=== PATIENT | female | born 1945 | race Caucasian/White ===

== ENCOUNTER 2021-05-07 13:43 | Outpatient (REF) | payer MEDICARE, OTHER, SELFPAY ==
[2021-05-09 10:57] LABS: COVID-19 RT-PCR UVMMC Result Negative (Negative)
== END 2021-05-07 13:44 | disposition home or self-care (01) ==
LOC: NCHCN 13:43
PROVIDERS: Visit Provider Physician Assistant Medical
DX: R30.0 Dysuria (principal); R05 Cough; Z20.822 Contact with and (suspected) exposure to COVID-19
CPT/HCPCS: U0003; 87086

== ENCOUNTER 2021-05-11 14:06 | Outpatient (REF) | payer MEDICARE, OTHER, SELFPAY | END 2021-05-11 14:07 | disposition home or self-care (01) | LOC: LBN 14:06 | PROVIDERS: Visit Provider Nurse Practitioner Family | DX: R30.0 Dysuria (principal) | CPT/HCPCS: 87086 ==

== ENCOUNTER 2021-06-25 15:22 | Outpatient (REF) | payer MEDICARE, OTHER, SELFPAY ==
[2021-06-25 19:32] LABS: Bilirubin Negative (Negative); Blood Moderate (Negative); Clarity Cloudy (Clear); Glucose Negative (Negative); Ketones Negative (Negative); Leukocyte Esterase Large (Negative); Nitrite Negative (Negative); Urobilinogen 0.2 EU/dL (Up TO 0.2); pH 6.5 (5-8)
[2021-06-25 19:57] LABS: Bacteria Many HPF (Negative); C & S Indicated? Yes; Casts Negative LPF (Negative); Crystals Negative HPF (Negative); Epithelial Cells Negative HPF (Negative); Mucus Negative (Negative); RBC >50 HPF (0-2); WBC >50 HPF (0-5)
== END 2021-06-25 15:23 | disposition home or self-care (01) ==
LOC: LBN 15:22
PROVIDERS: Visit Provider Nurse Practitioner
DX: R30.0 Dysuria (principal)
CPT/HCPCS: 81003; 81015; 87086

== ENCOUNTER 2021-06-30 18:26 | Outpatient (REF) | payer MEDICARE, OTHER, SELFPAY ==
[2021-06-30 19:28] LABS: Bilirubin Negative (Negative); Blood Small (Negative); Clarity Cloudy (Clear); Glucose Negative (Negative); Ketones Negative (Negative); Leukocyte Esterase Large (Negative); Nitrite Negative (Negative); Specific Gravity >= 1.030 (1.005-1.025); Urobilinogen 0.2 EU/dL (Up TO 0.2)
[2021-06-30 20:18] LABS: C & S Indicated? Yes; WBC >50 HPF (0-5)
[2021-07-02 11:56] LABS: COVID-19 RT-PCR UVMMC Result Negative (Negative)
== END 2021-06-30 18:27 | disposition home or self-care (01) ==
LOC: LBN 18:26
PROVIDERS: Visit Provider Nurse Practitioner Family
DX: N39.0 Urinary tract infection, site not specified (principal); Z20.822 Contact with and (suspected) exposure to COVID-19; J02.9 Acute pharyngitis, unspecified
CPT/HCPCS: 87077; U0003; U0005; 81003; 81015; 87086; 87186

== ENCOUNTER 2021-07-03 16:47 | Inpatient (IN) | payer MEDICARE, OTHER, SELFPAY ==
[2021-07-03] VITALS (32 sets, daily range): BP systolic 85–110; BP diastolic 33–63; PULSE 72–91; RESP 15–34; TEMP 37.2–37.6; O2SAT 93–96
--- NOTE | 2021-07-03 17:00 | RT.EKG_ITS ---
APPROVED REPORT Exam: Resting ECG Reason for Exam: SOB Patient Location: E HR:86 bpm ECG Measurements Heart Rate 86 AXIS MO 149 P 31 QRSd 99 QRS -48 QT 369 T 52 QTc 441 Conclusion Sinus rhythm...normal P axis, V-rate 60- 99 Probable left atrial enlargement...P >50mS, <-0.10mV V1 Left anterior fascicular block...axis(240,-40), init forces inf
--- NOTE | 2021-07-03 17:15 | DI.RAD_ITS ---
Exam(s) XR PORTABLE CHEST AP EXAM: XR PORTABLE CHEST AP CLINICAL HISTORY: cough TECHNIQUE: 2D digital imaging was performed. COMPARISON: CR ABD FLAT UPRIGHT PA CHEST from 04/24/2011 FINDINGS: LUNGS: No focal consolidation. Increased interstitial markings, chronic vs mild pulmonary edema. No pleural abnormality seen. HEART: Normal. MEDIASTINUM: Normal. BONES: Unremarkable. IMPRESSION: Increased interstitial markings, chronic vs. Mild pulmonary edema. DATA REPOSITORY: RADIATION DOSE DELIVERED:
[2021-07-03 17:41] LABS: HCT 40.1 % (36.0-46.0); HGB 12.7 g/dL (11.2-15.7); MCH 30.3 pg (27.0-33.0); MCHC 31.7 % (32.0-36.0); MCV 95.7 fL (80-95); MPV 10.2 fL (8.0-11.0); Nucleated RBC 0 %; Platelet Count 365 10^3/uL (130-400); RBC 4.19 10^6/uL (3.93-5.22); RDW 12.9 % (11.7-14.6); RDW-SD 45.4 fL; WBC 23.06 10^3/uL (4.4-10.8)
[2021-07-03 17:47] LABS: Source Nasal/Nares
--- NOTE | 2021-07-03 17:56 | W.ED.GENAD ---
Discharge Plan Disposition Patient Disposition: [facility] INPATIENT Condition: Serious Discharge Details Clinical Impression: Sepsis due to pneumonia Admit Date/Time: 07/03/21 19:13 Admit Provider: Soto Reyez Attending Provider: Soto Reyez Primary Care Provider: Va Nevarez ED Provider: Александр Elise Discharge Data Discharge Date/Time-TO BE ENTERED AT DEPARTURE: 07/03/21 20:03 Medical Decision Making This is a 75-year-old female presenting for fever at home, fatigue, malaise, shortness of breath, cough, who has been evaluated at urgent care, was negative for Covid, on both Macrobid and Keflex, not responding. Clinically she appears dry, initial blood pressure 110/52. She is mentating without difficulty. Is afebrile, O2 sats are 95% on room air. Examination most likely consistent with infectious process. Will initiate a septic work-up, give IV fluid, blood cultures, procalcitonin, lactate, etc. Will obtain Covid as well Repeat blood pressure of 96/35, establish a second IV. Ordered a second liter of IV fluid. Patient continues to mentate without difficulty. Laboratory values reveal leukocytosis, elevated lactate, negative for Covid Chest x-ray read by virtual radiology as prominence of the pulmonary interstitium which may be chronic versus pulmonary vascular congestion. Patient is a PUI, a single view chest x-ray was obtained. I did review the x-ray with Dr. Greenberg, question if there could be a retrocardiac infiltrate. Examination is not consistent with CHF. Given her age, multiple comorbidities, presentation, leukocytosis, elevated lactate, hypotension, questionable chest x-ray, I will discuss admission with our hospitalist team. Repeat blood pressure 96/42, patient continues to mentate without difficulty. No clear indication for pressors at the moment but will monitor carefully Case discussed with Dr. Reyez who is agreeable to admission, he will write orders Medical Records Medical records reviewed: Yes I reviewed the patient's medical records. Imaging Data Radiologic Study: Attestation: I personally reviewed and interpreted this imaging study as follows: Imaging: X-Ray Radiologist's impression: PROCEDURE INFORMATION: Exam: XR Chest Exam date and time: 07/03/2021 5:32 PM Age: 75 years old Clinical indication: Other: Cough TECHNIQUE: Imaging protocol: XR of the chest. Views: 1 view. COMPARISON: No relevant prior studies available. FINDINGS: Lungs: There is prominence of the pulmonary interstitium. Pleural spaces: Unremarkable. No pleural effusion. No pneumothorax. Heart/Mediastinum: Unremarkable cardiomediastinal silhouette. No cardiomegaly. Bones/joints: There has been cervical spine fusion. There is shortening of the right clavicle which may be postsurgical. IMPRESSION: Prominence of the pulmonary interstitium which may be chronic versus pulmonary vascular congestion. Thank you for allowing us to participate in the care of your patient. Lab Data Lab results reviewed: Yes I reviewed the patient's lab results. Labs: 07/03/21 19:00 Blood Blood Culture - Pending 07/03/21 17:52 Blood Blood Culture - Pending Laboratory Tests Range/Units 07/03/21 07/03/21 07/03/21 17:10 17:10 17:10 WBC (4.4-10.8) 10^3/uL RBC (3.93-5.22) 10^6/uL Hgb (11.2-15.7) g/dL Hct (36.0-46.0) % MCV (80-95) fL MCH (27.0-33.0) pg MCHC (32.0-36.0) % RDW (11.7-14.6) % Plt Count (130-400) 10^3/uL MPV (8.0-11.0) fL Immature Gran % Neutrophils % Band Neutrophils % Lymphocytes % Monocytes % Eosinophils % Basophils % Nucleated RBC % % Absolute Neutrophils (1.2-6.7) 10^3/uL Absolute Lymphocytes (1.2-3.4) 10^3/uL Absolute Monocytes (0.1-0.8) 10^3/uL Absolute Eosinophils (0.0-0.7) 10^3/uL Absolute Basophils (0.0-0.2) 10^3/uL RBC Morphology VBG Lactate (0.6-1.4) mmol/L 2.8 H* Sodium (136-145) mmol/L 138 Potassium (3.5-5.1) mmol/L 3.9 Chloride (98-107) mmol/L 102 Carbon Dioxide (21.0-32.0) mmol/L 24.4 Anion Gap (3-11) mmol/L 11.6 H BUN (7-18) mg/dL 18 Creatinine (0.55-1.02) mg/dL 1.6 H Estimated GFR/1.73 m2 (mL/min/1.73m2) 31.51 Glucose (74-106) mg/dL 148 H Calcium (8.5-10.1) mg/dL 9.1 Magnesium (1.8-2.4) mg/dL 1.6 L Total Bilirubin (0.2-1.0) mg/dL 0.4 AST (15-37) U/L 15 ALT (14-59) U/L 18 Alkaline Phosphatase (46-116) U/L 116 Troponin I (<0.06) ng/mL < 0.05 Total Protein (6.4-8.2) g/dL 7.7 Albumin (3.4-5.0) g/dL 2.9 L Procalcitonin ng/mL 15.4 COVID-19 Source SARS-CoV-2 (PCR) (Negative) Range/Units 07/03/21 07/03/21 17:10 17:45 WBC (4.4-10.8) 10^3/uL 23.06 H RBC (3.93-5.22) 10^6/uL 4.19 Hgb (11.2-15.7) g/dL 12.7 Hct (36.0-46.0) % 40.1 MCV (80-95) fL 95.7 H MCH (27.0-33.0) pg 30.3 MCHC (32.0-36.0) % 31.7 L RDW (11.7-14.6) % 12.9 Plt Count (130-400) 10^3/uL 365 MPV (8.0-11.0) fL 10.2 Immature Gran % See Differential Neutrophils % 87.0 Band Neutrophils % 9 Lymphocytes % 3.0 Monocytes % 1.0 Eosinophils % 0.0 Basophils % 0.0 Nucleated RBC % % 0 Absolute Neutrophils (1.2-6.7) 10^3/uL 22.14 H Absolute Lymphocytes (1.2-3.4) 10^3/uL 0.69 L Absolute Monocytes (0.1-0.8) 10^3/uL 0.23 Absolute Eosinophils (0.0-0.7) 10^3/uL 0.00 Absolute Basophils (0.0-0.2) 10^3/uL 0.00 RBC Morphology Normal VBG Lactate (0.6-1.4) mmol/L Sodium (136-145) mmol/L Potassium (3.5-5.1) mmol/L Chloride (98-107) mmol/L Carbon Dioxide (21.0-32.0) mmol/L Anion Gap (3-11) mmol/L BUN (7-18) mg/dL Creatinine (0.55-1.02) mg/dL Estimated GFR/1.73 m2 (mL/min/1.73m2) Glucose (74-106) mg/dL Calcium (8.5-10.1) mg/dL Magnesium (1.8-2.4) mg/dL Total Bilirubin (0.2-1.0) mg/dL AST (15-37) U/L ALT (14-59) U/L Alkaline Phosphatase (46-116) U/L Troponin I (<0.06) ng/mL Total Protein (6.4-8.2) g/dL Albumin (3.4-5.0) g/dL Procalcitonin ng/mL COVID-19 Source Nasal/Nares SARS-CoV-2 (PCR) (Negative) Negative ECG Data Attestation: I personally reviewed and interpreted this ECG (s) as follows: Interpretation: Please see official report by Dr. Greenberg. Sinus rhythm, ventricular rate of 86. No STEMI. HPI General Mode of arrival: ambulatory. Date/Time Provider Initiated Documentation: 07/03/21 17:12. Limitations to Documentation: no limitations. Information obtained by: patient. HPI Narrative: This is a 75-year-old female, past medical history of anxiety, depression, GERD, thyroid disease, hyperlipidemia, presenting to the ER from urgent care for shortness of breath, productive cough, general malaise, for 1 week. Patient has been seen at the urgent care 3 times, initially placed on Macrobid for UTI, then switched to Keflex, then developed thrush and started a lozenge. Subjective fever at home throughout the week. Denies headache, neck pain, chest pain, abdominal pain, nausea, vomiting, dysuria. Patient reports 1 episode of diarrhea yesterday. Patient has been fully vaccinated for Covid. Patient is taking her medications as directed without any relief. She denies recent illness or travel. She denies any pain or swelling in her calf Related Data Home Medications Medication Instructions Recorded Confirmed albuterol sulfate 90 mcg/actuation 2 puff INHALATION Q6H PRN #8.5 g 06/25/21 07/03/21 aerosol inhaler bupropion HCl 100 mg tablet 100 mg PO BID 06/25/21 07/03/21 cholecalciferol (vitamin D3) 125 125 mcg PO DAILY 06/25/21 07/03/21 mcg (5,000 unit) capsule cyanocobalamin (vitamin B-12) 5,000 mcg PO DAILY 06/25/21 07/03/21 5,000 mcg capsule duloxetine 60 mg capsule,delayed 60 mg PO DAILY 06/25/21 07/03/21 release famotidine 20 mg tablet 20 mg PO DAILY 06/25/21 07/03/21 gabapentin 300 mg capsule 600 mg PO BID cap 06/25/21 07/03/21 krill oil 500 mg capsule 500 mg PO DAILY cap 06/25/21 07/03/21 levothyroxine 88 mcg tablet 88 mcg PO DAILY 06/25/21 07/03/21 rosuvastatin 10 mg tablet 10 mg PO DAILY 06/25/21 07/03/21 tizanidine 2 mg capsule 2 mg PO QHS 06/25/21 07/03/21 cephalexin 500 mg capsule 500 mg PO BID #14 cap 06/30/21 07/03/21 clotrimazole 10 mg akua 10 mg MUCOUS MEMBRANE TID 10 Days 06/30/21 07/03/21 #30 tab Previous Rx's Medication Instructions Recorded albuterol sulfate 90 mcg/actuation 2 puff INHALATION Q6H PRN #8.5 g 06/25/21 aerosol inhaler cephalexin 500 mg capsule 500 mg PO BID #14 cap 06/30/21 clotrimazole 10 mg akua 10 mg MUCOUS MEMBRANE TID 10 Days 06/30/21 #30 tab Allergies Allergy/AdvReac Type Severity Reaction Status Date / Time Sulfa (Sulfonamide Allergy Verified 07/03/21 17:06 Antibiotics) General Stated Complaint: SOB FELIX: 2 Review of Systems Constitutional Constitutional: Reports fatigue, Reports fever(s) and Denies headache(s) ENT Ears, Nose, Mouth, and Throat: Denies headache(s) and Denies neck pain Cardiovascular Cardiovascular: Denies chest pain and Reports dyspnea Respiratory Respiratory: Reports cough and Reports dyspnea Gastrointestinal Gastrointestinal: Denies abdominal pain, Reports diarrhea, Denies nausea and Denies vomiting Genitourinary Genitourinary: Denies dysuria Musculoskeletal Musculoskeletal: Reports myalgias and Denies neck pain Integumentary/Breasts Skin/Breast: Denies rash Neurologic Neurologic: Denies headache(s) and Reports weakness (Generalized) Endocrine Endocrine: Reports fatigue PFSH Family History Mother , 83 Colon cancer Depression Hyperlipidemia Hypertension Father , 68 Alcohol abuse Hypertension Substance abuse Brother , 77 FH: prostate cancer Daughter No problems noted. Daughter Depression Maternal Grandfather , 62 Prostate cancer Paternal Grandfather , 81 No problems noted. Maternal Grandmother , 77 Heart disease Paternal Grandmother , 59 Hypertension Social History Smoking/Tobacco Use Status: Former Tobacco Use tobacco type: cigarettes Quit Date: 10/31/81 Tobacco: How many years used: 20 Second Hand Exposure: Yes Smoking risk assessment performed?: Yes Alcohol Intake: current Alcohol Intake frequency: a few times a month Alcohol type: beer, wine and hard liquor Drug use: Never Substance use type: does not use Household members: spouse and family Housing: apartment Communication Needs: None Do you need help understanding health information?: Always Pets and animals: Yes Pets and animals: cat(s) and dog(s) Sexually active: Yes Do you think of yourself as: straight/heterosexual Current gender identity: female What is your relationship status?: How often do you talk on the phone with friends or family?: twice per week How often do you get together with friends or relatives?: twice per week How often do you attend episcopalian or sabianist services?: decline to answer Do you belong to any clubs or organized social groups?: no Panel score (0-1 are the most socially isolated patients): 2 Dee Dee/Nondenominational: Buddhist Special dee dee needs: No Seatbelt use: always Drive intox or ride w/intox vibratory pile driver: No Do you feel safe at home: Yes Do you feel safe in your relationship?: Yes Exam Const General: cooperative and in distress mild Orientation: alert, awake and oriented x3 HENMT Head: normal to inspection, normocephalic and atraumatic Mouth: moist mucous membranes abnormal (dry) Throat: posterior oropharynx normal Eyes General: appearance normal, both eyes and all related structures Conjunctivae: conjunctivae normal Neck Neck: normal visual inspection, full ROM, no lymphadenopathy, no meningeal signs, trachea midline and supple Resp Effort & Inspection: normal respiratory effort and able to speak in complete sentences Auscultation: diminished lung sounds bilaterally in the lower lung hernandez and rhonchi lower bilaterally (Few, scattered) Cardio Rate: regular rate Rhythm: regular rhythm GI Inspection: normal to inspection Palpation: soft and nontender Auscultation: normal bowel sounds Back/Spine/Pelvis Back: no CVA tenderness and No back tenderness Skin General skin exam: no rashes or lesions noted Neuro General: patient alert, patient awake, moves all extremities and no focal motor deficits Cognition: normal cognition Speech: speech normal Motor: muscle tone normal throughout Sensory Exam: no sensory deficits noted Extrem General: normal to inspection, full ROM, capillary refill normal, no pedal edema and no calf tenderness Psych Appearance: grossly normal Mental Status: mental status grossly normal Course Vital Signs Vital signs: Vital Signs Temperature 37.2 C 07/03/21 16:59 Pulse 90 07/03/21 16:59 Respiratory Rate 22 07/03/21 16:59 Blood Pressure 110/52 L 07/03/21 16:59 Pulse Oximetry 95 07/03/21 16:59 Temperature 37.2 C 07/03/21 16:59 Temperature Source Temporal Artery Scan 07/03/21 16:59 Pulse 89 07/03/21 17:15 Pulse 87 07/03/21 17:20 Respiratory Rate 19 07/03/21 17:20 Respiratory Effort 07/03/21 17:10 Blood Pressure 102/56 L 07/03/21 17:15 Blood Pressure Mean 67 07/03/21 17:15 Blood Pressure Position Sitting 07/03/21 16:59 Pulse Oximetry 95 07/03/21 17:20 Oxygen Delivery Method Room Air 07/03/21 16:59 Oxygen Flow Rate 0 07/03/21 16:59 Pain Level 7 07/03/21 16:59 Lab/Test Results Lab/Test Results: 07/03/21 17:29 Blood Blood Culture - Pending 09/03/21 17:29 Blood Blood Culture - Pending Laboratory Tests Range/Units 07/03/21 07/03/21 17:10 17:45 WBC (4.4-10.8) 10^3/uL 23.06 H RBC (3.93-5.22) 10^6/uL 4.19 Hgb (11.2-15.7) g/dL 12.7 Hct (36.0-46.0) % 40.1 MCV (80-95) fL 95.7 H MCH (27.0-33.0) pg 30.3 MCHC (32.0-36.0) % 31.7 L RDW (11.7-14.6) % 12.9 Plt Count (130-400) 10^3/uL 365 MPV (8.0-11.0) fL 10.2 COVID-19 Source Nasal/Nares Critical Care Time Critical Care Time Critical Care Time: Yes Total Critical Care Time: 35 Attestation: Upon my evaluation, this patient had a high probability of clinically significant, life-threatening deterioration due to their current medical conditions, which required my direct attention, intervention, and personal management. I have personally provided greater than 30 minutes of critical care time exclusive of the time spend on separately billable procedures. Time includes obtaining a history, examining the patient, pulse oximetry, review of laboratory data, radiology results, discussion with consultants, arranging urgent treatment with development of a management plan, evaluation of patient's response to treatment, and monitoring for potential decompensation. Interventions were performed as documented above.
[2021-07-03] MEDS: Normal Saline 1,000 ML 1000 ML IV ×2 (18:00→19:05)
[2021-07-03 18:01] LABS: ALT 18 U/L (14-59); AST 15 U/L (15-37); Albumin 2.9 g/dL (3.4-5.0); Alkaline Phosphatase 116 U/L (46-116); Anion Gap 11.6 mmol/L (3-11); BUN 18 mg/dL (7-18); Bilirubin, Total 0.4 mg/dL (0.2-1.0); CO2 24.4 mmol/L (21.0-32.0); CREATININE 1.6 mg/dL (0.55-1.02); Calcium 9.1 mg/dL (8.5-10.1); Chloride 102 mmol/L (98-107); Estimated GFR 31.51 (mL/min/1.73m2); Glucose 148 mg/dL (74-106); Potassium 3.9 mmol/L (3.5-5.1); Sodium 138 mmol/L (136-145); Total Protein 7.7 g/dL (6.4-8.2)
[2021-07-03 18:04] LABS: Troponin I < 0.05 ng/mL (<0.06)
[2021-07-03 18:09] LABS: Magnesium 1.6 mg/dL (1.8-2.4)
[2021-07-03 18:16] LABS: Lactate 2.8 mmol/L (0.6-1.4)
[2021-07-03 18:23] LABS: Absolute Lymphocyte Count 0.69 10^3/uL (1.2-3.4); Absolute Monocyte Count 0.23 10^3/uL (0.1-0.8); Absolute Neutrophil Count 22.14 10^3/uL (1.2-6.7); Bands % 9
[2021-07-03 18:24] LABS: Diff Comment Manual Differential; RBC Morphology Normal
[2021-07-03] MEDS: MAGNESIUM SULFATE 1 GM/100 ML BAG IVPB (18:33)
[2021-07-03] MEDS: cefTRIAXone 1 GM/50 ML BAG IVPB (18:33)
[2021-07-03 18:42] LABS: Procalcitonin 15.4 ng/mL
[2021-07-03 18:47] LABS: COVID-19 PCR Negative (Negative)
--- NOTE | 2021-07-03 18:50 | DI.VRAD_ITS ---
PROCEDURE INFORMATION: Exam: XR Chest Exam date and time: 07/03/2021 5:32 PM Age: 75 years old Clinical indication: Other: Cough TECHNIQUE: Imaging protocol: XR of the chest. Views: 1 view. COMPARISON: No relevant prior studies available. FINDINGS: Lungs: There is prominence of the pulmonary interstitium. Pleural spaces: Unremarkable. No pleural effusion. No pneumothorax. Heart/Mediastinum: Unremarkable cardiomediastinal silhouette. No cardiomegaly. Bones/joints: There has been cervical spine fusion. There is shortening of the right clavicle which may be postsurgical. IMPRESSION: Prominence of the pulmonary interstitium which may be chronic versus pulmonary vascular congestion. Dictated and Authenticated by: Soto Roldan MD. Ordering:BOBBY Fountain MD
[2021-07-03] MEDS: AZITHROMYCIN 500 MG in Normal Saline 250 ML 250 MG IVPB (19:15)
--- NOTE | 2021-07-03 19:19 | HPE_ITS ---
Date of service: 07/03/21 Time of Service: 19:19 Assessment and Plan Assessment and plan (1) Sepsis syndrome: Start date: 07/03/21 Status: Acute Assessment and plan: This is a 75-year-old lady admitted to the ED for probable pneumonia as cause of her persistent symptoms of acute infection over the last week failing outpatient therapy. She had sepsis syndrome with fever, hypotension though she was not tachycardic and positive inflammatory test. The patient states that she feels better after IV hydration but continues with a dry cough with paroxysms. She will continue on IV hydration decreasing as patient advances diet and oral hydration. She will continue IV antibiotic therapy for probable pneumonia. She does have thrush and this will be treated with nystatin suspension swish and swallow rather than the clotrimazole troches which she finds distasteful. Overall she is appearing to respond to therapy. She is a full code. (2) Pneumonia: Start date: 07/03/21 Status: Acute Assessment and plan: Patient will continue on IV Rocephin and Zithromax with follow-up imaging as indicated. Consider echocardiogram when available with patient's chest x-ray revealing possible congestion though she is tolerating IV fluids presently. Patient will be given Tessalon Perles for coughing paroxysms. Qualifiers: Laterality: unspecified laterality Lung location: unspecified part of lung Pneumonia type: due to unspecified organism Qualified Code(s): J18.9 - Pneumonia, unspecified organism (3) Thrush: Start date: 07/03/21 Status: Acute Assessment and plan: Switch to nystatin swish and swallow. (4) COPD (chronic obstructive pulmonary disease): Status: Chronic Assessment and plan: Patient's history is unclear as to whether she has chronic rescue inhaler therapy but she has been prescribed this at least recently with bronchospasm associated with her acute respiratory infection. Clarification of history with be appropriate. Qualifiers: COPD type: chronic bronchitis Chronic bronchitis type: unspecified Qualified Code(s): J42 - Unspecified chronic bronchitis History of Present Illness History of Present Illness Chief Complaint: Dyspnea with cough and malaise Narrative: This is a 75-year-old female with previous history of depression with anxiety, GERD, acquired hypothyroidism and hyperlipidemia with possibility of previous COPD on rescue inhaler though this is been more of a recent problem according to patient. She presented to the ED after having been seen at the urgent care 3 times over the last week with fever, slightly productive but mostly dry cough and generalized malaise. She tested negative for Covid twice. She has been vaccinated. Evaluation in the ED did reveal a clean urinalysis w ith the patient being thought to have a UTI initially and placed on Macrobid and then switched to Keflex. She also was having thrush and on clotrimazole troches which she did not necessarily like because of the length of time they were set in her mouth. She continues to have a sore mouth which is worse when she does produce sputum. She has had no headache, neck pain or chest pain and has no GI complaints or complaints presently. She did state that she had one episode of loose stools the day prior to admission most likely secondary to recent antibiotic administration. Patient has had no recent illness or travel. She has had no peripheral edema or weight gain. She is obese. After administration of IV Rocephin and Zithromax in the ED with a question of pneumonia on chest x-ray though there were no focal consolidations with patient at least having persistent bronchitis, the patient was admitted for continued IV antibiotics therapy for failed outpatient therapy of her respiratory illness. She did have mild sepsis syndrome with low blood pressure along with her fever and elevated WBC with elevated lactate and procalcitonin. She was placed on IV hydration and this will be modified watching for fluid overload as the patient advances her diet. Follow-up labs in the morning. She is a full code. Review of Systems Narrative: 13 point review of systems otherwise unrevealing or stable. Patient is overweight. She denies chronic bronchospasm though she has a history of COPD and use of inhaler as needed [facility] Medical History COPD (chronic obstructive pulmonary disease) Depression with anxiety GERD (gastroesophageal reflux disease) Hyperlipidemia Hypothyroidism (acquired) Surgical History History of tonsillectomy and adenoidectomy History of total hip arthroplasty Left S/P ORIF (open reduction internal fixation) fracture Left femur shaft S/P total knee arthroplasty Left Status post appendectomy Family History Mother , 83 Colon cancer Depression Hyperlipidemia Hypertension Father , 68 Alcohol abuse Hypertension Substance abuse Brother , 77 FH: prostate cancer Daughter No problems noted. Daughter Depression Maternal Grandfather , 62 Prostate cancer Paternal Grandfather , 81 No problems noted. Maternal Grandmother , 77 Heart disease Paternal Grandmother , 59 Hypertension Social History Smoking/Tobacco Use Status: Former Tobacco Use tobacco type: cigarettes Quit Date: 10/31/81 Tobacco: How many years used: 20 Second Hand Exposure: Yes Smoking risk assessment performed?: Yes Alcohol Intake: current Alcohol Intake frequency: a few times a month Alcohol type: beer, wine and hard liquor Drug use: Never Substance use type: does not use Household members: spouse and family Housing: apartment Communication Needs: None Do you need help understanding health information?: Always Pets and animals: Yes Pets and animals: cat(s) and dog(s) Sexually active: Yes Do you think of yourself as: straight/heterosexual Current gender identity: female What is your relationship status?: How often do you talk on the phone with friends or family?: twice per week How often do you get together with friends or relatives?: twice per week How often do you attend jew or congregational services?: decline to answer Do you belong to any clubs or organized social groups?: no Panel score (0-1 are the most socially isolated patients): 2 Dee Dee/Restorationist: Orthodox Special dee dee needs: No Seatbelt use: always Drive intox or ride 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: No Do you feel safe at home: Yes Do you feel safe in your relationship?: Yes Meds Allergies and Home Medications Allergies Allergy/AdvReac Type Severity Reaction Status Date / Time Sulfa (Sulfonamide Allergy Verified 07/03/21 17:06 Antibiotics) Home Medications Medication Instructions Recorded Confirmed Type albuterol sulfate 90 mcg/actuation 2 puff INHALATION Q6H PRN #8.5 g 06/25/21 07/03/21 Rx aerosol inhaler bupropion HCl 100 mg tablet 100 mg PO BID 06/25/21 07/03/21 History cholecalciferol (vitamin D3) 125 125 mcg PO DAILY 06/25/21 07/03/21 History mcg (5,000 unit) capsule cyanocobalamin (vitamin B-12) 5,000 mcg PO DAILY 06/25/21 07/03/21 History 5,000 mcg capsule duloxetine 60 mg capsule,delayed 60 mg PO DAILY 06/25/21 07/03/21 History release famotidine 20 mg tablet 20 mg PO DAILY 06/25/21 07/03/21 History gabapentin 300 mg capsule 600 mg PO BID cap 06/25/21 07/03/21 History krill oil 500 mg capsule 500 mg PO DAILY cap 06/25/21 07/03/21 History levothyroxine 88 mcg tablet 88 mcg PO DAILY 06/25/21 07/03/21 History rosuvastatin 10 mg tablet 10 mg PO DAILY 06/25/21 07/03/21 History tizanidine 2 mg capsule 2 mg PO QHS 06/25/21 07/03/21 History cephalexin 500 mg capsule 500 mg PO BID #14 cap 06/30/21 07/03/21 Rx clotrimazole 10 mg akua 10 mg MUCOUS MEMBRANE TID 10 Days 06/30/21 07/03/21 Rx #30 tab Exam Narrative Exam Narrative: General: Patient appears older than stated age, moderate distress from dry cough, alert and oriented x3. HEENT: Normocephalic, thinning willoughby hair, face with coarsened features, eyes with pupils equal and reactive light symmetrically, extraocular movement intact and sclera anicteric. Oropharynx with dry mucosa and white mucosal lesions consistent with thrush. Neck: Supple without JVD. Back: Stooped posture without CVA tenderness. Lungs: Decreased aeration diffusely with increased expiratory phase especially with cough, diffuse coarse crackles and rhonchi with cough and sparse expiratory wheeze. No focalizing rales. No egophony or dullness to percussion. Breast: Exam deferred. Heart: Regular rate and rhythm with systolic ejection murmur left sternal border. No gallops or rubs. Abdomen: Obese contour, soft and nontender to palpation with no palpable hepatosplenomegaly. Genitalia/rectal: Exam deferred. Extremities: Without clubbing, cyanosis or pitting edema. Capillary refill is fair with peripheral pulses intact. No joint swelling with fair range of motion. Skin: Warm, moist over the back and normal color. Fair turgor. Rough texture. Neuro: Cranial nerves II through XII grossly intact, no focalizing motor deficits. Psych: Slightly anxious with acute illness but normal mood. No abnormal thought processes. Remote and recent memory intact. Results Imaging Imaging Studies: Exam: XR Chest Exam date and time: 07/03/2021 5:32 PM Age: 75 years old Clinical indication: Other: Cough TECHNIQUE: Imaging protocol: XR of the chest. Views: 1 view. COMPARISON: No relevant prior studies available. FINDINGS: Lungs: There is prominence of the pulmonary interstitium. Pleural spaces: Unremarkable. No pleural effusion. No pneumothorax. Heart/Mediastinum: Unremarkable cardiomediastinal silhouette. No cardiomegaly. Bones/joints: There has been cervical spine fusion. There is shortening of the right clavicle which may be postsurgical. IMPRESSION: Prominence of the pulmonary interstitium which may be chronic versus pulmonary vascular congestion. Dictated and Authenticated by: Soto Roldan MD. Labs Result diagrams: 07/04/21 06:57 07/03/21 17:10 Labs: Laboratory Results - last 24 hr 07/03/21 07/03/21 07/03/21 17:10 17:10 17:10 WBC RBC Hgb Hct MCV MCH MCHC RDW Plt Count MPV Immature Gran % Neutrophils % Band Neutrophils % Lymphocytes % Monocytes % Eosinophils % Basophils % Nucleated RBC % Absolute Neutrophils Absolute Lymphocytes Absolute Monocytes Absolute Eosinophils Absolute Basophils RBC Morphology VBG Lactate 2.8 H* Sodium 138 Potassium 3.9 Chloride 102 Carbon Dioxide 24.4 Anion Gap 11.6 H BUN 18 Creatinine 1.6 H Estimated GFR/1.73 m2 31.51 Glucose 148 H Calcium 9.1 Magnesium 1.6 L Total Bilirubin 0.4 AST 15 ALT 18 Alkaline Phosphatase 116 Troponin I < 0.05 Total Protein 7.7 Albumin 2.9 L Procalcitonin 15.4 COVID-19 Source SARS-CoV-2 (PCR) 07/03/21 07/03/21 17:10 17:45 WBC 23.06 H RBC 4.19 Hgb 12.7 Hct 40.1 MCV 95.7 H MCH 30.3 MCHC 31.7 L RDW 12.9 Plt Count 365 MPV 10.2 Immature Gran % See Differential Neutrophils % 87.0 Band Neutrophils % 9 Lymphocytes % 3.0 Monocytes % 1.0 Eosinophils % 0.0 Basophils % 0.0 Nucleated RBC % 0 Absolute Neutrophils 22.14 H Absolute Lymphocytes 0.69 L Absolute Monocytes 0.23 Absolute Eosinophils 0.00 Absolute Basophils 0.00 RBC Morphology Normal VBG Lactate Sodium Potassium Chloride Carbon Dioxide Anion Gap BUN Creatinine Estimated GFR/1.73 m2 Glucose Calcium Magnesium Total Bilirubin AST ALT Alkaline Phosphatase Troponin I Total Protein Albumin Procalcitonin COVID-19 Source Nasal/Nares SARS-CoV-2 (PCR) Negative Last Vital Signs Temp 37.2 C 07/03/21 16:59 Pulse 79 07/03/21 18:46 Resp 16 07/03/21 18:50 BP 91/33 L 07/03/21 18:46 Pulse Ox 95 07/03/21 18:10
[2021-07-03] MEDS: buPROPion 100 MG TAB PO (21:14)
[2021-07-03] MEDS: Normal Saline 1,000 ML 125 ML IV (21:14)
[2021-07-03] MEDS: Gabapentin 300 MG CAP 600 MG PO (21:14)
[2021-07-03] MEDS: Heparin 5,000 UNITS/ML VIAL 5000 UNITS SC (21:15)
[2021-07-03] MEDS: Pantoprazole 40 MG VIAL IVP (21:15)
[2021-07-03 22:44] LABS: TSH (W/Ref FT4) 1.95 uIU/mL (0.36-3.74)
[2021-07-04] VITALS (10 sets, daily range): BP systolic 98–119; BP diastolic 50–76; PULSE 71–79; RESP 16–20; TEMP 36–37.4; O2SAT 91–98
[2021-07-04] MEDS: Heparin 5,000 UNITS/ML VIAL 5000 UNITS SC (04:19)
[2021-07-04] MEDS: Normal Saline 1,000 ML 125 ML IV (04:21)
[2021-07-04 04:44] LABS: Bilirubin Negative (Negative); Blood Negative (Negative); Clarity Clear (Clear); Glucose Negative (Negative); Ketones Negative (Negative); Leukocyte Esterase Moderate (Negative); Nitrite Negative (Negative); Urobilinogen 0.2 EU/dL (Up TO 0.2)
[2021-07-04 04:54] LABS: Bacteria Few HPF (Negative); Casts Negative LPF (Negative); Crystals Negative HPF (Negative); Epithelial Cells Many HPF (Negative); Mucus Negative (Negative); WBC 20-50 HPF (0-5)
[2021-07-04 04:55] LABS: C & S Indicated? No/Sq. Contamination
[2021-07-04] MEDS: Levothyroxine 88 MCG TAB PO (05:56)
[2021-07-04 07:04] LABS: Lactate 0.6 mmol/L (0.6-1.4)
[2021-07-04 07:09] LABS: Abs Immature Grans 0.06 10^3/uL (0.0-0.06); Absolute Basophil Count 0.02 10^3/uL (0.0-0.2); Absolute Eosinophil Count 0.51 10^3/uL (0.0-0.7); Absolute Lymphocyte Count 1.75 10^3/uL (1.2-3.4); Absolute Monocyte Count 0.58 10^3/uL (0.1-0.8); Absolute Neutrophil Count 9.16 10^3/uL (1.2-6.7); Basophils % 0.2; Eosinophils % 4.2; HCT 30.5 % (36.0-46.0); HGB 9.7 g/dL (11.2-15.7); Immature Grans % 0.5; Lymphocytes % 14.5; MCH 30.3 pg (27.0-33.0); MCHC 31.8 % (32.0-36.0); MCV 95.3 fL (80-95); MPV 9.9 fL (8.0-11.0); Monocytes % 4.8; Neutrophils % 75.8; Nucleated RBC 0 %; Platelet Count 267 10^3/uL (130-400); WBC 12.08 10^3/uL (4.4-10.8)
[2021-07-04 07:25] LABS: ALT 15 U/L (14-59); AST 12 U/L (15-37); Albumin 2.1 g/dL (3.4-5.0); Alkaline Phosphatase 89 U/L (46-116); Anion Gap 9.2 mmol/L (3-11); BUN 15 mg/dL (7-18); Bilirubin, Total 0.3 mg/dL (0.2-1.0); CO2 23.8 mmol/L (21.0-32.0); CREATININE 1.2 mg/dL (0.55-1.02); Calcium 8.1 mg/dL (8.5-10.1); Chloride 111 mmol/L (98-107); Estimated GFR 43.91 (mL/min/1.73m2); Glucose 84 mg/dL (74-106); Potassium 3.7 mmol/L (3.5-5.1); Sodium 144 mmol/L (136-145); Total Protein 5.7 g/dL (6.4-8.2)
[2021-07-04] MEDS: buPROPion 100 MG TAB PO ×2 (08:40→19:36)
[2021-07-04] MEDS: Rosuvastatin 10 MG TAB PO (08:40)
[2021-07-04] MEDS: Gabapentin 300 MG CAP 600 MG PO ×2 (08:41→19:35)
[2021-07-04] MEDS: DULoxetine 30 MG CAP 60 MG PO (08:41)
[2021-07-04] MEDS: Benzonatate 200 MG CAP PO ×3 (08:41→19:36)
[2021-07-04] MEDS: Pantoprazole 40 MG VIAL IVP (08:42)
[2021-07-04] MEDS: Normal Saline Flush 10 ML SYR ×2 (08:42→08:44)
[2021-07-04] MEDS: Nystatin 500000 UNITS/5 ML SUSP 5ML CUP 1000000 UNITS PO ×3 (08:42→19:36)
--- NOTE | 2021-07-04 09:13 | INITIAL_ITS ---
- If Service Date Differs Date of service: 07/04/21 Time of Service: 09:13 Care Management Initial Assess REASON FOR HOSPITALIZATION:: Sepsis syndrome PAST MEDICAL HISTORY/PAST SURGICAL HISTORY:: Medical History . COPD (chronic obstructive pulmonary disease). Depression with anxiety. GERD (gastroesophageal reflux disease). Hyperlipidemia. Hypothyroidism (acquired). Surgical History PREVIOUS FUNCTIONAL STATUS/SOCIAL/FAMILY SUPPORTS:: Tasia and her live in [place], [place] with their daughter Faviola and her . They relocated in March from [place]. Tasia's has spinal stenosis , neuropathy and poor balance and has difficulty getting around. Tasia herself has some ambulatory issues. 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 Tasia and her have another daughter in [place] and 6 grandchildren.She receives no community services at this time. CURRENT FUNCTIONAL STATUS:: Tasia was sitting up in bed when CM met with her. She was pale in appearance but pleasant and engaged well with CM. Tasia talked about her family and her difficulties with her . She also shared that he was in the [employer] for over 35 years and has a good pension, as does she, as well as [facility] through the [place]. She is grateful for the excellent coverage it provides. ADVANCE DIRECTIVES:: none on file at [facility] Has patient been provided with info about the portal/API?: Yes Did the patient sign up for the portal?: Yes (previously) CODE STATUS:: Full Code INSURANCE COVERAGE / FINANCIAL ISSUES:: Medicare. [facility] CURRENT HOME/COMMUNITY SERVICES/EQUIPMENT:: none PRIMARY CARE PHYSICIAN:: Va Nevarez POTENTIAL DISCHARGE NEEDS:: Follow up with PCP and plan of care PATIENT/FAMILY EDUCATION NEEDS:: Review of discharge instructions, medications, limitations, activity, follow up plan, Ask Me Three TRANSPORTATION:: via private vehicle with family PLAN:: Tasia will likely discharge to home with no new services. She will follow up with her PCP and plan of care and transport with family. CM will continue to follow and address any discharge planning concerns.
[2021-07-04] MEDS: Acetaminophen 325 MG TAB 650 MG PO (09:51)
[2021-07-04 10:15] LABS: HCT 31.6 % (36.0-46.0); HGB 9.9 g/dL (11.2-15.7)
[2021-07-04] MEDS: Lactated Ringers 1,000 ML 85 ML IV (11:09)
[2021-07-04] MEDS: Nystatin POWDER 60 GM JAR TP ×2 (15:49→19:36)
[2021-07-04] MEDS: Diclofenac 1% Gel 100 GM TUBE TP ×2 (15:49→19:37)
[2021-07-04 16:21] LABS: HCT 30.8 % (36.0-46.0); HGB 9.6 g/dL (11.2-15.7)
--- NOTE | 2021-07-04 16:54 | W.PM.PROGNOT ---
Date of Service Date of service: 07/04/21 Time of Service: 16:55 Assessment and Plan Assessment and plan (1) Pneumonia: Status: Acute Assessment and plan: check mycoplasma and legionella studies along w/ urine Strep antigen; treat w/ Rocephin and azithromycin. change iv azithromycin to oral. stop iv fluids as she is tolerating po fluids and she has elevated pro BNP along w/ diffuse bilateral B lines. I suspect she has diastolic HF given her LVH. She also may have chronically elevated BNP from her COPD. Nevertheless, she is no longer hypotensive and her renal function is recovering (creatinine down to 1.2 from 1.6 last night). Qualifiers: Pneumonia type: due to unspecified organism Laterality: unspecified laterality Lung location: unspecified part of lung Qualified Code(s): J18.9 - Pneumonia, unspecified organism (2) Sepsis due to pneumonia: Status: Acute Assessment and plan: her septic picture has improved w/ iv antibiotics and iv fluids. stop iv fluids now but continue broad antibiotics coverage. try to get sputum culture and atypical studies given her interstitial pneumonitis pattern. (3) COPD (chronic obstructive pulmonary disease): Status: Chronic Assessment and plan: will place her on scheduled combivent and cont. prn albuterol. also add prednisone 40 mg daily Qualifiers: COPD type: chronic bronchitis Chronic bronchitis type: unspecified Qualified Code(s): J42 - Unspecified chronic bronchitis (4) Thrush: Status: Acute Assessment and plan: cont. nystatin swish and swallow Subjective Subjective Interval history since last seen: Patient admitted last night d/t nonproductive cough, dyspnea and low grade fever (she was seen 3 x over past week in urgent care center and was treated for UTI w/ Macrobid then switched to Keflex). She now has thrush and is taking clotrimazole akua which we have switched to nystatin swish and swallow. CXR last night did not show any focal segmental or lobar consolidations but demonstrated increased bilateral diffuse interstitial markings consistent w/ either CHF or interstitial pneumonitis. On evaluation last night she demonstrated early markers for sepsis including mild hypotension, leukocytosis (23,000 now down to 12,000), elevated blood lactate 2.8 now down to 0.6, and high procalcitonin 15.4. She is afebrile but still has harsh cough which is mostly nonproductive although she says that it had been productive of mild yellow mucous. Exam Narrative Exam Narrative: Obese, pleasant white female who is lying in bed in semifowler position, alert and oriented x 3 HEENT: Lungs: diffuse expiratory wheezing and bibasilar rales Heart: RRR, no appreciable murmur or rub Abdomen: obese, soft, nontender Lower extremities: no pitting edema and no calf tenderness, no cyanosis. Objective Last Vital Signs Temp 36.0 C L 07/04/21 16:19 Pulse 71 07/04/21 16:19 Resp 20 07/04/21 16:19 BP 113/76 07/04/21 16:19 Pulse Ox 93 07/04/21 16:19 Laboratory Results - last 24 hr 07/03/21 07/03/21 07/03/21 17:10 17:10 17:10 WBC RBC Hgb Hct MCV MCH MCHC RDW RDW Std Deviation Plt Count MPV Abs Immat Gran (auto) Immature Gran % Neutrophils % Band Neutrophils % Lymphocytes % Atypical Lymphs % Monocytes % Eosinophils % Basophils % Metamyelocytes % Myelocytes % Promyelocytes % Other Cells % Nucleated RBC % Absolute Neutrophils Absolute Lymphocytes Absolute Monocytes Absolute Eosinophils Absolute Basophils RBC Morphology Polychromasia Hypochromasia Poikilocytosis Basophilic Stippling Anisocytosis Microcytosis Macrocytosis Spherocytes Tear Drop Cells Ovalocytes Stomatocytes [place] Bodies [place] Cells/Echinocytes Acanthocytes (Spur) Schistocytes VBG Lactate 2.8 H* Sodium 138 Potassium 3.9 Chloride 102 Carbon Dioxide 24.4 Anion Gap 11.6 H BUN 18 Creatinine 1.6 H Estimated GFR/1.73 m2 31.51 Glucose 148 H Calcium 9.1 Magnesium 1.6 L Total Bilirubin 0.4 AST 15 ALT 18 Alkaline Phosphatase 116 Troponin I < 0.05 Total Protein 7.7 Albumin 2.9 L Procalcitonin 15.4 TSH Urine Color Urine Clarity Urine pH Ur Specific [place] Urine Protein Urine Ketones Urine Blood Urine Nitrite Urine Bilirubin Urine Urobilinogen Ur Leukocyte Esterase Urine RBC Urine WBC Ur Epithelial Cells Urine Crystals Urine Bacteria Urine Casts Urine Mucus Ur Culture Indicated? Urine Glucose COVID-19 Source SARS-CoV-2 (PCR) 07/03/21 07/03/21 07/03/21 17:10 17:45 19:17 WBC 23.06 H RBC 4.19 Hgb 12.7 Hct 40.1 MCV 95.7 H MCH 30.3 MCHC 31.7 L RDW 12.9 RDW Std Deviation Plt Count 365 MPV 10.2 Abs Immat Gran (auto) Immature Gran % See Differential Neutrophils % 87.0 Band Neutrophils % 9 Lymphocytes % 3.0 Atypical Lymphs % Monocytes % 1.0 Eosinophils % 0.0 Basophils % 0.0 Metamyelocytes % Myelocytes % Promyelocytes % Other Cells % Nucleated RBC % 0 Absolute Neutrophils 22.14 H Absolute Lymphocytes 0.69 L Absolute Monocytes 0.23 Absolute Eosinophils 0.00 Absolute Basophils 0.00 RBC Morphology Normal Polychromasia Hypochromasia Poikilocytosis Basophilic Stippling Anisocytosis Microcytosis Macrocytosis Spherocytes Tear Drop Cells Ovalocytes Stomatocytes [place] Bodies Ta Cells/Echinocytes Acanthocytes (Spur) Schistocytes VBG Lactate Sodium Potassium Chloride Carbon Dioxide Anion Gap BUN Creatinine Estimated GFR/1.73 m2 Glucose Calcium Magnesium Total Bilirubin AST ALT Alkaline Phosphatase Troponin I Total Protein Albumin Procalcitonin TSH 1.95 Urine Color Urine Clarity Urine pH Ur Specific [place] Urine Protein Urine Ketones Urine Blood Urine Nitrite Urine Bilirubin Urine Urobilinogen Ur Leukocyte Esterase Urine RBC Urine WBC Ur Epithelial Cells Urine Crystals Urine Bacteria Urine Casts Urine Mucus Ur Culture Indicated? Urine Glucose COVID-19 Source Nasal/Nares SARS-CoV-2 (PCR) Negative 07/04/21 07/04/21 07/04/21 04:30 06:57 06:57 WBC 12.08 H D RBC 3.20 L Hgb 9.7 L D Hct 30.5 L D MCV 95.3 H MCH 30.3 MCHC 31.8 L RDW 13.0 RDW Std Deviation Plt Count 267 MPV 9.9 Abs Immat Gran (auto) Immature Gran % 0.5 Neutrophils % 75.8 Band Neutrophils % Lymphocytes % 14.5 Atypical Lymphs % Monocytes % 4.8 Eosinophils % 4.2 Basophils % 0.2 Metamyelocytes % Myelocytes % Promyelocytes % Other Cells % Nucleated RBC % 0 Absolute Neutrophils 9.16 H Absolute Lymphocytes 1.75 Absolute Monocytes 0.58 Absolute Eosinophils 0.51 Absolute Basophils 0.02 RBC Morphology Polychromasia Hypochromasia Poikilocytosis Basophilic Stippling Anisocytosis Microcytosis Macrocytosis Spherocytes Tear Drop Cells Ovalocytes Stomatocytes [place] Bodies [place] Cells/Echinocytes Acanthocytes (Spur) Schistocytes VBG Lactate Sodium 144 Potassium 3.7 Chloride 111 H Carbon Dioxide 23.8 Anion Gap 9.2 BUN 15 Creatinine 1.2 H Estimated GFR/1.73 m2 43.91 Glucose 84 D Calcium 8.1 L Magnesium Total Bilirubin 0.3 AST 12 L ALT 15 Alkaline Phosphatase 89 Troponin I Total Protein 5.7 L Albumin 2.1 L Procalcitonin TSH Urine Color Yellow Urine Clarity Clear Urine pH 6.0 Ur Specific [place] 1.010 Urine Protein Negative Urine Ketones Negative Urine Blood Negative Urine Nitrite Negative Urine Bilirubin Negative Urine Urobilinogen 0.2 Ur Leukocyte Esterase Moderate H Urine RBC 3-5 H Urine WBC 20-50 H Ur Epithelial Cells Many Urine Crystals Negative Urine Bacteria Few Urine Casts Negative Urine Mucus Negative Ur Culture Indicated? No/Sq. Contamination Urine Glucose Negative COVID-19 Source SARS-CoV-2 (PCR) 07/04/21 07/04/21 07/04/21 06:57 10:07 16:00 WBC RBC Hgb 9.9 L 9.6 L Hct 31.6 L 30.8 L MCV MCH MCHC RDW RDW Std Deviation Plt Count MPV Abs Immat Gran (auto) Immature Gran % Neutrophils % Band Neutrophils % Lymphocytes % Atypical Lymphs % Monocytes % Eosinophils % Basophils % Metamyelocytes % Myelocytes % Promyelocytes % Other Cells % Nucleated RBC % Absolute Neutrophils Absolute Lymphocytes Absolute Monocytes Absolute Eosinophils Absolute Basophils RBC Morphology Polychromasia Hypochromasia Poikilocytosis Basophilic Stippling Anisocytosis Microcytosis Macrocytosis Spherocytes Tear Drop Cells Ovalocytes Stomatocytes [place] Bodies Ta Cells/Echinocytes Acanthocytes (Spur) Schistocytes VBG Lactate 0.6 Sodium Potassium Chloride Carbon Dioxide Anion Gap BUN Creatinine Estimated GFR/1.73 m2 Glucose Calcium Magnesium Total Bilirubin AST ALT Alkaline Phosphatase Troponin I Total Protein Albumin Procalcitonin TSH Urine Color Urine Clarity Urine pH Ur Specific [place] Urine Protein Urine Ketones Urine Blood Urine Nitrite Urine Bilirubin Urine Urobilinogen Ur Leukocyte Esterase Urine RBC Urine WBC Ur Epithelial Cells Urine Crystals Urine Bacteria Urine Casts Urine Mucus Ur Culture Indicated? Urine Glucose COVID-19 Source SARS-CoV-2 (PCR) 07/04/21 Unknown WBC Cancelled RBC Cancelled Hgb Hct MCV Cancelled MCH Cancelled MCHC Cancelled RDW Cancelled RDW Std Deviation Cancelled Plt Count Cancelled MPV Cancelled Abs Immat Gran (auto) Cancelled Immature Gran % Cancelled Neutrophils % Cancelled Band Neutrophils % Cancelled Lymphocytes % Cancelled Atypical Lymphs % Cancelled Monocytes % Cancelled Eosinophils % Cancelled Basophils % Cancelled Metamyelocytes % Cancelled Myelocytes % Cancelled Promyelocytes % Cancelled Other Cells % Cancelled Nucleated RBC % Cancelled Absolute Neutrophils Cancelled Absolute Lymphocytes Cancelled Absolute Monocytes Cancelled Absolute Eosinophils Cancelled Absolute Basophils Cancelled RBC Morphology Cancelled Polychromasia Cancelled Hypochromasia Cancelled Poikilocytosis Cancelled Basophilic Stippling Cancelled Anisocytosis Cancelled Microcytosis Cancelled Macrocytosis Cancelled Spherocytes Cancelled Tear Drop Cells Cancelled Ovalocytes Cancelled Stomatocytes Cancelled [place] Bodies Cancelled [place] Cells/Echinocytes Cancelled Acanthocytes (Spur) Cancelled Schistocytes Cancelled VBG Lactate Sodium Potassium Chloride Carbon Dioxide Anion Gap BUN Creatinine Estimated GFR/1.73 m2 Glucose Calcium Magnesium Total Bilirubin AST ALT Alkaline Phosphatase Troponin I Total Protein Albumin Procalcitonin TSH Urine Color Urine Clarity Urine pH Ur Specific [place] Urine Protein Urine Ketones Urine Blood Urine Nitrite Urine Bilirubin Urine Urobilinogen Ur Leukocyte Esterase Urine RBC Urine WBC Ur Epithelial Cells Urine Crystals Urine Bacteria Urine Casts Urine Mucus Ur Culture Indicated? Urine Glucose COVID-19 Source SARS-CoV-2 (PCR) Reviewed Pertinent PMH: Yes Objective Narrative Objective Narrative: POCUS exam of lungs reveals diffuse bilateral B lines in all lung hernandez along w/ small left sided pleural effusion. Limited echo POCUS reveals normal LV systolic function w/ LVH and normal sized RV w/ normal RV function
[2021-07-04] MEDS: Normal Saline 500 ML 100 ML IVPB (18:01)
[2021-07-04] MEDS: cefTRIAXone 1 GM/50 ML BAG IVPB (18:01)
[2021-07-04 18:41] LABS: NT-proBNP 1262 pg/mL (<300)
[2021-07-04] MEDS: Furosemide 20 MG/2 ML VIAL IVP (19:36)
[2021-07-04] MEDS: predniSONE 20 MG TAB 40 MG PO (19:36)
[2021-07-04] MEDS: Normal Saline Flush 10 ML SYR IVP (19:56)
[2021-07-04] MEDS: Albuterol HFA 8 GM 60 PUFF INH IH (20:15)
[2021-07-04] MEDS: Ipratropium/Albuterol 4 GM 120 PUFF INH IH (21:34)
[2021-07-05] VITALS (7 sets, daily range): BP systolic 107–120; BP diastolic 56–70; PULSE 74–85; RESP 17–20; TEMP 36.5–37.5; O2SAT 92–93
[2021-07-05] MEDS: Levothyroxine 88 MCG TAB PO (05:33)
[2021-07-05 07:38] LABS: Abs Immature Grans 0.06 10^3/uL (0.0-0.06); Absolute Basophil Count 0.01 10^3/uL (0.0-0.2); Absolute Eosinophil Count 0.01 10^3/uL (0.0-0.7); Absolute Lymphocyte Count 1.05 10^3/uL (1.2-3.4); Absolute Monocyte Count 0.12 10^3/uL (0.1-0.8); Basophils % 0.1; Eosinophils % 0.1; HCT 34.1 % (36.0-46.0); HGB 10.7 g/dL (11.2-15.7); Immature Grans % 0.7; Lymphocytes % 13.1; MCH 29.9 pg (27.0-33.0); MCHC 31.4 % (32.0-36.0); MCV 95.3 fL (80-95); MPV 10.2 fL (8.0-11.0); Monocytes % 1.5; Neutrophils % 84.5; Nucleated RBC 0 %; Platelet Count 316 10^3/uL (130-400); RBC 3.58 10^6/uL (3.93-5.22); RDW 12.6 % (11.7-14.6); RDW-SD 44.4 fL; WBC 8.02 10^3/uL (4.4-10.8)
[2021-07-05 07:47] LABS: Absolute Neutrophil Count 6.78 10^3/uL (1.2-6.7)
[2021-07-05 07:48] LABS: Anion Gap 8.2 mmol/L (3-11); BUN 15 mg/dL (7-18); CO2 25.8 mmol/L (21.0-32.0); CREATININE 1.1 mg/dL (0.55-1.02); Chloride 108 mmol/L (98-107); Estimated GFR 48.55 (mL/min/1.73m2); Glucose 135 mg/dL (74-106); Potassium 3.8 mmol/L (3.5-5.1); Sodium 142 mmol/L (136-145)
[2021-07-05] MEDS: Normal Saline Flush 10 ML SYR IVP ×2 (08:08→20:04)
[2021-07-05] MEDS: Pantoprazole 40 MG VIAL IVP (08:08)
[2021-07-05] MEDS: Nystatin 500000 UNITS/5 ML SUSP 5ML CUP 1000000 UNITS PO ×3 (08:08→20:02)
[2021-07-05] MEDS: buPROPion 100 MG TAB PO ×2 (08:09→20:04)
[2021-07-05] MEDS: Rosuvastatin 10 MG TAB PO (08:09)
[2021-07-05] MEDS: Gabapentin 300 MG CAP 600 MG PO ×2 (08:09→20:05)
[2021-07-05] MEDS: Benzonatate 200 MG CAP PO ×3 (08:09→20:04)
[2021-07-05] MEDS: DULoxetine 30 MG CAP 60 MG PO (08:09)
[2021-07-05] MEDS: predniSONE 20 MG TAB 40 MG PO (08:10)
[2021-07-05] MEDS: Diclofenac 1% Gel 100 GM TUBE TP ×4 (08:12→20:03)
[2021-07-05] MEDS: Nystatin POWDER 60 GM JAR TP ×3 (08:12→20:02)
[2021-07-05] MEDS: Ipratropium/Albuterol 4 GM 120 PUFF INH IH ×3 (08:30→20:03)
[2021-07-05] MEDS: Azithromycin 250 MG TAB PO (09:55)
--- NOTE | 2021-07-05 17:05 | PGE_ITS ---
Date of Service Date of service: 07/05/21 Time of Service: 17:05 Assessment and Plan Assessment and plan (1) Pneumonia: Status: Acute Assessment and plan: improving atypical pneumonitis. No focal consolidations but diffuse interstitial pattern. Mycoplasma and Legionella studies pending. rapid Strep antigen was negative. cont. azithromycin and Rocephin along w/ bronchodilators and prednisone. Qualifiers: Pneumonia type: due to unspecified organism Laterality: unspecified laterality Lung location: unspecified part of lung Qualified Code(s): J18.9 - Pneumonia, unspecified organism (2) Sepsis due to pneumonia: Status: Resolved Assessment and plan: sepsis has resolved. Her SHANIA has resolved and her m ental status has return to baseline. She is responding to the antibiotics. (3) COPD (chronic obstructive pulmonary disease): Status: Chronic Assessment and plan: as above. needs follow up PFT a few weeks post discharge to update her status. Qualifiers: COPD type: chronic bronchitis Chronic bronchitis type: unspecified Qualified Code(s): J42 - Unspecified chronic bronchitis (4) Thrush: Status: Acute Assessment and plan: Improving. cont. nystatin swish and swallow Subjective Subjective Interval history since last seen: Mrs. Ott feels somewhat better today. Still has cough that is minimally productive. She is less dyspneic today. She diuresed well since the lasix last night. She has already put out 2 liters in urine output today. I talked w/ her about removing the simms tonight but she would like to keep it in for one more night as she has been incontinent w/ coughing. Her WBC is now down to normal at 8000 from 12,000 yesterday morning and 23,000 on admission. Her CRP however has risen to 8.9 (although was not checked on admission). she is afebrile. She remains on azithromycin and Rocephin along w/ prednisone and bronchodilators. She has an IS and acapella device (which she said she just got this afternoon). Exam Narrative Exam Narrative: Morbidly obese female; alert and oriented x 3, sitting up in bed, just having finished her dinner HEENT: mouth w/out thrush, dry mucous membranes and some erythema of the soft palate, but no white plaques Lungs: left basilar rales; scattered end expiratory wheezing heart: RRR Abdomen: soft, nontender simms draining clear yellow urine Extremities: no cyanosis nor edema Neuro: grossly normal (ie. normal CN and normal motor exam). Objective Last Vital Signs Temp 36.6 C 07/05/21 15:50 Pulse 77 07/05/21 15:50 Resp 18 07/05/21 15:50 BP 116/67 07/05/21 15:50 Pulse Ox 92 07/05/21 15:50 Laboratory Results - last 24 hr 07/04/21 07/05/21 07/05/21 18:10 06:31 06:31 WBC 8.02 D RBC 3.58 L Hgb 10.7 L Hct 34.1 L MCV 95.3 H MCH 29.9 MCHC 31.4 L RDW 12.6 Plt Count 316 MPV 10.2 Immature Gran % 0.7 Neutrophils % 84.5 Lymphocytes % 13.1 Monocytes % 1.5 Eosinophils % 0.1 Basophils % 0.1 Nucleated RBC % 0 Absolute Neutrophils 6.78 H Absolute Lymphocytes 1.05 L Absolute Monocytes 0.12 Absolute Eosinophils 0.01 Absolute Basophils 0.01 Sodium 142 Potassium 3.8 Chloride 108 H Carbon Dioxide 25.8 Anion Gap 8.2 BUN 15 Creatinine 1.1 H Estimated GFR/1.73 m2 48.55 Glucose 135 H Calcium 9.0 C-Reactive Protein 8.90 H NT-Pro-B Natriuret Pep 1262 H
[2021-07-05 17:36] LABS: Troponin I < 0.05 ng/mL (<0.06)
[2021-07-05 18:08] LABS: Legionella Ag Detection Urine Negative (Negative)
[2021-07-05] MEDS: cefTRIAXone 1 GM/50 ML BAG IVPB (18:11)
[2021-07-05] MEDS: Docusate Sodium 100 MG CAP PO (22:16)
[2021-07-06 00:08] VITALS: BP 112/64; PULSE 79; RESP 18; TEMP 36.3; O2SAT 92
[2021-07-06] MEDS: Levothyroxine 88 MCG TAB PO (05:43)
[2021-07-06 07:00] VITALS: PULSE 67
[2021-07-06] MEDS: Ipratropium/Albuterol 4 GM 120 PUFF INH IH ×4 (07:29→20:11)
[2021-07-06 07:36] LABS: Absolute Basophil Count 0.03 10^3/uL (0.0-0.2); Absolute Eosinophil Count 0.04 10^3/uL (0.0-0.7); Absolute Lymphocyte Count 2.38 10^3/uL (1.2-3.4); Absolute Monocyte Count 0.57 10^3/uL (0.1-0.8); Absolute Neutrophil Count 6.95 10^3/uL (1.2-6.7); Basophils % 0.3; Eosinophils % 0.4; HCT 30.9 % (36.0-46.0); HGB 10.1 g/dL (11.2-15.7); Lymphocytes % 23.6; MCH 30.7 pg (27.0-33.0); MCHC 32.7 % (32.0-36.0); MCV 93.9 fL (80-95); MPV 10.2 fL (8.0-11.0); Monocytes % 5.7; Nucleated RBC 0 %; Platelet Count 302 10^3/uL (130-400); RBC 3.29 10^6/uL (3.93-5.22); RDW 12.9 % (11.7-14.6); RDW-SD 44.2 fL; WBC 10.07 10^3/uL (4.4-10.8)
[2021-07-06 08:03] LABS: Anion Gap 6.5 mmol/L (3-11); BUN 16 mg/dL (7-18); C-Reactive Protein 4.29 mg/dL (0.0-0.3); CO2 29.5 mmol/L (21.0-32.0); Calcium 9.1 mg/dL (8.5-10.1); Chloride 108 mmol/L (98-107); Glucose 101 mg/dL (74-106); NT-proBNP 1087 pg/mL (<300); Potassium 3.7 mmol/L (3.5-5.1); Sodium 144 mmol/L (136-145)
[2021-07-06 08:07] LABS: Procalcitonin 3.5 ng/mL
[2021-07-06 08:13] VITALS: BP 132/72; PULSE 69; RESP 18; TEMP 36.9; O2SAT 92
[2021-07-06] MEDS: Azithromycin 250 MG TAB PO (08:23)
[2021-07-06] MEDS: DULoxetine 30 MG CAP 60 MG PO (08:23)
[2021-07-06] MEDS: Gabapentin 300 MG CAP 600 MG PO ×2 (08:23→20:10)
[2021-07-06] MEDS: buPROPion 100 MG TAB PO ×2 (08:23→20:10)
[2021-07-06] MEDS: Benzonatate 200 MG CAP PO ×3 (08:23→20:10)
[2021-07-06] MEDS: Diclofenac 1% Gel 100 GM TUBE TP ×4 (08:24→20:11)
[2021-07-06] MEDS: Nystatin POWDER 60 GM JAR TP ×3 (08:24→20:11)
[2021-07-06] MEDS: Rosuvastatin 10 MG TAB PO (08:24)
[2021-07-06] MEDS: predniSONE 20 MG TAB 40 MG PO (08:24)
[2021-07-06] MEDS: Nystatin 500000 UNITS/5 ML SUSP 5ML CUP 1000000 UNITS PO ×3 (08:24→20:11)
[2021-07-06] MEDS: Pantoprazole 40 MG VIAL IVP (09:05)
[2021-07-06 10:30] VITALS: PULSE 71; PULSE 78; PULSE 89; PULSE 94; RESP 16; RESP 18; RESP 22; O2SAT 87; O2SAT 90; O2SAT 92; O2SAT 93
--- NOTE | 2021-07-06 14:43 | W.PM.PROGNOT ---
Date of Service Date of service: 07/06/21 Time of Service: 14:44 Assessment and Plan Assessment and plan (1) Pneumonia: Status: Acute Assessment and plan: interstitial pneumonitis. CXR w/ increased interstitial markings which also could be mild pulmonary edema. However she had encephalopathy on admission along w/ leukocytosis, elevated blood lactate both which resolved. She did not have a CRP on admission but I checked her CRP yesterday and it was high at 8.9 but is now down to 4.2 but her procalcitonin which was checked on admission was high at 15 and now is down to 3.5. I think she is headed in the right way w/ her response. She remains on azithromycin and ceftriaxone. Qualifiers: Pneumonia type: due to unspecified organism Laterality: unspecified laterality Lung location: unspecified part of lung Qualified Code(s): J18.9 - Pneumonia, unspecified organism (2) Sepsis due to pneumonia: Status: Resolved Assessment and plan: sepsis has resolved. Her SHANIA has resolved and her mental status has return to baseline. She is responding to the antibiotics. (3) COPD (chronic obstructive pulmonary disease): Status: Chronic Assessment and plan: as above. needs follow up PFT a few weeks post discharge to update her status. Qualifiers: COPD type: chronic bronchitis Chronic bronchitis type: unspecified Qualified Code(s): J42 - Unspecified chronic bronchitis (4) Thrush: Status: Acute Assessment and plan: Improving. cont. nystatin swish and swallow (5) Fluid overload: Status: Acute Assessment and plan: I think that she was a little over resuscitated in volume initially. I did treat her w/ lasix iv however my POCUS suggested LVH and she will get a formal echocardiogram tomorrow. I am going to give her additional po lasix today. Recheck her BMP and BNP tomorrow along w/ her echo. Her BNP may also be elevated from COPD. Echo will determine if she has PHTN. Qualifiers: Hypervolemia type: unspecified Qualified Code(s): E87.70 - Fluid overload, unspecified Subjective Subjective Interval history since last seen: Overall she continues to improve. No longer needing oxygen at rest. She did an ambulatory pulse oximetry study and her SPO2 dipped down to 87% but recovered at rest. She required 2 lpm to keep up her SPO2 over 90%. I think that one more day of antibiotics, and bronchodilators along w/ a bit more lasix. I suspect that she has diastolic HF. Echo will be done tomorrow and I will repeat her ambulatory pulse oximetry tomorrow. Hopefully she can return home tomorrow. She has a whom she has to care for w/ help of her daughter and son-in-law. Exam Narrative Exam Narrative: Elderly female lying in bed watching TV. She is alert and oriented x 3. She has dry non-productive cough. Lungs w/ bibasilar rales; she is not wheezing today and has no rhonchi Heart: RRR Abdomen: benign Legs: no edema Objective Last Vital Signs Temp 36.9 C 07/06/21 08:13 Pulse 69 07/06/21 08:13 Resp 18 07/06/21 08:13 BP 132/72 07/06/21 08:13 Pulse Ox 92 07/06/21 08:13 Laboratory Results - last 24 hr 07/05/21 07/05/21 07/06/21 06:31 10:41 07:09 WBC RBC Hgb Hct MCV MCH MCHC RDW Plt Count MPV Immature Gran % Neutrophils % Lymphocytes % Monocytes % Eosinophils % Basophils % Nucleated RBC % Absolute Neutrophils Absolute Lymphocytes Absolute Monocytes Absolute Eosinophils Absolute Basophils Sodium 144 Potassium 3.7 Chloride 108 H Carbon Dioxide 29.5 Anion Gap 6.5 BUN 16 Creatinine 1.0 Estimated GFR/1.73 m2 54.20 Glucose 101 Calcium 9.1 Troponin I < 0.05 C-Reactive Protein 4.29 H NT-Pro-B Natriuret Pep 1087 H Procalcitonin Urine Legionella Ag Negative 07/06/21 07/06/21 07:09 07:09 WBC 10.07 RBC 3.29 L Hgb 10.1 L Hct 30.9 L MCV 93.9 MCH 30.7 MCHC 32.7 RDW 12.9 Plt Count 302 MPV 10.2 Immature Gran % 1.0 Neutrophils % 69.0 Lymphocytes % 23.6 Monocytes % 5.7 Eosinophils % 0.4 Basophils % 0.3 Nucleated RBC % 0 Absolute Neutrophils 6.95 H Absolute Lymphocytes 2.38 Absolute Monocytes 0.57 Absolute Eosinophils 0.04 Absolute Basophils 0.03 Sodium Potassium Chloride Carbon Dioxide Anion Gap BUN Creatinine Estimated GFR/1.73 m2 Glucose Calcium Troponin I C-Reactive Protein NT-Pro-B Natriuret Pep Procalcitonin 3.5 Urine Legionella Ag
[2021-07-06 15:35] VITALS: BP 122/71; PULSE 66; RESP 18; TEMP 36.9; O2SAT 94
[2021-07-06] MEDS: Bisacodyl 10 MG SUPP PR (15:50)
[2021-07-06] MEDS: Polyethylene Glycol 3350 17 GM PACKET PO (15:50)
[2021-07-06] MEDS: Potassium Chloride 10 MEQ CAPCR 30 MEQ PO (16:38)
[2021-07-06] MEDS: Furosemide 20 MG TAB PO (16:38)
[2021-07-06] MEDS: cefTRIAXone 1 GM/50 ML BAG IVPB (17:54)
[2021-07-06] MEDS: Docusate Sodium 100 MG CAP PO (20:10)
[2021-07-07 00:04] VITALS: BP 120/71; PULSE 69; RESP 20; TEMP 36.3; O2SAT 91
[2021-07-07] MEDS: Levothyroxine 88 MCG TAB PO (05:27)
[2021-07-07 06:52] LABS: Abs Immature Grans 0.09 10^3/uL (0.0-0.06); Absolute Basophil Count 0.05 10^3/uL (0.0-0.2); Absolute Eosinophil Count 0.06 10^3/uL (0.0-0.7); Absolute Lymphocyte Count 2.45 10^3/uL (1.2-3.4); Absolute Monocyte Count 0.47 10^3/uL (0.1-0.8); Absolute Neutrophil Count 4.78 10^3/uL (1.2-6.7); Basophils % 0.6; Eosinophils % 0.8; HCT 32.8 % (36.0-46.0); HGB 10.6 g/dL (11.2-15.7); Immature Grans % 1.1; MCH 30.6 pg (27.0-33.0); MCHC 32.3 % (32.0-36.0); MCV 94.8 fL (80-95); MPV 10.2 fL (8.0-11.0); Monocytes % 5.9; Neutrophils % 60.6; Nucleated RBC 0 %; Platelet Count 326 10^3/uL (130-400); RBC 3.46 10^6/uL (3.93-5.22); RDW 13.2 % (11.7-14.6); RDW-SD 45.6 fL
[2021-07-07 07:18] LABS: BUN 18 mg/dL (7-18); C-Reactive Protein 2.32 mg/dL (0.0-0.3); CREATININE 1.1 mg/dL (0.55-1.02); Calcium 9.3 mg/dL (8.5-10.1); Chloride 106 mmol/L (98-107); Estimated GFR 48.55 (mL/min/1.73m2); Glucose 109 mg/dL (74-106); NT-proBNP 627 pg/mL (<300); Potassium 3.9 mmol/L (3.5-5.1); Sodium 143 mmol/L (136-145)
[2021-07-07] MEDS: Ipratropium/Albuterol 4 GM 120 PUFF INH IH ×2 (07:44→11:54)
[2021-07-07] MEDS: Nystatin 500000 UNITS/5 ML SUSP 5ML CUP 1000000 UNITS PO ×2 (08:46→14:26)
[2021-07-07] MEDS: Docusate Sodium 100 MG CAP PO ×2 (08:46→14:26)
[2021-07-07] MEDS: Benzonatate 200 MG CAP PO ×2 (08:46→14:26)
[2021-07-07] MEDS: Rosuvastatin 10 MG TAB PO (08:46)
[2021-07-07] MEDS: Polyethylene Glycol 3350 17 GM PACKET PO (08:46)
[2021-07-07] MEDS: Azithromycin 250 MG TAB PO (08:46)
[2021-07-07] MEDS: buPROPion 100 MG TAB PO (08:46)
[2021-07-07] MEDS: DULoxetine 30 MG CAP 60 MG PO (08:46)
[2021-07-07] MEDS: predniSONE 20 MG TAB 40 MG PO (08:47)
[2021-07-07] MEDS: Gabapentin 300 MG CAP 600 MG PO (08:47)
[2021-07-07] MEDS: Nystatin POWDER 60 GM JAR TP ×2 (08:47→14:27)
[2021-07-07] MEDS: Diclofenac 1% Gel 100 GM TUBE TP ×2 (08:47→12:14)
[2021-07-07 09:01] VITALS: BP 117/59; PULSE 71; RESP 17; TEMP 36.6; O2SAT 90
[2021-07-07] MEDS: Pantoprazole 40 MG VIAL IVP (09:03)
[2021-07-07] MEDS: Normal Saline Flush 10 ML SYR IVP (09:04)
[2021-07-07 10:32] VITALS: PULSE 102; PULSE 68; PULSE 72; RESP 16; RESP 20; O2SAT 89; O2SAT 93; O2SAT 94
--- NOTE | 2021-07-07 13:14 | DI.US_ITS ---
APPROVED REPORT EXAM: Comprehensive 2D, Doppler, and color-flow Echocardiogram Patient Location: In-Patient Room/Bed: 208 Pulmonary Fellow: Deborha Ray RDCS (AE) Indications: CHF, COPD Other Information Study Quality: Adequate Conclusion Normal left ventricular wall thickness and chamber size. Estimated ejection fraction is 60%. Wall m otion is normal Normal right ventricular size and systolic function Both atria are normal in size Trileaflet aortic valve with trace regurgitation Normal mitral valve with trace regurgitation Normal tricuspid valve with trace regurgitation Normal pulmonic valve with trace regurgitation Mildly dilated ascending aorta, 3.5 cm Wall motion Left Ventricle The left ventricle is normal size. The left ventricular systolic function is normal. The left ventric ular ejection fraction is within the normal range. There is normal left ventricular wall thickness. T here is normal LV segmental wall motion. There is no ventricular septal defect visualized. LVEF is 60 %. Right Ventricle The right ventricle is normal size. The right ventricular systolic function is normal. The RVSP is 2 1.7mmHg. Atria The left atrium size is normal. The right atrium size is normal. The interatrial septum is intact wit h no evidence for an atrial septal defect. Aortic Valve The aortic valve is normal in structure. Aortic valve is trileaflet. There is no aortic valvular sten osis. Trace aortic regurgitation. Mitral Valve The mitral valve is normal in structure. No evidence of mitral valve stenosis. Trace mitral regurgita tion. Tricuspid Valve The tricuspid valve is normal in structure. There is no tricuspid valve stenosis. Trace tricuspid reg urgitation. Pulmonic Valve The pulmonary valve is normal in structure. There is no pulmonic valvular stenosis. Trace pulmonic re gurgitation. Great Vessels The aortic root is normal in size. The ascending aorta is mildly dilated. Aortic arch is normal in ca liber. IVC is normal in size and collapses >50% with inspiration. Pericardium There is no pericardial effusion. 2D Dimensions IVSD d PLAX 1.06 cm F: 0.6-1.0 LV Vol A2C d MOD 91.5 mL LVPW d PLAX 1.05 cm F: 0.6 - 1.0 LV Vol A4C d MOD 95.9 mL LVID d PLAX 4.27 cm F: 3.8 - 5.2 LA vol/ BSA A2C s A-L 31.8 mL/m2 LVDs 3.00 cm F: 2.2 - 3.5 LA vol/ BSA A4C s A-L 26.7 mL/m2 Ao Root d 3.00 cm F: 2.7 - 3.3 LA Vol/ BSA Biplane s A-L 30.7 mL/m2 RA Area A4C 11.10 cm2 LA Area A4C s MOD 17.21 cm2 RA Vol/ BSA A4C s A-L 12.8 mL/m2 LA Area A2C s MOD 19.78 cm2 Ao Asc Diam d 3.50 cm F: 2.3 - 3.1 LV EF A4C MOD 56.8 % LV EF Teichholz 56.6 % LV EF A2C MOD 57.0 % LVEF (Arrington's) 57.12 % F: 54 - 74 LV EF Biplane MOD 57.1 % LV Volume 73.27 mL F: 46 - 106 SV 54.92 mL LV Volume Index 38.36 mL/m2 F: 29 - 61 SV Index 28.77 mL/m2 LV Vol Biplane MOD 96.2 mL FS 29.35 % M-Mode TAPSE 2.44 cm (M/F) >1.7 LV Diastology MV E' medial 0.097 (>0.07 m/s) E/A Ratio 0.9 LV E/e MED 7.70 (<14) MV E Vmax 0.75 (0.4-1.3 m/s) MV E' lateral 0.138 (>0.1 m/s) MV A Vmax 0.85 (0.4-1.3 m/s) LV E/e LAT 5.35 (<14) MV E/A Ratio 0.88 MV E/E' medial 7.72 MV E/E' lateral 5.40 Aortic Valve LVOT Area 3.81 cm2 AoV Area Vmax 2.65 cm2 LVOT Vmax 1.15 m/s AoV Area/ BSA (Vmax) 1.39 cm2/m2 LVOT Mean Long. 0.97 m/s LUKAS Mean Long. 3.15 cm2 LVOT Peak Grad 5.3 mmHg LUKAS Mean Long. Index 1.65 cm2/m2 LVOT Mean Grad 3.9 mmHg LVOT VTI 0.294 m LVOT Diam s 2.20 cm AoV Vmax 1.66 m/s Velocity Ratio 0.69 AoV Mean Long. 1.17 m/s AoV Peak Grad 11.0 mmHg LVOT SV 111.86 mL AoV Mean Grad 6.1 mmHg AoV VTI 0.310 m AoV Area VTI 3.60 cm2 AoV Area/ BSA (VTI) 1.89 cm/m2 Mitral Valve MV DT 282 (160-240 msec) MV PHT 82 msec MV Area PHT 2.69 cm2 MV VTI 0.332 m MV Area VTI 3.37 (4.0-6.0 cm2) Pulmonary Valve PV Vmax 1.27 (0.5-1.5 m/s) RVOT Peak Gr. 4.43 mmHg PV Peak Grad 6.5 mmHg RVOT Mean Gr. 2.20 mmHg PV Mean Grad 3.1 mmHg RVOT VTI 0.186 m PV VTI 0.220 m RVOT Vmax 1.05 m/s Tricuspid Valve TR Peak Grad 18.7 mmHg TR Vmax 2.16 m/s RA Pressure 3.00 mmHg RVSP (TR) 21.7 mmHg
--- NOTE | 2021-07-07 15:57 | DSE_ITS ---
Date of service: 07/07/21 Time of Service: 15:57 DS: Diagnosis Discharge Diagnosis (1) Pneumonia: Status: Acute Asessment and Plan: Patient presented to the ER w/ c/o nonproductive cough and dyspnea over several days after being seen 3 x in outpatient clinic and being on antibiotics for UTI. She has been treated w/ macrobid and subsequently w/ Keflex. She developed thrush which was treated w/ clotrimazole akua. On arrival to the ER she was found to be febrile (), w/ elevated WBC 23,000 and lactate 2.8, and procalcitonin 3.5 and was mildly hypotensive (80's to 90's systolic and diastolic 40's) and tachycardic low 100's. Blood cultures were drawn (eventually came back negative) and patient was started on azithromycin and ceftriaxone along w/ iv fluids and aerosolized bronchodilators. She was felt to be in early sepsis and her chest xray demonstrated increased interstitial markings c/w either atypical pneumonia vs CHF. Her troponin I was negative on admission and repeat level also came back negative the next day.Pro-BNP was not done on admission but after she had been resuscitated w/ iv fluids and she was felt to be in volume overload a BNP was done and found to be elevated at 1262 on the next day. Her iv fluids were discontinued and she was given lasix. BNP was followed along w/ daily BMP, CBC and other inflammatory markers. Her BNP dropped to 627 at the time of discharge. Her CRP which was not checked on admission but was checked on 07/05 was elevated at 8.9 came down to 2.32 at discharge. Her WBC dropped overnight from 23,000 to 12.000 and was normal at 7900 on discharge. She never spiked a high fever w/ Tmax of 37.6. Procalcitonin was high on admission at 15.4 but dropped to 3.5 on the day prior to discharge. Her hypoxemia 88% on admission improved. She was treated on low flow oxygen throughout her hospital course but at discharge she was on room air w/ resting SPO2 of 94% and w/ ambulation 250 ft she dropped to as low as 89% on room air w/ quick recovery upon rest to 93%. Patient was treated w/ Rocephin 1 gm daily x 4d and azithromycin 500 mg on admission and 250 mg daily x 4day. She was discharged home on 5 days of Cefdinir 300 mg bid and azithromycin 250 mg x 5 more days along w/ prednisone 40 mg daily x 5 day. She was given an Rx for a new albuterol MDI. (2) Sepsis due to pneumonia: Status: Resolved (3) COPD (chronic obstructive pulmonary disease): Status: Chronic Asessment and Plan: patient will continue prednisone 40 mg daily along w/ prn use of albuterol MDI. She should have follow up PFT upon resolution of her pneumonia and be evaluated for LABA/ICS, LAMA therapy w/ long acting MDI and possible pulmonary rehab. (4) Thrush: Status: Acute Asessment and Plan: Patient was treated w/ oral nystatin swich and swallow. she is discharged home to continue her nystatin troches (5) Fluid overload: Status: Acute Asessment and Plan: patient was resuscitated w/ iv fluids but required some iv and po lasix d/t volume overload. ACS was ruled out by negative ekg and normal troponin levels. echocardiogram was performed 07/07 and was normal. Discharge Plan Disposition Patient Disposition: HOME Condition: Improving Discharge Details Reason For Visit: Sepsis syndrome Pneumonia Admit Date/Time: 07/03/21 19:13 Admit Provider: Soto Reyez Attending Provider: Soto Reyez Primary Care Provider: Va Nevarez Home Meds and New Rx's Prescriptions: New azithromycin 250 mg Tablet 250 mg PO DAILY 5 Days Qty: 5 RF: 0 benzonatate 200 mg Capsule 200 mg PO TID Qty: 30 RF: 0 prednisone 20 mg Tablet 40 mg PO DAILY 5 Days Qty: 10 RF: 0 dextromethorphan-guaifenesin 10-100 mg/5 mL Syrup 5 ml PO Q4H PRN PRN (Reason: Cough) Qty: 240 RF: 0 cefdinir 300 mg capsule 300 mg PO BID Qty: 10 RF: 0 Continued krill oil 500 mg capsule 500 mg PO DAILY RF: 0 cyanocobalamin (vitamin B-12) 5,000 mcg capsule 5,000 mcg PO DAILY RF: 0 cholecalciferol (vitamin D3) 125 mcg (5,000 unit) capsule 125 mcg PO DAILY RF: 0 tizanidine 2 mg capsule 2 mg PO QHS RF: 0 gabapentin 300 mg capsule 600 mg PO BID RF: 0 albuterol sulfate 90 mcg/actuation HFA aerosol inhaler 2 puff inhalation Q6H PRN (Reason: shortness of breath or wheezing) Qty: 8.5 RF: 0 rosuvastatin 10 mg tablet 10 mg PO DAILY RF: 0 levothyroxine 88 mcg tablet 88 mcg PO DAILY RF: 0 duloxetine 60 mg capsule,delayed release(DR/EC) 60 mg PO DAILY RF: 0 bupropion HCl 100 mg tablet 100 mg PO BID RF: 0 famotidine 20 mg tablet 20 mg PO DAILY RF: 0 clotrimazole 10 mg akua 10 mg mucous membrane TID 10 Days Qty: 30 RF: 0 Discontinued cephalexin 500 mg capsule 500 mg PO BID Qty: 14 RF: 0 Discharge Instructions Instructions: Bacterial Pneumonia (DC) Stand Alone Forms: Nursing Discharge Form Referrals: Va Nevarez NP [Primary Care Provider] - 07/20/21 2:40 pm (Please keep your new patient appointment for Dr. Nevarez on August 20 @ 11:00 as well as this Hospital Visit follow-up appointment. ) Activity:: Activity as Tolerated Equipment/Supplies:: No Equipment Needed Diet:: Normal Diet Discharge Orders Discharge Orders: Discharge Order (Routine); Ordered 07/07/21 Ordered By: Александр Lopez Other Ambulatory Orders: XR chest 2V PA & lateral (Routine) Timeframe: 2 Weeks Facility: [facility] - Location: DIAGNOSTIC IMAGING DEPT Ordered By: Александр Lopez Discharge Data Discharge Date/Time-TO BE ENTERED AT DEPARTURE: 07/07/21 16:33 DS: Summary Time Spent with Patient providing and/or coordinating discharge services: Greater than 30 minutes Specific discharge activities: 35 Status at Discharge Functional status at discharge: independent ambulation Overall status at discharge: patient is progressing back to baseline Mental Status: mental status grossly normal Speech and Movement: speech and movement normal Mood: congruent mood Affect: normal affect Exam Narrative Exam Narrative: Elderly female lying in bed watching TV. She is alert and oriented x 3. She has dry non-productive cough. Lungs w/ bibasilar rales; she is not wheezing today and has no rhonchi Heart: RRR Abdomen: benign Legs: no edema Psych Mental Status: mental status grossly normal Speech and Movement: speech and movement normal Mood: congruent mood Affect: normal affect DS: Data Vitals/I&O Vitals and I&O: Vital Signs Temperature 36.6 C 07/07/21 09:01 Temperature Source Temporal Artery Scan 07/07/21 09:01 Pulse 71 07/07/21 09:01 Pulse Rhythm Regular 07/07/21 10:01 Pulse 76 07/03/21 19:40 Respiratory Rate 17 07/07/21 09:01 Respiratory Effort Non-Labored 07/07/21 10:01 Respiratory Depth Normal 07/07/21 10:01 Respiratory Pattern Normal 07/07/21 10:01 Blood Pressure 117/59 L 07/07/21 09:01 Blood Pressure Mean 55 07/03/21 19:30 Blood Pressure Position Sitting 07/03/21 16:59 Pulse Oximetry 90 L 07/07/21 09:01 Oxygen Delivery Method Room Air 07/07/21 09:01 Oxygen Flow Rate 0 07/07/21 09:01 Pain Level 0 07/07/21 09:01 Comment 07/04/21 23:09 Intake & Output 07/06/21 07/07/21 07/07/21 23:59 11:59 23:59 Intake Total 730 / 1410 480 / 720 240 / 720 Output Total 450 / 1350 400 / 1150 750 / 1150 Balance 280 / 60 80 / -430 -510 / -430 Intake: Oral 730 / 1410 480 / 720 240 / 720 Output: Urine 450 / 1350 400 / 1150 750 / 1150 Other: Urine Color Yellow Yellow Light Chrystal Urine Appearance Clear Clear Sediment Urine Odor None None Comment grossily incontinent Stool Occult Blood Negative Stool Size Small Stool Characteristics Mucoid Voiding Methods Diaper Toilet Toilet Incontinent Incontinent Data Completed and Pending Labs on day of discharge: Labs from last 24 hours 07/07/21 07/07/21 06:26 06:26 WBC 7.90 RBC 3.46 L Hgb 10.6 L Hct 32.8 L MCV 94.8 MCH 30.6 MCHC 32.3 RDW 13.2 Plt Count 326 MPV 10.2 Immature Gran % 1.1 Neutrophils % 60.6 Lymphocytes % 31.0 Monocytes % 5.9 Eosinophils % 0.8 Basophils % 0.6 Nucleated RBC % 0 Absolute Neutrophils 4.78 Absolute Lymphocytes 2.45 Absolute Monocytes 0.47 Absolute Eosinophils 0.06 Absolute Basophils 0.05 Sodium 143 Potassium 3.9 Chloride 106 Carbon Dioxide 29.0 Anion Gap 8.0 BUN 18 Creatinine 1.1 H Estimated GFR/1.73 m2 48.55 Glucose 109 H Calcium 9.3 C-Reactive Protein 2.32 H NT-Pro-B Natriuret Pep 627 H Preliminary micro results at discharge 07/05/21 08:31 Sputum Culture - Preliminary Sputum Normal Monica 07/03/21 19:00 Blood Culture - Preliminary Blood NO GROWTH 72 HOURS 07/03/21 17:52 Blood Culture - Preliminary Blood NO GROWTH 72 HOURS PFSH Medical History COPD (chronic obstructive pulmonary disease) Depression with anxiety GERD (gastroesophageal reflux disease) Hyperlipidemia Hypothyroidism (acquired) Surgical History History of tonsillectomy and adenoidectomy History of total hip arthroplasty Left S/P ORIF (open reduction internal fixation) fracture Left femur shaft S/P total knee arthroplasty Left Status post appendectomy Family History Mother , 83 Colon cancer Depression Hyperlipidemia Hypertension Father , 68 Alcohol abuse Hypertension Substance abuse Brother , 77 FH: prostate cancer Daughter No problems noted. Daughter Depression Maternal Grandfather , 62 Prostate cancer Paternal Grandfather , 81 No problems noted. Maternal Grandmother , 77 Heart disease Paternal Grandmother , 59 Hypertension Social History Smoking/Tobacco Use Status: Former Tobacco Use tobacco type: cigarettes Quit Date: 10/31/81 Tobacco: How many years used: 20 Second Hand Exposure: Yes Smoking risk assessment performed?: Yes Alcohol Intake: current Alcohol Intake frequency: a few times a month Alcohol type: beer, wine and hard liquor Drug use: Never Substance use type: does not use Household members: spouse and family Housing: apartment Communication Needs: None Do you need help understanding health information?: Always Pets and animals: Yes Pets and animals: cat(s) and dog(s) Sexually active: Yes Do you think of yourself as: straight/heterosexual Current gender identity: female What is your relationship status?: How often do you talk on the phone with friends or family?: twice per week How often do you get together with friends or relatives?: twice per week How often do you attend yarsanism or advent services?: decline to answer Do you belong to any clubs or organized social groups?: no Panel score (0-1 are the most socially isolated patients): 2 Dee Dee/Catholic: Confucianism Special dee dee needs: No Seatbelt use: always Drive intox or ride w/intox straddle truck driver: No Do you feel safe at home: Yes Do you feel safe in your relationship?: Yes
[2021-07-07 16:47] LABS: Streptococcus Pneumoniae Ag, U Negative (Negative)
--- NOTE | 2021-07-07 17:00 | PDOC.CMDIS ---
- If Service Date Differs Date of service: 07/07/21 Time of Service: 17:00 LACE Index Scoring Tool - Questions: Length of Stay (in days): 4 - 6 Acuity (Admit via E.D.?): Yes Comorbidities: Chronic Pulmonary Disease E.D. Visits: 1 - Answers: Total Score: 10 Risk of Readmission: High Risk Care Management Discharge Reason for Hospitalization: Sepsis syndrome Discharge Plan: Tasia will return home with no new services today. She will be driven home via private vehicle by family. She will follow up with her PCP and discharge plan of care. Patient/Family Education Needs: Review discharge instructions regarding activity levels and medications, discussion of self care needs including ask me three.
[2021-07-07 23:13] LABS: Mycoplasma Pneumoniae PCR Negative; Specimen source sputum
== END 2021-07-07 16:33 | disposition home or self-care (01) | DRG 871 ==
LOC: ER 16:56 → MS 20:03
PROVIDERS: Internal Medicine; Admitting Provider Family Medicine; Emergency Provider Physician Assistant; Visit Provider Family Medicine
DX: A41.9 Sepsis, unspecified organism (principal); J18.9 Pneumonia, unspecified organism; B37.0 Candidal stomatitis; G93.40 Encephalopathy, unspecified; N17.9 Acute kidney failure, unspecified; J42 Unspecified chronic bronchitis; Z20.822 Contact with and (suspected) exposure to COVID-19; E87.70 Fluid overload, unspecified; E66.01 Morbid (severe) obesity due to excess calories; Z68.34 Body mass index [BMI] 34.0-34.9, adult; F41.8 Other specified anxiety disorders; K21.9 Gastro-esophageal reflux disease without esophagitis; E78.5 Hyperlipidemia, unspecified; Z87.440 Personal history of urinary (tract) infections
CPT/HCPCS: 36415; 80048; 80053; 84145; 87040; 87449; 87635; 93005; 93306; 94618; 94640; 71045; 81003; 81015; 83605; 83735; 83880; 84443; 84484; 85014; 85018; 85025; 86140; 87070; 87086; 87205; 87581; 87899; 93010; 99223; 99232; 99239; J0456; J0696; J1644; J1941; J3475; J3490; J7512

== ENCOUNTER 2021-09-14 03:13 | Outpatient (CLI) | payer MEDICARE, OTHER, SELFPAY ==
[2021-09-14 14:06] LABS: Hemoglobin A1C 6.1 % (<5.7)
[2021-09-14 14:29] LABS: ALT 27 U/L (14-59); AST 23 U/L (15-37); Albumin 3.5 g/dL (3.4-5.0); Alkaline Phosphatase 108 U/L (46-116); Anion Gap 9.9 mmol/L (3-11); BUN 17 mg/dL (7-18); Bilirubin, Total 0.3 mg/dL (0.2-1.0); CO2 29.1 mmol/L (21.0-32.0); CREATININE 1.2 mg/dL (0.55-1.02); Calcium 9.2 mg/dL (8.5-10.1); Calculated LDL 103 mg/dL (<100); Chloride 108 mmol/L (98-107); Cholesterol 188 mg/dL (<200); Glucose 91 mg/dL (74-106); HDL Cholesterol 70 mg/dL (40-60); Potassium 4.9 mmol/L (3.5-5.1); Sodium 147 mmol/L (136-145); TSH (W/Ref FT4) 2.63 uIU/mL (0.36-3.74); Total Protein 7.1 g/dL (6.4-8.2); Triglyceride 76 mg/dL (<150)
== END 2021-09-14 03:14 | disposition home or self-care (01) ==
LOC: LOS 03:13
DX: E11.9 Type 2 diabetes mellitus without complications (principal); E03.9 Hypothyroidism, unspecified; E78.5 Hyperlipidemia, unspecified; E66.01 Morbid (severe) obesity due to excess calories
CPT/HCPCS: 36415; 80053; 80061; 83036; 84443

== ENCOUNTER 2021-09-30 00:35 | Outpatient (CLI) | payer MEDICARE, OTHER, SELFPAY ==
--- NOTE | 2021-09-30 13:25 | DI.RAD_ITS ---
Exam(s) XR SHOULDER LT COMPLETE 2+V EXAM: XR SHOULDER LT COMPLETE 2+V CLINICAL HISTORY: pain in left shoulder, no known trauma/+ falls,m25.512. TECHNIQUE: 2D digital imaging was performed of the left shoulder. Five images were obtained. AP, G rashey, Y-view and axillary views were obtained. COMPARISON: No exams were available for comparison FINDINGS: BONES: No acute fracture is present. No bony destructive lesion is seen. JOINTS: No dislocation present. There are moderate degenerative changes seen at the acromioclavicular joint. Marked degenerative changes are seen at the glenohumeral joint with joint space narrowing hayes bchondral sclerosis and hypertrophic changes particularly at the inferior aspect of the humeral head. SOFT TISSUE: Normal. 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 DATA REPOSITORY: RADIATION DOSE DELIVERED:
== END 2021-09-30 00:55 ==
DX: M25.512 Pain in left shoulder (principal); M19.012 Primary osteoarthritis, left shoulder
CPT/HCPCS: 73030

== ENCOUNTER 2021-11-09 01:38 | Outpatient (CLI) | payer MEDICARE, OTHER, SELFPAY ==
--- NOTE | 2021-11-09 07:27 | DI.MAMMO_ITS ---
Exam(s) MAMMO SCREENING EXAM: MAMMO SCREENING CLINICAL HISTORY: screening,z12.39 TECHNIQUE: Mammograms were interpreted according to the usual protocol including computer analysis w [facility] CAD system, tomosynthesis and C-view imaging. COMPARISON: FINDINGS: The breasts are of moderate density with fairly symmetrical distribution of fibroglandular tissue. T here are multiple fairly stable benign-appearing calcifications bilaterally, unchanged from prior exa minations including February 2019. No suspicious clumped microcalcification is seen. No intrapulmonary m ass identified. No change from prior studies. IMPRESSION: No specific evidence of malignancy at this time. Routine screening examinations are suggested at yea rly intervals due to the family history of breast carcinoma. BI-RADS Category 1 - Negative Breast Density - Category B - Scattered areas of fibroglandular density
== END 2021-11-09 01:58 ==
DX: Z12.31 Encounter for screening mammogram for malignant neoplasm of breast (principal); R92.1 Mammographic calcification found on diagnostic imaging of breast
CPT/HCPCS: 77063; 77067

== ENCOUNTER 2021-11-20 15:51 | Outpatient (REF) | payer MEDICARE, OTHER, SELFPAY ==
[2021-11-22 15:26] LABS: COVID-19 RT-PCR UVMMC Result Negative (Negative)
== END 2021-11-20 15:52 | disposition home or self-care (01) ==
LOC: LBN 15:51
PROVIDERS: Visit Provider Family Medicine
DX: J06.9 Acute upper respiratory infection, unspecified (principal); Z20.822 Contact with and (suspected) exposure to COVID-19
CPT/HCPCS: U0003

== ENCOUNTER 2021-11-25 19:11 | Outpatient (REF) | payer MEDICARE, OTHER, SELFPAY ==
[2021-11-25 20:49] LABS: Bilirubin Negative (Negative); Blood Negative (Negative); Clarity Clear (Clear); Glucose Negative (Negative); Ketones Negative (Negative); Leukocyte Esterase Negative (Negative); Nitrite Negative (Negative); Urobilinogen 0.2 EU/dL (Up TO 0.2)
== END 2021-11-25 19:12 | disposition home or self-care (01) ==
LOC: LBN 19:11
PROVIDERS: Visit Provider Nurse Practitioner Family
DX: N39.0 Urinary tract infection, site not specified (principal); N76.0 Acute vaginitis
CPT/HCPCS: 81003; 87480; 87510; 87660

== ENCOUNTER 2021-11-27 19:40 | Observation (INO) | payer MEDICARE, OTHER, SELFPAY ==
[2021-11-27] VITALS (7 sets, daily range): BP systolic 114–120; BP diastolic 48–50; PULSE 84–90; RESP 14–29; TEMP 36.7; O2SAT 91–98
--- NOTE | 2021-11-27 19:45 | RT.EKG_ITS ---
APPROVED REPORT Exam: Resting ECG Reason for Exam: chest pain Patient Location: E HR:88 bpm ECG Measurements Heart Rate 88 AXIS WA 147 P 66 QRSd 95 QRS -55 QT 352 T 76 QTc 427 Conclusion Sinus rhythm...normal P axis Left anterior fascicular block.
--- NOTE | 2021-11-27 19:46 | ED.GENADUL_ITS ---
Discharge Plan Disposition Patient Disposition: [facility] INPATIENT Condition: Stable Discharge Details Clinical Impression: Leukocytosis Primary Care Provider: Va Nevarez ED Provider: Александр Elise Home Meds and New Rx's Prescriptions: No Action levothyroxine 88 mcg tablet 88 mcg PO DAILY Qty: 90 RF: 3 duloxetine 60 mg capsule,delayed release(DR/EC) 60 mg PO DAILY Qty: 90 RF: 3 rosuvastatin 10 mg tablet 10 mg PO DAILY Qty: 90 RF: 0 pantoprazole [Protonix] 40 mg tablet,delayed release (DR/EC) 40 mg PO DAILY Qty: 90 RF: 0 Prolia 60 mg/mL syringe 60 mg subcut [id number] Qty: 1 RF: 1 bupropion HCl 100 mg tablet sustained-release 12 hr 100 mg PO BID Qty: 180 RF: 3 krill oil 500 mg capsule 500 mg PO DAILY RF: 0 cholecalciferol (vitamin D3) 125 mcg (5,000 unit) capsule 125 mcg PO DAILY RF: 0 nitrofurantoin monohyd/m-cryst [Macrobid] 100 mg capsule 100 mg PO Q12H Qty: 10 RF: 0 fluticasone propionate 50 mcg/actuation spray,suspension 1 spray intranasal BID PRN (Reason: nasal congestion) Qty: 16 RF: 4 amoxicillin 875 mg tablet 875 mg PO BID Qty: 20 RF: 0 gabapentin 300 mg capsule 300 - 600 mg PO BID Qty: 270 RF: 3 diclofenac sodium 1 % gel 4 g topical QID RF: 0 azelastine 205.5 mcg (0.15 %) spray,non-aerosol 1 spray intranasal BID RF: 0 hydroxyzine HCl 10 mg tablet 10 mg PO DAILY PRN (Reason: anxiety) Qty: 60 RF: 0 Medical Decision Making This is a 76-year old female patient with a significant past medical history presenting to the ER today with a multitude of complaints. Primarily they stem from what appears to be an infectious process but does report some chest discomf ort with coughing and shortness of breath. I do not believe this is consistent with ACS but I will initiate a cardiac work-up with a delta troponin as well as a D-dimer. Plan is to obtain IV access, initiate infectious work-up, give IV fluid and reassess. She is afebrile, hemodynamically stable, not requiring any supplemental oxygen. Laboratory values reveal a white blood cell count of 21.19, INR 1.4 D-dimer 1422, sodium 139 potassium 3.6, BUN 22, creatinine 1.5 with a GFR of 33.85, glucose 116 calcium 8.9 magnesium 1.7 LFTs unremarkable, troponin less than 50, BNP 246, urine was initially attempted by a catheter which was traumatic, then she was able to urinate after, large blood, trace leuk esterase, greater than 50 white cells, unknown number of red cells, many epithelials Patient with nonspecific leukocytosis but no clear source of infection. It would appear as though she has failed her oral amoxicillin. Given her cough, elevated D-dimer, abdominal pain, will obtain CTA of the chest, abdomen, pelvis. Will add on lactate, blood cultures, procalcitonin Patient will be given a second liter of IV fluid. She is reporting myalgias and arthralgias, will be given 1 g p.o. Tylenol. Lactate of 1.2 Covid negative Chest x-ray questioned atypical infection. CT reveals potential cystitis but no obvious signs of infection. Patient with significant leukocytosis, subjective fever, chills, worsening cough, abdominal pain, failing outpatient amoxicillin therapy. Patient reports that she feels too ill to go home and would prefer to be admitted to our facility. Given her age, multiple comorbidities, I do believe this is reasonable. Case was discussed with our hospitalist team, Dr. Reyez, who is agreeable to admission and will place admission orders This documentation was generated using [employer] dictation system, please disregard any oddities of phrase or misspellings. Medical Records Medical records reviewed: Yes I reviewed the patient's medical records. Imaging Data Radiologic Study: Attestation: I personally reviewed and interpreted this imaging study as follows: Imaging: CT Scan Radiologist's impression: PROCEDURE INFORMATION: Exam: CTA Chest With Contrast Exam date and time: 11/27/2021 21:17 Age: 76 years old Clinical indication: Other: Wbc 22; Abdominal pain; Cough and other: Elevated d- dimer; Other: Cp TECHNIQUE: Imaging protocol: Computed tomographic angiography of the chest with contrast. 3D rendering (Not supervised by radiologist): MIP and/or 3D reconstructed images were created by the technologist. Radiation optimization: All CT scans at this facility use at least one of these dose optimization techniques: automated exposure control; mA and/or kV adjustment per patient size (includes targeted exams where dose is matched to clinical indication); or iterative reconstruction. Contrast material: OMNIPAQUE 350; Contrast volume: 100 ml; Contrast route: INTRAVENOUS (IV); COMPARISON: XR PORTABLE CHEST AP 11/27/2021 20:21 FINDINGS: Pulmonary arteries: No pulmonary emboli. Aorta: No aortic aneurysm. No aortic dissection. Lungs: No airspace consolidation. Microatelectasis. Minor subsegmental atelectasis right lung base. There are a few minor noncalcified nodules. Pleural spaces: No pneumothorax. No pleural effusion. Heart: No cardiomegaly. No pericardial effusion. Lymph nodes: No enlarged lymph nodes. Bones/joints: Cervical spine fixation hardware is partially assessed. Chronic degenerative changes in shoulders and spine. No acute fracture or subluxation. Soft tissues: No suspicious lesions. MANSOORISELA Preliminary Radiology Report Page 2 of 3 IMPRESSION: 1. No acute findings. 2. No pulmonary emboli are seen. 3. Incidental findings as described. PROCEDURE INFORMATION: Exam: CT Abdomen And Pelvis With Contrast Exam date and time: 11/27/2021 21:17 Age: 76 years old Clinical indication: Other: Wbc 22; Abdominal pain; Cough and other: Elevated d- dimer; Other: Cp TECHNIQUE: Imaging protocol: Computed tomography of the abdomen and pelvis with contrast. Radiation optimization: All CT scans at this facility use at least one of these dose optimization techniques: automated exposure control; mA and/or kV adjustment per patient size (includes targeted exams where dose is matched to clinical indication); or iterative reconstruction. Contrast material: OMNIPAQUE 350; Contrast volume: 100 ml; Contrast route: INTRAVENOUS (IV); COMPARISON: XR PORTABLE CHEST AP 11/27/2021 20:21 FINDINGS: Liver: No mass. Gallbladder and bile ducts: No calcified stones. No ductal dilation. Pancreas: No ductal dilation. No masses. Spleen: No splenomegaly or focal lesions. Adrenal glands: No mass. Kidneys and ureters: No hydronephrosis. No renal masses. Stomach and bowel: Colonic diverticulosis without diverticulitis. No focal pathology in the small bowel. Appendix: No evidence of appendicitis. Intraperitoneal space: No free air. No significant fluid collection. Vasculature: No abdominal aortic aneurysm. Lymph nodes: No significantly enlarged lymph nodes. Urinary bladder: The urinary bladder is difficult to assess given streak artifact in the pelvis however some wall thickening is suspected. Reproductive: Unremarkable as visualized. Bones/joints: Degenerative changes in the spine. No acute fracture or subluxation. Soft tissues: No suspicious lesions. IMPRESSION: ISELA MAX Preliminary Radiology Report ROLL FORGER (QA) DISCREPANCY? If there is a discrepancy between the preliminary and final interpretation, please notify [facility] via [email or web address]. If you do not have access to our QA portal, call our QA team at [phone] CONFIDENTIALITY STATEMENT This report is intended only for the use of the referring physician, and only in accordance with law, If you received this in error, call [phone] Page 3 of 3 1. Suspected cystitis. 2. Incidental findings as described. Radiologic Study #2: Attestation: I personally reviewed and interpreted this imaging study as follows: Imaging: X-Ray Radiologist's impression: PROCEDURE INFORMATION: Exam: XR Chest Exam date and time: 11/27/2021 20:20 Age: 76 years old Clinical indication: Cough TECHNIQUE: Imaging protocol: XR of the chest. Views: 1 view. COMPARISON: XR PORTABLE CHEST AP 07/03/2021 18:20 FINDINGS: Lungs: Minor central interstitial prominence, decreased since prior. Pleural spaces: No pleural effusion. No pneumothorax. Heart/Mediastinum: No cardiomegaly. Bones/joints: Cervical spine fixation hardware is partially assessed. Degenerative changes in the shoulders and spine. No displaced fracture. IMPRESSION: Minor interstitial thickening has decreased, suggests a mild bronchitis or atypical infection. Lab Data Lab results reviewed: Yes I reviewed the patient's lab results. Labs: 11/27/21 23:19 Blood Blood Culture - Pending 11/27/21 23:10 Blood Blood Culture - Pending Laboratory Tests Range/Units 11/27/21 11/27/21 11/27/21 20:00 20:00 20:00 WBC (4.4-10.8) 10^3/uL 21.19 H RBC (3.93-5.22) 10^6/uL 4.21 Hgb (11.2-15.7) g/dL 12.7 Hct (36.0-46.0) % 40.1 MCV (80-95) fL 95.2 H MCH (27.0-33.0) pg 30.2 MCHC (32.0-36.0) % 31.7 L RDW (11.7-14.6) % 12.6 Plt Count (130-400) 10^3/uL 351 MPV (8.0-11.0) fL 10.0 Immature Gran % 0.7 Neutrophils % 90.6 Lymphocytes % 4.0 Monocytes % 1.7 Eosinophils % 2.8 Basophils % 0.2 Nucleated RBC % % 0 Absolute Neutrophils (1.2-6.7) 10^3/uL 19.20 H Absolute Lymphocytes (1.2-3.4) 10^3/uL 0.85 L Absolute Monocytes (0.1-0.8) 10^3/uL 0.36 Absolute Eosinophils (0.0-0.7) 10^3/uL 0.59 Absolute Basophils (0.0-0.2) 10^3/uL 0.04 PT (9.3-11.0) sec 13.7 H INR (0.9-1.1) 1.4 H APTT (21.0-27.5) sec 30.1 H D-Dimer (<500) ng/mlFEU 1422 H VBG Lactate (0.6-1.4) mmol/L Sodium (136-145) mmol/L 139 Potassium (3.5-5.1) mmol/L 3.6 Chloride (98-107) mmol/L 101 Carbon Dioxide (21.0-32.0) mmol/L 27.0 Anion Gap (3-11) mmol/L 11.0 BUN (7-18) mg/dL 22 H Creatinine (0.55-1.02) mg/dL 1.5 H Estimated GFR/1.73 m2 (mL/min/1.73m2) 33.85 Glucose (74-106) mg/dL 116 H Calcium (8.5-10.1) mg/dL 8.9 Magnesium (1.8-2.4) mg/dL 1.7 L Total Bilirubin (0.2-1.0) mg/dL 0.5 AST (15-37) U/L 18 ALT (14-59) U/L 20 Alkaline Phosphatase (46-116) U/L 114 Troponin I (<or=60) ng/L < 50 NT-Pro-B Natriuret Pep (<300) pg/mL 246 Total Protein (6.4-8.2) g/dL 7.6 Albumin (3.4-5.0) g/dL 2.9 L Urine Color (Yellow) Urine Clarity (Clear) Urine pH (5-8) Ur Specific Johnston (1.005-1.025) Urine Protein (Negative) mg/dL Urine Ketones (Negative) mg/dL Urine Blood (Negative) Urine Nitrite (Negative) Urine Bilirubin (Negative) Urine Urobilinogen (Up TO 0.2) EU/dL Ur Leukocyte Esterase (Negative) Urine RBC (0-2) HPF Urine WBC (0-5) HPF Ur Epithelial Cells (Negative) HPF Urine Crystals Urine Bacteria (Negative) HPF Urine Mucus Ur Culture Indicated? Urine Glucose (Negative) mg/dL COVID-19 Source SARS-CoV-2 (PCR) (Negative) Influenza Type A (PCR) (Negative) Influenza Type B (PCR) (Negative) RSV (PCR) (Negative) Range/Units 11/27/21 11/27/21 11/27/21 20:27 20:56 23:10 WBC (4.4-10.8) 10^3/uL RBC (3.93-5.22) 10^6/uL Hgb (11.2-15.7) g/dL Hct (36.0-46.0) % MCV (80-95) fL MCH (27.0-33.0) pg MCHC (32.0-36.0) % RDW (11.7-14.6) % Plt Count (130-400) 10^3/uL MPV (8.0-11.0) fL Immature Gran % Neutrophils % Lymphocytes % Monocytes % Eosinophils % Basophils % Nucleated RBC % % Absolute Neutrophils (1.2-6.7) 10^3/uL Absolute Lymphocytes (1.2-3.4) 10^3/uL Absolute Monocytes (0.1-0.8) 10^3/uL Absolute Eosinophils (0.0-0.7) 10^3/uL Absolute Basophils (0.0-0.2) 10^3/uL PT (9.3-11.0) sec INR (0.9-1.1) APTT (21.0-27.5) sec D-Dimer (<500) ng/mlFEU VBG Lactate (0.6-1.4) mmol/L 1.2 Sodium (136-145) mmol/L Potassium (3.5-5.1) mmol/L Chloride (98-107) mmol/L Carbon Dioxide (21.0-32.0) mmol/L Anion Gap (3-11) mmol/L BUN (7-18) mg/dL Creatinine (0.55-1.02) mg/dL Estimated GFR/1.73 m2 (mL/min/1.73m2) Glucose (74-106) mg/dL Calcium (8.5-10.1) mg/dL Magnesium (1.8-2.4) mg/dL Total Bilirubin (0.2-1.0) mg/dL AST (15-37) U/L ALT (14-59) U/L Alkaline Phosphatase (46-116) U/L Troponin I (<or=60) ng/L NT-Pro-B Natriuret Pep (<300) pg/mL Total Protein (6.4-8.2) g/dL Albumin (3.4-5.0) g/dL Urine Color (Yellow) Yellow Urine Clarity (Clear) Cloudy Urine pH (5-8) 7.5 Ur Specific Johnston (1.005-1.025) 1.020 Urine Protein (Negative) mg/dL 30 H Urine Ketones (Negative) mg/dL Negative Urine Blood (Negative) Large H Urine Nitrite (Negative) Negative Urine Bilirubin (Negative) Negative Urine Urobilinogen (Up TO 0.2) EU/dL 0.2 Ur Leukocyte Esterase (Negative) Trace H Urine RBC (0-2) HPF >50 H Urine WBC (0-5) HPF Ur Epithelial Cells (Negative) HPF Many Urine Crystals Not Applicable Urine Bacteria (Negative) HPF Few Urine Mucus Not Applicable Ur Culture Indicated? No/Sq. Contamination Urine Glucose (Negative) mg/dL Negative COVID-19 Source Nasopharynx SARS-CoV-2 (PCR) (Negative) Negative Influenza Type A (PCR) (Negative) Negative Influenza Type B (PCR) (Negative) Negative RSV (PCR) (Negative) Negative ECG Data Attestation: I personally reviewed and interpreted this ECG (s) as follows: Interpretation: Please see official report by Dr. Capone. Sinus rhythm, ventricular rate of 88. No STEMI HPI General Mode of arrival: ambulatory . Date/Time Provider Initiated Documentation: 11/27/21 19:46 . Limitations to Documentation: no limitations . Information obtained by: patient . HPI Narrative: This is a 76-year-old female, past medical history of COPD, morbid obesity, diabetes, severe arthritis, osteopenia, hypothyroidism, GERD, depression, anxiety, currently being treated with amoxicillin for a sinus infection, presenting to the ER with multiple complaints that include ongoing nasal congestion, frontal headache, subjective fever and chills, cough with yellow sputum, body aches, epigastric discomfort with nausea and vomiting x3 yesterday, no vomiting today. Patient states that she has 2 more days of a 10-day prescription of amoxicillin. She is fully vaccinated against Covid. She denies any documented fever, neck pain, diarrhea, dysuria. She does admit to chest pain with coughing and with taking a deep breath. She denies any pain or swelling in her calfs. She denies any known sick contacts or recent trauma. She has taken all of her medications today as directed. She has not taken any [id number] medications for her symptoms. Related Data Home Medications Medication Instructions Recorded Confirmed cholecalciferol (vitamin D3) 125 125 mcg PO DAILY 06/25/21 11/27/21 mcg (5,000 unit) capsule krill oil 500 mg capsule 500 mg PO DAILY cap 06/25/21 11/27/21 gabapentin 300 mg capsule 300 - 600 mg PO BID #270 cap 07/23/21 11/27/21 azelastine 205.5 mcg (0.15 %) 1 spray INTRANASAL BID 08/03/21 11/27/21 nasal spray diclofenac sodium 1 % topical gel 4 g TOPICAL QID 08/03/21 11/27/21 bupropion HCl 100 mg tablet,12 hr 100 mg PO BID #180 tab 08/20/21 11/27/21 sustained-release denosumab 60 mg/mL subcutaneous 60 mg SUBCUT [id number] #1 ml 08/20/21 11/27/21 syringe duloxetine 60 mg capsule,delayed 60 mg PO DAILY #90 cap 08/20/21 11/27/21 release levothyroxine 88 mcg tablet 88 mcg PO DAILY #90 tab 08/20/21 11/27/21 pantoprazole 40 mg tablet,delayed 40 mg PO DAILY #90 tab 08/20/21 11/27/21 release rosuvastatin 10 mg tablet 10 mg PO DAILY #90 tab 08/20/21 11/27/21 fluticasone propionate 50 1 spray INTRANASAL BID PRN #16 g 09/21/21 11/27/21 mcg/actuation nasal spray,suspension hydroxyzine HCl 10 mg tablet 10 mg PO DAILY PRN #60 tab 10/06/21 11/27/21 amoxicillin 875 mg tablet 875 mg PO BID #20 tab 11/20/21 11/27/21 nitrofurantoin 100 mg PO Q12H #10 cap 11/25/21 11/27/21 monohydrate/macrocrystals 100 mg capsule Previous Rx's Medication Instructions Recorded gabapentin 300 mg capsule 300 - 600 mg PO BID #270 cap 07/23/21 bupropion HCl 100 mg tablet,12 hr 100 mg PO BID #180 tab 08/20/21 sustained-release denosumab 60 mg/mL subcutaneous 60 mg SUBCUT [id number] #1 ml 08/20/21 syringe duloxetine 60 mg capsule,delayed 60 mg PO DAILY #90 cap 08/20/21 release levothyroxine 88 mcg tablet 88 mcg PO DAILY #90 tab 08/20/21 pantoprazole 40 mg tablet,delayed 40 mg PO DAILY #90 tab 08/20/21 release rosuvastatin 10 mg tablet 10 mg PO DAILY #90 tab 08/20/21 fluticasone propionate 50 1 spray INTRANASAL BID PRN #16 g 09/21/21 mcg/actuation nasal spray,suspension hydroxyzine HCl 10 mg tablet 10 mg PO DAILY PRN #60 tab 10/06/21 amoxicillin 875 mg tablet 875 mg PO BID #20 tab 11/20/21 nitrofurantoin 100 mg PO Q12H #10 cap 11/25/21 monohydrate/macrocrystals 100 mg capsule Allergies Allergy/AdvReac Type Severity Reaction Status Date / Time Sulfa (Sulfonamide Allergy Verified 11/27/21 20:11 Antibiotics) General FELIX: 2 Review of Systems Constitutional Constitutional: Reports chills, Reports fatigue, Reports fever(s) and Reports headache(s) Eyes Eyes: Denies change in vision ENT Ears, Nose, Mouth, and Throat: Reports headache(s) and Denies neck pain Cardiovascular Cardiovascular: Reports chest pain and Reports dyspnea Respiratory Respiratory: Reports cough and Reports dyspnea Gastrointestinal Gastrointestinal: Reports abdominal pain, Denies constipation, Denies diarrhea, Reports nausea and Reports vomiting Genitourinary Genitourinary: Denies dysuria Musculoskeletal Musculoskeletal: Reports back pain, Reports myalgias and Denies neck pain Integumentary/Breasts Skin/Breast: Denies rash Neurologic Neurologic: Reports headache(s) and Reports weakness (Generalized) Psychiatric Psychiatric: Reports anxiety Endocrine Endocrine: Reports fatigue Hematologic/Lymphatic Hematologic/Lymphatic: Denies easy bleeding and Denies easy bruising PFSH All Active Problems (Updated 11/27/21 @ 23:37 by LAY Mckeon) Leukocytosis (Acute) SHANIA (acute kidney injury) (Acute) Leukocytosis (leucocytosis) (Acute) Sinusitis, acute (Acute) Bilateral lower extremity edema (Acute) Congestion of right ear (Acute) Left shoulder pain (Acute) Family history of colon cancer (Acute) Immunization due (Acute) Immunization counseling (Acute) Vitamin D deficiency (Acute) Osteoarthritis of hips, bilateral (Acute) DDD (degenerative disc disease), lumbar (Acute) Peripheral neuropathy (Acute) Morbid obesity (Acute) Polyneuropathy in diabetes (Acute) Dyslipidemia (Acute) Stricture of female urethra (Acute) Osteopenia (Acute) Diabetes (Chronic) Hiatal hernia (Chronic) Impacted cerumen of left ear (Acute) Arthralgia (Acute) COPD (chronic obstructive pulmonary disease) (Chronic) Hyperlipidemia (Acute) Hypothyroidism (acquired) (Acute) GERD (gastroesophageal reflux disease) (Chronic) Depression with anxiety (Acute) Medical History History of fracture of hand left Sepsis due to pneumonia Surgical History History of meatotomy of urethra History of tonsillectomy and adenoidectomy History of total hip arthroplasty Left Hx of fusion of 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 Daughter Depression Maternal Grandfather , 62 Prostate cancer Paternal Grandfather , 81 No problems noted. Maternal Grandmother , 77 Heart disease Paternal Grandmother , 59 Hypertension Social History Smoking/Tobacco Use Status: Former Tobacco Use tobacco type: cigarettes Quit Date: 10/31/81 Tobacco: How many years used: 20 Second Hand Exposure: Yes Smoking risk assessment performed?: Yes Alcohol Intake: current Alcohol Intake frequency: a few times a month Alcohol type: beer, wine and hard liquor Drug use: Never Substance use type: does not use Household members: spouse and family Housing: apartment Communication Needs: None Do you need help understanding health information?: Always Pets and animals: Yes Pets and animals: cat(s) and dog(s) Sexually active: Yes Do you think of yourself as: straight/heterosexual Current gender identity: female What is your relationship status?: How often do you talk on the phone with friends or family?: twice per week How often do you get together with friends or relatives?: twice per week How often do you attend religious or tenriism services?: decline to answer Do you belong to any clubs or organized social groups?: no Panel score (0-1 are the most socially isolated patients): 2 Dee Dee/Alevism: Roman Catholic Special dee dee needs: No Seatbelt use: always Drive intox or ride w/intox scoop driver: No Do you feel safe at home: Yes Do you feel safe in your relationship?: Yes Exam Const General: cooperative, comfortable, no acute distress and ill appearing chronically Orientation: alert, awake and oriented x3 HENMT Head: normal to inspection, normocephalic and atraumatic General nose exam: external nose normal Face and sinus: tenderness bilaterally forehead and maxilla Mouth: moist mucous membranes abnormal (Slightly dry) Throat: posterior oropharynx normal Eyes General: appearance normal, both eyes and all related structures Conjunctivae: conjunctivae normal Neck Neck: normal visual inspection, full ROM, no lymphadenopathy, no meningeal signs, trachea midline, supple and nontender Resp Effort & Inspection: normal respiratory effort, able to speak in complete sentences and cough Quality of cough: dry Auscultation: diminished lung sounds bilaterally in the lower lung hernandez Cardio Rate: regular rate Rhythm: regular rhythm GI Inspection: normal to inspection and obesity Palpation: soft, not firm, no guarding, no pulsatile masses and tender in the epigastrum Auscultation: normal bowel sounds Back/Spine/Pelvis Back: no CVA tenderness and back tenderness (Diffuse lumbar) Skin General skin exam: no rashes or lesions noted Neuro General: patient alert, patient awake, patient oriented x3, moves all extremities and no focal motor deficits Cognition: normal cognition Speech: speech normal Gait: normal gait Motor: muscle tone normal throughout Sensory Exam: no sensory deficits noted Extrem General: normal to inspection, full ROM, capillary refill normal, no pedal edema and no calf tenderness Psych Appearance: grossly normal Mental Status: mental status grossly normal
--- NOTE | 2021-11-27 20:15 | DI.RAD_ITS ---
Exam(s) XR PORTABLE CHEST AP EXAM: XR PORTABLE CHEST AP CLINICAL HISTORY: cough TECHNIQUE: 2D digital imaging was performed. COMPARISON: CR,XR XR PORTABLE CHEST AP from 07/03/[address] CHEST PE ABD PELVIS W from 11/27/2021 FINDINGS: LUNGS: Clear. No pleural abnormality seen. HEART: Normal. MEDIASTINUM: Normal. BONES: Degenerative changes of both shoulders. Resection of distal right clavicle. Hardware lower c ervical spine. Degenerative disc changes thoracic spine. IMPRESSION: No acute pulmonary findings. DATA REPOSITORY: RADIATION DOSE DELIVERED:
[2021-11-27 20:30] LABS: Source Nasopharynx
[2021-11-27 20:35] LABS: Abs Immature Grans 0.14 10^3/uL (0.0-0.06); Absolute Basophil Count 0.04 10^3/uL (0.0-0.2); Absolute Eosinophil Count 0.59 10^3/uL (0.0-0.7); Absolute Lymphocyte Count 0.85 10^3/uL (1.2-3.4); Absolute Monocyte Count 0.36 10^3/uL (0.1-0.8); Basophils % 0.2; Eosinophils % 2.8; HCT 40.1 % (36.0-46.0); HGB 12.7 g/dL (11.2-15.7); Immature Grans % 0.7; MCH 30.2 pg (27.0-33.0); MCHC 31.7 % (32.0-36.0); MCV 95.2 fL (80-95); Monocytes % 1.7; Neutrophils % 90.6; Nucleated RBC 0 %; Platelet Count 351 10^3/uL (130-400); RBC 4.21 10^6/uL (3.93-5.22); RDW 12.6 % (11.7-14.6); RDW-SD 44.2 fL; WBC 21.19 10^3/uL (4.4-10.8)
--- NOTE | 2021-11-27 20:46 | DI.VRAD_ITS ---
PROCEDURE INFORMATION: Exam: XR Chest Exam date and time: 11/27/2021 20:20 Age: 76 years old Clinical indication: Cough TECHNIQUE: Imaging protocol: XR of the chest. Views: 1 view. COMPARISON: XR PORTABLE CHEST AP 07/03/2021 18:20 FINDINGS: Lungs: Minor central interstitial prominence, decreased since prior. Pleural spaces: No pleural effusion. No pneumothorax. Heart/Mediastinum: No cardiomegaly. Bones/joints: Cervical spine fixation hardware is partially assessed. Degenerative changes in the shoulders and spine. No displaced fracture. IMPRESSION: Minor interstitial thickening has decreased, suggests a mild bronchitis or atypical infection. Dictated and Authenticated by: Lisa Wang MD. Ordering:BOBBY Fountain MD
[2021-11-27 20:50] LABS: INR 1.4 (0.9-1.1); PTT Activated 30.1 sec (21.0-27.5); Prothrombin Time 13.7 sec (9.3-11.0)
[2021-11-27] MEDS: Normal Saline 1,000 ML 125 ML IV (20:54)
[2021-11-27 20:56] LABS: ALT 20 U/L (14-59); AST 18 U/L (15-37); Albumin 2.9 g/dL (3.4-5.0); Alkaline Phosphatase 114 U/L (46-116); BUN 22 mg/dL (7-18); Bilirubin, Total 0.5 mg/dL (0.2-1.0); CREATININE 1.5 mg/dL (0.55-1.02); Calcium 8.9 mg/dL (8.5-10.1); Chloride 101 mmol/L (98-107); Estimated GFR 33.85 (mL/min/1.73m2); Glucose 116 mg/dL (74-106); Magnesium 1.7 mg/dL (1.8-2.4); NT-proBNP 246 pg/mL (<300); Potassium 3.6 mmol/L (3.5-5.1); Sodium 139 mmol/L (136-145); Total Protein 7.6 g/dL (6.4-8.2); Troponin I < 50 ng/L (<or=60)
[2021-11-27 21:02] LABS: Bilirubin Negative (Negative); Blood Large (Negative); Clarity Cloudy (Clear); Glucose Negative (Negative); Ketones Negative (Negative); Leukocyte Esterase Trace (Negative); Nitrite Negative (Negative); Urobilinogen 0.2 EU/dL (Up TO 0.2); pH 7.5 (5-8)
[2021-11-27 21:09] LABS: D-Dimer 1422 ng/mlFEU (<500)
[2021-11-27 21:14] LABS: COVID-19 PCR Negative (Negative); Influenza A PCR Negative (Negative); Influenza B PCR Negative (Negative); RSV PCR Negative (Negative)
--- NOTE | 2021-11-27 21:14 | DI.CT_ITS ---
Exam(s) CT CHEST PE ABD PELVIS W EXAM: CT CHEST PE ABD PELVIS W CLINICAL HISTORY: cough, elevated dimer. TECHNIQUE: Imaging Protocol: Axial computed tomography images with coronal and sagittal reformatted images were created and reviewed CONTRAST MATERIAL: Intravenous: Omnipaque 350 Contrast volume:100 cc Oral: No COMPARISON: CR,XR XR PORTABLE CHEST AP from 11/27/2021 FINDINGS: CHEST: Heart and great vessels: There is no evidence pulmonary emboli or aortic dissection. There are no pleural or pericardial effusions. Adenopathy: None. Lungs: No pulmonary nodules, mass or infiltrate. Mild subsegmental atelectasis right lung base. Bones: There is no evidence of spine or rib fracture. Degenerative changes. ABDOMEN/PELVIS: Liver: Normal density. No measurable mass. Gallbladder: No calcified stones, no wall thickening, no abnormal distention.No pericholecystic fluid . Biliary tract: No radiodense calculus, no dilation. Pancreas: Normal density, no abnormal calcifications or inflammatory process. Spleen: Normal. Kidneys: Normal size, contour and axis. No radiodense stones. No hydronephrosis. No masses seen. No perinephric collection. Adrenal glands: No masses seen. Abdominal Aorta: Non-dilated. Qhwt-po-urtydrog atherosclerotic changes. Bowel: Diverticulosis. No obstruction or bowel wall thickening. Bladder: Obscured by streak artifact. Peritoneal cavity: No ascites, focal collection or mesenteric inflammatory response. No free air. Bones: Left hip prosthesis. Degenerative changes in the spine. No suspicious lesions or fractures. Reproductive organs: Within normal limits. Lymph nodes: No pathologically enlarged lymph nodes. Impression: Unremarkable CT scan of the chest, abdomen and pelvis. RADIATION DOSE DELIVERED: 1,527.97mGy.cm Total DLP DATA REPOSITORY: All CT scans at this facility are submitted to the National Radiology Data Registry (NRDR) Dose Index Registry (DIR) with the [employer] (ACR). RADIATION OPTIMIZATION: All CT scans at this facility use at least one of these dose optimization te chniques: automated exposure control; mA and/or kV adjustment per patient size (includes targeted exa ms where dose is matched to clinical indication); or iterative reconstruction.
[2021-11-27 21:18] LABS: Bacteria Few HPF (Negative); C & S Indicated? No/Sq. Contamination; Epithelial Cells Many HPF (Negative); RBC >50 HPF (0-2)
[2021-11-27] MEDS: Omnipaque 350 MG/ML 100 ML BTL IJ (22:08)
[2021-11-27] MEDS: Normal Saline Flush 10 ML SYR IVP (22:09)
[2021-11-27] MEDS: Normal Saline 1,000 ML 1000 ML IV (22:27)
[2021-11-27] MEDS: Acetaminophen 500 MG TAB (22:28)
--- NOTE | 2021-11-27 22:42 | DI.VRAD_ITS ---
PROCEDURE INFORMATION: Exam: CTA Chest With Contrast Exam date and time: 11/27/2021 21:17 Age: 76 years old Clinical indication: Other: Wbc 22; Abdominal pain; Cough and other: Elevated d-dimer; Other: Cp TECHNIQUE: Imaging protocol: Computed tomographic angiography of the chest with contrast. 3D rendering (Not supervised by radiologist): MIP and/or 3D reconstructed images were created by the technologist. Radiation optimization: All CT scans at this facility use at least one of these dose optimization techniques: automated exposure control; mA and/or kV adjustment per patient size (includes targeted exams where dose is matched to clinical indication); or iterative reconstruction. Contrast material: OMNIPAQUE 350; Contrast volume: 100 ml; Contrast route: INTRAVENOUS (IV); COMPARISON: XR PORTABLE CHEST AP 11/27/2021 20:21 FINDINGS: Pulmonary arteries: No pulmonary emboli. Aorta: No aortic aneurysm. No aortic dissection. Lungs: No airspace consolidation. Microatelectasis. Minor subsegmental atelectasis right lung base. There are a few minor noncalcified nodules. Pleural spaces: No pneumothorax. No pleural effusion. Heart: No cardiomegaly. No pericardial effusion. Lymph nodes: No enlarged lymph nodes. Bones/joints: Cervical spine fixation hardware is partially assessed. Chronic degenerative changes in shoulders and spine. No acute fracture or subluxation. Soft tissues: No suspicious lesions. IMPRESSION: 1. No acute findings. 2. No pulmonary emboli are seen. 3. Incidental findings as described. PROCEDURE INFORMATION: Exam: CT Abdomen And Pelvis With Contrast Exam date and time: 11/27/2021 21:17 Age: 76 years old Clinical indication: Other: Wbc 22; Abdominal pain; Cough and other: Elevated d-dimer; Other: Cp TECHNIQUE: Imaging protocol: Computed tomography of the abdomen and pelvis with contrast. Radiation optimization: All CT scans at this facility use at least one of these dose optimization techniques: automated exposure control; mA and/or kV adjustment per patient size (includes targeted exams where dose is matched to clinical indication); or iterative reconstruction. Contrast material: OMNIPAQUE 350; Contrast volume: 100 ml; Contrast route: INTRAVENOUS (IV); COMPARISON: XR PORTABLE CHEST AP 11/27/2021 20:21 FINDINGS: Liver: No mass. Gallbladder and bile ducts: No calcified stones. No ductal dilation. Pancreas: No ductal dilation. No masses. Spleen: No splenomegaly or focal lesions. Adrenal glands: No mass. Kidneys and ureters: No hydronephrosis. No renal masses. Stomach and bowel: Colonic diverticulosis without diverticulitis. No focal pathology in the small bowel. Appendix: No evidence of appendicitis. Intraperitoneal space: No free air. No significant fluid collection. Vasculature: No abdominal aortic aneurysm. Lymph nodes: No significantly enlarged lymph nodes. Urinary bladder: The urinary bladder is difficult to assess given streak artifact in the pelvis however some wall thickening is suspected. Reproductive: Unremarkable as visualized. Bones/joints: Degenerative changes in the spine. No acute fracture or subluxation. Soft tissues: No suspicious lesions. IMPRESSION: 1. Suspected cystitis. 2. Incidental findings as described. Dictated and Authenticated by: Lisa Wang MD. Ordering:BOBBY Fountain MD
--- NOTE | 2021-11-27 23:12 | W.PM.HP.N ---
Date of service: 11/27/21 Time of Service: 23:12 Assessment and Plan Assessment and plan (1) Sinusitis, acute: Start date: 11/27/21 Status: Acute Assessment and plan: This is a 76-year-old lady who started with upper respiratory symptoms and sinusitis treated with amoxicillin prior to admission and then had more total body symptoms with abdominal complaint and fever presenting with dehydration and body aches. She was started on Rocephin after evaluation showed probable cystitis and leukocytosis which was significant with blood cultures and urine cultures obtained. Rocephin would also cover hernandez treatment for sinusitis. She continues to feel achy and warm and follow-up cultures with adjustment of antibiotic therapy will be done during her observation. If she is not improving or more focal findings were acute admission patient will be admitted. She does have chronic CKD. Qualifiers: Recurrence: not specified as recurrent Sinusitis location: maxillary Qualified Code(s): J01.00 - Acute maxillary sinusitis, unspecified (2) Leukocytosis (leucocytosis): Start date: 11/27/21 Status: Acute Assessment and plan: Monitor as patient is hydrated and treated for possible infection. Qualifiers: Leukocytosis type: other Qualified Code(s): D72.828 - Other elevated white blood cell count (3) SHANIA (acute kidney injury): Start date: 11/27/21 Status: Acute Assessment and plan: Gentle IV hydration with monitoring of labs. Watch for fluid overload. (4) Cystitis: Start date: 11/27/21 Status: Acute Assessment and plan: Follow-up on urine culture on IV antibiotics and adjust as needed. History of Present Illness History of Present Illness Chief Complaint: Abdominal pain Narrative: This is a 76-year-old female, past medical history of COPD, morbid obesity, diabetes, severe arthritis, osteopenia, hypothyroidism, GERD, depression, anxiety, currently being treated with amoxicillin for a sinus infection, presenting to the ER with multiple complaints that include ongoing nasal congestion, frontal headache, subjective fever and chills, cough with yellow sputum, body aches, epigastric discomfort with nausea and vomiting x3 yesterday, no vomiting today. Patient states that she has 2 more days of a 10-day prescription of amoxicillin. She is fully vaccinated against Covid. She denies any documented fever, neck pain, diarrhea, dysuria. She does admit to chest pain with coughing and with taking a deep breath. She denies any pain or swelling in her calfs. She denies any known sick contacts or recent trauma. She has taken all of her medications today as directed. She has not taken any [id number] medications for her symptoms. She was complaining of being extremely weak and was tearful in the ED with evaluation. In the ED she was found to have mild dehydration received 2 L of IV fluid with continued gentle IV hydration on the medical floor. She did not complain of chest pain or shortness of breath. She does feel somewhat better after hydration but still feels as if she has a fever. She also complains of a cough. She is less tearful. She is overweight in general but denies any significant peripheral edema. Review of Systems Narrative: 13 point review of systems otherwise unrevealing or stable. PFSH All Active Problems (Updated 11/28/21 @ 06:40 by Soto Reyez) Cystitis (Acute) Leukocytosis (Acute) SHANIA (acute kidney injury) (Acute) Leukocytosis (leucocytosis) (Acute) Sinusitis, acute (Acute) Bilateral lower extremity edema (Acute) Congestion of right ear (Acute) Left shoulder pain (Acute) Family history of colon cancer (Acute) Immunization due (Acute) Immunization counseling (Acute) Vitamin D deficiency (Acute) Osteoarthritis of hips, bilateral (Acute) DDD (degenerative disc disease), lumbar (Acute) Peripheral neuropathy (Acute) Morbid obesity (Acute) Polyneuropathy in diabetes (Acute) Dyslipidemia (Acute) Stricture of female urethra (Acute) Osteopenia (Acute) Diabetes (Chronic) Hiatal hernia (Chronic) Impacted cerumen of left ear (Acute) Arthralgia (Acute) COPD (chronic obstructive pulmonary disease) (Chronic) Hyperlipidemia (Acute) Hypothyroidism (acquired) (Acute) GERD (gastroesophageal reflux disease) (Chronic) Depression with anxiety (Acute) Medical History History of fracture of hand left Sepsis due to pneumonia Surgical History History of meatotomy of urethra History of tonsillectomy and adenoidectomy History of total hip arthroplasty Left Hx of fusion of 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 Daughter Depression Maternal Grandfather , 62 Prostate cancer Paternal Grandfather , 81 No problems noted. Maternal Grandmother , 77 Heart disease Paternal Grandmother , 59 Hypertension Social History Smoking/Tobacco Use Status: Former Tobacco Use tobacco type: cigarettes Quit Date: 10/31/81 Tobacco: How many years used: 20 Second Hand Exposure: Yes Smoking risk assessment performed?: Yes Alcohol Intake: current Alcohol Intake frequency: a few times a month Alcohol type: beer, wine and hard liquor Drug use: Never Substance use type: does not use Household members: spouse and family Housing: apartment Communication Needs: None Do you need help understanding health information?: Always Pets and animals: Yes Pets and animals: cat(s) and dog(s) Sexually active: Yes Do you think of yourself as: straight/heterosexual Current gender identity: female What is your relationship status?: How often do you talk on the phone with friends or family?: twice per week How often do you get together with friends or relatives?: twice per week How often do you attend roman catholic or methodist services?: decline to answer Do you belong to any clubs or organized social groups?: no Panel score (0-1 are the most socially isolated patients): 2 Dee Dee/Congregational: U[employer]din Special dee dee needs: No Seatbelt use: always Drive 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 Do you feel safe at home: Yes Do you feel safe in your relationship?: Yes Meds Allergies and Home Medications Allergies Allergy/AdvReac Type Severity Reaction Status Date / Time Sulfa (Sulfonamide Allergy Verified 11/27/21 20:11 Antibiotics) Home Medications Medication Instructions Recorded Confirmed Type cholecalciferol (vitamin D3) 125 125 mcg PO DAILY 06/25/21 11/27/21 History mcg (5,000 unit) capsule krill oil 500 mg capsule 500 mg PO DAILY cap 06/25/21 11/27/21 History gabapentin 300 mg capsule 300 - 600 mg PO BID #270 cap 07/23/21 11/27/21 Rx azelastine 205.5 mcg (0.15 %) 1 spray INTRANASAL BID 08/03/21 11/27/21 History nasal spray diclofenac sodium 1 % topical gel 4 g TOPICAL QID 08/03/21 11/27/21 History bupropion HCl 100 mg tablet,12 hr 100 mg PO BID #180 tab 08/20/21 11/27/21 Rx sustained-release denosumab 60 mg/mL subcutaneous 60 mg SUBCUT [id number] #1 ml 08/20/21 11/27/21 Rx syringe duloxetine 60 mg capsule,delayed 60 mg PO DAILY #90 cap 08/20/21 11/27/21 Rx release levothyroxine 88 mcg tablet 88 mcg PO DAILY #90 tab 08/20/21 11/27/21 Rx pantoprazole 40 mg tablet,delayed 40 mg PO DAILY #90 tab 08/20/21 11/27/21 Rx release rosuvastatin 10 mg tablet 10 mg PO DAILY #90 tab 08/20/21 11/27/21 Rx fluticasone propionate 50 1 spray INTRANASAL BID PRN #16 g 09/21/21 11/27/21 Rx mcg/actuation nasal spray,suspension hydroxyzine HCl 10 mg tablet 10 mg PO DAILY PRN #60 tab 10/06/21 11/27/21 Rx amoxicillin 875 mg tablet 875 mg PO BID #20 tab 11/20/21 11/27/21 Rx nitrofurantoin 100 mg PO Q12H #10 cap 11/25/21 11/27/21 Rx monohydrate/macrocrystals 100 mg capsule Exam Narrative Exam Narrative: General: Patient appears older than stated age in moderate distress from her discomfort from feeling feverish and abdominal discomfort with headache from sinus pressure. She is alert and oriented x3. Flattened affect with slow speech with monotonous tone. HEENT: Normocephalic, tender to palpation of the maxillary sinuses and slightly over the frontal sinus area without fluctuance or swelling. Eyes with pupils equal and reactive to light symmetrically, extraocular movement intact and sclera anicteric. Oropharynx with dry mucosa. Neck: Supple without JVD. Back: Kyphotic without CVA tenderness. Lungs: Fair aeration and clear to auscultation percussion without localizing rales or rhonchi. Heart: Regular rate and rhythm with distant heart sounds and no appreciable murmur. Breast: Exam deferred. Abdomen: Obese contour, soft to palpation but tender diffusely without focal guarding or rebound. No palpable hepatosplenomegaly. Genitalia/rectal: Exam deferred. Skin: Normal color, hot to touch and dry. Fair turgor. Extremities: Without clubbing, cyanosis or pitting edema. Patient does have fair range of motion of joints. Good capillary refill over lower extremities. Neuro: Cranial nerves II to XII grossly intact, no focalizing motor deficits or tremor. Psych: Flattened affect with normal mood except for going uncomfortable appearing slightly depressed. No abnormal thought processes. Remote and recent memory grossly intact. Results Imaging Imaging Studies: Exam: CTA Chest With Contrast Exam date and time: 11/27/2021 21:17 Age: 76 years old Clinical indication: Other: Wbc 22; Abdominal pain; Cough and other: Elevated d-dimer; Other: Cp TECHNIQUE: Imaging protocol: Computed tomographic angiography of the chest with contrast. 3D rendering (Not supervised by radiologist): MIP and/or 3D reconstructed images were created by the technologist. Radiation optimization: All CT scans at this facility use at least one of these dose optimization techniques: automated exposure control; mA and/or kV adjustment per patient size (includes targeted exams where dose is matched to clinical indication); or iterative reconstruction. Contrast material: OMNIPAQUE 350; Contrast volume: 100 ml; Contrast route: INTRAVENOUS (IV); COMPARISON: XR PORTABLE CHEST AP 11/27/2021 20:21 FINDINGS: Pulmonary arteries: No pulmonary emboli. Aorta: No aortic aneurysm. No aortic dissection. Lungs: No airspace consolidation. Microatelectasis. Minor subsegmental atelectasis right lung base. There are a few minor noncalcified nodules. Pleural spaces: No pneumothorax. No pleural effusion. Heart: No cardiomegaly. No pericardial effusion. Lymph nodes: No enlarged lymph nodes. Bones/joints: Cervical spine fixation hardware is partially assessed. Chronic degenerative changes in shoulders and spine. No acute fracture or subluxation. Soft tissues: No suspicious lesions. IMPRESSION: 1. No acute findings. 2. No pulmonary emboli are seen. 3. Incidental findings as described. PROCEDURE INFORMATION: Exam: CT Abdomen And Pelvis With Contrast Exam date and time: 11/27/2021 21:17 Age: 76 years old Clinical indication: Other: Wbc 22; Abdominal pain; Cough and other: Elevated d-dimer; Other: Cp TECHNIQUE: Imaging protocol: Computed tomography of the abdomen and pelvis with contrast. Radiation optimization: All CT scans at this facility use at least one of these dose optimization techniques: automated exposure control; mA and/or kV adjustment per patient size (includes targeted exams where dose is matched to clinical indication); or iterative reconstruction. Contrast material: OMNIPAQUE 350; Contrast volume: 100 ml; Contrast route: INTRAVENOUS (IV); COMPARISON: XR PORTABLE CHEST AP 11/27/2021 20:21 FINDINGS: Liver: No mass. Gallbladder and bile ducts: No calcified stones. No ductal dilation. Pancreas: No ductal dilation. No masses. Spleen: No splenomegaly or focal lesions. Adrenal glands: No mass. Kidneys and ureters: No hydronephrosis. No renal masses. Stomach and bowel: Colonic diverticulosis without diverticulitis. No focal pathology in the small bowel. Appendix: No evidence of appendicitis. Intraperitoneal space: No free air. No significant fluid collection. Vasculature: No abdominal aortic aneurysm. Lymph nodes: No significantly enlarged lymph nodes. Urinary bladder: The urinary bladder is difficult to assess given streak artifact in the pelvis however some wall thickening is suspected. Reproductive: Unremarkable as visualized. Bones/joints: Degenerative changes in the spine. No acute fracture or subluxation. Soft tissues: No suspicious lesions. IMPRESSION: 1. Suspected cystitis. 2. Incidental findings as described. Dictated and Authenticated by: Lisa Wang MD. Labs Result diagrams: 11/28/21 06:17 11/28/21 06:17 Labs: Laboratory Results - last 24 hr 11/27/21 11/27/21 11/27/21 20:00 20:00 20:00 WBC 21.19 H RBC 4.21 Hgb 12.7 Hct 40.1 MCV 95.2 H MCH 30.2 MCHC 31.7 L RDW 12.6 Plt Count 351 MPV 10.0 Immature Gran % 0.7 Neutrophils % 90.6 Lymphocytes % 4.0 Monocytes % 1.7 Eosinophils % 2.8 Basophils % 0.2 Nucleated RBC % 0 Absolute Neutrophils 19.20 H Absolute Lymphocytes 0.85 L Absolute Monocytes 0.36 Absolute Eosinophils 0.59 Absolute Basophils 0.04 PT 13.7 H INR 1.4 H APTT 30.1 H D-Dimer 1422 H Sodium 139 Potassium 3.6 Chloride 101 Carbon Dioxide 27.0 Anion Gap 11.0 BUN 22 H Creatinine 1.5 H Estimated GFR/1.73 m2 33.85 Glucose 116 H Calcium 8.9 Magnesium 1.7 L Total Bilirubin 0.5 AST 18 ALT 20 Alkaline Phosphatase 114 Troponin I < 50 NT-Pro-B Natriuret Pep 246 Total Protein 7.6 Albumin 2.9 L Urine Color Urine Clarity Urine pH Ur Specific [place] Urine Protein Urine Ketones Urine Blood Urine Nitrite Urine Bilirubin Urine Urobilinogen Ur Leukocyte Esterase Urine RBC Urine WBC Ur Epithelial Cells Urine Crystals Urine Bacteria Urine Mucus Ur Culture Indicated? Urine Glucose COVID-19 Source SARS-CoV-2 (PCR) Influenza Type A (PCR) Influenza Type B (PCR) RSV (PCR) 11/27/21 11/27/21 20:27 20:56 WBC RBC Hgb Hct MCV MCH MCHC RDW Plt Count MPV Immature Gran % Neutrophils % Lymphocytes % Monocytes % Eosinophils % Basophils % Nucleated RBC % Absolute Neutrophils Absolute Lymphocytes Absolute Monocytes Absolute Eosinophils Absolute Basophils PT INR APTT D-Dimer Sodium Potassium Chloride Carbon Dioxide Anion Gap BUN Creatinine Estimated GFR/1.73 m2 Glucose Calcium Magnesium Total Bilirubin AST ALT Alkaline Phosphatase Troponin I NT-Pro-B Natriuret Pep Total Protein Albumin Urine Color Yellow Urine Clarity Cloudy Urine pH 7.5 Ur Specific [place] 1.020 Urine Protein 30 H Urine Ketones Negative Urine Blood Large H Urine Nitrite Negative Urine Bilirubin Negative Urine Urobilinogen 0.2 Ur Leukocyte Esterase Trace H Urine RBC >50 H Urine WBC Ur Epithelial Cells Many Urine Crystals Not Applicable Urine Bacteria Few Urine Mucus Not Applicable Ur Culture Indicated? No/Sq. Contamination Urine Glucose Negative COVID-19 Source Nasopharynx SARS-CoV-2 (PCR) Negative Influenza Type A (PCR) Negative Influenza Type B (PCR) Negative RSV (PCR) Negative Last Vital Signs Temp 36.7 C 11/27/21 19:50 Pulse 84 11/27/21 20:00 Resp 16 11/27/21 20:10 BP 120/50 L 11/27/21 20:00 Pulse Ox 95 11/27/21 20:10
[2021-11-27 23:24] LABS: Lactate 1.2 mmol/L (0.6-1.4)
[2021-11-27] MEDS: Mylanta Suspension 30 ML CUP PO (23:39)
[2021-11-27] MEDS: cefTRIAXone 2 GM/50 ML BAG IVPB (23:39)
[2021-11-27 23:41] LABS: Troponin I < 50 ng/L (<or=60)
[2021-11-28] VITALS (7 sets, daily range): BP systolic 95–121; BP diastolic 54–69; PULSE 69–85; RESP 16–20; TEMP 36.8–37.9; O2SAT 91–95
[2021-11-28] LABS: Procalcitonin 4.3 ng/mL
[2021-11-28 00:27] LABS: TSH (W/Ref FT4) 0.66 uIU/mL (0.36-3.74)
[2021-11-28] MEDS: Acetaminophen 325 MG TAB 650 MG PO ×2 (02:45→10:31)
[2021-11-28] MEDS: hydrOXYzine HCL 10 MG TAB PO (02:46)
[2021-11-28] MEDS: Normal Saline 1,000 ML 125 ML IV ×3 (03:10→23:23)
[2021-11-28] MEDS: Heparin 5,000 UNITS/ML VIAL 5000 UNITS SC ×3 (05:07→21:21)
[2021-11-28] MEDS: Levothyroxine 88 MCG TAB PO (05:07)
[2021-11-28 06:50] LABS: ALT 18 U/L (14-59); AST 20 U/L (15-37); Albumin 2.4 g/dL (3.4-5.0); Alkaline Phosphatase 99 U/L (46-116); Anion Gap 8.9 mmol/L (3-11); BUN 18 mg/dL (7-18); Bilirubin, Total 0.3 mg/dL (0.2-1.0); CO2 27.1 mmol/L (21.0-32.0); CREATININE 1.3 mg/dL (0.55-1.02); Calcium 8.5 mg/dL (8.5-10.1); Chloride 106 mmol/L (98-107); Estimated GFR 39.93 (mL/min/1.73m2); Glucose 93 mg/dL (74-106); Potassium 3.8 mmol/L (3.5-5.1); Sodium 142 mmol/L (136-145); Total Protein 6.6 g/dL (6.4-8.2)
[2021-11-28 06:51] LABS: INR 1.4 (0.9-1.1)
[2021-11-28 07:59] LABS: Abs Immature Grans 0.12 10^3/uL (0.0-0.06); Absolute Basophil Count 0.03 10^3/uL (0.0-0.2); Absolute Eosinophil Count 0.67 10^3/uL (0.0-0.7); Absolute Lymphocyte Count 1.34 10^3/uL (1.2-3.4); Absolute Monocyte Count 0.49 10^3/uL (0.1-0.8); Absolute Neutrophil Count 14.13 10^3/uL (1.2-6.7); Basophils % 0.2; HCT 35.1 % (36.0-46.0); HGB 10.9 g/dL (11.2-15.7); Immature Grans % 0.7; MCH 30.5 pg (27.0-33.0); MCHC 31.1 % (32.0-36.0); MCV 98.3 fL (80-95); MPV 10.3 fL (8.0-11.0); Monocytes % 2.9; Neutrophils % 84.2; Nucleated RBC 0 %; Platelet Count 299 10^3/uL (130-400); RBC 3.57 10^6/uL (3.93-5.22); RDW 12.6 % (11.7-14.6); RDW-SD 45.6 fL; WBC 16.78 10^3/uL (4.4-10.8)
[2021-11-28] MEDS: Ondansetron 4 MG/2 ML VIAL IVP (09:11)
[2021-11-28] MEDS: Prochlorperazine 10 MG/2 ML VIAL 5 MG IVP (10:04)
[2021-11-28] MEDS: predniSONE 20 MG TAB 40 MG PO (10:31)
[2021-11-28] MEDS: Gabapentin 300 MG CAP 600 MG PO ×2 (10:32→19:18)
[2021-11-28] MEDS: DOXYCYCLINE 100 MG in Normal Saline 100 ML IVPB ×2 (10:32→22:06)
[2021-11-28] MEDS: buPROPion-CR 100 MG TABCR PO ×2 (10:32→19:18)
[2021-11-28] MEDS: Magnesium Oxide 400 MG TAB PO (10:32)
[2021-11-28] MEDS: Pantoprazole 40 MG TABCR PO (10:32)
[2021-11-28] MEDS: DULoxetine 30 MG CAP 60 MG PO (10:32)
[2021-11-28] MEDS: Rosuvastatin 10 MG TAB PO (10:33)
--- NOTE | 2021-11-28 11:11 | PDOC.CMIN ---
- If Service Date Differs Date of service: 11/28/21 Time of Service: 11:11 Care Management Initial Assess REASON FOR HOSPITALIZATION:: Sinusitis, SHANIA, leukocytosis PAST MEDICAL HISTORY/PAST SURGICAL HISTORY:: All Active Problems. Cystitis (Acute). Leukocytosis (Acute). SHANIA (acute kidney injury) (Acute). Leukocytosis (leucocytosis) (Acute). Sinusitis, acute (Acute). Bilateral lower extremity edema (Acute). Congestion of right ear (Acute). Left shoulder pain (Acute). Family history of colon cancer (Acute). Immunization due (Acute). Immunization counseling (Acute). Vitamin D deficiency (Acute). Osteoarthritis of hips, bilateral (Acute). DDD (degenerative disc disease), lumbar (Acute). Peripheral neuropathy (Acute). Morbid obesity (Acute). Polyneuropathy in diabetes (Acute). Dyslipidemia (Acute). Stricture of female urethra (Acute). Osteopenia (Acute). Diabetes (Chronic). Hiatal hernia (Chronic). Impacted cerumen of left ear (Acute). Arthralgia (Acute). COPD (chronic obstructive pulmonary disease) (Chronic). Hyperlipidemia (Acute). Hypothyroidism (acquired) (Acute). GERD (gastroesophageal reflux disease) (Chronic). Depression with anxiety (Acute). Medical History. History of fracture of hand. left. Sepsis due to pneumonia. Surgical History. History of meatotomy of urethra. History of tonsillectomy and adenoidectomy. History of total hip arthroplasty. Left. Hx of fusion of cervical spine. stenosis- C5-7. S/P ORIF (open reduction internal fixation) fracture. Left femur shaft. S/P total knee arthroplasty. Left. Status post appendectomy PREVIOUS FUNCTIONAL STATUS/SOCIAL/FAMILY SUPPORTS:: Tasia lives in [place] with her in her daughter's home. She has another daughter who lives in [place]. 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 Her and her lived in [place] for 15 years but recently moved back as he is completely disabled. Tasia is independent with ADL's at baseline. CURRENT FUNCTIONAL STATUS:: Tasia was sitting up in bed when CM met with her. She reported that she is feeling better today, and is hoping to get some more rest. She stated that per provider, she will likely be ready for discharge in the next day or two. CM will continue to follow. ADVANCE DIRECTIVES:: On file. Navid listed as agent. Faviola listed as alternate agent. Has patient been provided with info about the portal/API?: Yes Did the patient sign up for the portal?: Yes (active) CODE STATUS:: Full Code INSURANCE COVERAGE / FINANCIAL ISSUES:: [employer]/ [employer] CURRENT HOME/COMMUNITY SERVICES/EQUIPMENT:: Tasia uses a cane occasionally. No current services. PRIMARY CARE PHYSICIAN:: Va Nevarez POTENTIAL DISCHARGE NEEDS:: Evaluations for further needs, follow up appointments. PATIENT/FAMILY EDUCATION NEEDS:: Review discharge instructions and limitations, discussion of self care needs including ask me three. ANTICIPATED BARRIERS TO DISCHARGE:: None identified at this time. TRANSPORTATION:: Via private vehicle by her daughter. PLAN:: Tasia will likely return home when medically cleared. Her daughter will drive her home via private vehicle. She will follow up with her PCP and discharge plan of care. CM will continue to follow.
[2021-11-28] MEDS: Diclofenac 1% Gel 100 GM TUBE TP ×3 (13:41→19:18)
--- NOTE | 2021-11-28 15:42 | W.PM.PROGNOT ---
Date of Service Date of service: 11/28/21 Time of Service: 15:00 Assessment and Plan Assessment and plan (1) Sinusitis, acute: Start date: 11/28/21 Start time: 15:00 Status: Acute Assessment and plan: Improved already. On ceftriaxone, xray did reveal atypical bronchitis, doxy added in addition with IS Patient also on prednisone Qualifiers: Sinusitis location: maxillary Recurrence: not specified as recurrent Qualified Code(s): J01.00 - Acute maxillary sinusitis, unspecified (2) Leukocytosis (leucocytosis): Start date: 11/28/21 Start time: 15:00 Status: Acute Assessment and plan: Improving from 21 to 16, will continue to monitor. Qualifiers: Leukocytosis type: other Qualified Code(s): D72.828 - Other elevated white blood cell count (3) SHANIA (acute kidney injury): Start date: 11/28/21 Start time: 15:00 Status: Acute Assessment and plan: Her renal function appears to be back at baseline today. Will continue to monitor (4) Cystitis: Start date: 11/28/21 Start time: 15:00 Status: Acute Assessment and plan: Follow-up on urine culture on IV antibiotics and adjust as needed. Discussed with Dr. Lopez Subjective Subjective Patient reports: no new complaints and feels better Interval history since last seen: She states she is feeling better. Added doxy and IS for possible atypical bronchitis. No other complaints. Exam Narrative Exam Narrative: General: Patient lying in bed with eyes closed appears comfortable. She is alert and oriented x3. Pleasant and cooperative. HEENT: Normocephalic, . Eyes with pupils equal and reactive to light symmetrically, extraocular movement intact and sclera anicteric. MMM Neck: Supple without JVD. Back: Kyphotic without CVA tenderness. Lungs: LSC no wheezing rales or rhonchi Heart: RRR Abdomen: Obese contour, BS x 4 nontender. No palpable hepatosplenomegaly. Skin: Normal color, warm to touch. Extremities: Without clubbing, cyanosis or pitting edema. FROM Neuro: AAOx3 Objective Last Vital Signs Temp 37.4 C 11/28/21 13:40 Pulse 76 11/28/21 13:40 Resp 20 11/28/21 13:40 BP 104/63 11/28/21 13:40 Pulse Ox 94 11/28/21 13:40 Laboratory Results - last 24 hr 11/27/21 11/27/21 11/27/21 20:00 20:00 20:00 WBC 21.19 H RBC 4.21 Hgb 12.7 Hct 40.1 MCV 95.2 H MCH 30.2 MCHC 31.7 L RDW 12.6 Plt Count 351 MPV 10.0 Immature Gran % 0.7 Neutrophils % 90.6 Lymphocytes % 4.0 Monocytes % 1.7 Eosinophils % 2.8 Basophils % 0.2 Nucleated RBC % 0 Absolute Neutrophils 19.20 H Absolute Lymphocytes 0.85 L Absolute Monocytes 0.36 Absolute Eosinophils 0.59 Absolute Basophils 0.04 PT 13.7 H INR 1.4 H APTT 30.1 H D-Dimer 1422 H VBG Lactate Sodium 139 Potassium 3.6 Chloride 101 Carbon Dioxide 27.0 Anion Gap 11.0 BUN 22 H Creatinine 1.5 H Estimated GFR/1.73 m2 33.85 Glucose 116 H Calcium 8.9 Magnesium 1.7 L Total Bilirubin 0.5 AST 18 ALT 20 Alkaline Phosphatase 114 Troponin I < 50 NT-Pro-B Natriuret Pep 246 Total Protein 7.6 Albumin 2.9 L Procalcitonin TSH Urine Color Urine Clarity Urine pH Ur Specific Dillon Urine Protein Urine Ketones Urine Blood Urine Nitrite Urine Bilirubin Urine Urobilinogen Ur Leukocyte Esterase Urine RBC Urine WBC Ur Epithelial Cells Urine Crystals Urine Bacteria Urine Mucus Ur Culture Indicated? Urine Glucose COVID-19 Source SARS-CoV-2 (PCR) Influenza Type A (PCR) Influenza Type B (PCR) RSV (PCR) 11/27/21 11/27/21 11/27/21 20:27 20:56 23:10 WBC RBC Hgb Hct MCV MCH MCHC RDW Plt Count MPV Immature Gran % Neutrophils % Lymphocytes % Monocytes % Eosinophils % Basophils % Nucleated RBC % Absolute Neutrophils Absolute Lymphocytes Absolute Monocytes Absolute Eosinophils Absolute Basophils PT INR APTT D-Dimer VBG Lactate Sodium Potassium Chloride Carbon Dioxide Anion Gap BUN Creatinine Estimated GFR/1.73 m2 Glucose Calcium Magnesium Total Bilirubin AST ALT Alkaline Phosphatase Troponin I < 50 NT-Pro-B Natriuret Pep Total Protein Albumin Procalcitonin TSH Urine Color Yellow Urine Clarity Cloudy Urine pH 7.5 Ur Specific Dillon 1.020 Urine Protein 30 H Urine Ketones Negative Urine Blood Large H Urine Nitrite Negative Urine Bilirubin Negative Urine Urobilinogen 0.2 Ur Leukocyte Esterase Trace H Urine RBC >50 H Urine WBC Ur Epithelial Cells Many Urine Crystals Not Applicable Urine Bacteria Few Urine Mucus Not Applicable Ur Culture Indicated? No/Sq. Contamination Urine Glucose Negative COVID-19 Source Nasopharynx SARS-CoV-2 (PCR) Negative Influenza Type A (PCR) Negative Influenza Type B (PCR) Negative RSV (PCR) Negative 11/27/21 11/27/21 11/28/21 23:10 23:10 06:17 WBC RBC Hgb Hct MCV MCH MCHC RDW Plt Count MPV Immature Gran % Neutrophils % Lymphocytes % Monocytes % Eosinophils % Basophils % Nucleated RBC % Absolute Neutrophils Absolute Lymphocytes Absolute Monocytes Absolute Eosinophils Absolute Basophils PT INR APTT D-Dimer VBG Lactate 1.2 Sodium 142 Potassium 3.8 Chloride 106 Carbon Dioxide 27.1 Anion Gap 8.9 BUN 18 Creatinine 1.3 H Estimated GFR/1.73 m2 39.93 Glucose 93 Calcium 8.5 Magnesium Total Bilirubin 0.3 AST 20 ALT 18 Alkaline Phosphatase 99 Troponin I NT-Pro-B Natriuret Pep Total Protein 6.6 Albumin 2.4 L Procalcitonin 4.3 TSH 0.66 Urine Color Urine Clarity Urine pH Ur Specific Dillon Urine Protein Urine Ketones Urine Blood Urine Nitrite Urine Bilirubin Urine Urobilinogen Ur Leukocyte Esterase Urine RBC Urine WBC Ur Epithelial Cells Urine Crystals Urine Bacteria Urine Mucus Ur Culture Indicated? Urine Glucose COVID-19 Source SARS-CoV-2 (PCR) Influenza Type A (PCR) Influenza Type B (PCR) RSV (PCR) 11/28/21 11/28/21 06:17 06:17 WBC 16.78 H RBC 3.57 L Hgb 10.9 L Hct 35.1 L MCV 98.3 H D MCH 30.5 MCHC 31.1 L RDW 12.6 Plt Count 299 MPV 10.3 Immature Gran % 0.7 Neutrophils % 84.2 Lymphocytes % 8.0 Monocytes % 2.9 Eosinophils % 4.0 Basophils % 0.2 Nucleated RBC % 0 Absolute Neutrophils 14.13 H Absolute Lymphocytes 1.34 Absolute Monocytes 0.49 Absolute Eosinophils 0.67 Absolute Basophils 0.03 PT 14.0 H INR 1.4 H APTT D-Dimer VBG Lactate Sodium Potassium Chloride Carbon Dioxide Anion Gap BUN Creatinine Estimated GFR/1.73 m2 Glucose Calcium Magnesium Total Bilirubin AST ALT Alkaline Phosphatase Troponin I NT-Pro-B Natriuret Pep Total Protein Albumin Procalcitonin TSH Urine Color Urine Clarity Urine pH Ur Specific Dillon Urine Protein Urine Ketones Urine Blood Urine Nitrite Urine Bilirubin Urine Urobilinogen Ur Leukocyte Esterase Urine RBC Urine WBC Ur Epithelial Cells Urine Crystals Urine Bacteria Urine Mucus Ur Culture Indicated? Urine Glucose COVID-19 Source SARS-CoV-2 (PCR) Influenza Type A (PCR) Influenza Type B (PCR) RSV (PCR)
[2021-11-28] MEDS: cefTRIAXone 1 GM/50 ML BAG IVPB (21:22)
[2021-11-29] MEDS: Levothyroxine 88 MCG TAB PO (05:25)
[2021-11-29] MEDS: Heparin 5,000 UNITS/ML VIAL 5000 UNITS SC (05:26)
[2021-11-29 05:29] VITALS: BP 111/59; PULSE 53; RESP 18; TEMP 36; O2SAT 92
[2021-11-29 06:03] LABS: Abs Immature Grans 0.02 10^3/uL (0.0-0.06); Absolute Basophil Count 0.01 10^3/uL (0.0-0.2); Absolute Eosinophil Count 0.01 10^3/uL (0.0-0.7); Absolute Lymphocyte Count 1.19 10^3/uL (1.2-3.4); Absolute Neutrophil Count 6.64 10^3/uL (1.2-6.7); Basophils % 0.1; Eosinophils % 0.1; HGB 9.9 g/dL (11.2-15.7); Immature Grans % 0.2; Lymphocytes % 14.6; MCH 30.5 pg (27.0-33.0); MCHC 30.9 % (32.0-36.0); MCV 98.5 fL (80-95); MPV 10.2 fL (8.0-11.0); Monocytes % 3.7; Neutrophils % 81.3; Nucleated RBC 0 %; Platelet Count 261 10^3/uL (130-400); RBC 3.25 10^6/uL (3.93-5.22); RDW 12.6 % (11.7-14.6); RDW-SD 45.7 fL; WBC 8.17 10^3/uL (4.4-10.8)
[2021-11-29 06:15] LABS: Anion Gap 9.4 mmol/L (3-11); BUN 18 mg/dL (7-18); CO2 24.6 mmol/L (21.0-32.0); CREATININE 1.1 mg/dL (0.55-1.02); Calcium 8.5 mg/dL (8.5-10.1); Chloride 110 mmol/L (98-107); Estimated GFR 48.42 (mL/min/1.73m2); Glucose 97 mg/dL (74-106); Magnesium 2.1 mg/dL (1.8-2.4); Sodium 144 mmol/L (136-145)
[2021-11-29] MEDS: Normal Saline 1,000 ML 125 ML IV (08:18)
[2021-11-29] MEDS: DULoxetine 30 MG CAP 60 MG PO (08:18)
[2021-11-29] MEDS: Pantoprazole 40 MG TABCR PO (08:19)
[2021-11-29] MEDS: predniSONE 20 MG TAB 40 MG PO (08:20)
[2021-11-29] MEDS: Gabapentin 300 MG CAP 600 MG PO (08:20)
[2021-11-29] MEDS: Rosuvastatin 10 MG TAB PO (08:20)
[2021-11-29] MEDS: buPROPion-CR 100 MG TABCR PO (08:20)
[2021-11-29] MEDS: Diclofenac 1% Gel 100 GM TUBE TP ×2 (08:26→11:18)
--- NOTE | 2021-11-29 10:35 | DSE_ITS ---
Date of service: 11/29/21 Time of Service: 10:35 DS: Diagnosis Discharge Diagnosis (1) Sinusitis, acute: Start date: 11/29/21 Start time: 10:35 Status: Acute Asessment and Plan: Patient presented with leukocytosis of 21 on admission today count of 8. No pain to maxial facial area with palpation. She is doing well. She will be discharged home on cefpdoxime and doxy x 7 days for both urine and acute sinusitis. (2) Leukocytosis (leucocytosis): Start date: 11/29/21 Start time: 10:39 Status: Resolved Asessment and Plan: Normal count at 8 (3) SHANIA (acute kidney injury): Start date: 11/29/21 Start time: 10:40 Status: Resolved Asessment and Plan: She is at her baseline renal function (4) Cystitis: Start date: 11/29/21 Start time: 10:40 Status: Resolved Asessment and Plan: There was no urine cx ran, however patient states she no longer has pain with urination. will treat as UTI , as above. discussed with Dr. Lopez Discharge Plan Disposition Patient Disposition: HOME Condition: Good Discharge Details Reason For Visit: Sinusitis, Acute Kidney Injury, Leukocytosis Admit Date/Time: 11/27/21 23:14 Admit Provider: Soto Reyez Attending Provider: Soto Reyez Primary Care Provider: Va [facility] Hospital Course Hospital Course: 76 y.o female with PMH of DDD, peripheral neuropathy, diabetes, GERD, Hypothyroidism, COPD, HLD, Depression, presented to [facility] c/o pain with urination, upper respiratory symptoms and sinusitis. She was initiated on ceftriaxone. Labs in the ED revealed leukocytosis of 21, mag of 1.7 and elevated renal function above her normal ckd. She was asked to be admitted to obs. Her imaging revealed atypical bronchitis so doxy was added to ceftriaxone. Today she feels great. Renal function is baseline after IV hydration. Her wbc has normalized to 8. She has no pain to palpation of her face and no cysitis. Therefore she is being discharged home on cefpdoxime 200 mg x 7 days and doxy x 7 days. F/u with PCP as needed. Home Meds and New Rx's Prescriptions: New cefpodoxime 200 mg tablet 200 mg PO BID Qty: 13 RF: 0 doxycycline hyclate 100 mg capsule 100 mg PO BID Qty: 13 RF: 0 Bio-K plus 50 billion cell capsule,delayed release(DR/EC) 1 cap PO DAILY Qty: 30 RF: 0 Continued levothyroxine 88 mcg tablet 88 mcg PO DAILY Qty: 90 RF: 3 duloxetine 60 mg capsule,delayed release(DR/EC) 60 mg PO DAILY Qty: 90 RF: 3 rosuvastatin 10 mg tablet 10 mg PO DAILY Qty: 90 RF: 0 pantoprazole [Protonix] 40 mg tablet,delayed release (DR/EC) 40 mg PO DAILY Qty: 90 RF: 0 Prolia 60 mg/mL syringe 60 mg subcut [id number] Qty: 1 RF: 1 bupropion HCl 100 mg tablet sustained-release 12 hr 100 mg PO BID Qty: 180 RF: 3 krill oil 500 mg capsule 500 mg PO DAILY RF: 0 cholecalciferol (vitamin D3) 125 mcg (5,000 unit) capsule 125 mcg PO DAILY RF: 0 fluticasone propionate 50 mcg/actuation spray,suspension 1 spray intranasal BID PRN (Reason: nasal congestion) Qty: 16 RF: 4 gabapentin 300 mg capsule 300 - 600 mg PO BID Qty: 270 RF: 3 diclofenac sodium 1 % gel 4 g topical QID RF: 0 azelastine 205.5 mcg (0.15 %) spray,non-aerosol 1 spray intranasal BID RF: 0 hydroxyzine HCl 10 mg tablet 10 mg PO DAILY PRN (Reason: anxiety) Qty: 60 RF: 0 Discontinued nitrofurantoin monohyd/m-cryst [Macrobid] 100 mg capsule 100 mg PO Q12H Qty: 10 RF: 0 amoxicillin 875 mg tablet 875 mg PO BID Qty: 20 RF: 0 Discharge Instructions Instructions: Acute Kidney Injury (DC), Sinusitis (GEN), Dysuria (GEN) Additional Instructions: I sent your prescriptions to the [facility] in [place] Take your first dose tonight at home Follow up with your PCP as needed Take the bio-k for 30 days Activity:: Activity as Tolerated Equipment/Supplies:: No Equipment Needed Diet:: Carb Counting Discharge Orders Discharge Orders: Discharge Order (Routine); Ordered 11/29/21 Ordered By: Candy Ko DS: Summary Time Spent with Patient providing and/or coordinating discharge services: Less than 30 minutes Status at Discharge Functional status at discharge: independent ambulation Overall status at discharge: patient is back to baseline Mental Status: mental status grossly normal Speech and Movement: speech and movement normal Mood: congruent mood Affect: normal affect Exam Narrative Exam Narrative: General: Patient sitting up in chair, comfortable no pain. She is alert and oriented x3. Pleasant and cooperative. HEENT: Normocephalic,Eyes with pupils equal and reactive to light symmetrically, extraocular movement intact and sclera anicteric. MMM Neck: Supple without JVD. Back: Kyphotic without CVA tenderness. Lungs: LSC no wheezing rales or rhonchi Heart: RRR Abdomen: Obese contour, BS x 4 nontender. No palpable hepatosplenomegaly. Skin: Normal color, warm to touch. Extremities: Without clubbing, cyanosis or pitting edema. FROM Neuro: AAOx3 Psych Mental Status: mental status grossly normal Speech and Movement: speech and movement normal Mood: congruent mood Affect: normal affect DS: Data Vitals/I&O Vitals and I&O: Vital Signs Temperature 36.0 C L 11/29/21 05:29 Temperature Source Tympanic 11/29/21 05:29 Pulse 53 L 11/29/21 05:29 Pulse Rhythm Regular 11/29/21 10:10 Pulse 85 11/27/21 20:10 Respiratory Rate 18 11/29/21 05:29 Respiratory Effort 11/29/21 10:10 Respiratory Depth Normal 11/29/21 10:10 Respiratory Pattern Normal 11/29/21 10:10 Blood Pressure 111/59 L 11/29/21 05:29 Blood Pressure Mean 68 11/27/21 20:00 Pulse Oximetry 92 11/29/21 05:29 Oxygen Delivery Method Room Air 11/29/21 05:29 Oxygen Flow Rate 0 11/29/21 05:29 Pain Level 0 11/28/21 16:32 Comment 11/28/21 09:07 Intake & Output 11/28/21 11/28/21 11/29/21 11:59 23:59 11:59 Intake Total 1326.25 / 2986.25 1660 / 2986.25 1730 / 1730 Output Total 505 / 705 200 / 705 200 / 200 Balance 821.25 / 2281.25 1460 / 2281.25 1530 / 1530 Weight 81.3 kg 82.6 kg Intake: IV 1056.25 / 2116.25 1060 / 2116.25 1250 / 1250 Oral 270 / 870 600 / 870 480 / 480 Output: Urine 325 / 525 200 / 525 200 / 200 Emesis 180 / 180 Other: Urine Color Yellow Pale Yellow Urine Appearance Clear Clear Clear Urine Odor None None Normal Comment I changed patients diaper pt was continent Stool Occult Blood Negative Stool Size Moderate Small Stool Characteristics Black Emesis Description Retching Voiding Methods Toilet Toilet Toilet Diaper Data Completed and Pending Completed studies during hospitalization [Text1]: : 1945ge: 76 Exam(s) PROCEDURE INFORMATION: Exam: CTA Chest With Contrast Exam date and time: 11/27/2021 21:17 Age: 76 years old Clinical indication: Other: Wbc 22; Abdominal pain; Cough and other: Elevated d-dimer; Other: Cp TECHNIQUE: Imaging protocol: Computed tomographic angiography of the chest with contrast. 3D rendering (Not supervised by radiologist): MIP and/or 3D reconstructed images were created by the technologist. Radiation optimization: All CT scans at this facility use at least one of these dose optimization techniques: automated exposure control; mA and/or kV adjustment per patient size (includes targeted exams where dose is matched to clinical indication); or iterative reconstruction. Contrast material: OMNIPAQUE 350; Contrast volume: 100 ml; Contrast route: INTRAVENOUS (IV); COMPARISON: XR PORTABLE CHEST AP 11/27/2021 20:21 FINDINGS: Pulmonary arteries: No pulmonary emboli. Aorta: No aortic aneurysm. No aortic dissection. Lungs: No airspace consolidation. Microatelectasis. Minor subsegmental atelectasis right lung base. There are a few minor noncalcified nodules. Pleural spaces: No pneumothorax. No pleural effusion. Heart: No cardiomegaly. No pericardial effusion. Lymph nodes: No enlarged lymph nodes. Bones/joints: Cervical spine fixation hardware is partially assessed. Chronic degenerative changes in shoulders and spine. No acute fracture or subluxation. Soft tissues: No suspicious lesions. IMPRESSION: 1. No acute findings. 2. No pulmonary emboli are seen. 3. Incidental findings as described. PROCEDURE INFORMATION: Exam: CT Abdomen And Pelvis With Contrast Exam date and time: 11/27/2021 21:17 Age: 76 years old Clinical indication: Other: Wbc 22; Abdominal pain; Cough and other: Elevated d-dimer; Other: Cp TECHNIQUE: Imaging protocol: Computed tomography of the abdomen and pelvis with contrast. Radiation optimization: All CT scans at this facility use at least one of these dose optimization techniques: automated exposure control; mA and/or kV adjustment per patient size (includes targeted exams where dose is matched to clinical indication); or iterative reconstruction. Contrast material: OMNIPAQUE 350; Contrast volume: 100 ml; Contrast route: INTRAVENOUS (IV); COMPARISON: XR PORTABLE CHEST AP 11/27/2021 20:21 FINDINGS: Liver: No mass. Gallbladder and bile ducts: No calcified stones. No ductal dilation. Pancreas: No ductal dilation. No masses. Spleen: No splenomegaly or focal lesions. Adrenal glands: No mass. Kidneys and ureters: No hydronephrosis. No renal masses. Stomach and bowel: Colonic diverticulosis without diverticulitis. No focal pathology in the small bowel. Appendix: No evidence of appendicitis. Intraperitoneal space: No free air. No significant fluid collection. Vasculature: No abdominal aortic aneurysm. Lymph nodes: No significantly enlarged lymph nodes. Urinary bladder: The urinary bladder is difficult to assess given streak artifact in the pelvis however some wall thickening is suspected. Reproductive: Unremarkable as visualized. Bones/joints: Degenerative changes in the spine. No acute fracture or subluxation. Soft tissues: No suspicious lesions. IMPRESSION: 1. Suspected cystitis. 2. Incidental findings as described. Labs on day of discharge: Labs from last 24 hours 11/29/21 11/29/21 05:45 05:45 WBC 8.17 D RBC 3.25 L Hgb 9.9 L Hct 32.0 L MCV 98.5 H MCH 30.5 MCHC 30.9 L RDW 12.6 Plt Count 261 MPV 10.2 Immature Gran % 0.2 Neutrophils % 81.3 Lymphocytes % 14.6 Monocytes % 3.7 Eosinophils % 0.1 Basophils % 0.1 Nucleated RBC % 0 Absolute Neutrophils 6.64 Absolute Lymphocytes 1.19 L Absolute Monocytes 0.30 Absolute Eosinophils 0.01 Absolute Basophils 0.01 Sodium 144 Potassium 4.0 Chloride 110 H Carbon Dioxide 24.6 Anion Gap 9.4 BUN 18 Creatinine 1.1 H Estimated GFR/1.73 m2 48.42 Glucose 97 Calcium 8.5 Magnesium 2.1 Preliminary micro results at discharge 11/27/21 23:19 Blood Culture - Preliminary Blood NO GROWTH 24 HOURS 11/27/21 23:10 Blood Culture - Preliminary Blood NO GROWTH 24 HOURS PFSH All Active Problems Leukocytosis (Acute) Sinusitis, acute (Acute) Bilateral lower extremity edema (Acute) Congestion of right ear (Acute) Left shoulder pain (Acute) Family history of colon cancer (Acute) Immunization due (Acute) Immunization counseling (Acute) Vitamin D deficiency (Acute) Osteoarthritis of hips, bilateral (Acute) DDD (degenerative disc disease), lumbar (Acute) Peripheral neuropathy (Acute) Morbid obesity (Acute) Polyneuropathy in diabetes (Acute) Dyslipidemia (Acute) Stricture of female urethra (Acute) Osteopenia (Acute) Diabetes (Chronic) Hiatal hernia (Chronic) Impacted cerumen of left ear (Acute) Arthralgia (Acute) COPD (chronic obstructive pulmonary disease) (Chronic) Hyperlipidemia (Acute) Hypothyroidism (acquired) (Acute) GERD (gastroesophageal reflux disease) (Chronic) Depression with anxiety (Acute) Medical History History of fracture of hand left Sepsis due to pneumonia Surgical History History of meatotomy of urethra History of tonsillectomy and adenoidectomy History of total hip arthroplasty Left Hx of fusion of 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 Daughter Depression Maternal Grandfather , 62 Prostate cancer Paternal Grandfather , 81 No problems noted. Maternal Grandmother , 77 Heart disease Paternal Grandmother , 59 Hypertension Social History Smoking/Tobacco Use Status: Former Tobacco Use tobacco type: cigarettes Quit Date: 10/31/81 Tobacco: How many years used: 20 Second Hand Exposure: Yes Smoking risk assessment performed?: Yes Alcohol Intake: current Alcohol Intake frequency: a few times a month Alcohol type: beer, wine and hard liquor Drug use: Never Substance use type: does not use Household members: spouse and family Housing: apartment Communication Needs: None Do you need help understanding health information?: Always Pets and animals: Yes Pets and animals: cat(s) and dog(s) Sexually active: Yes Do you think of yourself as: straight/heterosexual Current gender identity: female What is your relationship status?: How often do you talk on the phone with friends or family?: twice per week How often do you get together with friends or relatives?: twice per week How often do you attend spiritism or hinduism services?: decline to answer Do you belong to any clubs or organized social groups?: no Panel score (0-1 are the most socially isolated patients): 2 Dee Dee/Adventist: Mandaen Special dee dee needs: No Seatbelt use: always Drive intox or ride w/intox milk pickup truck driver: No Do you feel safe at home: Yes Do you feel safe in your relationship?: Yes
[2021-11-29] MEDS: Doxycycline Hyclate 100 MG CAP PO (10:55)
[2021-11-29] MEDS: Cefpodoxime 200 MG TAB PO (11:18)
--- NOTE | 2021-11-29 13:43 | PDOC.CMDIS ---
- If Service Date Differs Date of service: 11/29/21 Time of Service: 13:43 LACE Index Scoring Tool - Questions: Length of Stay (in days): 2 Acuity (Admit via E.D.?): Yes Comorbidities: Diabetes w/o Complication, Chronic Pulmonary Disease E.D. Visits: 2 - Answers: Total Score: 10 Risk of Readmission: High Risk Care Management Discharge Reason for Hospitalization: Sinusitis, SHANIA, leukocytosis Discharge Plan: Tasia will return home today with no new services. Her grand daughter will drive her home via private vehicle. She inquired about services for her , whose mobility has declined at home. CM recommended reaching out to his PCP to set up an appointment, and to request HH services for him following that appointment. CM also provided resources for COA, private caregivers, [facility], and Palliative care. Tasia was appreciative of the guidance. Tasia will follow up with her PCP and discharge plan of care. Patient/Family Education Needs: Review discharge instructions and limitations, discussion of self care needs including ask me three.
== END 2021-11-29 13:31 | disposition home or self-care (01) ==
LOC: ER 23:37 → MS 11-28 00:06
PROVIDERS: Nurse Practitioner Family; Admitting Provider Family Medicine; Emergency Provider Physician Assistant; Visit Provider Family Medicine
DX: J01.00 Acute maxillary sinusitis, unspecified (principal); N17.9 Acute kidney failure, unspecified; J20.9 Acute bronchitis, unspecified; N30.90 Cystitis, unspecified without hematuria; D72.828 Other elevated white blood cell count; E11.9 Type 2 diabetes mellitus without complications; E03.9 Hypothyroidism, unspecified; K21.9 Gastro-esophageal reflux disease without esophagitis; F32.A Depression, unspecified; F41.9 Anxiety disorder, unspecified; M79.10 Myalgia, unspecified site; E86.0 Dehydration; J44.0 Chronic obstructive pulmonary disease with (acute) lower respiratory infection
CPT/HCPCS: 36415; 71275; 74177; 80048; 80053; 84145; 87040; 87637; 93005; 96361; 96365; 99285; 71045; 81003; 81015; 83605; 83735; 83880; 84443; 84484; 85025; 85379; 85610; 85730; 93010; 99217; 99220; 99225; G0378; J0696; J0780; J1644; J2405; J3490; J7512

== ENCOUNTER 2021-12-15 13:22 | Outpatient (CLI) | payer MEDICARE, OTHER, SELFPAY ==
--- NOTE | 2021-12-15 13:00 | DI.RAD_ITS ---
Exam(s) XR SHOULDER RT COMPLETE 2+V EXAM: XR SHOULDER RT COMPLETE 2+V CLINICAL HISTORY: LEFT SHOULDER PAIN. TECHNIQUE: 2D digital imaging was performed. COMPARISON: No exams were available for comparison FINDINGS: No evidence of fracture or dislocation. The main finding here are advanced osteoarthritic degenerati ve changes with joint space narrowing and opposing osteophytes on the humeral head and inferior osseo us glenoid. No calcifications in the subacromial space. There is widening of the AC joint which may be post surgical decompression. No osseous lesions. IMPRESSION: Advanced degenerative changes in the glenohumeral joint. Widened ipsilateral AC joint which may be postsurgical DATA REPOSITORY: RADIATION DOSE DELIVERED:
== END 2021-12-15 13:23 | disposition home or self-care (01) ==
LOC: DIORS 13:22
PROVIDERS: Visit Provider Student in an Organized Health Care Education/Training Program
DX: M25.512 Pain in left shoulder (principal); M19.011 Primary osteoarthritis, right shoulder; M25.711 Osteophyte, right shoulder; M19.012 Primary osteoarthritis, left shoulder
CPT/HCPCS: 99204; 99214; 73030

== ENCOUNTER 2022-01-01 00:42 | Outpatient (CLI) | payer MEDICARE, OTHER, SELFPAY ==
--- NOTE | 2022-01-01 14:15 | DI.DEXA_ITS ---
Exam(s) XR DEXA BONE DENSITY W/WO DODIE EXAM: XR DEXA BONE DENSITY W/WO DODIE CLINICAL HISTORY: hx of osteoporosis,m81.0 TECHNIQUE: COMPARISON: No exams were available for comparison FINDINGS: Lateral Spine Image: Unremarkable. No compression deformities identified. Right hip: Total T-Score: -2.6 Total Z-Score: -0.8 T- and Z-scores: Findings consistent with osteoporosis. Lumbar Spine: Total T-Score: -0.9 Total Z-Score: 1.6 T- and Z-scores: Within normal limits. IMPRESSION: Osteoporosis in the right hip.
== END 2022-01-01 01:02 ==
PROVIDERS: Visit Provider Family Medicine
DX: M81.0 Age-related osteoporosis without current pathological fracture (principal); Z13.820 Encounter for screening for osteoporosis
CPT/HCPCS: 77080

== ENCOUNTER → 2022-01-28 02:00 | Outpatient (CLI) | payer MEDICARE, OTHER, SELFPAY ==
--- NOTE | 2022-01-28 07:30 | DI.RAD_ITS ---
Exam(s) RF JOINT INJECTION FLUORO GUID EXAM: RF JOINT INJECTION FLUORO GUID CLINICAL HISTORY: RIGHT SHOULDER PAIN,M19.011, FLUORO GUIDED INJECTION TECHNIQUE: 2D and realtime digital imaging was performed. COMPARISON: No exams were available for comparison FINDINGS: Fluoroscopy was provided for Dr. Rausch for guidance with performing a right shoulder injection. Virgil merchant hard copy image shows a needle projecting over the superior aspect of the right humeral head and i njection of contrast. Please see procedure note for details. Fluoro time 1 second. RADIATION DOSE DELIVERED: rico Tilley=1.56 mGy
--- NOTE | 2022-01-28 07:30 | DI.RAD_ITS ---
Exam(s) RF JOINT INJECTION FLUORO GUID EXAM: RF JOINT INJECTION FLUORO GUID CLINICAL HISTORY: LEFT SHOULDER PAIN,FLUORO GUIDED INJECTION,M19.012 TECHNIQUE: 2D and realtime digital imaging was performed. Fluoroscopy was provided COMPARISON: No exams were available for comparison FINDINGS: Fluoroscopy was provided for Dr. Leyva for guidance with performing a left shoulder injection. A hard copy image shows a needle projecting at the upper glenohumeral joint injection of contrast. Please see procedure note for details. Fluoro time 1 second RADIATION DOSE DELIVERED: rico Tilley=0.397 mGy
--- NOTE | 2022-01-28 14:01 | OPPNE_ITS ---
Date of service: 01/28/22 Time of Service: 13:40 Procedure Note Date of procedure: 01/28/22 Procedure: Bilateral Shoulder Fluoroscopic Guided Injections Surgeon/Proceduralist/Physician: Dheeraj Leyva Procedure Diagnosis: Bilateral Glenohumeral Arthritis Procedure Indications: Tasia has had persistent pain of the RIGHT and LEFT shoulders. Noninvasive measures have been tried. To serve as both diagnostic and therapeutic, an injection under fluoroscopy was recommended. I had discussed the risks of the procedure and the patient elected to proceed. Procedure Description: Tasia was greeted in the flouroscopy room. The consent was reviewed with the patient and signed. The patient was then placed in the supine position on the fluoroscopy table. The RIGHT shoulder was then prepped with Chloraprep. The anterior injection starting point was identiifed by bony landmarks and fluoroscopy. The skin and soft tissue in the tract of the injection was anesthetized with 1% Lidocaine. A spinal needle was then inserted deep into the shoulder joint at the level of the recess between the glenoid and superior humeral head. A small amount of Omnipaque solution was injected to confirm intraarticular placement. Once confirmed, the shoulder was injected with 5cc of 0.5% Bupivicaine and 80mg of Depo-Medrol. A bandaid was placed on the injection site. The patient tolerated the procedure well and noted improvement in pre- injection pain. The patient was then turned on the fluoroscopy table. The LEFT shoulder was then prepped with Chloraprep. The anterior injection starting point was identiifed by bony landmarks and fluoroscopy. The skin and soft tissue in the tract of the injection was anesthetized with 1% Lidocaine. A spinal needle was then inserted deep into the shoulder joint at the level of the recess between the glenoid and superior humeral head. A small amount of Omnipaque solution was injected to confirm intraarticular placement. Once confirmed, the shoulder was injected with 5cc of 0.5% Bupivicaine and 80mg of Depo-Medrol. A bandaid was placed on the injection site. The patient tolerated the procedure well and noted improvement in pre-injection pain.
[2022-01-28] MEDS: Bupivacaine 0.5% Pres-Free 30 ML VIAL IJ ×2 (14:36→14:37)
[2022-01-28] MEDS: Omnipaque 300 MG/ML 10 ML BTL IJ ×2 (14:36→14:37)
[2022-01-28] MEDS: methylPREDNISolone ACETATE 80 MG/ML VIAL IM ×2 (14:36→14:38)
--- NOTE | 2022-07-16 10:30 | DI.RAD_ITS ---
Exam(s) XR ABDOMEN FLAT PLATE EXAM: XR ABDOMEN FLAT PLATE CLINICAL HISTORY: abdominal pain, pain since colonoscopy 2 weeks ago, R10.9. TECHNIQUE: 2D digital imaging was performed. COMPARISON: No exams were available for comparison FINDINGS: Upright view the abdomen reveals a nonspecific bowel gas pattern and no free intraperitoneal air. No obvious masses nor bowel displacement. Left hip prosthesis noted. No free intraperitoneal air evident. Given the history of clinically indicated CT scan the abdomen pelvis can be performed. IMPRESSION: DATA REPOSITORY: RADIATION DOSE DELIVERED:
== END ==
PROVIDERS: Visit Provider Student in an Organized Health Care Education/Training Program
DX: M19.011 Primary osteoarthritis, right shoulder (principal); M19.012 Primary osteoarthritis, left shoulder
CPT/HCPCS: 20610; 77002; J1040

== ENCOUNTER 2022-02-04 01:43 | Outpatient (RCR) | payer MEDICARE, OTHER, SELFPAY ==
[2022-02-04] MEDS: Denosumab 60 MG/ML SYR SC (11:21)
== END 2022-02-27 23:59 | disposition home or self-care (01) ==
LOC: INF 01:43
DX: M81.0 Age-related osteoporosis without current pathological fracture (principal)
CPT/HCPCS: 96372; J0897

== ENCOUNTER 2022-02-18 20:38 | Outpatient (REF) | payer MEDICARE, OTHER, SELFPAY ==
[2022-02-18 17:48] LABS: Clarity Clear (Clear)
[2022-02-18 17:49] LABS: Bilirubin Negative (Negative); Blood Negative (Negative); Glucose Negative (Negative); Ketones Negative (Negative); Leukocyte Esterase Moderate (Negative); Nitrite Negative (Negative); Urobilinogen 0.2 EU/dL (Up TO 0.2)
[2022-02-18 17:56] LABS: Bacteria Few HPF (Negative); C & S Indicated? No/Sq. Contamination; Casts Negative LPF (Negative); Crystals Negative HPF (Negative); Epithelial Cells Moderate HPF (Negative); Mucus Moderate (Negative); RBC 0-2 HPF (0-2); WBC >50 HPF (0-5)
== END 2022-02-18 20:39 | disposition home or self-care (01) ==
LOC: LBN 20:38
PROVIDERS: Visit Provider Physician Assistant Medical
DX: R39.89 Other symptoms and signs involving the genitourinary system (principal)
CPT/HCPCS: 81003; 81015

== ENCOUNTER 2022-02-25 16:54 | Emergency (ER) | payer MEDICARE, OTHER, SELFPAY ==
[2022-02-25] VITALS (58 sets, daily range): BP systolic 84–119; BP diastolic 28–80; PULSE 56–77; RESP 12–29; TEMP 36.8; O2SAT 81–98
--- NOTE | 2022-02-25 16:45 | RT.EKG_ITS ---
APPROVED REPORT Exam: Resting ECG Reason for Exam: DYSPNEA Patient Location: E HR:73 bpm ECG Measurements Heart Rate 73 AXIS MO 161 P 50 QRSd 103 QRS -43 QT 401 T 57 QTc 443 Conclusion Sinus rhythm...normal P axis, V-rate 60- 99 Left anterior fascicular block...axis(240,-40), init forces inf
--- NOTE | 2022-02-25 17:15 | DI.RAD_ITS ---
Exam(s) XR CHEST 2V PA LATERAL EXAM: XR CHEST 2V PA LATERAL CLINICAL HISTORY: R chest pain TECHNIQUE: 2D digital imaging was performed. COMPARISON: CR,XR XR PORTABLE CHEST AP from 11/27/[address] CHEST PE ABD PELVIS W from 11/27/[address] CHEST PE ABD PELVIS W from 02/25/2022 FINDINGS: MEDIASTINUM: Normal. HEART: Normal. PULMONARY VASCULATURE: Minimally prominent.. LUNGS: Mild fibrotic changes. No focal infiltrate. PLEURAL SPACE: Minimal blunting left costophrenic angle could represent a tiny effusion versus scarri ng. No pneumothorax. BONE:Heart hardware lower cervical spine. Degenerative changes in the shoulders. Degenerative disc changes in the spine. IMPRESSION: Blunting of the left costophrenic angle could indicate a tiny effusion versus pleural scarring. This is new from the prior exam.. DATA REPOSITORY: RADIATION DOSE DELIVERED:
--- NOTE | 2022-02-25 17:30 | W.ED.GENAD ---
Discharge Plan Disposition Patient Disposition: HOME Condition: Stable Discharge Details Clinical Impression: Right-sided chest pain Primary Care Provider: [facility] ED Provider: Rigoberto Everett Home Meds and New Rx's Prescriptions: Continued levothyroxine 88 mcg tablet 88 mcg PO DAILY Qty: 90 3RF duloxetine 60 mg capsule,delayed release(DR/EC) 60 mg PO DAILY Qty: 90 3RF rosuvastatin 10 mg tablet 10 mg PO DAILY Qty: 90 0RF Prolia 60 mg/mL syringe 60 mg subcut [id number] Qty: 1 1RF bupropion HCl 100 mg tablet sustained-release 12 hr 100 mg PO BID Qty: 180 3RF krill oil 500 mg capsule 500 mg PO DAILY 0RF cholecalciferol (vitamin D3) 125 mcg (5,000 unit) capsule 125 mcg PO DAILY 0RF fluticasone propionate 50 mcg/actuation spray,suspension 1 spray intranasal BID PRN (Reason: nasal congestion) Qty: 16 4RF Rx Instructions: administer into each nostril azelastine 205.5 mcg (0.15 %) spray,non-aerosol 1 spray intranasal BID 0RF Rx Instructions: administer into each nostril gabapentin 300 mg capsule 300 - 600 mg PO BID Qty: 270 3RF Rx Instructions: pt takes 1 tablet in the AM and 2 tablets in the PM. -hb diclofenac sodium 1 % gel 4 g topical QID PRN (Reason: pain) 0RF Rx Instructions: apply to single knee, ankle, foot; for foot includes sole/toes/top of foot diclofenac sodium 1 % gel 4 g topical QID PRN (Reason: pain) Qty: 100 3RF Rx Instructions: apply topically to affected area hydroxyzine HCl 10 mg tablet 10 mg PO DAILY PRN (Reason: anxiety) Qty: 60 0RF pantoprazole [Protonix] 40 mg tablet,delayed release (DR/EC) 40 mg PO DAILY Qty: 90 0RF Bio-K plus 50 billion cell capsule,delayed release(DR/EC) 1 cap PO DAILY Qty: 30 0RF Discharge Instructions Additional Instructions: Your blood work and imaging did not show a clear cause for your symptoms you have an ultrasound ordered for your gallbladder follow up with your primary care provider with 1-2 weeks if you feel more ill, have severe worsening pain or difficulty breathing return to the emergency department Medical Decision Making <Newton Capone MD - Last Filed: 02/25/22 19:41> This is a 76-year-old female who presents from home. She states she had the abrupt onset earlier this afternoon of what was initially bilateral chest pain that seem to then located in the right anterolateral chest, that is worse with deep breath. She denies any recent illness. She did not fall or injure herself. She will relate a. Distant history of previous thrombophlebitis for which she states that she had short-term anticoagulation. Patient presents to the ER with temp of 36, pulse 74, blood pressure 118/47 oxygenating 94 to 95% on room air. She is somewhat tenderness to palpation along the lateral chest wall on the right side. Differential diagnosis includes pulmonary embolism, occult rib fracture, pneumothorax, muscle strain. Exclude ACS. Patient IV access established, was placed on a cardiac cath technician, given acetaminophen, and referred for laboratory testing EKG and chest x-ray. Chest x-ray is without acute findings. The patient's laboratories will note a white count of 10, hematocrit 38, platelets 315. BUN is 17 with a creatinine 1.2, GFR of 43. Troponin is negative. D-dimer is elevated at 2833. Given the pleuritic component of the pain and elevated D-dimer, patient referred for CT scan of the chest with abdominal imaging as well as with the possibility of right upper quadrant pathology. CT of the chest shows bronchial wall thickening, thickening of the pulmonary septa, no pulmonary consolidation. Abdominal images show no acute bowel pathology, moderate gallbladder distention noted, question tiny stones or sludge. Will observe the patient for a second troponin given her age and risk factors. She will require follow-up right upper quadrant ultrasound. We will sign the patient out to Dr. Everett pending further observation and repeat troponin. Lab Data Labs: Laboratory Results - last 24 hr 02/25/22 02/25/22 02/25/22 17:40 17:40 17:40 WBC 10.78 RBC 3.98 Hgb 12.2 Hct 38.4 MCV 97 H MCH 30.7 MCHC 31.8 L RDW 13.5 Plt Count 315 MPV 10.3 Immature Gran % 0.7 Neutrophils % 75.8 Lymphocytes % 12.0 Monocytes % 5.6 Eosinophils % 5.5 Basophils % 0.4 Nucleated RBC % 0.0 Absolute Neutrophils 8.18 H Absolute Lymphocytes 1.29 Absolute Monocytes 0.60 Absolute Eosinophils 0.59 Absolute Basophils 0.04 D-Dimer 2833 H Sodium 139 Potassium 3.6 Chloride 101 Carbon Dioxide 28.3 Anion Gap 9.7 BUN 17 Creatinine 1.2 H Estimated GFR/1.73 m2 43.80 Glucose 101 Calcium 8.0 L Magnesium 2.2 Total Bilirubin 0.4 AST 12 L ALT 16 Alkaline Phosphatase 107 Troponin I < 50 Total Protein 7.2 Albumin 2.7 L <Rigoberto Everett MD - Last Filed: 02/25/22 22:20> This is a 76-year-old female who presents from home. She states she had the abrupt onset earlier this afternoon of what was initially bilateral chest pain that seem to then located in the right anterolateral chest, that is worse with deep breath. She denies any recent illness. She did not fall or injure herself. She will relate a. Distant history of previous thrombophlebitis for which she states that she had short-term anticoagulation. Patient presents to the ER with temp of 36, pulse 74, blood pressure 118/47 oxygenating 94 to 95% on room air. She is somewhat tenderness to palpation along the lateral chest wall on the right side. Differential diagnosis includes pulmonary embolism, occult rib fracture, pneumothorax, muscle strain. Exclude ACS. Patient IV access established, was placed on a cardiac cath technician, given acetaminophen, and referred for laboratory testing EKG and chest x-ray. Chest x-ray is without acute findings. The patient's laboratories will note a white count of 10, hematocrit 38, platelets 315. BUN is 17 with a creatinine 1.2, GFR of 43. Troponin is negative. D-dimer is elevated at 2833. Given the pleuritic component of the pain and elevated D-dimer, patient referred for CT scan of the chest with abdominal imaging as well as with the possibility of right upper quadrant pathology. CT of the chest shows bronchial wall thickening, thickening of the pulmonary septa, no pulmonary consolidation. Abdominal images show no acute bowel pathology, moderate gallbladder distention noted, question tiny stones or sludge. Will observe the patient for a second troponin given her age and risk factors. She will require follow-up right upper quadrant ultrasound. We will sign the patient out to Dr. Everett pending further observation and repeat troponin. pt signed out to me, Dr. Everett, pending repeat troponin which is negative. Her CT shows non specific bronchial wall thickening and distended gallbladder. She has no ruq tenderness on exam and no guarding or rebound so doubt cholecystitis. Outpatient gallbladder u/s ordered and she is stable for d/c. She will f/u with pcp and return precautions given HPI <Newton Capone MD - Last Filed: 02/25/22 19:41> General Mode of arrival: ambulatory. Date/Time Provider Initiated Documentation: 02/25/22 16:55. Limitations to Documentation: no limitations. Information obtained by: patient. History of Present Illness 76 year old F presents to the emergency department with the chief complaint of Abrupt onset of right chest pain and shortness of breath, described as moderate, Quality is described as constant, and is localized to the chest and right. Patient reports radiation to back. and it has been other (Improving). improves with No relieving factors improve symptom(s), No exacerbating factors reported . Patient notes chest pain and shortness of breath; denies cough, diaphoresis, fever/chills and syncope. Patient did receive the following treatments prior to arrival, none Related Data Home Medications Medication Instructions Recorded Confirmed cholecalciferol (vitamin D3) 125 125 mcg PO DAILY 06/25/21 02/18/22 mcg (5,000 unit) capsule krill oil 500 mg capsule 500 mg PO DAILY cap 06/25/21 02/18/22 azelastine 205.5 mcg (0.15 %) 1 spray INTRANASAL BID 08/03/21 02/18/22 nasal spray bupropion HCl 100 mg tablet,12 hr 100 mg PO BID #180 tab 08/20/21 02/18/22 sustained-release denosumab 60 mg/mL subcutaneous 60 mg SUBCUT [id number] #1 ml 08/20/21 02/18/22 syringe (Prolia) duloxetine 60 mg capsule,delayed 60 mg PO DAILY #90 cap 08/20/21 02/18/22 release levothyroxine 88 mcg tablet 88 mcg PO DAILY #90 tab 08/20/21 02/18/22 rosuvastatin 10 mg tablet 10 mg PO DAILY #90 tab 08/20/21 02/18/22 fluticasone propionate 50 1 spray INTRANASAL BID PRN #16 g 09/21/21 02/18/22 mcg/actuation nasal spray,suspension L. acidophilus,casei,rhamnosus 50 1 cap PO DAILY #30 cap 11/29/21 02/18/22 billion cell capsule,delayed release (Bio-K plus) diclofenac sodium 1 % topical gel 4 g TOPICAL QID PRN 01/06/22 02/18/22 diclofenac sodium 1 % topical gel 4 g TOPICAL QID PRN #100 g 01/06/22 02/18/22 gabapentin 300 mg capsule 300 - 600 mg PO BID #270 cap 01/06/22 02/18/22 hydroxyzine HCl 10 mg tablet 10 mg PO DAILY PRN #60 tab 02/03/22 02/18/22 pantoprazole 40 mg tablet,delayed 40 mg PO DAILY #90 tab 02/17/22 02/18/22 release (Protonix) Previous Rx's Medication Instructions Recorded bupropion HCl 100 mg tablet,12 hr 100 mg PO BID #180 tab 08/20/21 sustained-release denosumab 60 mg/mL subcutaneous 60 mg SUBCUT [id number] #1 ml 08/20/21 syringe (Prolia) duloxetine 60 mg capsule,delayed 60 mg PO DAILY #90 cap 08/20/21 release levothyroxine 88 mcg tablet 88 mcg PO DAILY #90 tab 08/20/21 rosuvastatin 10 mg tablet 10 mg PO DAILY #90 tab 08/20/21 fluticasone propionate 50 1 spray INTRANASAL BID PRN #16 g 09/21/21 mcg/actuation nasal spray,suspension L. acidophilus,casei,rhamnosus 50 1 cap PO DAILY #30 cap 11/29/21 billion cell capsule,delayed release (Bio-K plus) diclofenac sodium 1 % topical gel 4 g TOPICAL QID PRN #100 g 01/06/22 gabapentin 300 mg capsule 300 - 600 mg PO BID #270 cap 01/06/22 hydroxyzine HCl 10 mg tablet 10 mg PO DAILY PRN #60 tab 02/03/22 pantoprazole 40 mg tablet,delayed 40 mg PO DAILY #90 tab 02/17/22 release (Protonix) Allergies Allergy/AdvReac Type Severity Reaction Status Date / Time Sulfa (Sulfonamide Allergy Verified 02/18/22 15:51 Antibiotics) General Stated Complaint: Abd Prob FELIX: 2 Review of Systems <Newton Capone MD - Last Filed: 02/25/22 19:41> Narrative: No recent illness. She has recovered from urinary tract infection. No fall. Denies trauma. Pain is improving. 7 systems reviewed and otherwise negative PFSH <Newton Capone MD - Last Filed: 02/25/22 19:41> All Active Problems (Updated 02/25/22 @ 19:41 by Newton Capone MD) Right-sided chest pain (Acute) Osteoporosis (Chronic) 12/2021-DEXA scan at [facility] , -2.6t score at hip, prolia Arthritis of right shoulder region (Acute) Arthritis of left shoulder region (Acute) Chronic anemia (Acute) Chronic kidney disease, stage 3 (Acute) Bilateral lower extremity edema (Acute) Congestion of right ear (Acute) Left shoulder pain (Acute) Family history of colon cancer (Acute) Immunization due (Acute) Immunization counseling (Acute) Vitamin D deficiency (Acute) Osteoarthritis of hips, bilateral (Acute) DDD (degenerative disc disease), lumbar (Acute) Peripheral neuropathy (Acute) Morbid obesity (Acute) Polyneuropathy in diabetes (Acute) Dyslipidemia (Acute) Stricture of female urethra (Acute) Diabetes (Chronic) Hiatal hernia (Chronic) Impacted cerumen of left ear (Acute) Arthralgia (Acute) COPD (chronic obstructive pulmonary disease) (Chronic) Hyperlipidemia (Acute) Hypothyroidism (acquired) (Acute) GERD (gastroesophageal reflux disease) (Chronic) Depression with anxiety (Acute) Medical History History of fracture of hand left Sepsis due to pneumonia Surgical History History of meatotomy of urethra History of tonsillectomy and adenoidectomy History of total hip arthroplasty Left Hx of fusion of 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 Daughter Depression Maternal Grandfather , 62 Prostate cancer Paternal Grandfather , 81 No problems noted. Maternal Grandmother , 77 Heart disease Paternal Grandmother , 59 Hypertension Social History Smoking/Tobacco Use Status: Former Tobacco Use tobacco type: cigarettes Quit Date: 10/31/81 Tobacco: How many years used: 20 Second Hand Exposure: Yes Smoking risk assessment performed?: Yes Alcohol Intake: current Alcohol Intake frequency: a few times a month Alcohol type: beer, wine and hard liquor Drug use: Never Substance use type: does not use Household members: spouse and family Housing: apartment Communication Needs: None Do you need help understanding health information?: Always Pets and animals: Yes Pets and animals: cat(s) and dog(s) Sexually active: Yes Do you think of yourself as: straight/heterosexual Current gender identity: female What is your relationship status?: How often do you talk on the phone with friends or family?: twice per week How often do you get together with friends or relatives?: twice per week How often do you attend adventist or evangelical services?: decline to answer Do you belong to any clubs or organized social groups?: no Panel score (0-1 are the most socially isolated patients): 2 Dee Dee/Druze: Roman Catholic Special dee dee needs: No Seatbelt use: always Drive intox or ride w/intox furniture mover driver: No Do you feel safe at home: Yes Do you feel safe in your relationship?: Yes Exam <Newton Capone MD - Last Filed: 02/25/22 19:41> Narrative Exam Narrative: GEN: awake, alert, oriented 3. Pleasant, well groomed, interactive. HEAD: Normocephalic, atraumatic ENT: Mucous membranes moist, oropharynx unremarkable, External ear exam unremarkable EYES: PERRL, EOMI NECK: Full ROM, no ANDERSON, no menigismus CHEST/RESP: Right anterolateral inferior rib cage is tender to palpation. clear to auscultation bilateral, no wheeze/rhonchi/rales CARDIOVASCULAR: RRR, no murmur, rub oscar. 2+ Rad pulse bilateral ABDOMEN: Soft, nontender, no mass. +Bowel sounds EXT: Full ROM, no edema, no rash Neuro: Grossly normal neurologic exam, conversant, interactive. Psych: Speech fluent, thoughts congruent, affect normal Course <Newton Capone MD - Last Filed: 02/25/22 19:41> Vital Signs Vital signs: Vital Signs Temperature 36.8 C 02/25/22 16:58 Pulse 74 04/28/22 16:58 Respiratory Rate 22 02/25/22 16:58 Blood Pressure 119/47 L 02/25/22 16:58 Pulse Oximetry 94 02/25/22 16:58 Temperature 36.8 C 02/25/22 16:58 Temperature Source Oral 02/25/22 16:58 Pulse 74 02/25/22 16:58 Respiratory Rate 22 02/25/22 16:58 Respiratory Effort 02/25/22 17:05 Blood Pressure 119/47 L 02/25/22 16:58 Blood Pressure Position Supine 02/25/22 16:58 Pulse Oximetry 94 02/25/22 16:58 Oxygen Delivery Method Room Air 02/25/22 16:58 Oxygen Flow Rate 0 02/25/22 16:58 Pain Level 8 02/25/22 16:58 Sign Out <Newton Capone MD - Last Filed: 02/25/22 19:41> Sign Out Data: Sign Out Comment: followup repeat trop, if negative anticipate dc with Outpt RUQ US Last updated by Newton Capone MD at 02/25/22 19:53
[2022-02-25 17:53] LABS: Abs Immature Grans 0.08 10^3/uL (0.0-0.06); Absolute Basophil Count 0.04 10^3/uL (0.0-0.2); Absolute Eosinophil Count 0.59 10^3/uL (0.0-0.7); Absolute Lymphocyte Count 1.29 10^3/uL (1.2-3.4); Absolute Neutrophil Count 8.18 10^3/uL (1.2-6.7); Basophils % 0.4; Eosinophils % 5.5; HCT 38.4 % (36.0-46.0); HGB 12.2 g/dL (11.2-15.7); Immature Grans % 0.7; MCH 30.7 pg (27.0-33.0); MCHC 31.8 % (32.0-36.0); MCV 97 fL (80-95); MPV 10.3 fL (8.0-11.0); Monocytes % 5.6; Neutrophils % 75.8; Platelet Count 315 10^3/uL (130-400); RBC 3.98 10^6/uL (3.93-5.22); RDW 13.5 % (11.7-14.6); RDW-SD 48.3 fL; WBC 10.78 10^3/uL (4.4-10.8)
[2022-02-25] MEDS: ACETAMINOPHEN 1,000 MG/100 ML BTL 400 MG IVPB (18:00)
[2022-02-25 18:13] LABS: ALT 16 U/L (14-59); AST 12 U/L (15-37); Albumin 2.7 g/dL (3.4-5.0); Alkaline Phosphatase 107 U/L (46-116); Anion Gap 9.7 mmol/L (3-11); BUN 17 mg/dL (7-18); Bilirubin, Total 0.4 mg/dL (0.2-1.0); CO2 28.3 mmol/L (21.0-32.0); CREATININE 1.2 mg/dL (0.55-1.02); Chloride 101 mmol/L (98-107); Glucose 101 mg/dL (74-106); Magnesium 2.2 mg/dL (1.8-2.4); Potassium 3.6 mmol/L (3.5-5.1); Sodium 139 mmol/L (136-145); Total Protein 7.2 g/dL (6.4-8.2); Troponin I < 50 ng/L (<or=60)
--- NOTE | 2022-02-25 18:15 | DI.CT_ITS ---
Exam(s) CT CHEST PE ABD PELVIS W EXAM: CT CHEST PE ABD PELVIS W CLINICAL HISTORY: R chest pain ( RUQ), elevated DDiimer. TECHNIQUE: Imaging Protocol: Axial CT angiography was performed with multi-slice acquisition and mu lti-planar and/or 3D reconstructions. CONTRAST MATERIAL: Intravenous: Omnipaque 350 Contrast volume:100 ml COMPARISON: CT CT CHEST PE ABD PELVIS W from 11/27/2021 CR,XR XR CHEST 2V PA LATERAL from 02/25/2022 FINDINGS: CHEST: Pulmonary Arteries: No evidence of filling defect to suggest pulmonary emboli. tracheobronchial tree: Patent where visualized. Mediastinum and Ivana: No dominant adenopathy or fluid collection. Pulmonary parenchyma: Limited evaluation due to expiratory changes. Basilar atelectasis. No consoli dation or dominant measurable mass.Pleura: No effusion or pneumothorax. Heart: The heart is not dilated. No coronary artery calcifications are seen. Aorta: Thoracic aorta non-dilated. Bones: Kyphosis and degenerative changes. No compression fractures. ABDOMEN: Liver: Normal density. No measurable mass. Portal, Superior Mesenteric, and Splenic Veins: Unremarkable. Gallbladder and Biliary Tract: Question of a few tiny stones. No biliary dilation. Pancreas: Normal density, no abnormal calcifications or inflammatory process. Spleen: Normal. Adrenals: No masses seen. Kidneys: Normal size, contour and axis. No radiodense stones or obstructive uropathy. No masses seen. Abdominal Aorta: Abdominal portion non-dilated. Atherosclerotic changes. Bowel: Diverticulosis. No evidence of diverticulitis. Normal quantity of stool. No obstruction or bowel wall thickening. Appendix is not seen.. Peritoneal Cavity: No ascites, collection or mesenteric inflammatory response. Lymph Nodes: Within normal limits. Bones: Degenerative changes in the spine. Soft Tissues: Unremarkable. PELVIS: Bladder: Symmetric distention, no gross wall thickening. Partially obscured by artifact. Reproductive Organs: Unremarkable as visualized. Lymph Nodes: Within normal limits. Bones: Right hip prosthesis. IMPRESSION: 1. No evidence of pulmonary embolism.. Lungs suboptimally evaluated due to expiratory changes. Mild basilar atelectasis. 2. No acute abdominal or pelvic process. Diverticulosis. RADIATION DOSE DELIVERED: 1,315.31mGy.cm Total DLP DATA REPOSITORY: All CT scans at this facility are submitted to the National Radiology Data Registry (NRDR) Dose Index Registry (DIR) with the [employer] (ACR). RADIATION OPTIMIZATION: All CT scans at this facility use at least one of these dose optimization te chniques: automated exposure control; mA and/or kV adjustment per patient size (includes targeted exa ms where dose is matched to clinical indication); or iterative reconstruction.
[2022-02-25 18:29] LABS: D-Dimer 2833 ng/mlFEU (<500)
[2022-02-25] MEDS: Normal Saline 1,000 ML 150 ML IV (18:33)
--- NOTE | 2022-02-25 18:49 | DI.VRAD_ITS ---
PROCEDURE INFORMATION: Exam: XR Chest Exam date and time: 02/25/2022 6:17 PM Age: 76 years old Clinical indication: Pain; Right-sided TECHNIQUE: Imaging protocol: XR of the chest. Views: 2 views. COMPARISON: XR PORTABLE CHEST AP 11/27/2021 8:21 PM FINDINGS: Lungs: No pulmonary consolidation is seen. Pleural spaces: There is mild pleural thickening at the right lung apex. There is blunting of the left costophrenic angle suggesting a possible small left pleural effusion. No right-sided pleural effusion is seen. No pneumothorax is demonstrated. Heart/Mediastinum: Heart size is normal. There is atherosclerotic calcification at the apex of the aortic arch. Bones/joints: There is severe degenerative change at the left glenohumeral joint. There is moderate degenerative change at the right glenohumeral joint. The distal right clavicle is absent. Previously resected? Resorptive? Lower anterior cervical fixation hardware is incidentally noted. There are osteophytes along the margin of the thoracic spine. IMPRESSION: 1. No pulmonary consolidation. 2. Mild blunting of the left costophrenic angle suggesting a possible small left pleural effusion versus pleural thickening. Dictated and Authenticated by: Francisco Javier Herman MD. Ordering:KURT Glez MD
[2022-02-25] MEDS: Omnipaque 350 MG/ML 100 ML BTL IJ (19:04)
[2022-02-25] MEDS: Pantoprazole 40 MG VIAL IVP (19:16)
--- NOTE | 2022-02-25 19:27 | DI.VRAD_ITS ---
PROCEDURE INFORMATION: Exam: CTA Chest With Contrast Exam date and time: 02/25/2022 6:45 PM Age: 76 years old Clinical indication: Other: Elevated ddimer; Abdominal pain; Generalized; Chest wall pain; Additional info: Chest pain, elevated ddimer TECHNIQUE: Imaging protocol: Computed tomographic angiography of the chest with contrast. 3D rendering (Not supervised by radiologist): MIP and/or 3D reconstructed images were created by the technologist. Radiation optimization: All CT scans at this facility use at least one of these dose optimization techniques: automated exposure control; mA and/or kV adjustment per patient size (includes targeted exams where dose is matched to clinical indication); or iterative reconstruction. Contrast material: TOMER 350; Contrast volume: 100 ml; Contrast route: INTRAVENOUS (IV); COMPARISON: CT CHEST PE ABD PELVIS W 11/27/2021 10:08 PM FINDINGS: Pulmonary arteries: No pulmonary embolism identified. Aorta: No thoracic aortic aneurysm or dissection. Thyroid: Thyroid gland partially excluded from view but grossly unremarkable through its visualized portion. Lungs: Diffuse bronchial wall thickening. Mild smooth thickening of the interlobular pulmonary septa suggesting possible mild interstitial pulmonary edema. Patchy streaky and reticular opacity, probably atelectasis and/or scarring. No region of ernesto pulmonary consolidation. Dependent atelectasis at the lung bases. Pleural spaces: No pleural effusion or pneumothorax. Heart: Normal sized heart. Lymph nodes: Scattered shotty mediastinal and hilar lymph nodes. Bones/joints: No acute fracture seen among the bones of the chest. Spinal degenerative change with thoracic kyphosis and anterior osteophytes at multiple levels. Prominent degenerative change at the left glenohumeral joint. Moderate degenerative change at the right glenohumeral joint. Lower anterior cervical fixation hardware partially visualized. Soft tissues: No gross soft tissue mass or fluid collection seen in the chest wall. IMPRESSION: 1. Diffuse bronchial wall thickening. Although nonspecific, bronchial wall thickening is often seen in the setting of acute, chronic, or recurrent bronchitis or aspiration and is commonly seen in smokers. 2. Mild smooth thickening of the interlobular pulmonary septa suggesting possible mild interstitial pulmonary edema. Clinical correlation recommended. 3. No region of ernesto pulmonary consolidation. PROCEDURE INFORMATION: Exam: CT Abdomen And Pelvis With Contrast Exam date and time: 02/25/2022 6:45 PM Age: 76 years old Clinical indication: Other: Elevated ddimer; Abdominal pain; Generalized; Chest wall pain; Additional info: Chest pain, elevated ddimer TECHNIQUE: Imaging protocol: Computed tomography of the abdomen and pelvis with contrast. Radiation optimization: All CT scans at this facility use at least one of these dose optimization techniques: automated exposure control; mA and/or kV adjustment per patient size (includes targeted exams where dose is matched to clinical indication); or iterative reconstruction. Contrast material: TOMER 350; Contrast volume: 100 ml; Contrast route: INTRAVENOUS (IV); COMPARISON: CT CHEST PE ABD PELVIS W 11/27/2021 10:08 PM FINDINGS: Diaphragm: 2.5 cm hiatal hernia. Liver: Normal appearing liver. Gallbladder and bile ducts: Moderate gallbladder distention. Small radiodensity in the gallbladder lumen, possibly representing tiny stones or sludge, image 20 of series 7. No biliary dilatation. Pancreas: Normal appearing pancreas. Spleen: Normal appearing spleen. Adrenal glands: Normal appearing adrenal glands. Kidneys and ureters: Normal appearing kidneys. No hydronephrosis. No obstructing ureteral stones. Stomach and bowel: No oral contrast. Stomach partially decompressed. No small bowel dilatation to suggest obstruction. Normal-appearing cecum, ascending colon, and transverse colon. Diverticulosis through the distal descending and sigmoid colon but no evidence of diverticulitis or colitis. Appendix: Appendix not identified, obscured if present. Correlation with surgical history recommended. Intraperitoneal space: No gross ascites or free air. Vasculature: Normal caliber abdominal aorta. Lymph nodes: No pathologically enlarged mesenteric, retroperitoneal, or pelvic sidewall lymph nodes. Urinary bladder: Urinary bladder partially obscured by artifact but grossly unremarkable, as seen. Reproductive: Normal sized uterus. Grossly normal-appearing ovaries. Bones/joints: Prior left hip arthroplasty with streak artifact created by the metallic prosthesis partially obscuring the lower pelvis. No acute fracture seen among the bones of the abdomen or pelvis. Spinal degenerative change with discogenic degeneration, small anterior osteophytes, and bilateral facet arthrosis at several levels. Soft tissues: No significant ventral or inguinal hernia. IMPRESSION: 1. No acute bowel pathology demonstrated. Diverticulosis through the distal descending and sigmoid colon but no evidence of diverticulitis or colitis. 2. Moderate gallbladder distention. Small radiodensity in the gallbladder lumen, possibly representing tiny stones or sludge. No biliary dilatation. Dictated and Authenticated by: Francisco Javier Herman MD. Ordering:KURT Glez MD
[2022-02-25 21:51] LABS: Troponin I < 50 ng/L (<or=60)
== END 2022-02-25 22:23 | disposition home or self-care (01) ==
PROVIDERS: Emergency Medicine; Emergency Provider Emergency Medicine
DX: R07.9 Chest pain, unspecified (principal); R79.1 Abnormal coagulation profile; R06.00 Dyspnea, unspecified
CPT/HCPCS: 36415; 71275; 74177; 80053; 93005; 96374; 96375; 99285; 71046; 83735; 84484; 85025; 85379; 93010; 99284; J0131; J3490

== ENCOUNTER → 2022-02-26 09:09 | Outpatient (CLI) | payer MEDICARE, OTHER, SELFPAY ==
--- NOTE | 2022-02-26 | DI.US_ITS ---
Exam(s) US ABDOMEN LIMITED EXAM: US ABDOMEN LIMITED CLINICAL HISTORY: RUQ PAIN TECHNIQUE: Ultrasound abdomen performed using standard protocol. COMPARISON: CT CT CHEST PE ABD PELVIS W from 02/25/2022 FINDINGS: LIVER: Normal size and echogenicity. No focal liver lesions are seen.. GALLBLADDER: No evidence of cholelithiasis. No evidence of wall thickening. No pericholecystic fluid identified. CASTANEDA'S SIGN: Negative. BILIARY SYSTEM: No intrahepatic or extrahepatic biliary ductal dilation. RIGHT KIDNEY: Normal size. No evidence of renal calculi. No evidence of hydronephrosis. No suspicious renal mass. No cyst identified. PANCREAS: Normal where visualized. ABDOMINAL AORTA AND IVC: Visualized portions normal caliber. ASCITES: None seen. IMPRESSION: Normal sonographic appearance of the right upper quadrant. No evidence of gallstones. Tiny stones w ere questioned on recent CT. DATA REPOSITORY:
== END ==
PROVIDERS: Visit Provider Emergency Medicine
DX: R10.11 Right upper quadrant pain (principal)
CPT/HCPCS: 76705

== ENCOUNTER 2022-02-26 15:21 | Emergency (ER) | payer MEDICARE, OTHER, SELFPAY ==
[2022-02-26 15:27] VITALS: BP 123/67; PULSE 76; RESP 18; TEMP 36.8; O2SAT 96
[2022-02-26 15:33] VITALS: BP 110/50; PULSE 57
[2022-02-26 15:34] VITALS: O2SAT 95
--- NOTE | 2022-02-26 15:45 | RT.EKG_ITS ---
APPROVED REPORT Exam: Resting ECG Reason for Exam: nausea Patient Location: E HR:71 bpm ECG Measurements Heart Rate 71 AXIS ME 163 P 54 QRSd 106 QRS -35 QT 429 T 62 QTc 467 Conclusion Sinus rhythm...normal P axis, V-rate 60- 99 Left axis deviation...QRS axis (-30,-90)
[2022-02-26 15:46] VITALS: BP 108/51; PULSE 54
[2022-02-26 16:00] VITALS: O2SAT 92
--- NOTE | 2022-02-26 16:09 | ED.GENADUL_ITS ---
Discharge Plan Disposition Patient Disposition: HOME Condition: Improving Discharge Details Clinical Impression: Nausea & vomiting, Right sided abdominal pain, Stress at home, Dehydration, Acute UTI Primary Care Provider: Va Nevarez ED Provider: Arabella Varma Lily Dale Meds and New Rx's Prescriptions: New cephalexin 500 mg tablet 500 mg PO BID Qty: 8 0RF Continued levothyroxine 88 mcg tablet 88 mcg PO DAILY Qty: 90 3RF duloxetine 60 mg capsule,delayed release(DR/EC) 60 mg PO DAILY Qty: 90 3RF rosuvastatin 10 mg tablet 10 mg PO DAILY Qty: 90 0RF Prolia 60 mg/mL syringe 60 mg subcut [id number] Qty: 1 1RF bupropion HCl 100 mg tablet sustained-release 12 hr 100 mg PO BID Qty: 180 3RF krill oil 500 mg capsule 500 mg PO DAILY 0RF cholecalciferol (vitamin D3) 125 mcg (5,000 unit) capsule 125 mcg PO DAILY 0RF fluticasone propionate 50 mcg/actuation spray,suspension 1 spray intranasal BID PRN (Reason: nasal congestion) Qty: 16 4RF Rx Instructions: administer into each nostril azelastine 205.5 mcg (0.15 %) spray,non-aerosol 1 spray intranasal BID 0RF Rx Instructions: administer into each nostril gabapentin 300 mg capsule 300 - 600 mg PO BID Qty: 270 3RF Rx Instructions: pt takes 1 tablet in the AM and 2 tablets in the PM. -hb diclofenac sodium 1 % gel 4 g topical QID PRN (Reason: pain) 0RF Rx Instructions: apply to single knee, ankle, foot; for foot includes sole/toes/top of foot diclofenac sodium 1 % gel 4 g topical QID PRN (Reason: pain) Qty: 100 3RF Rx Instructions: apply topically to affected area hydroxyzine HCl 10 mg tablet 10 mg PO DAILY PRN (Reason: anxiety) Qty: 60 0RF pantoprazole [Protonix] 40 mg tablet,delayed release (DR/EC) 40 mg PO DAILY Qty: 90 0RF Bio-K plus 50 billion cell capsule,delayed release(DR/EC) 1 cap PO DAILY Qty: 30 0RF Discharge Instructions Instructions: Ondansetron (By mouth), Dehydration (ED), Urinary Tract Infection in Women (ED), Acute Nausea and Vomiting (ED), Abdominal Pain (ED) Additional Instructions: Labs and exam are reassuring here today. He did appear dehydrated and received fluids. I am concerned that some of your diminished appetite may be associated with nausea. Please use Zofran as needed to help with this. You may use 1 tablet under your tongue every 6 hours as needed. As we discussed, please advance your diet slowly and begin with simple diet of bananas, rice, applesauce, toast. I am concerned about your mental health and your stress at home. He spoke with [facility] mental health provider today. They will be calling you back on Tuesday to establish plan regarding your acute distress moving forward. If you have any concerns over the weekend you are welcome to call anytime at [phone]. In regard to your urinary tract infection, you received a dose of antibiotics here today. I have called in further antibiotics to your local pharmacy, and they should be taken tomorrow. Our care management team will call you on Tuesday to discuss assistance with housing. If you develop fever/chills, inability stay hydrated, increased pain, fever/chills, self-harm or other new/worsening symptoms please seek care urgently once again. Otherwise, please keep your appointment on Tuesday with your primary care provider. Referrals: Va Nevarez NP [Primary Care Provider] - Discharge Data Discharge Date/Time-TO BE ENTERED AT DEPARTURE: 02/26/22 18:58 Medical Decision Making Patient is a pleasant 76 year old female, presenting with her niece, with c/c of persistent abdominal pain. She reports that she has had this for the past 2 weeks. When it initially began she states her appetite was diminished. States that this has progressively worsened such that now she was nothing PO. Reports that she has had nausea/vomiting associated with PO intake. Denies hematemesis. No vomiting today but denies PO intake today. Reports that yesterday she had significant discomfort that wrapped around. This pain has since subsided and is now more localized to the RUQ and breast area. She was seen here yesterday for the same. CT chest for PE, CT abdomen and pelvis. Possible gallstone, underwent US . Prior to arrival today. Cardiac workup normal. Denies CP currently, no fevers/chills. Normal BM yesterday. No vaginal discharge. Recent dx of UTI for which she states she was not able to complete the abx secondary to the nausea/vomiting. Niece also reports that patient has been under immense stress. States that her was recently placed on hospice and will likely transition to Spoke with PCP nursing staff. Last phone call was 02/19/22. At that time patient was endorsing cough with associated emesis, periumbilical discomfort. Dx with UTI by urgent care on 02/18/22, prescribed macrobid x 7 days. On exam, patient appears sad and anxious. Lungs are clear, normal cardiac exam. She indicates discomfort in the RUQ but none on exam with palpation. Normal breast exam. She reports that the pain had been in the right breast, no skin discoloration, swelling or masses. US reviewed by radiologist: FINDINGS: LIVER: Normal size and? echogenicity.? No focal liver lesions are seen.. GALLBLADDER: No evidence of cholelithiasis. No evidence of wall thickening. No pericholecystic fluid identified. CASTANEDA'S SIGN: Negative. BILIARY SYSTEM: No intrahepatic or extrahepatic biliary ductal dilation. RIGHT KIDNEY: Normal size. No evidence of renal calculi. No evidence of hydronephrosis. No suspicious renal mass.? No cyst identified. PANCREAS: Normal where visualized. ABDOMINAL AORTA AND IVC: Visualized portions normal caliber. ASCITES: None seen. IMPRESSION: Normal sonographic appearance of the right upper quadrant.? No evidence of gallstones.? Tiny stones were questioned on recent CT. Given the persistent nausea, vomiting and discomfort, plan to repeat lab. From yesterday. I did also speak with the radiologist regarding the CT change and if there is any evidence to suggest ischemic bowel. She reports there is no evidence of ischemia on the imaging, do not feel that repeat imaging is warranted at this time. Patient denies any alcohol consumption, I did also consider potential pancreatitis we will screen with lipase. Labs reviewed. No leukocytosis. Stable H&H. Lactate is within normal limits. No significant abnormality on CMP. Lipase within normal limits. Urine shows moderate leukocyte Estrace. This is quite contaminated. Patient does continue to have UTI symptoms with dysuria. She is incontinent at baseline. We will continue to treat for UTI. We will give a dose here while in the ED and plan to transition back to normal p.o. tomorrow. Reevaluated the patient after 1 L of fluids, Zofran and 2 mg of morphine and she reports feeling significantly improved. At this time, we had a much more deeper discussion regarding her social situation. Patient's mother commenced distress, is having difficulty with current living situation. Care management is not available at this time. , I am concerned about the patient's mental health. She is not actively suicidal or homicidal. However, with her increased stress and concern that she may continue to deteriorate in this manner. Patient was evaluated by mental health with [facility]. They provided the patient their contact information if they have any problems or concerns over the weekend. They plan to reach out to the patient on Tuesday to do appropriate intake and begin counseling with the patient. They also plan to help the patient establish with [facility] on aging. I will also asked our care managers to reach out to the patient. Patient I discussed mental health, labs, imaging today. We discussed her stressors at length. She is hydrating well here orally. We will continue her on home Zofran. We did discuss advancing her diet. She has a contact information for mental health. She has a follow-up appoint with her primary care on Tuesday. Care management will reach out to the patient as well mental health. She does seem to have good social support and her niece. Strict return precautions were discussed. All of her questions concerns were addressed and she is in agreement this plan. HPI General Date/Time Provider Initiated Documentation: 02/26/22 15:32 . Limitations to Documentation: no limitations . Information obtained by: patient, family (niece ) and RN notes reviewed . History of Present Illness 76 year old F presents to the emergency department with the chief complaint of RUQ pain, described as severe, with intensity rated at 8. Quality is described as aching, and is localized to the abdomen. Patient reports no radiation. Patient started experiencing this week(s) (2) and it has been constant. improves with No relieving factors improve symptom(s), Eating worsens symptoms . Patient notes loss of appetite, malaise and nausea/vomiting; denies chest pain, cough, diaphoresis, fever/chills and shortness of breath. Patient did receive the following treatments prior to arrival, none Related Data Home Medications Medication Instructions Recorded Confirmed cholecalciferol (vitamin D3) 125 125 mcg PO DAILY 06/25/21 02/26/22 mcg (5,000 unit) capsule krill oil 500 mg capsule 500 mg PO DAILY cap 06/25/21 02/26/22 azelastine 205.5 mcg (0.15 %) 1 spray INTRANASAL BID 08/03/21 02/26/22 nasal spray bupropion HCl 100 mg tablet,12 hr 100 mg PO BID #180 tab 08/20/21 02/26/22 sustained-release denosumab 60 mg/mL subcutaneous 60 mg SUBCUT [id number] #1 ml 08/20/21 02/26/22 syringe (Prolia) duloxetine 60 mg capsule,delayed 60 mg PO DAILY #90 cap 08/20/21 02/26/22 release levothyroxine 88 mcg tablet 88 mcg PO DAILY #90 tab 08/20/21 02/26/22 rosuvastatin 10 mg tablet 10 mg PO DAILY #90 tab 08/20/21 02/26/22 fluticasone propionate 50 1 spray INTRANASAL BID PRN #16 g 09/21/21 02/26/22 mcg/actuation nasal spray,suspension L. acidophilus,casei,rhamnosus 50 1 cap PO DAILY #30 cap 11/29/21 02/26/22 billion cell capsule,delayed release (Bio-K plus) diclofenac sodium 1 % topical gel 4 g TOPICAL QID PRN 01/06/22 02/18/22 diclofenac sodium 1 % topical gel 4 g TOPICAL QID PRN #100 g 01/06/22 02/26/22 gabapentin 300 mg capsule 300 - 600 mg PO BID #270 cap 01/06/22 02/26/22 hydroxyzine HCl 10 mg tablet 10 mg PO DAILY PRN #60 tab 02/03/22 02/26/22 pantoprazole 40 mg tablet,delayed 40 mg PO DAILY #90 tab 02/17/22 02/26/22 release (Protonix) cephalexin 500 mg tablet 500 mg PO BID #8 tab 02/26/22 Previous Rx's Medication Instructions Recorded bupropion HCl 100 mg tablet,12 hr 100 mg PO BID #180 tab 08/20/21 sustained-release denosumab 60 mg/mL subcutaneous 60 mg SUBCUT [id number] #1 ml 08/20/21 syringe (Prolia) duloxetine 60 mg capsule,delayed 60 mg PO DAILY #90 cap 08/20/21 release levothyroxine 88 mcg tablet 88 mcg PO DAILY #90 tab 08/20/21 rosuvastatin 10 mg tablet 10 mg PO DAILY #90 tab 08/20/21 fluticasone propionate 50 1 spray INTRANASAL BID PRN #16 g 09/21/21 mcg/actuation nasal spray,suspension L. acidophilus,casei,rhamnosus 50 1 cap PO DAILY #30 cap 11/29/21 billion cell capsule,delayed release (Bio-K plus) diclofenac sodium 1 % topical gel 4 g TOPICAL QID PRN #100 g 01/06/22 gabapentin 300 mg capsule 300 - 600 mg PO BID #270 cap 01/06/22 hydroxyzine HCl 10 mg tablet 10 mg PO DAILY PRN #60 tab 02/03/22 pantoprazole 40 mg tablet,delayed 40 mg PO DAILY #90 tab 02/17/22 release (Protonix) cephalexin 500 mg tablet 500 mg PO BID #8 tab 02/26/22 Allergies Allergy/AdvReac Type Severity Reaction Status Date / Time Sulfa (Sulfonamide Allergy Verified 02/18/22 15:51 Antibiotics) General Stated Complaint: Abd Prob FELIX: 3 Review of Systems Constitutional Constitutional: Reports as per HPI, Denies chills, Denies fever(s) and Denies headache(s) ENT Ears, Nose, Mouth, and Throat: Denies headache(s) Cardiovascular Cardiovascular: Reports as per HPI, Denies chest pain and Denies dyspnea Respiratory Respiratory: Reports as per HPI, Denies cough and Denies dyspnea Gastrointestinal Gastrointestinal: Reports as per HPI Musculoskeletal Musculoskeletal: Reports as per HPI and Denies back pain Integumentary/Breasts Skin/Breast: Reports as per HPI and Denies rash Neurologic Neurologic: Reports as per HPI and Denies headache(s) PFSH All Active Problems (Updated 02/26/22 @ 18:40 by LAY Briseno) Right-sided chest pain (Acute) Nausea & vomiting (Acute) Right sided abdominal pain (Acute) Stress at home (Acute) Dehydration (Acute) Acute UTI (Acute) Osteoporosis (Chronic) 12/2021-[facility] scan at [facility] , -2.6t score at hip, prolia Arthritis of right shoulder region (Acute) Arthritis of left shoulder region (Acute) Chronic anemia (Acute) Chronic kidney disease, stage 3 (Acute) Bilateral lower extremity edema (Acute) Congestion of right ear (Acute) Left shoulder pain (Acute) Family history of colon cancer (Acute) Immunization due (Acute) Immunization counseling (Acute) Vitamin D deficiency (Acute) Osteoarthritis of hips, bilateral (Acute) DDD (degenerative disc disease), lumbar (Acute) Peripheral neuropathy (Acute) Morbid obesity (Acute) Polyneuropathy in diabetes (Acute) Dyslipidemia (Acute) Stricture of female urethra (Acute) Diabetes (Chronic) Hiatal hernia (Chronic) Impacted cerumen of left ear (Acute) Arthralgia (Acute) COPD (chronic obstructive pulmonary disease) (Chronic) Hyperlipidemia (Acute) Hypothyroidism (acquired) (Acute) GERD (gastroesophageal reflux disease) (Chronic) Depression with anxiety (Acute) Medical History History of fracture of hand left Sepsis due to pneumonia Surgical History History of meatotomy of urethra History of tonsillectomy and adenoidectomy History of total hip arthroplasty Left Hx of fusion of 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 Daughter Depression Maternal Grandfather , 62 Prostate cancer Paternal Grandfather , 81 No problems noted. Maternal Grandmother , 77 Heart disease Paternal Grandmother , 59 Hypertension Social History Smoking/Tobacco Use Status: Former Tobacco Use tobacco type: cigarettes Quit Date: 10/31/81 Tobacco: How many years used: 20 Second Hand Exposure: Yes Smoking risk assessment performed?: Yes Alcohol Intake: current Alcohol Intake frequency: a few times a month Alcohol type: beer, wine and hard liquor Drug use: Never Substance use type: does not use Household members: spouse and family Housing: apartment Communication Needs: None Do you need help understanding health information?: Always Pets and animals: Yes Pets and animals: cat(s) and dog(s) Sexually active: Yes Do you think of yourself as: straight/heterosexual Current gender identity: female What is your relationship status?: How often do you talk on the phone with friends or family?: twice per week How often do you get together with friends or relatives?: twice per week How often do you attend anglican or synagogue services?: decline to answer Do you belong to any clubs or organized social groups?: no Panel score (0-1 are the most socially isolated patients): 2 [place]/Temple: Buddhist Special dee dee needs: No Seatbelt use: always Drive intox or ride w/intox winch driver: No Do you feel safe at home: Yes Do you feel safe in your relationship?: Yes Exam Const General: cooperative, healthy appearing, comfortable, no acute distress, well developed and anxious Nutritional Appearance: average body habitus and well nourished Orientation: alert and awake HENMT Head: normal to inspection Mouth: mucous membranes dry Resp Effort & Inspection: normal respiratory effort, able to speak in complete sentences and no respiratory distress Auscultation: clear to auscultation bilaterally, no rales, no rhonchi and no wheezes Cardio Rate: regular rate Rhythm: regular rhythm Heart Sounds: S1 normal and S2 normal GI Inspection: normal to inspection and non-distended Palpation: soft, no hepatosplenomegaly, no guarding, no masses, no pulsatile masses, not rigid and nontender (indicates RUQ but no pain elicted with palpation) Percussion: normal to percussion Auscultation: normal bowel sounds Back/Spine/Pelvis Back: no CVA tenderness Skin General skin exam: no rashes or lesions noted Trauma: no lacerations or abrasions Neuro General: patient alert and patient awake Cognition: normal cognition Speech: speech normal Gait: normal gait Psych Appearance: grossly normal and well kempt Mental Status: mental status grossly normal Speech and Movement: speech and movement normal Mood: congruent mood Affect: sad Attitude: cooperative Thought Process: normal Thought Content: normal Insight: fair Judgment: fair Course Vital Signs Vital signs: Vital Signs Temperature 36.8 C 02/26/22 15:27 Pulse 76 02/26/22 15:27 Respiratory Rate 18 02/26/22 15:27 Blood Pressure 123/67 02/26/22 15:27 Pulse Oximetry 96 02/26/22 15:27 Temperature 36.8 C 02/26/22 15:27 Temperature Source Tympanic 02/26/22 15:27 Pulse 76 02/26/22 15:27 Respiratory Rate 18 02/26/22 15:27 Respiratory Effort 02/26/22 15:31 Blood Pressure 123/67 02/26/22 15:27 Blood Pressure Position Supine 02/26/22 15:27 Pulse Oximetry 96 02/26/22 15:27 Oxygen Delivery Method Room Air 02/26/22 15:27 Oxygen Flow Rate 0 02/26/22 15:27 Pain Level 8 02/26/22 15:27
[2022-02-26 16:33] LABS: Lactate 0.9 mmol/L (0.6-1.4)
[2022-02-26] MEDS: Ondansetron 4 MG/2 ML VIAL IVP (16:36)
[2022-02-26] MEDS: MORPHine 4 MG/ML SYR 2 MG IVP (16:36)
[2022-02-26 16:39] LABS: Abs Immature Grans 0.07 10^3/uL (0.0-0.06); Absolute Basophil Count 0.04 10^3/uL (0.0-0.2); Absolute Eosinophil Count 0.58 10^3/uL (0.0-0.7); Absolute Lymphocyte Count 1.59 10^3/uL (1.2-3.4); Absolute Monocyte Count 0.53 10^3/uL (0.1-0.8); Absolute Neutrophil Count 6.43 10^3/uL (1.2-6.7); Basophils % 0.4; Eosinophils % 6.3; HCT 37.2 % (36.0-46.0); HGB 12.1 g/dL (11.2-15.7); Immature Grans % 0.8; Lymphocytes % 17.2; MCH 31.3 pg (27.0-33.0); MCHC 32.5 % (32.0-36.0); MCV 96 fL (80-95); MPV 10.2 fL (8.0-11.0); Monocytes % 5.7; Neutrophils % 69.6; Platelet Count 341 10^3/uL (130-400); RBC 3.87 10^6/uL (3.93-5.22); RDW 13.6 % (11.7-14.6); RDW-SD 48.5 fL; WBC 9.24 10^3/uL (4.4-10.8)
[2022-02-26] MEDS: Lactated Ringers 1,000 ML 1000 ML IV (16:40)
[2022-02-26 16:53] LABS: ALT 15 U/L (14-59); AST 12 U/L (15-37); Albumin 2.8 g/dL (3.4-5.0); Alkaline Phosphatase 104 U/L (46-116); Anion Gap 8.8 mmol/L (3-11); BUN 12 mg/dL (7-18); Bilirubin, Total 0.4 mg/dL (0.2-1.0); CO2 28.2 mmol/L (21.0-32.0); CREATININE 1.1 mg/dL (0.55-1.02); Chloride 105 mmol/L (98-107); Estimated GFR 48.42 (mL/min/1.73m2); Glucose 80 mg/dL (74-106); Lipase 44 U/L (73-393); Potassium 3.5 mmol/L (3.5-5.1); Sodium 142 mmol/L (136-145); Total Protein 7.3 g/dL (6.4-8.2); Troponin I < 50 ng/L (<or=60)
[2022-02-26] MEDS: cefTRIAXone 1 GM/50 ML BAG IVPB (17:54)
[2022-02-26 18:42] LABS: Bilirubin Negative (Negative); Blood Trace-intact (Negative); Clarity Sl Cloudy (Clear); Glucose Negative (Negative); Ketones 15 mg/dL (Negative); Leukocyte Esterase Moderate (Negative); Nitrite Negative (Negative); Specific Gravity 1.015 (1.005-1.025); Urobilinogen 0.2 EU/dL (Up TO 0.2)
[2022-02-26 18:52] LABS: Bacteria Many HPF (Negative); C & S Indicated? No/Sq. Contamination; Casts Negative LPF (Negative); Crystals Negative HPF (Negative); Epithelial Cells Many HPF (Negative); Mucus Negative (Negative); RBC Negative HPF (0-2); WBC >50 HPF (0-5)
[2022-02-26] MEDS: Ondansetron O.D.T. 4 MG TABEF, 3 TABS/BTL PO (18:58)
--- NOTE | 2022-02-27 14:24 | NUR.NOTE ---
Nursing Note: [facility] closed, prescription called to [facility]. Dr Lisandra wilcox. Ese Jimenez
== END 2022-02-26 18:58 | disposition home or self-care (01) ==
PROVIDERS: Emergency Provider Physician Assistant
DX: R11.2 Nausea with vomiting, unspecified (principal); R10.9 Unspecified abdominal pain; E86.0 Dehydration; N39.0 Urinary tract infection, site not specified; Z73.3 Stress, not elsewhere classified; Z63.8 Other specified problems related to primary support group
CPT/HCPCS: 36415; 80053; 83690; 93005; 96361; 96365; 96375; 99284; 76705; 81003; 81015; 83605; 84484; 85025; 93010; J0696; J2270; J2405

== ENCOUNTER 2022-03-22 20:36 | Outpatient (REF) | payer MEDICARE, OTHER, SELFPAY ==
[2022-03-22 21:56] LABS: Bilirubin Negative (Negative); Blood Trace-intact (Negative); Clarity Sl Cloudy (Clear); Glucose Negative (Negative); Ketones Negative (Negative); Leukocyte Esterase Small (Negative); Nitrite Negative (Negative); Specific Gravity 1.015 (1.005-1.025); Urobilinogen 0.2 EU/dL (Up TO 0.2)
[2022-03-22 22:17] LABS: Epithelial Cells Many HPF (Negative)
[2022-03-22 22:18] LABS: Bacteria Few HPF (Negative); C & S Indicated? No/Sq. Contamination; Crystals Negative HPF (Negative); Mucus Negative (Negative); Other Cells Few Transitional (Negative)
== END 2022-03-22 20:37 | disposition home or self-care (01) ==
LOC: LBN 20:36
DX: N39.0 Urinary tract infection, site not specified (principal)
CPT/HCPCS: 81003; 81015

== ENCOUNTER → 2022-03-24 13:43 | Outpatient (BNVA) | payer MEDICARE, OTHER, SELFPAY | PROVIDERS: Visit Provider Student in an Organized Health Care Education/Training Program | DX: M19.011 Primary osteoarthritis, right shoulder (principal); M19.012 Primary osteoarthritis, left shoulder | CPT/HCPCS: 99213 ==

== ENCOUNTER 2022-04-07 19:41 | Outpatient (REF) | payer MEDICARE, OTHER, SELFPAY ==
[2022-04-07 21:18] LABS: Bilirubin Negative (Negative); Blood Negative (Negative); Clarity Sl Cloudy (Clear); Glucose Negative (Negative); Ketones Negative (Negative); Leukocyte Esterase Moderate (Negative); Nitrite Negative (Negative); Urobilinogen 0.2 EU/dL (Up TO 0.2); pH 6.5 (5-8)
[2022-04-07 21:20] LABS: Abs Immature Grans 0.02 10^3/uL (0.0-0.06); Absolute Basophil Count 0.05 10^3/uL (0.0-0.2); Absolute Eosinophil Count 0.82 10^3/uL (0.0-0.7); Absolute Lymphocyte Count 2.37 10^3/uL (1.2-3.4); Absolute Monocyte Count 0.63 10^3/uL (0.1-0.8); Absolute Neutrophil Count 3.05 10^3/uL (1.2-6.7); Basophils % 0.7; Eosinophils % 11.8; HCT 34.4 % (36.0-46.0); HGB 10.9 g/dL (11.2-15.7); Immature Grans % 0.3; Lymphocytes % 34.1; MCH 30.9 pg (27.0-33.0); MCHC 31.7 % (32.0-36.0); MCV 98 fL (80-95); MPV 9.9 fL (8.0-11.0); Monocytes % 9.1; Platelet Count 371 10^3/uL (130-400); RBC 3.53 10^6/uL (3.93-5.22); RDW 13.5 % (11.7-14.6); RDW-SD 48.2 fL; WBC 6.94 10^3/uL (4.4-10.8)
[2022-04-07 21:33] LABS: ALT 17 U/L (14-59); AST 19 U/L (15-37); Albumin 2.8 g/dL (3.4-5.0); Alkaline Phosphatase 98 U/L (46-116); Anion Gap 10.5 mmol/L (3-11); BUN 11 mg/dL (7-18); Bilirubin, Total 0.1 mg/dL (0.2-1.0); CO2 26.5 mmol/L (21.0-32.0); CREATININE 1.2 mg/dL (0.55-1.02); Calcium 8.7 mg/dL (8.5-10.1); Chloride 105 mmol/L (98-107); Glucose 89 mg/dL (74-106); Potassium 4.1 mmol/L (3.5-5.1); Sodium 142 mmol/L (136-145); Total Protein 6.7 g/dL (6.4-8.2)
[2022-04-07 21:39] LABS: Bacteria Few HPF (Negative); C & S Indicated? Yes; Crystals Negative HPF (Negative); Epithelial Cells Moderate HPF (Negative); Mucus Negative (Negative); RBC Negative HPF (0-2); WBC >50 HPF (0-5)
== END 2022-04-07 19:42 | disposition home or self-care (01) ==
LOC: LBN 19:41
PROVIDERS: Visit Provider Physician Assistant
DX: R10.11 Right upper quadrant pain (principal); R39.89 Other symptoms and signs involving the genitourinary system
CPT/HCPCS: 80053; 81003; 81015; 85025; 87086

== ENCOUNTER → 2022-06-17 01:59 | Outpatient (CLI) | payer MEDICARE, OTHER, SELFPAY ==
--- NOTE | 2022-06-17 07:15 | DI.RAD_ITS ---
Exam(s) RF JOINT INJECTION FLUORO GUID EXAM: RF JOINT INJECTION FLUORO GUID CLINICAL HISTORY: RIGHT SHOULDER PAIN,m25.511,fluoro guided injection. TECHNIQUE: 2D and realtime digital imaging was performed. COMPARISON: No exams were available for comparison FINDINGS: Largely was provided for Dr. Rausch for guidance with performing a right shoulder injection. Please see procedure note for details. Fluoro time: 1seconds RADIATION DOSE DELIVERED: Ka,r= 1.03 mGy
--- NOTE | 2022-06-17 07:15 | DI.RAD_ITS ---
Exam(s) RF JOINT INJECTION FLUORO GUID EXAM: RF JOINT INJECTION FLUORO GUID CLINICAL HISTORY: LEFT SHOULDER PAIN,m25.512, fluoro guided injection. TECHNIQUE: 2D and realtime digital imaging was performed. COMPARISON: No exams were available for comparison FINDINGS: Fluoroscopy was provided for Dr. Rausch for guidance with performing a left shoulder injection. Please see procedure note for details. Fluoro time: 1 second RADIATION DOSE DELIVERED: Ka,r=0.58 mGy
--- NOTE | 2022-06-17 14:18 | W.PROCNOTE ---
Date of service: 06/17/22 Time of Service: 13:35 Procedure Note Date of procedure: 06/17/22 Procedure: Bilateral shoulder injection with fluroscopic guidance Surgeon/Proceduralist/Physician: Dheeraj Leyva Procedure Diagnosis: Bilateral glenohumeral arthritis Procedure Indications: Tasia has had persistent pain of both soulders. Noninvasive measures have been tried. She has had previously successful bilateral shoulder injections and desired a repeat. Therefore, an injection under fluoroscopy was recommended. I had discussed the risks of the procedure and the patient elected to proceed. Procedure Description: Tasia was greeted in the flouroscopy room. The correct side was identified and the consent was reviewed with the patient and signed. The patient was then placed in the supine position on the fluoroscopy table. The RIGHT shoulder was then prepped with Chloraprep. The anterior injection starting point was identiifed by bony landmarks and fluoroscopy. The skin and soft tissue in the tract of the injection was anesthetized with 1% Lidocaine. A spinal needle was then inserted deep into the shoulder joint at the level of the recess between the glenoid and superior humeral head. A small amount of Omnipaque solution was injected to confirm intraarticular placement. Once confirmed, the shoulder was injected with 5cc of 0.5% Bupivicaine and 80mg of Depo-Medrol. A bandaid was placed on the injection site. The patient tolerated the procedure well and noted improvement in pre-injection pain. The LEFT shoulder was then prepped with Chloraprep. The anterior injection starting point was identiifed by bony landmarks and fluoroscopy. The skin and soft tissue in the tract of the injection was anesthetized with 1% Lidocaine. A spinal needle was then inserted deep into the shoulder joint at the level of the recess between the glenoid and superior humeral head. A small amount of Omnipaque solution was injected to confirm intraarticular placement. Once confirmed, the shoulder was injected with 5cc of 0.5% Bupivicaine and 80mg of Depo-Medrol. A bandaid was placed on the injection site. The patient tolerated the procedure well and noted improvement in pre-injection pain.
[2022-06-17] MEDS: Omnipaque 300 MG/ML 10 ML BTL IJ (15:01)
[2022-06-17] MEDS: Bupivacaine 0.5% Pres-Free 30 ML VIAL IJ (15:03)
[2022-06-17] MEDS: methylPREDNISolone ACETATE 80 MG/ML VIAL IM (15:03)
== END ==
PROVIDERS: Visit Provider Student in an Organized Health Care Education/Training Program
DX: M25.511 Pain in right shoulder; M25.512 Pain in left shoulder
CPT/HCPCS: 20610; 77002; J1040

== ENCOUNTER → 2022-06-24 10:21 | Outpatient (BNVA) | payer MEDICARE, OTHER, SELFPAY | PROVIDERS: Visit Provider Physical Therapy Assistant | DX: Z80.0 Family history of malignant neoplasm of digestive organs (principal); Z12.11 Encounter for screening for malignant neoplasm of colon ==

== ENCOUNTER 2022-06-30 02:49 | Outpatient (CLI) | payer MEDICARE, OTHER, SELFPAY ==
[2022-06-30 12:54] LABS: Iron 41 ug/dL (50-170); Total Iron Binding Capacity 264 ug/dL (250-450); Transferrin Sat 16 % (15-50)
[2022-06-30 13:21] LABS: Ferritin 56 ng/mL (8-252); TSH (W/Ref FT4) 4.26 uIU/mL (0.36-3.74); Vitamin B12 625 pg/mL (193-986)
[2022-06-30 13:37] LABS: FREE T4 0.96 ng/dL (0.76-1.46)
== END 2022-06-30 02:50 | disposition home or self-care (01) ==
LOC: LOS 02:50
PROVIDERS: Visit Provider Family Medicine
DX: D64.9 Anemia, unspecified (principal); E03.9 Hypothyroidism, unspecified; N18.30 Chronic kidney disease, stage 3 unspecified; I10 Essential (primary) hypertension
CPT/HCPCS: 36415; 82607; 82728; 82746; 83540; 83550; 84439; 84443

== ENCOUNTER 2022-07-02 10:12 | Day surgery (SDC) | payer MEDICARE, OTHER, SELFPAY ==
--- NOTE | 2022-07-01 23:17 | PDOC.DSDIS_ITS ---
Discharge Plan Disposition Patient Disposition: HOME Condition: Good Discharge Details Reason For Visit: crc screening Attending Provider: Indiana Martinez Primary Care Provider: Va Nevarez Home Meds and New Rx's Prescriptions: Continued levothyroxine 88 mcg tablet 88 mcg PO DAILY Qty: 90 3RF rosuvastatin 10 mg tablet 10 mg PO DAILY Qty: 90 0RF Prolia 60 mg/mL syringe 60 mg subcut [id number] Qty: 1 1RF bupropion HCl 100 mg tablet sustained-release 12 hr 100 mg PO BID Qty: 180 3RF krill oil 500 mg capsule 500 mg PO DAILY cholecalciferol (vitamin D3) 125 mcg (5,000 unit) capsule 125 mcg PO DAILY lorazepam 0.5 mg tablet 0.5 mg PO BID PRN (Reason: anxiety) Qty: 15 1RF duloxetine 60 mg capsule,delayed release(DR/EC) 60 mg PO DAILY Qty: 90 3RF fluticasone propionate 50 mcg/actuation spray,suspension 1 spray intranasal BID PRN (Reason: nasal congestion) Qty: 16 4RF Rx Instructions: administer into each nostril azelastine 205.5 mcg (0.15 %) spray,non-aerosol 1 spray intranasal BID Rx Instructions: administer into each nostril gabapentin 300 mg capsule 300 - 600 mg PO BID Qty: 270 3RF Rx Instructions: pt takes 1 tablet in the AM and 2 tablets in the PM. -hb diclofenac sodium 1 % gel 4 g topical QID PRN (Reason: pain) Rx Instructions: apply to single knee, ankle, foot; for foot includes sole/toes/top of foot hydroxyzine HCl 10 mg tablet 10 mg PO DAILY PRN (Reason: anxiety) Qty: 60 0RF pantoprazole [Protonix] 40 mg tablet,delayed release (DR/EC) 40 mg PO DAILY Qty: 90 3RF Bio-K plus 50 billion cell capsule,delayed release(DR/EC) 1 cap PO DAILY Qty: 30 0RF Discontinued bisacodyl [Dulcolax (bisacodyl)] 5 mg tablet,delayed release (DR/EC) 5 mg PO ONCE Qty: 4 0RF Rx Instructions: Take according to provider's instructions for colonoscopy prep. polyethylene glycol 3350 17 gram/dose powder 17 g PO ONCE Qty: 238 0RF Rx Instructions: To be taken as directed by prescriber's office for colonoscopy prep. Discharge Instructions Additional Instructions: DSU Colonoscopy Post- Op Instructions Instructions for Everyone who is given Ane sthesia: For your safety, please do the following for the next twenty-four (24) hours: *Do Not operate a motor vehicle (car, truck, motorcycle, etc.) *Do Not drink alcoholic beverages or use any recreational drugs for the first 24 hours or while taking pain medications. The medications in your body may have a reaction that can be dangerous. *Do Not make any important decisions or sign any important papers. Findings: x1 small polyp minor diverticula banded internal polyp. There is also an external hemorrhoid No signs of ischemic colitis Follow up: My office will send a letter with the results of the polyp. The polyp was very small. Unless you are having problems with your bowels, I would not recommend any repeat colonoscopies. 1. No lifting over 20 pounds or strenuous activity for the first 24 hours after your procedure. After 24 hours there are no restrictions on your activity but you may feel fatigued for a few days. 2. After you arrive home you may have a light meal and return to your normal diet as you can tolerate it without feeling sick to your stomach. 3. You may have a bloated, gaseous feeling in your belly (abdomen) after a colonoscopy. Passing gas and belching will help. Walking or lying down on your left side with your knees flexed may relieve the discomfort. Call the office at [phone] (Office) or [phone] (Hospital) right away if you notice any of the following: a.Vomiting of blood or ?coffee ground stools?. b.Rectal bleeding 1Tbsp, blood clots or continuous bleeding. c.Severe belly (abdominal) pain. d.A hard distended belly (abdomen) and an inability to pass gas. 4. Please don?t expect to have a normal BM (bowel movement) for 2-3 days after your procedure. 5. If there are questions regarding the findings of your procedure, please contact your doctor 6. If you are unable to contact your doctor with a problem, contact the hospital at [phone]. 7. Continue all your regular medications unless directed otherwise. I understand the above instructions and have no questions. Signature of Patient or Adult Escort Name of Responsible Adult Escort Signature of Nurse Date/Time Activity:: Patient see above Diet:: See above Discharge Orders Discharge Orders: Discharge Order (Routine); Ordered 07/01/22 Ordered By: Indiana Martinez
--- NOTE | 2022-07-01 23:20 | COLE_ITS ---
Colonoscopy Report Date of procedure: 07/02/22 Pre-op diagnosis general: hx of ischemic colitis/hx os A. polyps Post-op diagnosis procedure note: other (polyp/diverticula/I&E hemorrhoids- minor ) Surgeon: Indiana Martinez Anesthesia Type: General:No Airway Estimated blood loss (mL): 1 Pathology: other Complications: None Disposition: PACU Prep: Miralax/Dulcolax Retraction Time: 11 Procedure Description: After informed consent was obtained the patient was taken to the procedure room and placed in a left decubitous position. Monitors were applied and a time out was done. The patients name, date of , procedure, allergies to medications and metal in their body was reviewed. The patient was then sedated. Once sedated and comfortable a rectal exam was done. External exam was: small ext. hemorrhoid. Internal exam reveals decreased sphincter tone and small I. he morrhoid as well. The scope was then introduced and retrofelexed. The scope was then advanced to the cecum w/out difficulty. The colon is floppy. The TI and appendiceal orifice were identified. The prep was BB PS 3 in the rectosigmoid left colon and transverse colon. BB PS 2 in the right colon/cecum, for a total of 8. There is no signs of any ischemia. The colon appears pink and healthy with normal vascular pattern. Biopsies are taken at 90 and 50 cm. She has a small flat 5 mm polyp at 70 cm. This is removed with a cold forcep. All specimen is retrieved and no bleeding is noted. She does have a few small scattered diverticula in the sigmoid colon with no signs of active bleeding or infection.. The scope was then slowly retracted over 11 minutes back into the rectum. The scope was rem We did review a hemorrhoid banding Of the internal hemorrhoids x1.. The scope was removed and the patient was woken up and taken back to Same day surgery in stable condition. Patient tolerated the procedure well. The patient tolerated the procedure well and there were no immediate complications. Follow up: The patient unless they develop changes in bowel habits or other new gastrointestinal complaints.
[2022-07-02 10:43] VITALS: BP 122/60; PULSE 66; RESP 16; TEMP 36.9; O2SAT 99
--- NOTE | 2022-07-02 10:54 | ANES.PREOP_ITS ---
General Info Date of Service Date Performed: 07/02/22 Height: 5 ft 3 in Weight: 78.6 kg Body Mass Index (BMI): 30.7 Surgical Procedure: Operation Date: 07/02/22 10:35 Proposed Procedure Side Surgeon joaquin Martinez, DO Meds Allergies and Home Medications Allergies Allergy/AdvReac Type Severity Reaction Status Date / Time Sulfa (Sulfonamide Allergy Verified 07/02/22 10:42 Antibiotics) Home Medication Medication Instructions Recorded cholecalciferol (vitamin D3) 125 125 mcg PO DAILY 06/25/21 mcg (5,000 unit) capsule krill oil 500 mg capsule 500 mg PO DAILY 06/25/21 azelastine 205.5 mcg (0.15 %) 1 spray intranasal BID 08/03/21 nasal spray bupropion HCl 100 mg tablet,12 hr 100 mg PO BID #180 tabs 08/20/21 sustained-release denosumab 60 mg/mL subcutaneous 60 mg subcut [id number] To be 08/20/21 syringe (Prolia) administered at infusion center #1 mL levothyroxine 88 mcg tablet 88 mcg PO DAILY #90 tabs 08/20/21 rosuvastatin 10 mg tablet 10 mg PO DAILY #90 tabs 08/20/21 fluticasone propionate 50 1 spray intranasal BID PRN nasal 09/21/21 mcg/actuation nasal congestion #16 grams spray,suspension L. acidophilus,casei,rhamnosus 50 1 cap PO DAILY #30 caps 11/29/21 billion cell capsule,delayed release (Bio-K plus) diclofenac sodium 1 % topical gel 4 g topical QID PRN pain 01/06/22 gabapentin 300 mg capsule 300 - 600 mg PO BID #270 caps 01/06/22 hydroxyzine HCl 10 mg tablet 10 mg PO DAILY PRN anxiety #60 tabs 02/03/22 pantoprazole 40 mg tablet,delayed 40 mg PO DAILY #90 tabs 03/04/22 release (Protonix) lorazepam 0.5 mg tablet 0.5 mg PO BID PRN anxiety #15 tabs 05/14/22 duloxetine 60 mg capsule,delayed 60 mg PO DAILY #90 caps 06/30/22 release Current Visit Medications: Current Medications Generic Name Dose Route Start Last Admin Trade Name Freq PRN Reason Stop Dose Admin Hyoscyamine Sulfate 0.125 mg 07/01/22 23:16 Hyoscyamine 0.125 Mg Sl/Oral/Chew SL DIRECTED PRN Ringer's Solution 1,000 mls @ 80 mls/hr 07/02/22 06:00 IV 07/02/22 23:59 INFUSION [facility] IV Miscellaneous Supplies 1 each 07/02/22 06:00 Iv Access IV 07/02/22 23:59 DIRECTED ROSE Ondansetron HCl 4 mg 07/01/22 23:16 Ondansetron 4 Mg/2 Ml Vial IVP Q4H PRN PRN Nausea / Vomiting Sodium Chloride 0 ml 07/02/22 06:00 Normal Saline Flush 10 Ml Syr IV 07/02/22 23:59 PRN PRN Sodium Chloride 0 ml 07/02/22 06:00 Normal Saline 10 Ml Vial IJ 07/02/22 23:59 DIRECTED PRN Sterile Water 0 ml 07/02/22 06:00 Water,Injection,Sterile 10 Ml Vial IJ 07/02/22 23:59 DIRECTED PRN PFSH Active Problems Active Problems: Problem Status Onset Code Screening for colon cancer Z12.11 Anxiety F41.9 Osteoporosis M81.0 Arthritis of right shoulder region M19.011 Arthritis of left shoulder region M19.012 Chronic anemia D64.9 Chronic kidney disease, stage 3 N18.30 Bilateral lower extremity edema R60.0 Congestion of right ear H93.8X1 Left shoulder pain M25.512 Family history of colon cancer Z80.0 Immunization due Z23 Immunization counseling Z71.85 Vitamin D deficiency E55.9 Osteoarthritis of hips, bilateral M16.0 DDD (degenerative disc disease), lumbar M51.36 Peripheral neuropathy G62.9 Morbid obesity E66.01 Polyneuropathy in diabetes E11.42 Dyslipidemia E78.5 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 Diabetes E11.9 Hiatal hernia K44.9 Impacted cerumen of left ear H61.22 Arthralgia M25.50 COPD (chronic obstructive pulmonary disease) J44.9 Hyperlipidemia E78.5 Hypothyroidism (acquired) E03.9 GERD (gastroesophageal reflux disease) K21.9 Depression with anxiety F41.8 Medical History Medical History History of fracture of hand left Sepsis due to pneumonia Surgical History Surgical History History of meatotomy of urethra History of tonsillectomy and adenoidectomy History of total hip arthroplasty Left Hx of fusion of cervical spine stenosis- C5-7 S/P ORIF (open reduction internal fixation) fracture Left femur shaft S/P total knee arthroplasty Left Status post appendectomy Tobacco Smoking/Tobacco Use Status: Former Tobacco Use Second hand exposure: Yes Alcohol Alcohol Intake: current Alcohol intake frequency: a few times a month Alcohol type: beer, wine and hard liquor Substance Use Substance use: Never Substance use type: does not use Vital Signs and Lab Results Vital Signs Most Recent Vital Signs in EMR: Most Recent Vital Signs Temp Pulse Resp BP Pulse Ox 36.9 C 66 16 122/60 99 07/02/22 10:43 07/02/22 10:43 07/02/22 10:43 07/02/22 10:43 07/02/22 10:43 Lab Results Blood Type / Crossmatch: No Data to Display Complete Blood Count: No Data to Display Complete Metabolic Panel: No Data to Display Liver Function Panel: No Data to Display Coagulation Panel: No Data to Display Cardiac Panel: No Data to Display Arterial Blood Gas: No Data to Display Venous Blood Gas: No Data to Display Pancreas Panel: No Data to Display Thyroid Panel: Thyroid Stimulating Hormone (TSH) 4.26 uIU/mL (0.36-3.74) H 06/30/22 08:01 Infectious Disease: No Data to Display Blood Cultures: No Data to Display Toxicology Panel: No Data to Display Imaging and Studies Imaging and Studies Study information below may be from another EMR and interpreted by another provider. Please see original notes in EMR for more complete details. EKG Summary: DATE/TIME OF SERVICE: 02/26/221635 : 1945PERFORMING LOCATION: ER APPROVED REPORT Exam: Resting ECG Reason for Exam: nausea Patient Location: E HR:71 bpm ECG Measurements Heart Rate 71 AXIS IN 163 P 54 QRSd 106 QRS -35 QT 429 T62 QTc 467 Conclusion Sinus rhythm...normal P axis, V-rate 60- 99 Left axis deviation...QRS axis (-30,-90) Echocardiogram Summary: Date of Exam: 07/07/21Sex: F Admission Date: 07/03/21 : 1945 Age: 75 APPROVED REPORT EXAM: Comprehensive 2D, Doppler, and color-flow Echocardiogram Patient Location: In-Patient Room/Bed: 208 Energy Scheduler: Deborah Ray RDCS (AE) Indications: CHF, COPD Other Information Study Quality: Adequate Conclusion Normal left ventricular wall thickness and chamber size. Estimated ejection fraction is 60%. Wall motion is normal Normal right ventricular size and systolic function Both atria are normal in size Trileaflet aortic valve with trace regurgitation Normal mitral valve with trace regurgitation Normal tricuspid valve with trace regurgitation Normal pulmonic valve with trace regurgitation Mildly dilated ascending aorta, 3.5 cm Anesthesia Assessment and Plan Anesthesia History Personal History: No History of Anesthesia Complications Family History: No Family History of Anesthesia Complications Exercise Tolerance Exercise Tolerance: Metabolic Equivalents>4 Pertinent Negatives Pertinent Negatives: No Symptoms of GERD and No Major Cardiovascular Symptoms or Complaints Cardiac & Pulmonary Exam Cardiac Exam: Normal S1/S2 Heart Sounds Pulmonary Exam: Clear Bilateral Breath Sounds Implantable Cardiac Device Does patient have a Pacemaker or an ICD?: No Airway Exam Known Difficult Airway: No Mallampati Class: 1 Mouth Opening: Normal (> 3cm) Thyromental Distance: Greater than 3 cm Neck Range of Motion: Full ROM Neck Circumference: Normal Teeth Condition: Normal Dentition ASA Classification ASA Score: ASA 2 Emergency Case?: No NPO Status NPO Status: NPO Clears >2 hours, Solids >8 hours Anesthesia Plan Resuscitation Status: Full Code Anesthesia Technique: General Anesthesia Airway Planned: Natural Airway Monitors Used: Standard Monitors
[2022-07-02] MEDS: Lactated Ringers 1,000 ML 80 ML IV (10:56)
[2022-07-02 10:59] VITALS: BMI 30.7
--- NOTE | 2022-07-02 11:33 | BOWEL_PTH ---
PATIENT: Tasia Ott LOC: [facility] U#:[id number] AGE/SX: 76/F ROOM: RE07/02/[address]: Indiana Martinez : 1945 BED: DIS: 07/02/2022 SPEC #: [id number] RECD: 07/02/22 12:54 STATUS: JJ REChristine #: [id number] MIRLANDE: 07/02/22 11:[address]: Indiana Martinez DEPT: Surgical Specimen RECD BY: Aretha Swenson ENTERED: 07/02/22 12:56 SP TYPE: Bowel OTHR DR: Va Nevarez APRN Tissues: 1 - BIOPSY BOWEL 2 - BIOPSY BOWEL 3 - BIOPSY BOWEL Procedures: GROSS AND MICRO LEVEL 4 Comments: [id number]
[2022-07-02 11:47] VITALS: BP 120/62; PULSE 65; RESP 18; TEMP 36.7; O2SAT 96
--- NOTE | 2022-07-02 12:06 | W.ANESPOSTOP ---
Postoperative Evaluation Date, Time and Location Date Performed: 07/02/22 Time Performed: 12:06 Patient Location: Day Surgery Unit Vital Signs Most Recent Imported Vital Signs: Most Recent Vital Signs Temp Pulse Resp BP Pulse Ox 36.7 C 65 18 120/62 96 07/02/22 11:47 07/02/22 11:47 07/02/22 11:47 07/02/22 11:47 07/02/22 11:47 Pain Score Most Recent Pain Score: Most Recent Pain Score Pain Level 0 07/02/22 11:47 Assessment Mental Status: Awake (Alert & Oriented to Patient Baseline) Airway and Respiratory Function: Patent airway with normal (patient baseline) respiratory exam Cardiovascular Function: Hemodynamically Stable Hydration Status: Adequately Hydrated Nausea & Vomiting: No Nausea or Vomiting Pain: Pt. Denies Any Pain Peripheral Nerve Block: Patient did not receive a nerve block
[2022-07-02 12:10] VITALS: BP 116/70; PULSE 71; RESP 18; TEMP 36.2; O2SAT 98
== END 2022-07-02 13:36 | disposition home or self-care (01) ==
PROVIDERS: Visit Provider Surgery
PROC: 0DJD8ZZ Inspection of Lower Intestinal Tract, Via Natural or Artificial Opening Endoscopic (ICD-10-PCS; CPT 45378; principal; 2022-07-02 10:30)
DX: Z12.11 Encounter for screening for malignant neoplasm of colon (principal); K63.5 Polyp of colon; K57.30 Diverticulosis of large intestine without perforation or abscess without bleeding; Z80.0 Family history of malignant neoplasm of digestive organs; K64.8 Other hemorrhoids; K64.4 Residual hemorrhoidal skin tags; J44.9 Chronic obstructive pulmonary disease, unspecified; E11.42 Type 2 diabetes mellitus with diabetic polyneuropathy; K63.89 Other specified diseases of intestine
CPT/HCPCS: 45380; 88305

== ENCOUNTER → 2022-07-16 11:27 | Outpatient (CLI) | payer MEDICARE, OTHER, SELFPAY ==
--- NOTE | 2022-07-16 11:45 | DI.CT_ITS ---
Exam(s) CT ABDOMEN PELVIS W EXAM: CT ABDOMEN PELVIS W CLINICAL HISTORY: abdominal pain, pain since colonoscopy 2 weeks ago. TECHNIQUE: Imaging Protocol: Axial computed tomography images with coronal and sagittal reformatted images were created and reviewed CONTRAST MATERIAL: Intravenous: Omnipaque 100cc Oral: Yes. Oral contrast was administered for bowel opacification. COMPARISON: CT CT CHEST PE ABD PELVIS W from 02/25/2022 FINDINGS: VISUALIZED LUNG BASES: No nodules nor pleural effusions evident. ABDOMEN: There is no ascites. No free intraperitoneal air, given the recent colonoscopy history. GI: Sigmoid diverticulosis again noted. No obvious acute diverticulitis. No obvious biopsy clips in the colon. No bowel obstruction. The wall of the proximal stomach in just beyond the GE junction a ppears thickened, possibly significant. Remainder of the stomach appears unremarkable. Small defect at the level the ampulla and the duodenum noted, possibly significant. CBD is not dilated.. LIVER: There are no focal hepatic lesions evident . GALLBLADDER/BILIARY: No obvious gallbladder pathology. CBD is not dilated. PANCREAS: No evidence of pancreatic mass nor dilatation of the pancreatic duct. SPLEEN: Spleen is not enlarged. No obvious intrasplenic lesions. Splenic and portal veins are paten t. ADRENALS: Mild thickening of the left adrenal gland noted. Minimal thickening of the right adrenal g land also noted. KIDNEYS:No cysts evident. No solid renal masses. No calculi nor hydronephrosis.. ABDOMINAL AORTA: Abdominal aorta is not enlarged. LYMPH NODES:There is no retroperitoneal nor paraaortic adenopathy. ABDOMINAL WALL: No evidence of significant anterior abdominal wall nor inguinal hernia. GI: There is no evidence of bowel obstruction, free air, nor abscess. PELVIS: GI: No evidence of appendicitis.Sigmoid diverticulosis.No obvious acute diverticulitis. LYMPH NODES: There is no intrapelvic nor inguinal adenopathy. REPRODUCTIVE: Uterus and adnexal regions unremarkable. No ovarian masses. No free fluid. URINARY BLADDER: Somewhat thickened wall of the bladder which is somewhat difficult to evaluate becau se of beam hardening artifact from left hip prosthesis. OSSEOUS: Left hip prosthesis. No osseous lesions. No fractures. IMPRESSION: 1. No evidence of pneumoperitoneum nor ascites in this patient had recent colonoscopy and apparently pain since. 2. There is sigmoid diverticulosis. No obvious acute diverticulitis. 3. Urinary bladder wall is diffusely thickened, also evident on prior CT scan of 02/25/2022. 4. Incidentally noted is some focal thickening of the proximal stomach wall just beyond the GE juncti on. Also noted is possible density in the medial wall of the duodenum at the ampullary region. Kurt mmend follow-up upper endoscopy to this level in the duodenum. RADIATION DOSE DELIVERED: 1,188.12mGy.cm Total DLP DATA REPOSITORY: All CT scans at this facility are submitted to the National Radiology Data Registry (NRDR) Dose Index Registry (DIR) with the [employer] ([employer]). RADIATION OPTIMIZATION: All CT scans at this facility use at least one of these dose optimization te chniques: automated exposure control; mA and/or kV adjustment per patient size (includes targeted exa ms where dose is matched to clinical indication); or iterative reconstruction.
[2022-07-16] MEDS: Breeza Beverage 473 ML BTL PO ×2 (12:03→12:04)
[2022-07-16] MEDS: Gastrografin 120 ML BTL PO (12:04)
[2022-07-16 12:46] LABS: Abs Immature Grans 0.02 10^3/uL (0.0-0.06); Absolute Basophil Count 0.04 10^3/uL (0.0-0.2); Absolute Eosinophil Count 0.13 10^3/uL (0.0-0.7); Absolute Lymphocyte Count 1.52 10^3/uL (1.2-3.4); Absolute Monocyte Count 0.92 10^3/uL (0.1-0.8); Absolute Neutrophil Count 4.16 10^3/uL (1.2-6.7); Basophils % 0.6; Eosinophils % 1.9; HCT 36.6 % (36.0-46.0); Immature Grans % 0.3; Lymphocytes % 22.4; MCH 31.9 pg (27.0-33.0); MCHC 32.8 % (32.0-36.0); MCV 97 fL (80-95); MPV 9.6 fL (8.0-11.0); Monocytes % 13.5; Neutrophils % 61.3; Platelet Count 298 10^3/uL (130-400); RBC 3.76 10^6/uL (3.93-5.22); RDW 12.6 % (11.7-14.6); RDW-SD 45.3 fL; WBC 6.79 10^3/uL (4.4-10.8)
[2022-07-16 13:12] LABS: ALT 23 U/L (14-59); AST 17 U/L (15-37); Alkaline Phosphatase 91 U/L (46-116); Anion Gap 7.8 mmol/L (3-11); BUN 16 mg/dL (7-18); Bilirubin, Total 0.4 mg/dL (0.2-1.0); CO2 30.2 mmol/L (21.0-32.0); CREATININE 1.3 mg/dL (0.55-1.02); Calcium 9.2 mg/dL (8.5-10.1); Chloride 102 mmol/L (98-107); Estimated GFR 42.62 (mL/min/1.73m2); Glucose 113 mg/dL (74-106); Potassium 4.3 mmol/L (3.5-5.1); Sodium 140 mmol/L (136-145); Total Protein 7.7 g/dL (6.4-8.2)
[2022-07-16] MEDS: Omnipaque 350 MG/ML 100 ML BTL IJ (13:42)
== END ==
PROVIDERS: Visit Provider Physician Assistant
DX: K57.30 Diverticulosis of large intestine without perforation or abscess without bleeding (principal); N32.89 Other specified disorders of bladder; K31.89 Other diseases of stomach and duodenum
CPT/HCPCS: 80053; 74018; 74177; 85025; J3490

== ENCOUNTER 2022-08-06 08:10 | Emergency (ER) | payer MEDICARE, OTHER, SELFPAY ==
[2022-08-06 08:16] VITALS: BP 133/49; PULSE 89; RESP 18; TEMP 36.8; O2SAT 94
--- NOTE | 2022-08-06 08:30 | ED.GENADUL_ITS ---
Discharge Plan Disposition Patient Disposition: HOME Condition: Stable Discharge Details Clinical Impression: Right flank pain, Pyelonephritis of right kidney Primary Care Provider: Va Nevarez ED Provider: Rigoberto Everett [place] Meds and New Rx's Prescriptions: New ciprofloxacin HCl 500 mg tablet 500 mg PO BID Qty: 14 0RF oxycodone 5 mg tablet 5 mg PO TID PRNQty: 7 0RF Continued levothyroxine 88 mcg tablet 88 mcg PO DAILY Qty: 90 3RF rosuvastatin 10 mg tablet 10 mg PO DAILY Qty: 90 0RF Prolia 60 mg/mL syringe 60 mg subcut [id number] Qty: 1 1RF bupropion HCl 100 mg tablet sustained-release 12 hr 100 mg PO BID Qty: 180 3RF krill oil 500 mg capsule 500 mg PO DAILY cholecalciferol (vitamin D3) 125 mcg (5,000 unit) capsule 125 mcg PO DAILY lorazepam 0.5 mg tablet 0.5 mg PO BID PRN (Reason: anxiety) Qty: 15 1RF duloxetine 60 mg capsule,delayed release(DR/EC) 60 mg PO DAILY Qty: 90 3RF fluticasone propionate 50 mcg/actuation spray,suspension 1 spray intranasal BID PRN (Reason: nasal congestion) Qty: 16 4RF Rx Instructions: administer into each nostril sucralfate 1 gram tablet 1 g PO QAC Qty: 84 0RF azelastine 205.5 mcg (0.15 %) spray,non-aerosol 1 spray intranasal BID Rx Instructions: administer into each nostril gabapentin 300 mg capsule 300 - 600 mg PO BID Qty: 270 3RF Rx Instructions: pt takes 1 tablet in the AM and 2 tablets in the PM. -hb diclofenac sodium 1 % gel 4 g topical QID PRN (Reason: pain) Rx Instructions: apply to single knee, ankle, foot; for foot includes sole/toes/top of foot hydroxyzine HCl 10 mg tablet 10 mg PO DAILY PRN (Reason: anxiety) Qty: 60 0RF pantoprazole [Protonix] 40 mg tablet,delayed release (DR/EC) 40 mg PO DAILY Qty: 90 3RF Bio-K plus 50 billion cell capsule,delayed release(DR/EC) 1 cap PO DAILY Qty: 30 0RF No Action amoxicillin-pot clavulanate 875-125 mg tablet 1 tab PO Q12H Qty: 14 0RF Discharge Instructions Instructions: Kidney Infection (ED) Additional Instructions: your cat scan did not show a kidney stone. you do have evidence of a urinary tract infection and likely kidney infection follow up with your primary care provider next week especially if symptoms continue if you feel more ill, have severe worsening pain or persistent vomiting return to the emergency department the oxycodone can make you drowsy, try to take it at night for sleep if needed. Medical Decision Making 77 yo female with hx of ckd, anxiety, prior kidneys tones per patient, gerd, hld, who comes in with cc of right flank pain that started suddenly while asleep at 5am. Denies fevers, chills, n/v. She localizes the pain to the right oblique and radiates to the right groin. She arrives stable, has minimal tenderness in rlq with deep palpation and no other abdominal tenderness and no cva tenderness. Given rapid onset of symptoms and location of her pain suspect kidney stone, will obtian cbc, cmp, lipase and ct renal colic and reassess. pt stable now sleeping and awakens to voice, feels significantly better, no longer has any abdominal tenderness. Ct shows stranding around the right kidney no visible kidney stone, her urine is positive for nitrites. Will order ceftriaxone, she does feel significantly better and would prefer d/c with oral abx, if she remains hemodynamically stable and pain controlled will consider d/c with oral abx. pt still feels well and would like to be discharged, remains hemodynamically stable, will start her on cipro, advised to f/u with pcp and return precautions given Differential Diagnosis Differential Diagnosis: kidney stone, pyelo Imaging Data Radiologic Study: Attestation: I personally reviewed and interpreted this imaging study as follows: Imaging: CT Scan Radiologist's impression: IMPRESSION: 1. There is abundant perinephric streaking around the right kidney.? Mild dilatation of the right collecting system but no radiopaque calculus evident and indeed there was no evidence of radiopaque calculus in the right kidney on the recent CT scan of 07/16/2022. consider possibility of either tiny passing calculus or non radiopaque calculus passage. 2. Opposite-left kidney appears unremarkable. 3. Urinary bladder wall is again noted be diffusely thickened. Lab Data Lab results reviewed: Yes I reviewed the patient's lab results. HPI General Date/Time Provider Initiated Documentation: 08/06/22 08:11 . Limitations to Documentation: no limitations . Information obtained by: patient . History of Present Illness 77 year old F presents to the emergency department with the chief complaint of right flank pain, described as moderate, Patient started experiencing this hour(s) (3) and it has been constant. No relieving factors improve symptom(s), No exacerbating factors reported . Patient notes denies chest pain, fever/chills and shortness of breath. Patient did receive the following treatments prior to arrival, none Related Data Home Medications Medication Instructions Recorded Confirmed cholecalciferol (vitamin D3) 125 125 mcg PO DAILY 06/25/21 07/22/22 mcg (5,000 unit) capsule krill oil 500 mg capsule 500 mg PO DAILY 06/25/21 07/22/22 azelastine 205.5 mcg (0.15 %) 1 spray intranasal BID 08/03/21 07/22/22 nasal spray bupropion HCl 100 mg tablet,12 hr 100 mg PO BID #180 tabs 08/20/21 07/22/22 sustained-release denosumab 60 mg/mL subcutaneous 60 mg subcut [id number] To be 08/20/21 07/22/22 syringe (Prolia) administered at infusion center #1 mL levothyroxine 88 mcg tablet 88 mcg PO DAILY #90 tabs 08/20/21 07/22/22 rosuvastatin 10 mg tablet 10 mg PO DAILY #90 tabs 08/20/21 07/22/22 fluticasone propionate 50 1 spray intranasal BID PRN nasal 09/21/21 07/22/22 mcg/actuation nasal congestion #16 grams spray,suspension L. acidophilus,casei,rhamnosus 50 1 cap PO DAILY #30 caps 11/29/21 07/22/22 billion cell capsule,delayed release (Bio-K plus) diclofenac sodium 1 % topical gel 4 g topical QID PRN pain 01/06/22 07/22/22 gabapentin 300 mg capsule 300 - 600 mg PO BID #270 caps 01/06/22 07/22/22 hydroxyzine HCl 10 mg tablet 10 mg PO DAILY PRN anxiety #60 tabs 02/03/22 07/22/22 pantoprazole 40 mg tablet,delayed 40 mg PO DAILY #90 tabs 03/04/22 07/22/22 release (Protonix) lorazepam 0.5 mg tablet 0.5 mg PO BID PRN anxiety #15 tabs 05/14/22 07/22/22 duloxetine 60 mg capsule,delayed 60 mg PO DAILY #90 caps 06/30/22 07/22/22 release amoxicillin 875 mg-potassium 1 tab PO Q12H #14 tabs 07/15/22 07/22/22 clavulanate 125 mg tablet sucralfate 1 gram tablet 1 g PO QAC #84 tabs 07/22/22 07/22/22 ciprofloxacin HCl 500 mg tablet 500 mg PO BID #14 tabs 08/06/22 oxycodone 5 mg tablet 5 mg PO TID PRN #7 tabs 08/06/22 Previous Rx's Medication Instructions Recorded bupropion HCl 100 mg tablet,12 hr 100 mg PO BID #180 tabs 08/20/21 sustained-release denosumab 60 mg/mL subcutaneous 60 mg subcut [id number] To be 08/20/21 syringe (Prolia) administered at infusion center #1 mL levothyroxine 88 mcg tablet 88 mcg PO DAILY #90 tabs 08/20/21 rosuvastatin 10 mg tablet 10 mg PO DAILY #90 tabs 08/20/21 fluticasone propionate 50 1 spray intranasal BID PRN nasal 09/21/21 mcg/actuation nasal congestion #16 grams spray,suspension L. acidophilus,casei,rhamnosus 50 1 cap PO DAILY #30 caps 11/29/21 billion cell capsule,delayed release (Bio-K plus) gabapentin 300 mg capsule 300 - 600 mg PO BID #270 caps 01/06/22 hydroxyzine HCl 10 mg tablet 10 mg PO DAILY PRN anxiety #60 tabs 02/03/22 pantoprazole 40 mg tablet,delayed 40 mg PO DAILY #90 tabs 03/04/22 release (Protonix) lorazepam 0.5 mg tablet 0.5 mg PO BID PRN anxiety #15 tabs 05/14/22 duloxetine 60 mg capsule,delayed 60 mg PO DAILY #90 caps 06/30/22 release amoxicillin 875 mg-potassium 1 tab PO Q12H #14 tabs 07/15/22 clavulanate 125 mg tablet sucralfate 1 gram tablet 1 g PO QAC #84 tabs 07/22/22 ciprofloxacin HCl 500 mg tablet 500 mg PO BID #14 tabs 08/06/22 oxycodone 5 mg tablet 5 mg PO TID PRN #7 tabs 08/06/22 Allergies Allergy/AdvReac Type Severity Reaction Status Date / Time Sulfa (Sulfonamide Allergy Verified 07/22/22 10:19 Antibiotics) General Stated Complaint: FlankPain FELIX: 3 Review of Systems All systems reviewed & are unremarkable except as noted in HPI and below Constitutional Constitutional: Denies chills, Denies fever(s) and Denies weakness Eyes Eyes: Denies loss of vision Cardiovascular Cardiovascular: Denies chest pain and Denies dyspnea Respiratory Respiratory: Denies cough and Denies dyspnea Gastrointestinal Gastrointestinal: Denies nausea and Denies vomiting Neurologic Neurologic: Denies loss of vision and Denies weakness PFSH All Active Problems (Updated 08/06/22 @ 10:34 by Rigoberto Everett MD) Right flank pain (Acute) Pyelonephritis of right kidney (Acute) Screening for colon cancer (Acute ~07/02/22) Anxiety (Chronic) Osteoporosis (Chronic) 12/2021-DEXA scan at [facility] , -2.6t score at hip, prolia Arthritis of right shoulder region (Acute) Arthritis of left shoulder region (Acute) Chronic anemia (Acute) Chronic kidney disease, stage 3 (Acute) Bilateral lower extremity edema (Acute) Congestion of right ear (Acute) Left shoulder pain (Acute) Family history of colon cancer (Acute) Immunization due (Acute) Immunization counseling (Acute) Vitamin D deficiency (Acute) Osteoarthritis of hips, bilateral (Acute) DDD (degenerative disc disease), lumbar (Acute) Peripheral neuropathy (Acute) Morbid obesity (Acute) Polyneuropathy in diabetes (Acute) Dyslipidemia (Acute) Stricture of female urethra (Acute) Diabetes (Chronic) Hiatal hernia (Chronic) Impacted cerumen of left ear (Acute) Arthralgia (Acute) COPD (chronic obstructive pulmonary disease) (Chronic) Hyperlipidemia (Acute) Hypothyroidism (acquired) (Acute) GERD (gastroesophageal reflux disease) (Chronic) Depression with anxiety (Acute) Medical History (Updated 08/06/22 @ 10:34 by Rigoberto Everett MD) History of fracture of hand left Sepsis due to pneumonia Surgical History (Updated 07/30/22 @ 14:50 by Wilma Ziegler RN) History of colonoscopy with polypectomy (~07/02/22) hyperplstic, PRN colonoscopy History of meatotomy of urethra History of tonsillectomy and adenoidectomy History of total hip arthroplasty Left Hx of fusion of 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 Daughter Depression Maternal Grandfather , 62 Prostate cancer Paternal Grandfather , 81 No problems noted. Maternal Grandmother , 77 Heart disease Paternal Grandmother , 59 Hypertension Social History Smoking/Tobacco Use Status: Former Tobacco Use tobacco type: cigarettes Quit Date: 10/31/81 Tobacco: How many years used: 20 Second Hand Exposure: Yes Smoking risk assessment performed?: Yes Alcohol Intake: current Alcohol Intake frequency: a few times a month Alcohol type: beer, wine and hard liquor Drug use: Never Substance use type: does not use Household members: spouse and family Housing: apartment Communication Needs: None Do you need help understanding health information?: Always Pets and animals: Yes Pets and animals: cat(s) and dog(s) Sexually active: Yes Do you think of yourself as: straight/heterosexual Current gender identity: female What is your relationship status?: How often do you talk on the phone with friends or family?: twice per week How often do you get together with friends or relatives?: twice per week How often do you attend quaker or sikhism services?: decline to answer Do you belong to any clubs or organized social groups?: no Panel score (0-1 are the most socially isolated patients): 2 Dee Dee/Episcopalian: Sikh Special dee dee needs: No Seatbelt use: always Drive intox or ride w/intox fence post driver: No Do you feel safe at home: Yes Do you feel safe in your relationship?: Yes Exam Const General: no acute distress Orientation: alert HENMT Head: normal to inspection Ears: external ears normal General nose exam: external nose normal Mouth: moist mucous membranes Eyes General: appearance normal, both eyes and all related structures Neck Neck: normal visual inspection Resp Effort & Inspection: normal respiratory effort and able to speak in complete sentences Cardio Rate: regular rate GI Palpation: soft Skin General skin exam: no rashes or lesions noted Neuro General: patient alert and patient oriented x3 Extrem General: normal to inspection Psych Mental Status: mental status grossly normal Course Vital Signs Vital signs: Vital Signs Temperature 36.8 C 08/06/22 08:16 Pulse 89 08/06/22 08:16 Respiratory Rate 18 08/06/22 08:16 Blood Pressure 133/49 L 08/06/22 08:16 Pulse Oximetry 94 08/06/22 08:16 Temperature 36.8 C 08/06/22 08:16 Temperature Source Temporal Artery Scan 08/06/22 08:16 Pulse 89 08/06/22 08:16 Respiratory Rate 18 08/06/22 08:16 Blood Pressure 133/49 L 08/06/22 08:16 Blood Pressure Position Sitting 08/06/22 08:16 Pulse Oximetry 94 08/06/22 08:16 Oxygen Delivery Method Room Air 08/06/22 08:16 Oxygen Flow Rate 0 08/06/22 08:16
[2022-08-06 08:39] LABS: Abs Immature Grans 0.06 10^3/uL (0.0-0.06); Absolute Basophil Count 0.05 10^3/uL (0.0-0.2); Absolute Monocyte Count 1.29 10^3/uL (0.1-0.8); Basophils % 0.3; Eosinophils % 1.2; HCT 40.3 % (36.0-46.0); HGB 12.8 g/dL (11.2-15.7); Immature Grans % 0.4; Lymphocytes % 11.9; MCHC 31.8 % (32.0-36.0); MCV 98 fL (80-95); MPV 9.7 fL (8.0-11.0); Monocytes % 7.9; Neutrophils % 78.3; Platelet Count 272 10^3/uL (130-400); RBC 4.13 10^6/uL (3.93-5.22); RDW 13.3 % (11.7-14.6); RDW-SD 47.8 fL; WBC 16.28 10^3/uL (4.4-10.8)
[2022-08-06 08:40] LABS: Absolute Lymphocyte Count 1.94 10^3/uL (1.2-3.4); Absolute Neutrophil Count 12.75 10^3/uL (1.2-6.7)
[2022-08-06] MEDS: Normal Saline 1,000 ML 1000 ML IV (08:40)
[2022-08-06] MEDS: Ketorolac 15 MG/ML VIAL IVP ×2 (08:40→10:12)
[2022-08-06] MEDS: Ondansetron 4 MG/2 ML VIAL (08:41)
--- NOTE | 2022-08-06 08:53 | DI.CT_ITS ---
Exam(s) CT RENAL COLIC WO EXAM: CT RENAL COLIC WO CLINICAL HISTORY: right flank pain. TECHNIQUE: Imaging Protocol: Axial computed tomography images with coronal and sagittal reformatted images were created and reviewed CONTRAST MATERIAL: Intravenous: none Oral: None COMPARISON: CT CT ABDOMEN PELVIS W from 07/16/2022 FINDINGS: VISUALIZED LUNG BASES: No nodules nor pleural effusions evident. ABDOMEN: There is no ascites. LIVER: Not completely included in the field of view. No obvious intrahepatic findings. GALLBLADDER/BILIARY: No obvious gallbladder pathology. CBD is not dilated. PANCREAS: No evidence of pancreatic mass nor dilatation of the pancreatic duct. SPLEEN: Not completely included in the field of view. No splenomegaly. No obvious splenic lesions. ADRENALS: Right adrenal gland not completely included in the field of view. Left adrenal gland mildl y thickened, unchanged. KIDNEYS:There is abundant streaking around the right kidney evident as well as around the slightly pr ominent diameter right ureter. No obvious radiopaque ipsilateral ureteral calculus evident. No marjorie d renal masses. Opposite-left kidney is unremarkable. ABDOMINAL AORTA: Abdominal aorta is not enlarged. LYMPH NODES: There is no retroperitoneal nor paraaortic adenopathy. ABDOMINAL WALL: No evidence of significant anterior abdominal wall nor inguinal hernia. GI: There is no evidence of bowel obstruction, free air, nor abscess. PELVIS: LYMPH NODES: There is no intrapelvic nor inguinal adenopathy. GI: No evidence of appendicitis.Sigmoid diverticulosis. No evidence of obvious acute diverticulitis. URINARY BLADDER: Bladder is partially obscured by beam hardening artifact from the left hip prosthesi s. However, the bladder wall is again noted be uniformly thickened. There is no obvious radiopaque calculus in the bladder lumen. The bladder is not distended. REPRODUCTIVE: Age-appropriate. OSSEOUS: No significant osseous lesions. Chronic disc space narrowing L5-S1 level. No listhesis. IMPRESSION: 1. There is abundant perinephric streaking around the right kidney. Mild dilatation of the right col lecting system but no radiopaque calculus evident and indeed there was no evidence of radiopaque calc ulus in the right kidney on the recent CT scan of 07/16/2022. consider possibility of either tiny pas sing calculus or non radiopaque calculus passage. 2. Opposite-left kidney appears unremarkable. 3. Urinary bladder wall is again noted be diffusely thickened. Discussed by myself with the ER physician RADIATION DOSE DELIVERED: 751.76mGy.cm Total DLP DATA REPOSITORY: All CT scans at this facility are submitted to the National Radiology Data Registry (NRDR) Dose Index Registry (DIR) with the [employer] (A[employer]). RADIATION OPTIMIZATION: All CT scans at this facility use at least one of these dose optimization te chniques: automated exposure control; mA and/or kV adjustment per patient size (includes targeted exa ms where dose is matched to clinical indication); or iterative reconstruction.
[2022-08-06 09:00] LABS: ALT 26 U/L (14-59); AST 21 U/L (15-37); Albumin 3.1 g/dL (3.4-5.0); Alkaline Phosphatase 98 U/L (46-116); BUN 17 mg/dL (7-18); Bilirubin, Total 0.5 mg/dL (0.2-1.0); CREATININE 1.4 mg/dL (0.55-1.02); Calcium 9.1 mg/dL (8.5-10.1); Chloride 104 mmol/L (98-107); Estimated GFR 38.99 (mL/min/1.73m2); Glucose 152 mg/dL (74-106); Lipase 81 U/L (73-393); Potassium 4.2 mmol/L (3.5-5.1); Sodium 141 mmol/L (136-145); Total Protein 7.6 g/dL (6.4-8.2)
[2022-08-06 09:13] LABS: Source Nasal/Nares
[2022-08-06 09:49] LABS: COVID-19 PCR Negative (Negative)
[2022-08-06 09:52] LABS: Bilirubin Negative (Negative); Blood Moderate (Negative); Clarity Cloudy (Clear); Glucose Negative (Negative); Ketones Negative (Negative); Leukocyte Esterase Large (Negative); Nitrite Positive (Negative); Specific Gravity 1.025 (1.005-1.025); Urobilinogen 0.2 EU/dL (Up TO 0.2)
[2022-08-06 10:00] LABS: RBC 20-50 HPF (0-2); WBC >50 HPF (0-5)
[2022-08-06 10:01] LABS: Bacteria Many HPF (Negative); C & S Indicated? No/Sq. Contamination; Casts Negative LPF (Negative); Crystals Negative HPF (Negative); Epithelial Cells Many HPF (Negative); Mucus Negative (Negative)
[2022-08-06] MEDS: cefTRIAXone 2 GM/50 ML BAG IVPB (10:12)
[2022-08-06 10:44] VITALS: BP 142/80; PULSE 80; RESP 20; TEMP 37; O2SAT 98
== END 2022-08-06 10:50 | disposition home or self-care (01) ==
PROVIDERS: Emergency Provider Emergency Medicine
DX: N12 Tubulo-interstitial nephritis, not specified as acute or chronic (principal); Z20.822 Contact with and (suspected) exposure to COVID-19
CPT/HCPCS: 80053; 83690; 87635; 96361; 96365; 96375; 96376; 99284; 74176; 81003; 81015; 85025; J1885; J2405

== ENCOUNTER 2022-08-09 02:12 | Outpatient (RCR) | payer MEDICARE, OTHER, SELFPAY ==
[2022-08-09] MEDS: Denosumab 60 MG/ML SYR SC (14:14)
== END 2022-08-30 23:59 | disposition home or self-care (01) ==
LOC: INF 02:12
DX: M81.0 Age-related osteoporosis without current pathological fracture (principal)
CPT/HCPCS: 96372; J0897

== ENCOUNTER → 2022-08-21 10:28 | Outpatient (CLI) | payer MEDICARE, OTHER, SELFPAY ==
--- NOTE | 2022-08-21 09:56 | DI.RAD_ITS ---
Exam(s) XR CHEST 2V PA LATERAL EXAM: XR CHEST 2V PA LATERAL CLINICAL HISTORY: PUI, cough. TECHNIQUE: 2D digital imaging was performed. COMPARISON: CR,XR XR CHEST 2V PA LATERAL from 02/25/2022 FINDINGS: 2 views: Heart size is normal. The mediastinum is not widened. Lungs are clear. No infiltrates nor pleural effusions. Advanced degenerative changes in the left shoulder glenohumeral joint are again noted and there is fu kasie hardware again noted lower cervical spine. IMPRESSION: No acute pulmonary findings. Other findings as above. DATA REPOSITORY: RADIATION DOSE DELIVERED:
--- NOTE | 2022-08-21 11:01 | DI.VRAD_ITS ---
PROCEDURE INFORMATION: Exam: XR Chest Exam date and time: 08/21/2022 10:44 AM Age: 77 years old Clinical indication: Cough and other: Concern for covid TECHNIQUE: Imaging protocol: Radiologic exam of the chest. Views: 2 views. COMPARISON: CR XR CHEST 2V PA LATERAL 02/25/2022 6:17 PM FINDINGS: Lungs: Unremarkable. No consolidation. Pleural spaces: Unremarkable. No pleural effusion. No pneumothorax. Heart/Mediastinum: Unremarkable. No cardiomegaly. Bones/joints: No acute osseous abnormality. IMPRESSION: No acute findings. Dictated and Authenticated by: Dwight Cortes MD. Ordering:LACI High MD
== END ==
PROVIDERS: Visit Provider Nurse Practitioner Family
DX: R05.9 Cough, unspecified (principal)
CPT/HCPCS: 71046

== ENCOUNTER 2022-08-21 14:51 | Outpatient (REF) | payer MEDICARE, SELFPAY ==
[2022-08-21 16:50] LABS: Abs Immature Grans 0.01 10^3/uL (0.0-0.06); Absolute Basophil Count 0.06 10^3/uL (0.0-0.2); Absolute Eosinophil Count 0.57 10^3/uL (0.0-0.7); Absolute Lymphocyte Count 1.57 10^3/uL (1.2-3.4); Absolute Monocyte Count 0.59 10^3/uL (0.1-0.8); Absolute Neutrophil Count 4.28 10^3/uL (1.2-6.7); Basophils % 0.8; Eosinophils % 8.1; HGB 11.6 g/dL (11.2-15.7); Immature Grans % 0.1; Lymphocytes % 22.2; MCH 31.5 pg (27.0-33.0); MCHC 32.2 % (32.0-36.0); MCV 98 fL (80-95); MPV 10.4 fL (8.0-11.0); Monocytes % 8.3; Neutrophils % 60.5; Platelet Count 423 10^3/uL (130-400); RBC 3.68 10^6/uL (3.93-5.22); RDW 13.2 % (11.7-14.6); RDW-SD 47.5 fL; WBC 7.08 10^3/uL (4.4-10.8)
[2022-08-21 16:58] LABS: ALT 25 U/L (14-59); AST 22 U/L (15-37); Alkaline Phosphatase 95 U/L (46-116); Anion Gap 7.8 mmol/L (3-11); BUN 15 mg/dL (7-18); Bilirubin, Total 0.3 mg/dL (0.2-1.0); CO2 29.2 mmol/L (21.0-32.0); CREATININE 1.2 mg/dL (0.55-1.02); Calcium 8.2 mg/dL (8.5-10.1); Chloride 108 mmol/L (98-107); Estimated GFR 46.91 (mL/min/1.73m2); Glucose 97 mg/dL (74-106); Potassium 3.9 mmol/L (3.5-5.1); Sodium 145 mmol/L (136-145); Total Protein 7.1 g/dL (6.4-8.2)
[2022-08-21 17:31] LABS: Hemoglobin A1C 6.5 % (<5.7)
== END 2022-08-21 14:52 | disposition home or self-care (01) ==
LOC: LBN 14:51
PROVIDERS: Visit Provider Nurse Practitioner Family
DX: R05.9 Cough, unspecified (principal); E11.9 Type 2 diabetes mellitus without complications
CPT/HCPCS: 80053; 83036; 85025

== ENCOUNTER → 2022-08-23 11:27 | Outpatient (BNVA) | payer MEDICARE, OTHER, SELFPAY | PROVIDERS: Visit Provider Surgery | DX: R10.13 Epigastric pain (principal); K21.9 Gastro-esophageal reflux disease without esophagitis; K44.9 Diaphragmatic hernia without obstruction or gangrene; E11.9 Type 2 diabetes mellitus without complications; E66.01 Morbid (severe) obesity due to excess calories | CPT/HCPCS: 99213; 99242 ==

== ENCOUNTER 2022-09-08 19:14 | Outpatient (REF) | payer MEDICARE, OTHER, SELFPAY ==
[2022-09-08 21:02] LABS: Bilirubin Small (Negative); Blood Trace-intact (Negative); Clarity Cloudy (Clear); Glucose Negative (Negative); Ketones Trace mg/dL (Negative); Leukocyte Esterase Trace (Negative); Nitrite Negative (Negative); Specific Gravity 1.025 (1.005-1.025); Urobilinogen 0.2 EU/dL (Up TO 0.2)
[2022-09-08 21:27] LABS: Bacteria Moderate HPF (Negative); C & S Indicated? No/Sq. Contamination; Crystals Negative HPF (Negative); Epithelial Cells Many HPF (Negative); Mucus Trace (Negative); WBC 20-50 HPF (0-5)
== END 2022-09-08 19:15 | disposition home or self-care (01) ==
LOC: LBN 19:14
PROVIDERS: PCP Nurse Practitioner Family; Visit Provider Nurse Practitioner Family
DX: R39.89 Other symptoms and signs involving the genitourinary system (principal)
CPT/HCPCS: 81003; 81015

== ENCOUNTER 2022-09-29 15:32 | Outpatient (CLI) | payer MEDICARE, OTHER, SELFPAY ==
[2022-09-29 16:19] LABS: Abs Immature Grans 0.05 10^3/uL (0.0-0.06); Absolute Basophil Count 0.07 10^3/uL (0.0-0.2); Absolute Eosinophil Count 0.04 10^3/uL (0.0-0.7); Basophils % 0.5; Eosinophils % 0.3; HCT 37.8 % (36.0-46.0); HGB 12.1 g/dL (11.2-15.7); Immature Grans % 0.4; Lymphocytes % 14.2; MCH 31.1 pg (27.0-33.0); MCV 97 fL (80-95); MPV 9.7 fL (8.0-11.0); Monocytes % 11.3; Neutrophils % 73.3; Platelet Count 343 10^3/uL (130-400); RBC 3.89 10^6/uL (3.93-5.22); RDW 14.1 % (11.7-14.6); RDW-SD 50.6 fL; WBC 13.42 10^3/uL (4.4-10.8)
[2022-09-29 16:41] LABS: Bilirubin Negative (Negative); Blood Moderate (Negative); Clarity Cloudy (Clear); Glucose Negative (Negative); Ketones Negative (Negative); Leukocyte Esterase Large (Negative); Nitrite Positive (Negative); Specific Gravity 1.015 (1.005-1.025); Urobilinogen 0.2 EU/dL (Up TO 0.2); pH 6.5 (5-8)
[2022-09-29 16:54] LABS: C & S Indicated? Yes; WBC >50 HPF (0-5)
[2022-09-29 16:56] LABS: Absolute Lymphocyte Count 1.91 10^3/uL (1.2-3.4); Absolute Monocyte Count 1.52 10^3/uL (0.1-0.8); Absolute Neutrophil Count 9.84 10^3/uL (1.2-6.7)
[2022-09-29 17:02] LABS: Anion Gap 7.8 mmol/L (3-11); BUN 18 mg/dL (7-18); CO2 28.2 mmol/L (21.0-32.0); CREATININE 1.3 mg/dL (0.55-1.02); Calcium 9.1 mg/dL (8.5-10.1); Chloride 101 mmol/L (98-107); Estimated GFR 42.62 (mL/min/1.73m2); Glucose 105 mg/dL (74-106); Potassium 3.6 mmol/L (3.5-5.1); Sodium 137 mmol/L (136-145)
[2022-09-29 17:26] LABS: NT-proBNP 234 pg/mL (<300)
[2022-09-29 17:57] LABS: Diff Comment Agrees w/ Instrument; RBC Morphology Normal
== END 2022-09-29 15:33 | disposition home or self-care (01) ==
LOC: LBO 15:35
PROVIDERS: PCP Nurse Practitioner Family; Visit Provider Nurse Practitioner Family
DX: R06.02 Shortness of breath (principal); R05.8 Other specified cough; N39.0 Urinary tract infection, site not specified; R39.89 Other symptoms and signs involving the genitourinary system; E11.9 Type 2 diabetes mellitus without complications; N18.9 Chronic kidney disease, unspecified
CPT/HCPCS: 36415; 80048; 81003; 81015; 83880; 85025; 87086; 87186

== ENCOUNTER → 2022-09-29 15:48 | Outpatient (CLI) | payer MEDICARE, OTHER, SELFPAY ==
--- NOTE | 2022-09-29 14:15 | DI.RAD_ITS ---
Exam(s) XR CHEST 2V PA LATERAL EXAM: XR CHEST 2V PA LATERAL CLINICAL HISTORY: Cough, R05.9; evaluate pathology. TECHNIQUE: 2D digital imaging was performed. COMPARISON: CR,XR XR CHEST 2V PA LATERAL from 08/21/2022 FINDINGS: 2 views: Heart size is normal. The mediastinum is not widened. Lungs are clear. No infiltrates nor pleural effusions. Fusion hardware in the lower cervical spine again noted. IMPRESSION: No acute pulmonary findings. DATA REPOSITORY: RADIATION DOSE DELIVERED:
== END ==
PROVIDERS: PCP Nurse Practitioner Family; Visit Provider Nurse Practitioner Family
DX: R05.8 Other specified cough (principal)
CPT/HCPCS: 36415; 80048; 71046; 83880; 85025; 87186

== ENCOUNTER 2022-09-29 17:15 | Outpatient (REF) | payer MEDICARE, OTHER, SELFPAY ==
[2022-09-29 21:09] LABS: Bilirubin Negative (Negative); Blood Moderate (Negative); Clarity Cloudy (Clear); Glucose Negative (Negative); Ketones Negative (Negative); Leukocyte Esterase Large (Negative); Nitrite Positive (Negative); Specific Gravity 1.015 (1.005-1.025); Urobilinogen 0.2 EU/dL (Up TO 0.2)
[2022-09-29 21:21] LABS: WBC >50 HPF (0-5)
[2022-09-29 21:22] LABS: C & S Indicated? Yes
== END 2022-09-29 17:16 | disposition home or self-care (01) ==
LOC: LBN 17:15
PROVIDERS: PCP Nurse Practitioner Family; Visit Provider Nurse Practitioner Family
DX: N39.0 Urinary tract infection, site not specified (principal); R30.0 Dysuria
CPT/HCPCS: 81003; 81015; 87086

== ENCOUNTER 2022-10-06 11:42 | Outpatient (REF) | payer MEDICARE, OTHER, SELFPAY ==
[2022-10-05 21:28] LABS: COMMENT (LAB VIEW ONLY) 97.62 mg/dL; Microalb ug/mg Crea 34.6 ug/mg Cr
[2022-10-05 21:29] LABS: Bilirubin Negative (Negative); Blood Negative (Negative); Clarity Sl Cloudy (Clear); Glucose Negative (Negative); Ketones Negative (Negative); Leukocyte Esterase Small (Negative); Nitrite Negative (Negative); Specific Gravity 1.025 (1.005-1.025); Urobilinogen 0.2 EU/dL (Up TO 0.2)
[2022-10-05 21:39] LABS: Bacteria Moderate HPF (Negative); C & S Indicated? No/Sq. Contamination; Casts Negative LPF (Negative); Crystals Negative HPF (Negative); Epithelial Cells Many HPF (Negative); Mucus Negative (Negative); RBC 0-2 HPF (0-2)
== END 2022-10-06 11:43 | disposition home or self-care (01) ==
LOC: LBN 11:42
PROVIDERS: PCP Nurse Practitioner Family; Visit Provider Nurse Practitioner Family
DX: E11.9 Type 2 diabetes mellitus without complications (principal); N39.0 Urinary tract infection, site not specified
CPT/HCPCS: 81003; 81015; 82043; 82570

== ENCOUNTER → 2022-10-11 11:05 | Outpatient (BNVA) | payer MEDICARE, OTHER, SELFPAY | PROVIDERS: PCP Nurse Practitioner Family; Visit Provider Surgery | DX: K21.9 Gastro-esophageal reflux disease without esophagitis (principal) | CPT/HCPCS: 99212 ==

== ENCOUNTER 2022-10-12 12:23 | Outpatient (REF) | payer MEDICARE, OTHER, SELFPAY ==
[2022-10-12 21:34] LABS: Bilirubin Negative (Negative); Blood Trace-intact (Negative); Clarity Cloudy (Clear); Glucose Negative (Negative); Ketones Negative (Negative); Leukocyte Esterase Small (Negative); Nitrite Negative (Negative); Urobilinogen 0.2 EU/dL (Up TO 0.2)
[2022-10-12 21:42] LABS: Bacteria Few HPF (Negative); Epithelial Cells Many HPF (Negative); WBC 20-50 HPF (0-5)
[2022-10-12 21:43] LABS: C & S Indicated? C&S Done As Ordered; Crystals Negative HPF (Negative); Mucus Negative (Negative)
== END 2022-10-12 12:24 | disposition home or self-care (01) ==
LOC: LBN 12:23
PROVIDERS: PCP Nurse Practitioner Family; Visit Provider Nurse Practitioner Family
DX: N39.0 Urinary tract infection, site not specified (principal)
CPT/HCPCS: 81003; 81015; 87086

== ENCOUNTER 2022-11-10 01:44 | Outpatient (CLI) | payer MEDICARE, OTHER, SELFPAY ==
--- NOTE | 2022-11-10 13:08 | DI.MAMMO_ITS ---
Exam(s) MAMMO SCREENING EXAM: MAMMO SCREENING CLINICAL HISTORY: screening,z12.39 TECHNIQUE: Mammograms were interpreted according to the usual protocol including computer analysis w [employer] CAD system, tomosynthesis and C-view imaging. COMPARISON: 2016 through 2021 FINDINGS: The breasts are composed of scattered fibroglandular densities, Breast Density category B. Left breast: No suspicious masses or suspicious microcalcifications are seen. Scattered benign calci fications and vascular calcifications. No skin thickening or abnormal axillary lymph nodes are seen. There has been no significant change from prior exams. Right breast: Scattered benign calcifications. Two new areas of nodularity seen, 1 in the upper oute r quadrant measuring 13 millimeters in diameter and the other in the lower inner quadrant measuring 1 0 millimeters in diameter. Stable smaller 5 millimeter nodule lower inner quadrant. Spot compressio n views and ultrasound are requested for further evaluation. IMPRESSION: BI-RADS Category 0 - Assessment Incomplete: Need additional imaging evaluation of the right breast. Left breast: Yearly screening mammography is recommended. Breast Density - Category B, scattered fibroglandular densities. A negative radiographic report should not delay biopsy if a dominant or clinically suspicious mass is present. Up to ten percent of cancers are not identified on mammography. A negative report may reinforce clinical impression. Adenosis and dense breasts may obscure an underlying neoplasm. False positive reports average 6 to 10%. Patient will receive a letter notifying them of these results.
== END 2022-11-10 02:04 ==
PROVIDERS: PCP Nurse Practitioner Family; Visit Provider Nurse Practitioner Family
DX: Z12.31 Encounter for screening mammogram for malignant neoplasm of breast (principal); R92.8 Other abnormal and inconclusive findings on diagnostic imaging of breast
CPT/HCPCS: 77063; 77067

== ENCOUNTER 2022-11-16 02:00 | Outpatient (CLI) | payer MEDICARE, OTHER, SELFPAY ==
--- NOTE | 2022-11-16 | DI.MAMMO_ITS ---
Exam(s) MG MAMMO SCREEN CALL BACK UNI US BREAST RT COMPLETE EXAM: MG MAMMO SCREEN CALL BACK UNI-RIGHT AND COMPLETE RIGHT BREAST ULTRASOUND CLINICAL HISTORY: F/U ABNL MAMMO, TWO AREAS NODULARITY RT BREAST. TECHNIQUE: Unilateral spot mammographic images obtained with 3D tomosynthesisand utilizing computer aided detection (CAD). . Complete RIGHT breast Ultrasound was also performed, including all 4 quadrants, the retroareolar benjamin on, and the ipsilateral axilla. COMPARISON: Prior mammograms were reviewed. This additional imaging was performed due to findings described on the recent screening mammogram of 11/10/2022. FINDINGS: DIAGNOSTIC MAMMOGRAM: Additional mammographic views performed today does not dissipate previously described new nodules in the right breast.These have a concerning appearance. We proceeded with ultrasound. COMPLETE RIGHT BREAST ULTRASOUND: Ultrasound performed today reveals a concerning nodule 6 o'clock position measuring 1.2 x 0.8 cm filiberto esponding to 1 of the nodules on the mammogram and suspicious for malignancy. The 7 o'clock position there is another slightly smaller nodule measuring 7 x 6 millimeters also susp icious. At 9 o'clock position there is a lobulated solid nodule measuring 1.4 x 1.1 cm, also suspicious. Also at the 9 o'clock position is a 2nd solid nodule measuring 1.2 by a 0.6 cm, also suspicious. In addition, there are suspicious appearing ducts between these 9 o'clock nodules and the nipple which a re filled with echogenic material, possibly malignancy. Otherwise, there is a E 5 millimeter benign lipoma at the 2 o'clock position as well as a 3 millimete r benign microcyst at the 4 o'clock position. Scanning of the ipsilateral right axilla reveals no significant adenopathy. IMPRESSION: 1. There are now multiple solid nodules in the right breast at the 6 o'clock, 7 o'clock and 9 o'cloc k positions which are suspicious for malignancy and require ultrasound-guided biopsy. There are also abnormal appearing ducts interposed between the 9 o'clock position nodules and the nipple which may be filled with malignancy. 2. There is no adenopathy in the right axilla. Findings and recommendations were discussed by myself with the patient today. I also called this patient's provider following completion of this examination. BI-RADS Category 5 - Highly Suggestive of Malignancy: Biopsy recommended Breast Density - Category C - Heterogeneously dense Breast density Category C or D implies that the patient has dense breast tissue. Dense breast tissue can make it harder to find cancer on a mammogram. Dense breast tissue is also associated with an incr eased risk of breast cancer. This information about the result of the mammogram report was provided to the patient to raise their awareness. Use this report when you speak with the patient about their risks for breast cancer, which includes their family history. At that time, you may recommend additional screening tests (Ultrasoun d or MRI) as these tests may add significant information. A negative radiographic report should not delay biopsy if a dominant or clinically suspicious mass is present. Up to ten percent of cancers are not identified on mammography. A negative report may reinforce clinical impression. Adenosis and dense breasts may obscure an underlying neoplasm. False positive reports average 6 to 10%. Patient will receive a letter notifying them of these results.
== END 2022-11-16 02:20 ==
LOC: DI 02:00
PROVIDERS: PCP Nurse Practitioner Family; Visit Provider Nurse Practitioner Family
DX: Z12.31 Encounter for screening mammogram for malignant neoplasm of breast (principal); R92.8 Other abnormal and inconclusive findings on diagnostic imaging of breast
CPT/HCPCS: 76642; 77063; 77067

== ENCOUNTER → 2022-11-30 10:45 | Outpatient (BNVA) | payer MEDICARE, OTHER, SELFPAY | PROVIDERS: PCP Nurse Practitioner Family; Referring Provider Nurse Practitioner Family; Visit Provider Nurse Practitioner Gerontology | DX: R30.0 Dysuria (principal); N89.8 Other specified noninflammatory disorders of vagina; Z87.440 Personal history of urinary (tract) infections; R33.9 Retention of urine, unspecified | CPT/HCPCS: 51798; 81003; 99215 ==

== ENCOUNTER → 2024-03-15 02:46 | Outpatient (CLI) | payer MEDICARE, OTHER, SELFPAY ==
--- NOTE | 2024-03-15 06:45 | DI.DEXA_ITS ---
Exam(s) XR DEXA BONE DENSITY W/WO DODIE EXAM: XR DEXA BONE DENSITY W/WO DODIE CLINICAL HISTORY: SCREENING FOR OSTEOPOROSIS IN POSTMENOPAUSAL WOMAN,Z78.0 TECHNIQUE: COMPARISON: CR XR DEXA BONE DENSITY W/WO DODIE from 01/01/2022 FINDINGS: Lateral Spine Image: Unremarkable. No compression deformities identified. Right hip: Total T-Score: -2.4. This compares to -2.6 on the prior examination. Total Z-Score: -0.4 T- and Z-scores: Findings are consistent with osteopenia. Lumbar Spine: Total T-Score: -0.3. This compares to -0.9 on the prior examination. Total Z-Score: 2.3 T- and Z-scores: Within normal limits. Left forearm: The total T-score is -2.6 and a Z-score of 0.1. This compares with a total T-score of -3.1. The finding is consistent with osteoporosis. IMPRESSION: Osteoporosis is again seen in the left forearm.
== END ==
PROVIDERS: PCP Nurse Practitioner Family; Visit Provider Nurse Practitioner Family
DX: Z78.0 Asymptomatic menopausal state (principal); Z13.820 Encounter for screening for osteoporosis; M81.0 Age-related osteoporosis without current pathological fracture
CPT/HCPCS: 77080

== ENCOUNTER 2024-03-19 05:28 | Outpatient (CLI) | payer MEDICARE, OTHER, SELFPAY ==
[2024-03-19 17:17] LABS: Calcium 9.1 mg/dL (8.5-10.1); Chloride 107 mmol/L (98-107); Potassium 3.9 mmol/L (3.5-5.1)
[2024-03-19 17:18] LABS: Anion Gap 10.3 mmol/L (3-11); BUN 21 mg/dL (7-18); CO2 27.7 mmol/L (21.0-32.0); CREATININE 1.4 mg/dL (0.55-1.02); Estimated GFR 38.75 (mL/min/1.73m2); Glucose 105 mg/dL (74-106); Sodium 145 mmol/L (136-145)
[2024-03-19 17:41] LABS: Vitamin D 25 Total 44.6 ng/mL (30-100)
== END 2024-03-19 05:29 | disposition home or self-care (01) ==
LOC: LBO 05:28
PROVIDERS: PCP Nurse Practitioner Family; Visit Provider Nurse Practitioner Family
DX: M81.0 Age-related osteoporosis without current pathological fracture (principal)
CPT/HCPCS: 36415; 80048; 82306

== ENCOUNTER 2024-04-18 04:42 | Outpatient (RCR) | payer MEDICARE, OTHER, SELFPAY ==
[2024-04-18] MEDS: Denosumab 60 MG/ML SYR SC (11:45)
== END 2024-04-29 23:59 | disposition home or self-care (01) ==
LOC: INF 04:42
PROVIDERS: PCP Nurse Practitioner Family; Visit Provider Family Medicine
DX: M81.0 Age-related osteoporosis without current pathological fracture (principal)
CPT/HCPCS: 96372; J0897

== ENCOUNTER 2024-07-04 11:34 | Emergency (ER) | payer MEDICARE, OTHER, SELFPAY ==
[2024-07-04] VITALS (113 sets, daily range): BP systolic 102–131; BP diastolic 25–48; PULSE 71–93; RESP 10–26; O2SAT 81–100
--- NOTE | 2024-07-04 11:30 | RT.EKG_ITS ---
APPROVED REPORT Exam: Resting ECG Reason for Exam: sob Patient Location: E HR:72 bpm ECG Measurements Heart Rate 72 AXIS IA 158 P 52 QRSd 101 QRS -44 QT 426 T 53 QTc 466 Conclusion Sinus rhythm...normal P axis, V-rate 60- 99 Left anterior fascicular block...axis(240,-40), init forces inf sinus rhytym, left axis, normal intervals, non ischemic
--- NOTE | 2024-07-04 12:00 | DI.CT_ITS ---
Exam(s) CT CHEST PE CTA EXAM: CT CHEST PE CTA CLINICAL HISTORY: sob, hypoxia, syncope, hx dvt. TECHNIQUE: Imaging Protocol: CT angiography of the chest was performed using pulmonary embolus anne col. Multi planar reconstructions were performed. CONTRAST MATERIAL: Intravenous: Omnipaque 350 Contrast volume: 100 cc COMPARISON: CT CT CHEST PE ABD PELVIS W from 02/25/2022 FINDINGS: CHEST: PULMONARY ARTERIES: There are no intraluminal filling defects to suggest acute pulmonary emboli. LUNGS: There mild pleural based increased markings in the extreme bilateral lower lobes posterior bas al segments both lower lobes, not associated with pleural effusions nor overlying rib destruction.. There are no ominous pulmonary nodules. MEDIASTINUM: There is no hilar nor mediastinal adenopathy. No subcarinal adenopathy. No axillary lizbeth noma CARDIAC: Heart size is upper normal. There is no pericardial effusion.Caliber of the thoracic aorta is within normal limits. No evidence of aortic dissection. There is no significant shift of the inte rventricular septum. PARTIALLY VISUALIZED UPPERMOST ABDOMEN: No obvious findings OSSEOUS: Degenerative changes both glenohumeral joints. No fractures nor significant bone lesions ev ident. Fusion hardware seen in the lower cervical spine vertebral bodies. IMPRESSION: 1. No evidence of acute pulmonary emboli. No evidence of pulmonary infarction.No pleural effusions. 2. Mild pleural based increased markings in the posterior basal segments of both lower lobes. No lar ge infiltrates. There are no pleural effusions nor intrathoracic adenopathy. 3. No evidence of aortic dissection nor pericardial effusion Called by myself to ER physician 07/04/2024 at 2:40 p.m. RADIATION DOSE DELIVERED: 109.14mGy.cm Total DLP DATA REPOSITORY: All CT scans at this facility are submitted to the National Radiology Data Registry (NRDR) Dose Index Registry (DIR) with the [employer] ([employer]). RADIATION OPTIMIZATION: All CT scans at this facility use at least one of these dose optimization te chniques: automated exposure control; mA and/or kV adjustment per patient size (includes targeted exa ms where dose is matched to clinical indication); or iterative reconstruction.
--- NOTE | 2024-07-04 12:10 | ED.GENADUL_ITS ---
Discharge Plan Disposition Patient Disposition: Home Condition: Improving Discharge Details Chief Complaint: RespSymp Clinical Impression: Asthma exacerbation in COPD Primary Care Provider: Lennox Olsen ED Provider: Tacos Enciso Home Meds and New Rx's Prescriptions: No Action krill oil 500 mg capsule 500 mg PO DAILY cholecalciferol (vitamin D3) 125 mcg (5,000 unit) capsule 125 mcg PO DAILY lorazepam 0.5 mg tablet 0.5 mg PO BID PRN (Reason: anxiety) Qty: 15 1RF bupropion HCl 100 mg tablet sustained-release 12 hr 100 mg PO BID Qty: 180 3RF fluticasone propionate 50 mcg/actuation spray,suspension 1 spray intranasal BID PRN (Reason: nasal congestion) Qty: 16 4RF Rx Instructions: administer into each nostril metronidazole [Metrogel] 1 % gel 1 applic topical QHS Qty: 60 0RF triamcinolone acetonide [Nasacort] 55 mcg aerosol,spray 2 spray intranasal DAILY Qty: 16.9 11RF Rx Instructions: administer into each nostril albuterol sulfate 90 mcg/actuation HFA aerosol inhaler 2 puff inhalation Q6H PRN (Reason: shortness of breath or wheezing) Qty: 6.7 0RF ipratropium bromide 42 mcg (0.06 %) spray,non-aerosol 2 spray intranasal TID-QID PRN (Reason: allergy symptoms) Qty: 15 12RF Rx Instructions: administer into each nostril Prolia 60 mg/mL syringe 60 mg subcut [id number] Qty: 1 1RF pantoprazole [Protonix] 40 mg tablet,delayed release (DR/EC) 40 mg PO DAILY Qty: 90 3RF hydroxyzine HCl 10 mg tablet 10 mg PO DAILY PRN (Reason: anxiety) Qty: 60 0RF diclofenac sodium 1 % gel See Rx Instructions .ROUTE .COMPLEX Qty: 100 12RF Dose Instruction: APPLY 4 GRAM TOPICALLY FOUR TIMES A DAY NEEDED FOR PAIN, APPLY TOPICALLY TO AFFECTED AREA Rx Instructions: APPLY 4 GRAM TOPICALLY FOUR TIMES A DAY NEEDED FOR PAIN, APPLY TOPICALLY TO AFFECTED AREA rosuvastatin 10 mg tablet 10 mg PO DAILY Qty: 90 3RF levothyroxine 88 mcg tablet 88 mcg PO DAILY Qty: 90 3RF duloxetine 60 mg capsule,delayed release(DR/EC) 60 mg PO DAILY Qty: 90 3RF gabapentin 300 mg capsule 600 mg PO BID Qty: 360 3RF letrozole 2.5 mg tablet 2.5 mg PO DAILY Patient Comments: TAKE ONE TABLET BY MOUTH EVERY DAY Bio-K plus 50 billion cell capsule,delayed release(/MARICRUZ) 1 cap PO DAILY Qty: 30 0RF Discharge Instructions Instructions: COPD Exacerbation, Adult ED Additional Instructions: Please help with your primary care physician. Please return to the emerged part for any worsening symptoms HPI General Date/Time Provider Initiated Documentation: 07/04/24 11:47 . HPI Narrative: 78-year-old female history of COPD presented to [facility] for evaluation of her peripheral neuropathy was noted to have an SpO2 in the mid 80s to low 90s and was short of breath has endorsed a cough for the last 2 weeks, patient does endorse a history of DVT in the 80s is not on anticoagulation Related Data Home Medications ?Medication ?Instructions ?Recorded ?Confirmed cholecalciferol (vitamin D3) 125 125 mcg PO DAILY 06/25/21 07/04/24 mcg (5,000 unit) capsule krill oil 500 mg capsule 500 mg PO DAILY 06/25/21 07/04/24 L. acidophilus,casei,rhamnosus 50 1 cap PO DAILY #30 caps 11/29/21 07/04/24 billion cell capsule,delayed release (Bio-K plus) lorazepam 0.5 mg tablet 0.5 mg PO BID PRN anxiety #15 tabs 05/14/22 07/04/24 bupropion HCl 100 mg tablet,12 hr 100 mg PO BID #180 tabs 08/12/22 07/04/24 sustained-release fluticasone propionate 50 1 spray intranasal BID PRN nasal 08/12/22 07/04/24 mcg/actuation nasal congestion #16 grams spray,suspension albuterol sulfate 90 mcg/actuation 2 puff inhalation Q6H PRN 09/08/22 07/04/24 aerosol inhaler shortness of breath or wheezing #6.7 grams metronidazole 1 % topical gel 1 applic topical QHS #60 grams 10/05/22 07/04/24 (Metrogel) triamcinolone acetonide 55 mcg 2 spray intranasal DAILY #16.9 mL 10/05/22 07/04/24 nasal spray aerosol (Nasacort) hydroxyzine HCl 10 mg tablet 10 mg PO DAILY PRN anxiety #60 tabs 01/07/23 07/04/24 diclofenac sodium 1 % topical gel See Rx Instructions .Route 04/29/23 07/04/24 .COMPLEX #100 grams rosuvastatin 10 mg tablet 10 mg PO DAILY #90 tabs 08/09/23 07/04/24 levothyroxine 88 mcg tablet 88 mcg PO DAILY #90 tabs 09/19/23 07/04/24 denosumab 60 mg/mL subcutaneous 60 mg subcut [id number] To be 04/05/24 07/04/24 syringe (Prolia) administered at infusion center #1 mL pantoprazole 40 mg tablet,delayed 40 mg PO DAILY #90 tabs 04/05/24 07/04/24 release (Protonix) duloxetine 60 mg capsule,delayed 60 mg PO DAILY #90 caps 04/09/24 07/04/24 release gabapentin 300 mg capsule 600 mg (2 x 300 mg) PO BID #360 04/09/24 07/04/24 caps ipratropium bromide 42 mcg (0.06 2 spray intranasal TID-QID PRN 07/04/24 07/04/24 %) nasal spray allergy symptoms #15 mL letrozole 2.5 mg tablet 2.5 mg PO DAILY 07/04/24 07/04/24 Previous Rx's ?Medication ?Instructions ?Recorded L. acidophilus,casei,rhamnosus 50 1 cap PO DAILY #30 caps 11/29/21 billion cell capsule,delayed release (Bio-K plus) lorazepam 0.5 mg tablet 0.5 mg PO BID PRN anxiety #15 tabs 05/14/22 bupropion HCl 100 mg tablet,12 hr 100 mg PO BID #180 tabs 08/12/22 sustained-release fluticasone propionate 50 1 spray intranasal BID PRN nasal 08/12/22 mcg/actuation nasal congestion #16 grams spray,suspension albuterol sulfate 90 mcg/actuation 2 puff inhalation Q6H PRN 09/08/22 aerosol inhaler shortness of breath or wheezing #6.7 grams metronidazole 1 % topical gel 1 applic topical QHS #60 grams 10/05/22 (Metrogel) triamcinolone acetonide 55 mcg 2 spray intranasal DAILY #16.9 mL 10/05/22 nasal spray aerosol (Nasacort) hydroxyzine HCl 10 mg tablet 10 mg PO DAILY PRN anxiety #60 tabs 01/07/23 diclofenac sodium 1 % topical gel See Rx Instructions .Route 04/29/23 .COMPLEX #100 grams rosuvastatin 10 mg tablet 10 mg PO DAILY #90 tabs 08/09/23 levothyroxine 88 mcg tablet 88 mcg PO DAILY #90 tabs 09/19/23 denosumab 60 mg/mL subcutaneous 60 mg subcut [id number] To be 04/05/24 syringe (Prolia) administered at infusion center #1 mL pantoprazole 40 mg tablet,delayed 40 mg PO DAILY #90 tabs 04/05/24 release (Protonix) duloxetine 60 mg capsule,delayed 60 mg PO DAILY #90 caps 04/09/24 release gabapentin 300 mg capsule 600 mg (2 x 300 mg) PO BID #360 04/09/24 caps ipratropium bromide 42 mcg (0.06 2 spray intranasal TID-QID PRN 07/04/24 %) nasal spray allergy symptoms #15 mL Allergies Allergy/AdvReac Type Severity Reaction Status Date / Time Sulfa (Sulfonamide Allergy Hives Verified 07/04/24 11:35 Antibiotics) General Stated Complaint: RespSymp FELIX: 2 Exam Narrative Exam Narrative: Resting comfortably no acute distress Speaking full sentences tolerating secretions Normal heart sounds no murmurs rubs or gallop Mild expiratory wheeze bilaterally on examination no rales or rhonchi Abdomen soft nontender nondistended No peripheral edema noted no leg pain Moving all extremities without deficits Course Vital Signs Vital signs: Vital Signs Pulse 72 07/04/24 11:38 Respiratory Rate 14 07/04/24 11:38 Blood Pressure 117/41 L 07/04/24 11:38 Pulse Oximetry 91 L 07/04/24 11:38 Temperature Source Temporal Artery Scan 07/04/24 11:38 Pulse 72 07/04/24 11:38 Respiratory Rate 14 07/04/24 11:38 Blood Pressure 117/41 L 07/04/24 11:38 Blood Pressure Position Sitting 07/04/24 11:38 Pulse Oximetry 91 L 07/04/24 11:38 Oxygen Delivery Method Room Air 07/04/24 11:38 Oxygen Flow Rate 0 07/04/24 11:38 Medical Decision Making 78-year-old female history of COPD, remote history of DVT not on anticoagulation presents with shortness of breath and hypoxia, slight improvement after nebs at [facility], has also had 2 weeks of cough, bilateral wheezing expiratory nature on examination no peripheral edema, consider asthma exacerbation versus viral URI versus pneumonia versus PE lower suspicion for ACS and CHF lower suspicion for aortic pathology or pneumothorax. Screening labs CT PE study, nebs dexamethasone light fluid close reassessment 15: 43 labs and imaging unremarkable. Patient feeling much better after breathing treatment. Likely component of COPD exacerbation. Patient weaned off of nasal cannula saturating 95 to 97% on room air. Speaking full sentences. Patient to follow-up close with primary care given home care instructions and return precautions Quality:SDOH Health Related Social Needs: No Data to Display PFSH All Active Problems (Updated 07/04/24 @ 15:45 by Tacos Enciso MD) Asthma exacerbation in COPD (Acute) COPD exacerbation (Acute) Invasive ductal carcinoma of breast (Acute) Abnormal mammogram of right breast (Acute) with maddie involvement Allergic rhinitis (Acute) Rosacea (Acute) Recurrent urinary tract infection (Acute) Cough (Acute) Osteoporosis (Chronic) 12/2021-DEXA scan at [facility] , -2.6t score at hip, prolia Arthritis of right shoulder region (Acute) Arthritis of left shoulder region (Acute) Chronic anemia (Acute) Chronic kidney disease, stage 3 (Acute) Bilateral lower extremity edema (Acute) Family history of colon cancer (Acute) Vitamin D deficiency (Acute) Osteoarthritis of hips, bilateral (Acute) DDD (degenerative disc disease), lumbar (Acute) Morbid obesity (Acute) Polyneuropathy in diabetes (Acute) Stricture of female urethra (Acute) Diabetes (Chronic) Hiatal hernia (Chronic) Arthralgia (Acute) COPD (chronic obstructive pulmonary disease) (Chronic) Hyperlipidemia (Acute) Hypothyroidism (acquired) (Acute) GERD (gastroesophageal reflux disease) (Chronic) Depression with anxiety (Acute) Medical History Pyelonephritis of right kidney Right flank pain Screening for colon cancer (~07/02/22) Anxiety Congestion of right ear Left shoulder pain Immunization due Immunization counseling Peripheral neuropathy Dyslipidemia History of fracture of hand left Impacted cerumen of left ear Sepsis due to pneumonia Surgical History History of colonoscopy with polypectomy (~07/02/22) hyperplstic, PRN colonoscopy Hx of fusion of cervical spine stenosis- C5-7 History of meatotomy of urethra S/P ORIF (open reduction internal fixation) fracture Left femur shaft S/P total knee arthroplasty Left History of total hip arthroplasty Left Status post appendectomy History of tonsillectomy and adenoidectomy Family History Mother , 83 Colon cancer Depression Hyperlipidemia Hypertension Father , 68 Alcohol abuse Hypertension Substance abuse Brother , 77 FH: prostate cancer Daughter No problems noted. Daughter Depression Maternal Grandfather , 62 Prostate cancer Paternal Grandfather , 81 No problems noted. Maternal Grandmother , 77 Heart disease Paternal Grandmother , 59 Hypertension Social History Smoking/Tobacco Use Status: Former Tobacco Use tobacco type: cigarettes Quit Date: 10/31/81 Tobacco: How many years used: 20 Second Hand Exposure: Yes Smoking risk assessment performed?: Yes Alcohol Intake: current Alcohol Intake frequency: a few times a month Alcohol type: beer, wine and hard liquor Drug use: Never Substance use type: does not use Household members: spouse and family Housing: apartment Communication Needs: None Do you need help understanding health information?: Always Pets and animals: Yes Pets and animals: cat(s) and dog(s) Sexually active: Yes Do you think of yourself as: straight/heterosexual Current gender identity: female What is your relationship status?: How often do you talk on the phone with friends or family?: twice per week How often do you get together with friends or relatives?: twice per week How often do you attend sabianism or religion services?: decline to answer Do you belong to any clubs or organized social groups?: no Panel score (0-1 are the most socially isolated patients): 2 What type of physical activity do you participate in: none (Does do PT twice a week for her back, does one day of pool therapy) 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
[2024-07-04 12:16] LABS: Abs Immature Grans 0.03 10^3/uL (0.0-0.06); Absolute Basophil Count 0.07 10^3/uL (0.0-0.2); Absolute Eosinophil Count 0.32 10^3/uL (0.0-0.7); Absolute Lymphocyte Count 2.56 10^3/uL (1.2-3.4); Absolute Monocyte Count 0.74 10^3/uL (0.1-0.8); Absolute Neutrophil Count 5.76 10^3/uL (1.2-6.7); Basophils % 0.7 %; Eosinophils % 3.4 %; HCT 35.4 % (36.0-46.0); HGB 11.1 g/dL (11.2-15.7); Immature Grans % 0.3 %; MCHC 31.4 % (32.0-36.0); MCV 99 fL (80-95); MPV 9.8 fL (8.0-11.0); Monocytes % 7.8 %; Neutrophils % 60.8 %; Platelet Count 256 10^3/uL (130-400); RBC 3.58 10^6/uL (3.93-5.22); RDW 14.3 % (11.7-14.6); RDW-SD 53.1 fL; WBC 9.48 10^3/uL (4.4-10.8)
[2024-07-04 12:31] LABS: INR 1.1 (0.9-1.1); PTT Activated 21.2 sec (23.6-32.8); Prothrombin Time 10.7 sec (9.1-11.1)
[2024-07-04] MEDS: Normal Saline 500 ML 1000 ML IV (12:32)
[2024-07-04] MEDS: Dexamethasone 10 MG/ML VIAL IVP (12:32)
[2024-07-04] MEDS: Albuterol/Ipratropium 3 ML UPD VIAL 9 ML UPD (12:32)
[2024-07-04 12:47] LABS: ALT 24 U/L (14-59); AST 23 U/L (15-37); Alkaline Phosphatase 79 U/L (46-116); Anion Gap 10.4 mmol/L (3-11); BUN 22 mg/dL (7-18); Bilirubin, Total 0.29 mg/dL (0.2-1.0); CO2 26.6 mmol/L (21.0-32.0); CREATININE 1.6 mg/dL (0.55-1.02); Calcium 9.2 mg/dL (8.5-10.1); Chloride 106 mmol/L (98-107); Estimated GFR 33.01 (mL/min/1.73m2); Glucose 103 mg/dL (74-106); NT-proBNP 161 pg/mL (<300); Potassium 3.9 mmol/L (3.5-5.1); Sodium 143 mmol/L (136-145); Total Protein 7.4 g/dL (6.4-8.2); Troponin I < 50 ng/L (< or =60)
[2024-07-04 13:01] LABS: COVID-19 PCR Negative (Negative); Influenza A PCR Negative (Negative); Influenza B PCR Negative (Negative); RSV PCR Negative (Negative)
[2024-07-04 13:08] LABS: Source Nasopharynx
[2024-07-04] MEDS: Omnipaque 350 MG/ML 100 ML BTL IJ (14:11)
[2024-07-04] MEDS: Normal Saline - Diluent 50 ML VIAL IV (14:12)
[2024-07-04 14:29] LABS: Troponin I < 50 ng/L (< or =60)
[2024-07-04] MEDS: Albuterol HFA 8 GM 60 PUFF INH IH (15:49)
[2024-07-04] MEDS: Inhaler, Assist Device 1 EACH MC (15:49)
== END 2024-07-04 15:57 | disposition home or self-care (01) ==
PROVIDERS: Emergency Provider Emergency Medicine; PCP Nurse Practitioner Family
DX: J45.901 Unspecified asthma with (acute) exacerbation (principal); J44.9 Chronic obstructive pulmonary disease, unspecified; E11.22 Type 2 diabetes mellitus with diabetic chronic kidney disease; I12.9 Hypertensive chronic kidney disease with stage 1 through stage 4 chronic kidney disease, or unspecified chronic kidney disease; N18.30 Chronic kidney disease, stage 3 unspecified; E11.40 Type 2 diabetes mellitus with diabetic neuropathy, unspecified; Z98.1 Arthrodesis status; Z87.891 Personal history of nicotine dependence
CPT/HCPCS: 36415; 71275; 80053; 87637; 93005; 94640; 96374; 99285; 83880; 84484; 85025; 85610; 85730; 93010; 99284; J1100; J3490; J7620

== ENCOUNTER 2024-08-24 12:35 | Emergency (ER) | payer MEDICARE, OTHER, SELFPAY ==
[2024-08-24] VITALS (10 sets, daily range): BP systolic 108–145; BP diastolic 37–71; PULSE 61–71; RESP 15; TEMP 36.9; O2SAT 92–98
[2024-08-24 13:03] LABS: Bilirubin Negative (Negative); Blood Negative (Negative); Clarity Clear (Clear); Glucose Negative (Negative); Ketones Negative (Negative); Leukocyte Esterase Trace (Negative); Nitrite Negative (Negative); Urobilinogen 0.2 mg/dL (Up to 0.2)
[2024-08-24 13:10] LABS: Bacteria Rare HPF (Negative); C & S Indicated? No; Casts Negative LPF (Negative); Crystals Negative HPF (Negative); Epithelial Cells Moderate HPF (Negative); Mucus Negative (Negative); RBC 0-2 HPF (0-2)
[2024-08-24 13:27] LABS: Abs Immature Grans 0.02 10^3/uL (0.0-0.06); Absolute Basophil Count 0.05 10^3/uL (0.0-0.2); Absolute Eosinophil Count 0.65 10^3/uL (0.0-0.7); Absolute Lymphocyte Count 1.51 10^3/uL (1.2-3.4); Absolute Monocyte Count 0.59 10^3/uL (0.1-0.8); Absolute Neutrophil Count 4.76 10^3/uL (1.2-6.7); Basophils % 0.7 %; Eosinophils % 8.6 %; Immature Grans % 0.3 %; Lymphocytes % 19.9 %; MCH 31.4 pg (27.0-33.0); MCHC 31.4 % (32.0-36.0); MCV 100 fL (80-95); Monocytes % 7.8 %; Neutrophils % 62.7 %; Platelet Count 248 10^3/uL (130-400); RDW 13.4 % (11.7-14.6); RDW-SD 49.5 fL; WBC 7.58 10^3/uL (4.4-10.8)
--- NOTE | 2024-08-24 13:29 | W.ED.GENAD ---
Discharge Plan Discharge Details Chief Complaint: Abd Prob Primary Care Provider: Lennox Olsen ED Provider: Phoebe Moulton Home Meds and New Rx's Prescriptions: No Action krill oil 500 mg capsule 500 mg PO DAILY cholecalciferol (vitamin D3) 125 mcg (5,000 unit) capsule 125 mcg PO DAILY lorazepam 0.5 mg tablet 0.5 mg PO BID PRN (Reason: anxiety) Qty: 15 1RF bupropion HCl 100 mg tablet sustained-release 12 hr 100 mg PO BID Qty: 180 3RF fluticasone propionate 50 mcg/actuation spray,suspension 1 spray intranasal BID PRN (Reason: nasal congestion) Qty: 16 4RF Rx Instructions: administer into each nostril metronidazole [Metrogel] 1 % gel 1 applic topical QHS Qty: 60 0RF triamcinolone acetonide [Nasacort] 55 mcg aerosol,spray 2 spray intranasal DAILY Qty: 16.9 11RF Rx Instructions: administer into each nostril albuterol sulfate 90 mcg/actuation HFA aerosol inhaler 2 puff inhalation Q6H PRN (Reason: shortness of breath or wheezing) Qty: 6.7 0RF ipratropium bromide 42 mcg (0.06 %) spray,non-aerosol 2 spray intranasal TID-QID PRN (Reason: allergy symptoms) Qty: 15 12RF Rx Instructions: administer into each nostril pregabalin 150 mg capsule 150 mg PO BID Qty: 180 1RF cetirizine [Allergy Relief (cetirizine)] 5 mg tablet 5 mg PO DAILY PRN (Reason: allergy symptoms) Qty: 90 1RF Prolia 60 mg/mL syringe 60 mg subcut [id number] Qty: 1 1RF pantoprazole [Protonix] 40 mg tablet,delayed release (DR/EC) 40 mg PO DAILY Qty: 90 3RF hydroxyzine HCl 10 mg tablet 10 mg PO DAILY PRN (Reason: anxiety) Qty: 60 0RF rosuvastatin 10 mg tablet 10 mg PO DAILY Qty: 90 3RF levothyroxine 88 mcg tablet 88 mcg PO DAILY Qty: 90 3RF duloxetine 60 mg capsule,delayed release(DR/EC) 60 mg PO DAILY Qty: 90 3RF diclofenac sodium 1 % gel See Rx Instructions .ROUTE .COMPLEX Qty: 100 12RF Dose Instruction: APPLY 4 GRAM TOPICALLY FOUR TIMES A DAY NEEDED FOR PAIN, APPLY TOPICALLY TO AFFECTED AREA Rx Instructions: APPLY 4 GRAM TOPICALLY FOUR TIMES A DAY NEEDED FOR PAIN, APPLY TOPICALLY TO AFFECTED AREA letrozole 2.5 mg tablet 2.5 mg PO DAILY Patient Comments: TAKE ONE TABLET BY MOUTH EVERY DAY Bio-K plus 50 billion cell capsule,delayed release(DR/EC) 1 cap PO DAILY Qty: 30 0RF HPI General Date/Time Provider Initiated Documentation: 08/24/24 12:36. HPI Narrative: Tasia is a 79-year-old female who presents to the emergency department today for evaluation of R upper quadrant pain since yesterday morning. She reports the pain is a stabbing pain that woke her up out of sleep, waxes and wanes, aggravated by movement and alleviated by sitting still. She denies associated fever/chills, chest pain, shortness of breath, vomiting, change in bladder function although she does admit to dysuria. She does report constipation for the last 3 days, small BMs daily, none today. No black/tarry stools. She does have a history of appendectomy at age 13, no other abdominal surgeries. Physical exam remarkable for tenderness to palpation of right upper quadrant, abdomen is soft, nondistended with normal active bowel sounds. No ecchymosis, rashes, or lesions overlying. Easy work of breathing, lung sounds clear bilaterally. Normal heart sounds. Tacky MM. No CVA tenderness. DDx includes was not limited to: Cholecystitis, choledocholithiasis, pancreatitis, muscle strain, gastritis, nephrolithiasis, pyelonephritis, constipation, partial bowel obstruction, PNA, dehydration I independently interpreted the following tests: CBC shows mild anemia, no change from previous. CMP with mildly elevated BUN and creatinine, no change from previous. Magnesium, lipase, and UA all reassuring. While in the emergency department Tasia was given Toradol for discomfort without change in symptoms. Rehydration orally was given, dry mucous membranes. CT abdomen/pelvis performed, moderate amount of stool noted throughout the colon reflecting constipation. There was concern for infiltrate in right lower lobe but this was not visualized on x-ray. Overall workup today reassuring. Unclear etiology of right upper quadrant pain, possibly constipation though gastritis may also be an option. Recommend use of Carafate and MiraLAX. Encouraged good hydration at home. Reviewed discharge instructions, including importance of follow-up with PCP and red flags indicate need for return to emergency care. Related Data Home Medications ?Medication ?Instructions ?Recorded ?Confirmed cholecalciferol (vitamin D3) 125 125 mcg PO DAILY 06/25/21 08/24/24 mcg (5,000 unit) capsule krill oil 500 mg capsule 500 mg PO DAILY 06/25/21 08/24/24 L. acidophilus,casei,rhamnosus 50 1 cap PO DAILY #30 caps 11/29/21 08/24/24 billion cell capsule,delayed release (Bio-K plus) lorazepam 0.5 mg tablet 0.5 mg PO BID PRN anxiety #15 tabs 05/14/22 08/24/24 bupropion HCl 100 mg tablet,12 hr 100 mg PO BID #180 tabs 08/12/22 08/24/24 sustained-release fluticasone propionate 50 1 spray intranasal BID PRN nasal 08/12/22 08/24/24 mcg/actuation nasal congestion #16 grams spray,suspension albuterol sulfate 90 mcg/actuation 2 puff inhalation Q6H PRN 09/08/22 08/24/24 aerosol inhaler shortness of breath or wheezing #6.7 grams metronidazole 1 % topical gel 1 applic topical QHS #60 grams 10/05/22 08/24/24 (Metrogel) triamcinolone acetonide 55 mcg 2 spray intranasal DAILY #16.9 mL 10/05/22 08/24/24 nasal spray aerosol (Nasacort) hydroxyzine HCl 10 mg tablet 10 mg PO DAILY PRN anxiety #60 tabs 01/07/23 08/24/24 rosuvastatin 10 mg tablet 10 mg PO DAILY #90 tabs 08/09/23 08/24/24 levothyroxine 88 mcg tablet 88 mcg PO DAILY #90 tabs 09/19/23 08/24/24 denosumab 60 mg/mL subcutaneous 60 mg subcut [id number] To be 04/05/24 08/24/24 syringe (Prolia) administered at infusion center #1 mL pantoprazole 40 mg tablet,delayed 40 mg PO DAILY #90 tabs 04/05/24 08/24/24 release (Protonix) duloxetine 60 mg capsule,delayed 60 mg PO DAILY #90 caps 04/09/24 08/24/24 release ipratropium bromide 42 mcg (0.06 2 spray intranasal TID-QID PRN 07/04/24 08/24/24 %) nasal spray allergy symptoms #15 mL letrozole 2.5 mg tablet 2.5 mg PO DAILY 07/04/24 08/24/24 cetirizine 5 mg tablet (Allergy 5 mg PO DAILY PRN allergy symptoms 07/30/24 08/24/24 Relief (cetirizine)) #90 tabs pregabalin 150 mg capsule 150 mg PO BID #180 caps 07/30/24 08/24/24 diclofenac sodium 1 % topical gel See Rx Instructions .Route 08/21/24 08/24/24 .COMPLEX #100 grams Previous Rx's ?Medication ?Instructions ?Recorded L. acidophilus,casei,rhamnosus 50 1 cap PO DAILY #30 caps 11/29/21 billion cell capsule,delayed release (Bio-K plus) lorazepam 0.5 mg tablet 0.5 mg PO BID PRN anxiety #15 tabs 05/14/22 bupropion HCl 100 mg tablet,12 hr 100 mg PO BID #180 tabs 08/12/22 sustained-release fluticasone propionate 50 1 spray intranasal BID PRN nasal 08/12/22 mcg/actuation nasal congestion #16 grams spray,suspension albuterol sulfate 90 mcg/actuation 2 puff inhalation Q6H PRN 09/08/22 aerosol inhaler shortness of breath or wheezing #6.7 grams metronidazole 1 % topical gel 1 applic topical QHS #60 grams 10/05/22 (Metrogel) triamcinolone acetonide 55 mcg 2 spray intranasal DAILY #16.9 mL 10/05/22 nasal spray aerosol (Nasacort) hydroxyzine HCl 10 mg tablet 10 mg PO DAILY PRN anxiety #60 tabs 01/07/23 rosuvastatin 10 mg tablet 10 mg PO DAILY #90 tabs 08/09/23 levothyroxine 88 mcg tablet 88 mcg PO DAILY #90 tabs 09/19/23 denosumab 60 mg/mL subcutaneous 60 mg subcut [id number] To be 04/05/24 syringe (Prolia) administered at infusion center #1 mL pantoprazole 40 mg tablet,delayed 40 mg PO DAILY #90 tabs 04/05/24 release (Protonix) duloxetine 60 mg capsule,delayed 60 mg PO DAILY #90 caps 04/09/24 release ipratropium bromide 42 mcg (0.06 2 spray intranasal TID-QID PRN 07/04/24 %) nasal spray allergy symptoms #15 mL cetirizine 5 mg tablet (Allergy 5 mg PO DAILY PRN allergy symptoms 07/30/24 Relief (cetirizine)) #90 tabs pregabalin 150 mg capsule 150 mg PO BID #180 caps 07/30/24 diclofenac sodium 1 % topical gel See Rx Instructions .Route 08/21/24 .COMPLEX #100 grams Allergies Allergy/AdvReac Type Severity Reaction Status Date / Time Sulfa (Sulfonamide Allergy Hives Verified 08/24/24 12:44 Antibiotics) General Stated Complaint: Abd Prob FELIX: 3 Exam Const General: cooperative, healthy appearing, comfortable and no acute distress Nutritional Appearance: average body habitus Orientation: alert and oriented x3 HENMT Face and sinus: dry mucous membranes Resp Effort & Inspection: normal respiratory effort and able to speak in complete sentences Auscultation: clear to auscultation bilaterally Cardio Rate: regular rate Rhythm: regular rhythm GI Inspection: normal to inspection and non-distended Palpation: soft, not firm, no guarding and tender in the RLQ Auscultation: normal bowel sounds Course Vital Signs Vital signs: Vital Signs Temperature 36.9 C 08/24/24 12:39 Pulse 71 08/24/24 12:39 Respiratory Rate 15 08/24/24 12:39 Blood Pressure 145/71 H 08/24/24 12:39 Pulse Oximetry 98 08/24/24 12:39 Temperature 36.9 C 08/24/24 12:42 Pulse 71 08/24/24 12:42 Respiratory Rate 15 08/24/24 12:42 Respiratory Effort Normal 08/24/24 12:42 Blood Pressure 145/71 H 08/24/24 12:42 Blood Pressure Position Sitting 08/24/24 12:42 Pulse Oximetry 98 08/24/24 12:42 Oxygen Delivery Method Room Air 08/24/24 12:42 Oxygen Flow Rate 0 08/24/24 12:39 Lab/Test Results Lab/Test Results: Laboratory Tests Range/Units 08/24/24 12:51 Urine Color (Yellow) Yellow Urine Clarity (Clear) Clear Urine pH (5-8) 6.0 Ur Specific [place] (1.005-1.025) 1.020 Urine Protein (Neg-Trace) mg/dL Negative Urine Ketones (Negative) mg/dL Negative Urine Blood (Negative) Negative Urine Nitrite (Negative) Negative Urine Bilirubin (Negative) Negative Urine Urobilinogen (Up to 0.2) mg/dL 0.2 Ur Leukocyte Esterase (Negative) Trace H Urine RBC (0-2) HPF 0-2 Urine WBC (0-5) HPF 3-5 Ur Epithelial Cells (Negative) HPF Moderate Urine Crystals (Negative) HPF Negative Urine Bacteria (Negative) HPF Rare Urine Casts (Negative) LPF Negative Urine Mucus (Negative) Negative Ur Culture Indicated? No Urine Glucose (Negative) mg/dL Negative Medical Decision Making Imaging Data Radiologic Study: Radiologist's impression: Exam(s) CT ABDOMEN PELVIS W EXAM: CT ABDOMEN PELVIS W CLINICAL HISTORY: LUQ pain x 2 days TECHNIQUE: Imaging Protocol: Axial computed tomography images with coronal and sagittal reformatted images were created and reviewed. CONTRAST MATERIAL: Intravenous: Omnipaque 350 Contrast volume:85 mL Oral: No COMPARISON: CT CT RENAL COLIC WO from 08/06/2022 FINDINGS: ABDOMEN: Lung Bases: Normal where visualized. There is a small hiatal hernia. There is a tiny right pleural effusion and right basilar subjacent infiltrate which may represent atelectasis or pneumonia. Liver: Normal density. No measurable mass. Portal, Superior Mesenteric, and Splenic Veins: Unremarkable. Gallbladder and Biliary Tract: No radiodense calculus or dilation. Pancreas: Normal density, no abnormal calcifications or inflammatory process. Spleen: Normal. Adrenals: No masses seen. Kidneys: Moderate right renal cortical atrophy is present. No radiodense stones or obstructive uropathy. Simple cyst is seen in the right kidney. No follow-up is recommended. Abdominal Aorta: Abdominal portion non-dilated. Atherosclerotic calcification is present. No evidence of an acute dissection. Bowel: There is diverticulosis seen in the colon but no evidence of acute diverticulitis. There is a moderate amount of stool in the colon. The stomach is not well distended limiting evaluation. There is no evidence of bowel obstruction or bowel wall thickening. No evidence of appendicitis. Peritoneal Cavity: No ascites, collection or mesenteric inflammatory response. No free air. Lymph Nodes: Within normal limits. Bones: Within normal limits for the patient's age. The patient has a left total hip arthroplasty. Soft Tissues: Unremarkable. PELVIS: Bladder: There is mild diffuse thickening of the wall of the urinary bladder. Portions of the urinary bladder are obscured due to artifact from the orthopedic hardware. Reproductive Organs: Unremarkable as visualized. Lymph Nodes: Within normal limits. Bones: Within normal limits for the patient's age. IMPRESSION: 1. Colonic diverticulosis without evidence of acute diverticulitis. 2. Diffuse thickening of the wall of the urinary bladder. This can be seen with cystitis or chronic bladder outlet obstruction. Please correlate clinically. 3. No evidence of nephrolithiasis. 4. Moderate amount of stool throughout the colon which may reflect constipation. 5. Small right pleural effusion and right subjacent infiltrate which may represent atelectasis or pneumonia. Radiologic Study #2: Radiologist's impression: Exam(s) XR CHEST 2V PA LATERAL EXAM: XR CHEST 2V PA LATERAL CLINICAL HISTORY: RUQ pain, concern for PNA TECHNIQUE: 2D digital imaging was performed of the chest. Two images were obtained. PA and lateral views were obtained. COMPARISON: CR XR CHEST 2V PA LATERAL from 09/29/2022 FINDINGS: MEDIASTINUM: Normal. HEART: Normal. PULMONARY VASCULATURE: Normal. LUNGS: No focal consolidating infiltrates. PLEURAL SPACE: No pleural effusion or pneumothorax. BONE:Within normal limits for the patient's age. Degenerative changes are seen in the left shoulder. Postsurgical changes are seen in the lower 3rd cul spine. OTHER FINDINGS:Normal. IMPRESSION: No acute pulmonary findings. Quality:SDOH Health Related Social Needs: No Data to Display PFSH All Active Problems (Updated 08/07/24 @ 10:53 by Lennox Byrne NP) Dysphagia (Acute) COPD exacerbation (Acute) Peripheral neuropathy (Acute) Invasive ductal carcinoma of breast (Acute) Abnormal mammogram of right breast (Acute) with maddie involvement Allergic rhinitis (Acute) Rosacea (Acute) Recurrent urinary tract infection (Acute) Cough (Acute) Osteoporosis (Chronic) 12/2021-DEXA scan at [facility] , -2.6t score at hip, prolia Arthritis of right shoulder region (Acute) Arthritis of left shoulder region (Acute) Chronic anemia (Acute) Chronic kidney disease, stage 3 (Acute) Bilateral lower extremity edema (Acute) Family history of colon cancer (Acute) Vitamin D deficiency (Acute) Osteoarthritis of hips, bilateral (Acute) DDD (degenerative disc disease), lumbar (Acute) Polyneuropathy in diabetes (Acute) Stricture of female urethra (Acute) Diabetes (Chronic) Hiatal hernia (Chronic) Arthralgia (Acute) COPD (chronic obstructive pulmonary disease) (Chronic) Hyperlipidemia (Acute) Hypothyroidism (acquired) (Acute) GERD (gastroesophageal reflux disease) (Chronic) Depression with anxiety (Acute) Medical History (Updated 08/07/24 @ 10:53 by Lennox Byrne NP) Pyelonephritis of right kidney Right flank pain Screening for colon cancer (~07/02/22) Anxiety Congestion of right ear Left shoulder pain Immunization due Immunization counseling Morbid obesity Dyslipidemia History of fracture of hand left Impacted cerumen of left ear Sepsis due to pneumonia Surgical History History of colonoscopy with polypectomy (~07/02/22) hyperplstic, PRN colonoscopy Hx of fusion of cervical spine stenosis- C5-7 History of meatotomy of urethra S/P ORIF (open reduction internal fixation) fracture Left femur shaft S/P total knee arthroplasty Left History of total hip arthroplasty Left Status post appendectomy History of tonsillectomy and adenoidectomy Family History Mother , 83 Colon cancer Depression Hyperlipidemia Hypertension Father , 68 Alcohol abuse Hypertension Substance abuse Brother , 77 FH: prostate cancer Daughter No problems noted. Daughter Depression Maternal Grandfather , 62 Prostate cancer Paternal Grandfather , 81 No problems noted. Maternal Grandmother , 77 Heart disease Paternal Grandmother , 59 Hypertension Social History Smoking/Tobacco Use Status: Former Tobacco Use tobacco type: cigarettes Quit Date: 10/31/81 Tobacco: How many years used: 20 Second Hand Exposure: Yes Smoking risk assessment performed?: Yes Alcohol Intake: current Alcohol Intake frequency: a few times a month Alcohol type: beer, wine and hard liquor Drug use: Never Substance use type: does not use Household members: spouse and family Housing: apartment Communication Needs: None Do you need help understanding health information?: Always Pets and animals: Yes Pets and animals: cat(s) and dog(s) Sexually active: Yes Do you think of yourself as: straight/heterosexual Current gender identity: female What is your relationship status?: How often do you talk on the phone with friends or family?: twice per week How often do you get together with friends or relatives?: twice per week How often do you attend protestant or worship services?: decline to answer Do you belong to any clubs or organized social groups?: no Panel score (0-1 are the most socially isolated patients): 2 What type of physical activity do you participate in: none (Does do PT twice a week for her back, does one day of pool therapy) 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 Dee Dee/Mosque: Jew Special dee dee needs: No Seatbelt use: always Drive intox or ride w/intox shag truck driver: No Do you feel safe at home: Yes Do you feel safe in your relationship?: Yes PAWSS Have you Been Recently Intoxicated or Drunk Within the Last 30 days?: No Have you Ever Experienced Previous Episodes of Alcohol Withdrawal?: No Have you ever Experienced Withdrawal Seizures?: No Have you ever Experienced Delirium Tremens(DT)s?: No Have you ever undergone Alcohol Rehabilitation Treatment (i.e, inpt ot outpatient treatment programs)?: No Have you ever Experienced Blackouts?: No Have you ever Combined Alcohol with other Downers within the last 90 days?: No Have you ever Combined Alcohol with any other Substance of Abuse during the last 90 days?: No Positive Blood Alcohol level on Presentation? [PCS.BAL]: No Evidence of Increased Autonomic Activity (i.e. HR>120, tremor, sweating, agitation, nausea)?: No Result: 0
[2024-08-24 13:37] LABS: Lipase 29 U/L (16-77)
[2024-08-24 13:43] LABS: ALT 24 U/L (14-59); AST 21 U/L (15-37); Alkaline Phosphatase 99 U/L (46-116); BUN 23 mg/dL (7-18); Bilirubin, Total 0.46 mg/dL (0.2-1.0); CREATININE 1.3 mg/dL (0.55-1.02); Chloride 107 mmol/L (98-107); Estimated GFR 42.09 (mL/min/1.73m2); Glucose 94 mg/dL (74-106); Sodium 144 mmol/L (136-145); Total Protein 7.7 g/dL (6.4-8.2)
--- NOTE | 2024-08-24 13:54 | W.EDPROG ---
Date of service: 08/24/24 Time of Service: 13:55 Medical Decision Making Quality:SDOH Health Related Social Needs: No Data to Display Discharge Plan Discharge Details Chief Complaint: Abd Prob Primary Care Provider: Lennox Olsen ED Provider: Phoebe Moulton Home Meds and New Rx's Prescriptions: No Action krill oil 500 mg capsule 500 mg PO DAILY cholecalciferol (vitamin D3) 125 mcg (5,000 unit) capsule 125 mcg PO DAILY lorazepam 0.5 mg tablet 0.5 mg PO BID PRN (Reason: anxiety) Qty: 15 1RF bupropion HCl 100 mg tablet sustained-release 12 hr 100 mg PO BID Qty: 180 3RF fluticasone propionate 50 mcg/actuation spray,suspension 1 spray intranasal BID PRN (Reason: nasal congestion) Qty: 16 4RF Rx Instructions: administer into each nostril metronidazole [Metrogel] 1 % gel 1 applic topical QHS Qty: 60 0RF triamcinolone acetonide [Nasacort] 55 mcg aerosol,spray 2 spray intranasal DAILY Qty: 16.9 11RF Rx Instructions: administer into each nostril albuterol sulfate 90 mcg/actuation HFA aerosol inhaler 2 puff inhalation Q6H PRN (Reason: shortness of breath or wheezing) Qty: 6.7 0RF ipratropium bromide 42 mcg (0.06 %) spray,non-aerosol 2 spray intranasal TID-QID PRN (Reason: allergy symptoms) Qty: 15 12RF Rx Instructions: administer into each nostril pregabalin 150 mg capsule 150 mg PO BID Qty: 180 1RF cetirizine [Allergy Relief (cetirizine)] 5 mg tablet 5 mg PO DAILY PRN (Reason: allergy symptoms) Qty: 90 1RF Prolia 60 mg/mL syringe 60 mg subcut [id number] Qty: 1 1RF pantoprazole [Protonix] 40 mg tablet,delayed release (DR/EC) 40 mg PO DAILY Qty: 90 3RF hydroxyzine HCl 10 mg tablet 10 mg PO DAILY PRN (Reason: anxiety) Qty: 60 0RF rosuvastatin 10 mg tablet 10 mg PO DAILY Qty: 90 3RF levothyroxine 88 mcg tablet 88 mcg PO DAILY Qty: 90 3RF duloxetine 60 mg capsule,delayed release(DR/EC) 60 mg PO DAILY Qty: 90 3RF diclofenac sodium 1 % gel See Rx Instructions .ROUTE .COMPLEX Qty: 100 12RF Dose Instruction: APPLY 4 GRAM TOPICALLY FOUR TIMES A DAY NEEDED FOR PAIN, APPLY TOPICALLY TO AFFECTED AREA Rx Instructions: APPLY 4 GRAM TOPICALLY FOUR TIMES A DAY NEEDED FOR PAIN, APPLY TOPICALLY TO AFFECTED AREA letrozole 2.5 mg tablet 2.5 mg PO DAILY Patient Comments: TAKE ONE TABLET BY MOUTH EVERY DAY Bio-K plus 50 billion cell capsule,delayed release(DR/EC) 1 cap PO DAILY Qty: 30 0RF
[2024-08-24] MEDS: Normal Saline - Diluent 50 ML VIAL IJ (13:58)
[2024-08-24] MEDS: Omnipaque 350 MG/ML 100 ML BTL 85 ML IJ (13:59)
--- NOTE | 2024-08-24 14:00 | DI.CT_ITS ---
Exam(s) CT ABDOMEN PELVIS W EXAM: CT ABDOMEN PELVIS W CLINICAL HISTORY: LUQ pain x 2 days TECHNIQUE: Imaging Protocol: Axial computed tomography images with coronal and sagittal reformatted images were created and reviewed. CONTRAST MATERIAL: Intravenous: Omnipaque 350 Contrast volume:85 mL Oral: No COMPARISON: CT CT RENAL COLIC WO from 08/06/2022 FINDINGS: ABDOMEN: Lung Bases: Normal where visualized. There is a small hiatal hernia. There is a tiny right pleural e ffusion and right basilar subjacent infiltrate which may represent atelectasis or pneumonia. Liver: Normal density. No measurable mass. Portal, Superior Mesenteric, and Splenic Veins: Unremarkable. Gallbladder and Biliary Tract: No radiodense calculus or dilation. Pancreas: Normal density, no abnormal calcifications or inflammatory process. Spleen: Normal. Adrenals: No masses seen. Kidneys: Moderate right renal cortical atrophy is present. No radiodense stones or obstructive uropa thy. Simple cyst is seen in the right kidney. No follow-up is recommended. Abdominal Aorta: Abdominal portion non-dilated. Atherosclerotic calcification is present. No evidenc e of an acute dissection. Bowel: There is diverticulosis seen in the colon but no evidence of acute diverticulitis. There is a moderate amount of stool in the colon. The stomach is not well distended limiting evaluation. Ther e is no evidence of bowel obstruction or bowel wall thickening. No evidence of appendicitis. Peritoneal Cavity: No ascites, collection or mesenteric inflammatory response. No free air. Lymph Nodes: Within normal limits. Bones: Within normal limits for the patient's age. The patient has a left total hip arthroplasty. Soft Tissues: Unremarkable. PELVIS: Bladder: There is mild diffuse thickening of the wall of the urinary bladder. Portions of the urinar y bladder are obscured due to artifact from the orthopedic hardware. Reproductive Organs: Unremarkable as visualized. Lymph Nodes: Within normal limits. Bones: Within normal limits for the patient's age. IMPRESSION: 1. Colonic diverticulosis without evidence of acute diverticulitis. 2. Diffuse thickening of the wall of the urinary bladder. This can be seen with cystitis or chronic bladder outlet obstruction. Please correlate clinically. 3. No evidence of nephrolithiasis. 4. Moderate amount of stool throughout the colon which may reflect constipation. 5. Small right pleural effusion and right subjacent infiltrate which may represent atelectasis or pne umonia. RADIATION DOSE DELIVERED: 665.08mGy.cm Total DLP DATA REPOSITORY: All CT scans at this facility are submitted to the National Radiology Data Registry (NRDR) Dose Index Registry (DIR) with the [employer] (ACR). RADIATION OPTIMIZATION: All CT scans at this facility use at least one of these dose optimization te chniques: automated exposure control; mA and/or kV adjustment per patient size (includes targeted exa ms where dose is matched to clinical indication); or iterative reconstruction.
--- NOTE | 2024-08-24 14:41 | DI.RAD_ITS ---
Exam(s) XR CHEST 2V PA LATERAL EXAM: XR CHEST 2V PA LATERAL CLINICAL HISTORY: RUQ pain, concern for PNA TECHNIQUE: 2D digital imaging was performed of the chest. Two images were obtained. PA and lateral views were obtained. COMPARISON: CR XR CHEST 2V PA LATERAL from 09/29/2022 FINDINGS: MEDIASTINUM: Normal. HEART: Normal. PULMONARY VASCULATURE: Normal. LUNGS: No focal consolidating infiltrates. PLEURAL SPACE: No pleural effusion or pneumothorax. BONE:Within normal limits for the patient's age. Degenerative changes are seen in the left shoulder. Postsurgical changes are seen in the lower 3rd cul spine. OTHER FINDINGS:Normal. IMPRESSION: No acute pulmonary findings. DATA REPOSITORY: RADIATION DOSE DELIVERED:
== END 2024-08-24 15:37 | disposition home or self-care (01) ==
PROVIDERS: Emergency Provider Nurse Practitioner Family; PCP Nurse Practitioner Family
DX: R10.11 Right upper quadrant pain (principal); J44.9 Chronic obstructive pulmonary disease, unspecified; E11.22 Type 2 diabetes mellitus with diabetic chronic kidney disease; I12.9 Hypertensive chronic kidney disease with stage 1 through stage 4 chronic kidney disease, or unspecified chronic kidney disease; N18.30 Chronic kidney disease, stage 3 unspecified; E78.5 Hyperlipidemia, unspecified; Z87.891 Personal history of nicotine dependence
CPT/HCPCS: 80053; 83690; 99285; 71046; 74177; 81003; 81015; 83735; 85025; 99284; J3490

== ENCOUNTER 2024-10-26 12:01 | Outpatient (CLI) | payer MEDICARE, OTHER, SELFPAY ==
--- NOTE | 2024-10-26 10:34 | DI.RAD_ITS ---
Exam(s) XR KNEE LT 4V AP,LAT,JESSENIA,PAT EXAM: XR KNEE LT 4V AP,LAT,JESSENIA,PAT CLINICAL HISTORY: fell directly onto left knee, please r/o fracture M25.562 PAIN LT KNEE. TECHNIQUE: 2D digital imaging was performed. Three views. COMPARISON: No exams were available for comparison FINDINGS: BONES: No acute fracture is present. No bony destructive lesion is seen. Fixation plate noted brett g the lateral aspect of the distal femur. Old distal femoral fracture visible. JOINTS: total knee prosthesis. No joint effusion is seen. The patella appears somewhat superiorly p ositioned and there is lateral patellar tilt and mild lateral patellar deviation. Findings could be chronic. No comparison films are available. SOFT TISSUE: Normal. IMPRESSION: No evidence of acute fracture. Intact total knee prosthesis and distal femoral hardware. DATA REPOSITORY: RADIATION DOSE DELIVERED:
== END 2024-10-26 12:21 ==
LOC: DI 12:02
PROVIDERS: PCP Nurse Practitioner Family; Visit Provider Physician Assistant
DX: M25.562 Pain in left knee (principal)
CPT/HCPCS: 73564

== ENCOUNTER 2024-11-08 15:56 | Emergency (ER) | payer MEDICARE, OTHER, SELFPAY ==
[2024-11-08 16:03] VITALS: BP 141/61; PULSE 62; RESP 18; TEMP 36.6; O2SAT 93
[2024-11-08] MEDS: Acetaminophen 500 MG TAB 1000 MG PO (17:11)
--- NOTE | 2024-11-08 17:21 | W.ED.GENAD ---
Discharge Plan Disposition Patient Disposition: Home Condition: Stable Discharge Details Clinical Impression: Lower extremity pain, left, Diabetes, Bilateral lower extremity edema, Chronic kidney disease, stage 3, Chronic anemia, GERD (gastroesophageal reflux disease), Hyperlipidemia, COPD (chronic obstructive pulmonary disease) Primary Care Provider: Lennox Olsen ED Provider: Jenna Carr Home Meds and New Rx's Prescriptions: No Action krill oil 500 mg capsule 500 mg PO DAILY cholecalciferol (vitamin D3) 125 mcg (5,000 unit) capsule 125 mcg PO DAILY lorazepam 0.5 mg tablet 0.5 mg PO BID PRN (Reason: anxiety) Qty: 15 1RF bupropion HCl 100 mg tablet sustained-release 12 hr 100 mg PO BID Qty: 180 3RF fluticasone propionate 50 mcg/actuation spray,suspension 1 spray intranasal BID PRN (Reason: nasal congestion) Qty: 16 4RF Rx Instructions: administer into each nostril metronidazole [Metrogel] 1 % gel 1 applic topical QHS Qty: 60 0RF triamcinolone acetonide [Nasacort] 55 mcg aerosol,spray 2 spray intranasal DAILY Qty: 16.9 11RF Rx Instructions: administer into each nostril albuterol sulfate 90 mcg/actuation HFA aerosol inhaler 2 puff inhalation Q6H PRN (Reason: shortness of breath or wheezing) Qty: 6.7 0RF ipratropium bromide 42 mcg (0.06 %) spray,non-aerosol 2 spray intranasal TID-QID PRN (Reason: allergy symptoms) Qty: 15 12RF Rx Instructions: administer into each nostril cetirizine [Allergy Relief (cetirizine)] 5 mg tablet 5 mg PO DAILY PRN (Reason: allergy symptoms) Qty: 90 1RF pregabalin 200 mg capsule 200 mg PO BID Qty: 180 1RF pantoprazole [Protonix] 40 mg tablet,delayed release (DR/EC) 40 mg PO DAILY Qty: 90 3RF Prolia 60 mg/mL syringe 60 mg subcut [id number] Qty: 1 1RF hydroxyzine HCl 10 mg tablet 10 mg PO DAILY PRN (Reason: anxiety) Qty: 60 0RF rosuvastatin 10 mg tablet 10 mg PO DAILY Qty: 90 3RF levothyroxine 88 mcg tablet 88 mcg PO DAILY Qty: 90 3RF duloxetine 60 mg capsule,delayed release(DR/EC) 60 mg PO DAILY Qty: 90 3RF diclofenac sodium 1 % gel See Rx Instructions .ROUTE .COMPLEX Qty: 100 12RF Dose Instruction: APPLY 4 GRAM TOPICALLY FOUR TIMES A DAY NEEDED FOR PAIN, APPLY TOPICALLY TO AFFECTED AREA Rx Instructions: APPLY 4 GRAM TOPICALLY FOUR TIMES A DAY NEEDED FOR PAIN, APPLY TOPICALLY TO AFFECTED AREA letrozole 2.5 mg tablet 2.5 mg PO DAILY Patient Comments: TAKE ONE TABLET BY MOUTH EVERY DAY Bio-K plus 50 billion cell capsule,delayed release(DR/EC) 1 cap PO DAILY Qty: 30 0RF sucralfate [Carafate] 1 gram tablet 1 g PO Q6H Qty: 20 0RF Discharge Instructions Instructions: Managing acute pain at home Additional Instructions: You were seen in the emergency department today for evaluation of ongoing lower leg pain after a fall 3 weeks ago. In our department he had a full physical examination performed including an ultrasound that showed no signs of blood clots, and x-ray imaging that did not show any fractures or other significant bony problems. Unfortunately, we are sometimes unable to determine the exact cause of symptoms in the emergency department, and I recommend that you call your primary care provider tomorrow to schedule an appointment for reevaluation. You can continue to use Tylenol for management of pain. Thank you for allowing us to be part of your care. HPI General Mode of arrival: ambulatory. Date/Time Provider Initiated Documentation: 11/08/24 16:15. Limitations to Documentation: no limitations. Information obtained by: patient and old records reviewed. HPI Narrative: HPI: This is a 79-year-old female patient with a past medical history significant for COPD, osteoporosis, CKD, hyperlipidemia, and diabetes who is presenting for evaluation of left calf pain. The patient reports that she had a fall about 3 weeks ago, had an x-ray image at that time of her knee that was atraumatic. She has been wrapping her calf and an Peter bandage since that time because it feels nicer, today was walking in her home and felt a pop and a sudden sharp pain already radiating down into her calf. She did not sustain trauma or take a fall, denies weakness or numbness distal to this injury, states that prior to this event she was in her normal state of health. She reports that she has had some mild swelling bilaterally, has not noticed any specific asymmetry. She reports a history of blood clots in the setting of several years ago, is not anticoagulated. Exam: Gen: Awake and alert, in no apparent distress HEENT: Non-icteric sclera Neck: Supple Lungs: No apparent respiratory distress, normal respiratory effort. CV: Appears well perfused Abdomen: Non-distended MSK: Moves 4 extremities without apparent limitation in ROM. Pain to palpation of the distal tib-fib without overlying skin changes. Trace bilateral peripheral edema, symmetrical. No palpable Jean's cyst or fullness in the popliteal fossa. Full range of motion of the knee and ankle without swelling or deformity. Strong DP pulses Skin: Visualized skin without rashes, cyanosis. Neuro: Normal Gait, no obvious focal deficits or facial asymmetry. Speaks in full, clear sentences. Psych: Appropriate for situation. MDM: This is a 79-year-old female patient presenting for evaluation of left lower leg pain x 3 weeks since a fall. Differential includes but is not limited to traumatic injury including fracture, contusion, sprain/strain. The patient has been walking on this injury and I have a lower concern for severe traumatic injury, but she did not have imaging of her ankle or tib-fib during that event. Also considered DVT, Jean's cyst, the patient has no evidence of overlying skin changes to suggest cellulitis or abscess. No neurovascular derangements or color changes to increase my concern for arterial occlusion, phlegmasia, etc. ED Course: I did obtain a bedside DVT ultrasound that was negative, with no evidence of other abnormality in the popliteal fossa to explain her symptoms. On reassessment the patient reports that she inadvertently told me that the pain shot down from her knee, states that she actually was having pain radiating up from her ankle. For this reason we did obtain x-ray imaging, which did not show any acute abnormalities to explain the patient's symptoms. She received a dose of Tylenol with improvement in her pain, and was encouraged to follow-up with her primary care provider for reassessment if her symptoms persist. At this time, the patient has had a full medical evaluation and is safe for discharge to home. They are hemodynamically stable, ambulatory, and tolerating PO. They are understanding of the follow-up plan and return precautions. They left our facility without incident. Jenna Carr MD Related Data Home Medications ?Medication ?Instructions ?Recorded ?Confirmed cholecalciferol (vitamin D3) 125 125 mcg PO DAILY 06/25/21 11/08/24 mcg (5,000 unit) capsule krill oil 500 mg capsule 500 mg PO DAILY 06/25/21 11/08/24 L. acidophilus,casei,rhamnosus 50 1 cap PO DAILY #30 caps 11/29/21 11/08/24 billion cell capsule,delayed release (Bio-K plus) lorazepam 0.5 mg tablet 0.5 mg PO BID PRN anxiety #15 tabs 05/14/22 11/08/24 bupropion HCl 100 mg tablet,12 hr 100 mg PO BID #180 tabs 08/12/22 11/08/24 sustained-release fluticasone propionate 50 1 spray intranasal BID PRN nasal 08/12/22 11/08/24 mcg/actuation nasal congestion #16 grams spray,suspension albuterol sulfate 90 mcg/actuation 2 puff inhalation Q6H PRN 09/08/22 11/08/24 aerosol inhaler shortness of breath or wheezing #6.7 grams metronidazole 1 % topical gel 1 applic topical QHS #60 grams 10/05/22 11/08/24 (Metrogel) triamcinolone acetonide 55 mcg 2 spray intranasal DAILY #16.9 mL 10/05/22 11/08/24 nasal spray aerosol (Nasacort) hydroxyzine HCl 10 mg tablet 10 mg PO DAILY PRN anxiety #60 tabs 01/07/23 11/08/24 rosuvastatin 10 mg tablet 10 mg PO DAILY #90 tabs 08/09/23 11/08/24 levothyroxine 88 mcg tablet 88 mcg PO DAILY #90 tabs 09/19/23 11/08/24 denosumab 60 mg/mL subcutaneous 60 mg subcut [id number] To be 04/05/24 11/08/24 syringe (Prolia) administered at infusion center #1 mL duloxetine 60 mg capsule,delayed 60 mg PO DAILY #90 caps 04/09/24 11/08/24 release ipratropium bromide 42 mcg (0.06 2 spray intranasal TID-QID PRN 07/04/24 11/08/24 %) nasal spray allergy symptoms #15 mL letrozole 2.5 mg tablet 2.5 mg PO DAILY 07/04/24 11/08/24 cetirizine 5 mg tablet (Allergy 5 mg PO DAILY PRN allergy symptoms 07/30/24 11/08/24 Relief (cetirizine)) #90 tabs diclofenac sodium 1 % topical gel See Rx Instructions .Route 08/21/24 11/08/24 .COMPLEX #100 grams sucralfate 1 gram tablet (Carafate) 1 g PO Q6H #20 tabs 08/24/24 11/08/24 pantoprazole 40 mg tablet,delayed 40 mg PO DAILY #90 tabs 08/28/24 11/08/24 release (Protonix) pregabalin 200 mg capsule 200 mg PO BID #180 caps 08/28/24 11/08/24 Previous Rx's ?Medication ?Instructions ?Recorded L. acidophilus,casei,rhamnosus 50 1 cap PO DAILY #30 caps 11/29/21 billion cell capsule,delayed release (Bio-K plus) lorazepam 0.5 mg tablet 0.5 mg PO BID PRN anxiety #15 tabs 05/14/22 bupropion HCl 100 mg tablet,12 hr 100 mg PO BID #180 tabs 08/12/22 sustained-release fluticasone propionate 50 1 spray intranasal BID PRN nasal 08/12/22 mcg/actuation nasal congestion #16 grams spray,suspension albuterol sulfate 90 mcg/actuation 2 puff inhalation Q6H PRN 09/08/22 aerosol inhaler shortness of breath or wheezing #6.7 grams metronidazole 1 % topical gel 1 applic topical QHS #60 grams 10/05/22 (Metrogel) triamcinolone acetonide 55 mcg 2 spray intranasal DAILY #16.9 mL 10/05/22 nasal spray aerosol (Nasacort) hydroxyzine HCl 10 mg tablet 10 mg PO DAILY PRN anxiety #60 tabs 01/07/23 rosuvastatin 10 mg tablet 10 mg PO DAILY #90 tabs 08/09/23 levothyroxine 88 mcg tablet 88 mcg PO DAILY #90 tabs 09/19/23 denosumab 60 mg/mL subcutaneous 60 mg subcut [id number] To be 04/05/24 syringe (Prolia) administered at infusion center #1 mL duloxetine 60 mg capsule,delayed 60 mg PO DAILY #90 caps 04/09/24 release ipratropium bromide 42 mcg (0.06 2 spray intranasal TID-QID PRN 07/04/24 %) nasal spray allergy symptoms #15 mL cetirizine 5 mg tablet (Allergy 5 mg PO DAILY PRN allergy symptoms 07/30/24 Relief (cetirizine)) #90 tabs diclofenac sodium 1 % topical gel See Rx Instructions .Route 08/21/24 .COMPLEX #100 grams sucralfate 1 gram tablet (Carafate) 1 g PO Q6H #20 tabs 08/24/24 pantoprazole 40 mg tablet,delayed 40 mg PO DAILY #90 tabs 08/28/24 release (Protonix) pregabalin 200 mg capsule 200 mg PO BID #180 caps 08/28/24 Allergies Allergy/AdvReac Type Severity Reaction Status Date / Time Sulfa (Sulfonamide Allergy Hives Verified 11/08/24 16:11 Antibiotics) General Stated Complaint: Orthopedic FELIX: 4 Course Vital Signs Vital signs: Vital Signs Temperature 36.6 C 11/08/24 16:03 Pulse 62 11/08/24 16:03 Respiratory Rate 18 11/08/24 16:03 Blood Pressure 141/61 H 11/08/24 16:03 Pulse Oximetry 93 11/08/24 16:03 Temperature 36.6 C 11/08/24 16:03 Temperature Source Oral 11/08/24 16:03 Pulse 62 11/08/24 16:03 Respiratory Rate 18 11/08/24 16:03 Blood Pressure 141/61 H 11/08/24 16:03 Pulse Oximetry 93 11/08/24 16:03 Pain Level 2 11/08/24 17:11 Medical Decision Making Quality:SDOH Health Related Social Needs: No Data to Display PFSH All Active Problems (Updated 11/08/24 @ 20:14 by Jenna Carr MD) Lower extremity pain, left (Acute) Dysphagia (Acute) COPD exacerbation (Acute) Peripheral neuropathy (Acute) Invasive ductal carcinoma of breast (Acute) Abnormal mammogram of right breast (Acute) with maddie involvement Allergic rhinitis (Acute) Rosacea (Acute) Recurrent urinary tract infection (Acute) Cough (Acute) Osteoporosis (Chronic) 12/2021-DEXA scan at [facility] , -2.6t score at hip, prolia Arthritis of right shoulder region (Acute) Arthritis of left shoulder region (Acute) Chronic anemia (Acute) Chronic kidney disease, stage 3 (Acute) Bilateral lower extremity edema (Acute) Family history of colon cancer (Acute) Vitamin D deficiency (Acute) Osteoarthritis of hips, bilateral (Acute) DDD (degenerative disc disease), lumbar (Acute) Polyneuropathy in diabetes (Acute) Stricture of female urethra (Acute) Diabetes (Chronic) Hiatal hernia (Chronic) Arthralgia (Acute) COPD (chronic obstructive pulmonary disease) (Chronic) Hyperlipidemia (Acute) Hypothyroidism (acquired) (Acute) GERD (gastroesophageal reflux disease) (Chronic) Depression with anxiety (Acute) Medical History Pyelonephritis of right kidney Right flank pain Screening for colon cancer (~07/02/22) Anxiety Congestion of right ear Left shoulder pain Immunization due Immunization counseling Morbid obesity Dyslipidemia History of fracture of hand left Impacted cerumen of left ear Sepsis due to pneumonia Surgical History History of colonoscopy with polypectomy (~07/02/22) hyperplstic, PRN colonoscopy Hx of fusion of cervical spine stenosis- C5-7 History of meatotomy of urethra S/P ORIF (open reduction internal fixation) fracture Left femur shaft S/P total knee arthroplasty Left History of total hip arthroplasty Left Status post appendectomy History of tonsillectomy and adenoidectomy Family History Mother , 83 Colon cancer Depression Hyperlipidemia Hypertension Father , 68 Alcohol abuse Hypertension Substance abuse Brother , 77 FH: prostate cancer Daughter No problems noted. Daughter Depression Maternal Grandfather , 62 Prostate cancer Paternal Grandfather , 81 No problems noted. Maternal Grandmother , 77 Heart disease Paternal Grandmother , 59 Hypertension Social History Smoking/Tobacco Use Status: Former Tobacco Use tobacco type: cigarettes Quit Date: 10/31/81 Tobacco: How many years used: 20 Second Hand Exposure: Yes Smoking risk assessment performed?: Yes Alcohol Intake: current Alcohol Intake frequency: a few times a month Alcohol type: beer, wine and hard liquor Drug use: Never Substance use type: does not use Household members: spouse and family Housing: apartment Communication Needs: None Do you need help understanding health information?: Always Pets and animals: Yes Pets and animals: cat(s) and dog(s) Sexually active: Yes Do you think of yourself as: straight/heterosexual Current gender identity: female What is your relationship status?: How often do you talk on the phone with friends or family?: twice per week How often do you get together with friends or relatives?: twice per week How often do you attend adventist or protestant services?: decline to answer Do you belong to any clubs or organized social groups?: no Panel score (0-1 are the most socially isolated patients): 2 What type of physical activity do you participate in: none (Does do PT twice a week for her back, does one day of pool therapy) and 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 Dee Dee/Shinto: Protestant Special dee dee needs: No Seatbelt use: always Drive intox or ride w/intox 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
--- NOTE | 2024-11-08 19:00 | DI.RAD_ITS ---
Exam(s) XR TIB/FIB LT XR ANKLE LT COMPLETE EXAM: XR TIB/FIB LT and XR ankle LT complete CLINICAL HISTORY: pain x 3 weeks after fall. TECHNIQUE: 2D digital imaging was performed of the left ankle, tibia and fibula. Five images were ob tained. AP, oblique and lateral views were obtained. COMPARISON: CR XR KNEE LT 4V AP,LAT,JESSENIA,PAT from 10/26/2024 FINDINGS: BONES: No acute fracture is present. No bony destructive lesion is seen. There again seen findings of a left total knee arthroplasty. It is incompletely imaged on this examination. There is an entheso phyte at the posterior calcaneus. There is a plantar calcaneal spur. The bones are osteopenic. The re is a well corticated osseous density at the tip of the medial malleolus which is chronic. SOFT TISSUE: Normal. IMPRESSION: No acute fracture or dislocation. DATA REPOSITORY: RADIATION DOSE DELIVERED:
[2024-11-08 19:38] VITALS: BP 137/69; PULSE 53; RESP 14; O2SAT 98
--- NOTE | 2024-11-08 20:04 | DI.VRAD_ITS ---
PROCEDURE INFORMATION: Exam: XR Left Tibia and Fibula Exam date and time: 11/08/2024 7:23 PM Age: 79 years old Clinical indication: Pain; Lower leg; Left; Additional info: Pain x 3 weeks after fall TECHNIQUE: Imaging protocol: Radiologic exam of the left tibia and fibula. Views: 2 views. COMPARISON: CR XR KNEE LT 4V AP,LAT,JESSENIA,PAT 10/26/2024 10:23 AM FINDINGS: Bones/joints: The bones are demineralized. No acute fracture or subluxation. Total knee arthroplasty, intact as visualized. Soft tissues: Generalized soft tissue swelling. Benign calcifications in the soft tissues. IMPRESSION: No acute bony pathology. Dictated and Authenticated by: Lisa Wang MD. Ordering:LANE Lee MD
--- NOTE | 2024-11-08 20:05 | DI.VRAD_ITS ---
PROCEDURE INFORMATION: Exam: XR Left Ankle Exam date and time: 11/08/2024 7:28 PM Age: 79 years old Clinical indication: Pain; Ankle; Left; Additional info: Pain x 3 weeks after fall TECHNIQUE: Imaging protocol: Radiologic exam of the left ankle. Views: 3 or more views. COMPARISON: CR XR TIB/FIB LT 11/08/2024 7:23 PM FINDINGS: Bones/joints: The bones are demineralized. No acute fracture or subluxation. Chronic ununited fracture deformity, medial malleolus. Plantar calcaneal spur. Posterior calcaneal spur. Soft tissues: Generalized soft tissue swelling. Benign calcifications in the soft tissues. IMPRESSION: 1. No acute bony pathology. 2. Chronic findings as described. Dictated and Authenticated by: Lisa Wang MD. Ordering:LANE Lee MD
== END 2024-11-08 20:28 | disposition home or self-care (01) ==
PROVIDERS: Emergency Provider Emergency Medicine; PCP Nurse Practitioner Family
DX: M79.605 Pain in left leg (principal); E11.9 Type 2 diabetes mellitus without complications; E78.5 Hyperlipidemia, unspecified; K21.9 Gastro-esophageal reflux disease without esophagitis; J44.9 Chronic obstructive pulmonary disease, unspecified; R60.0 Localized edema; N18.30 Chronic kidney disease, stage 3 unspecified; D64.9 Anemia, unspecified; I10 Essential (primary) hypertension
CPT/HCPCS: 93971; 99284; 73590; 73610

== ENCOUNTER 2024-11-09 00:44 | Outpatient (RCR) | payer MEDICARE, OTHER, SELFPAY ==
[2024-11-09] MEDS: Denosumab 60 MG/ML SYR SC (11:55)
== END 2024-11-30 23:59 | disposition home or self-care (01) ==
LOC: INF 00:44
PROVIDERS: PCP Nurse Practitioner Family; Visit Provider Family Medicine
DX: M81.0 Age-related osteoporosis without current pathological fracture (principal)
CPT/HCPCS: 96372; J0897

== ENCOUNTER 2024-11-27 14:19 | Outpatient (CLI) | payer MEDICARE, OTHER, SELFPAY ==
--- NOTE | 2024-11-27 13:39 | DI.RAD_ITS ---
Exam(s) XR CHEST 2V PA LATERAL EXAM: XR CHEST 2V PA LATERAL CLINICAL HISTORY: R05.9 Cough, wheeze, weight gain TECHNIQUE: 2D digital imaging was performed of the chest. Two images were obtained. PA and lateral views were obtained. COMPARISON: CR XR CHEST 2V PA LATERAL from 08/24/2024 FINDINGS: MEDIASTINUM: Normal. HEART: Normal. PULMONARY VASCULATURE: Normal. LUNGS: Clear. PLEURAL SPACE: No pleural effusion or pneumothorax. BONE:Within normal limits for the patient's age. There are degenerative changes seen in the shoulder s bilaterally, left greater than right. OTHER FINDINGS:Normal. IMPRESSION: No acute pulmonary findings. DATA REPOSITORY: RADIATION DOSE DELIVERED:
[2024-11-27 22:49] LABS: HCT 34.3 % (36.0-46.0); HGB 10.3 g/dL (11.2-15.7); MCV 100 fL (80-95); MPV 11.1 fL (8.0-11.0); Platelet Count 272 10^3/uL (130-400); RBC 3.43 10^6/uL (3.93-5.22); RDW 14.8 % (11.7-14.6); RDW-SD 54.2 fL; WBC 6.05 10^3/uL (4.4-10.8)
[2024-11-27 23:14] LABS: NT-proBNP 53 pg/mL (<300); TSH (W/Ref FT4) 3.96 uIU/mL (0.36-3.74)
[2024-11-27 23:30] LABS: FREE T4 0.83 ng/dL (0.76-1.46)
[2024-11-28 10:19] LABS: Lab Add On Test DONE
[2024-11-28 11:22] LABS: Vitamin B12 427 pg/mL (193-986)
[2024-11-28 15:46] LABS: Lab Add On Test DONE
[2024-11-28 21:58] LABS: Folate 18.9 ng/mL (See Note)
== END 2024-11-27 14:39 ==
LOC: DI 14:26
PROVIDERS: PCP Nurse Practitioner Family; Visit Provider Nurse Practitioner Family
DX: R05.9 Cough, unspecified (principal); R06.00 Dyspnea, unspecified; D64.9 Anemia, unspecified
CPT/HCPCS: 85027; 71046; 82607; 82746; 83880; 84439; 84443

== ENCOUNTER 2024-12-05 16:13 | Outpatient (CLI) | payer MEDICARE, OTHER, SELFPAY ==
[2024-12-05 16:02] LABS: Ferritin 44 ng/mL (8-252)
[2024-12-05 16:15] LABS: Iron 62 ug/dL (50-170); Total Iron Binding Capacity 301 ug/dL (250-450)
== END 2024-12-05 16:14 | disposition home or self-care (01) ==
LOC: LBO 12-18 16:14
PROVIDERS: PCP Nurse Practitioner Family; Visit Provider Nurse Practitioner Family
DX: D64.9 Anemia, unspecified (principal)
CPT/HCPCS: 36415; 82728; 83540; 83550

== ENCOUNTER 2025-01-22 15:49 | Outpatient (CLI) | payer MEDICARE, OTHER, SELFPAY ==
--- NOTE | 2025-01-22 14:45 | DI.RAD_ITS ---
Exam(s) XR SHOULDER LT COMPLETE 2+V EXAM: XR SHOULDER LT COMPLETE 2+V CLINICAL HISTORY: LEFT SHOULDER PAIN. TECHNIQUE: 2D digital imaging was performed. Three views. COMPARISON: CR XR SHOULDER RT COMPLETE 2+V from 12/15/2021 FINDINGS: BONES: No acute fracture is present. No bony destructive lesion is seen. JOINTS: No dislocation present. There is severe narrowing of the glenohumeral joint space, with a bl ood on bone appearance. There is prominent spurring at the glenoid as well as humeral head with a la rge inferior osteophyte. There is some flattening of the humeral head. There is spurring at the inf erior aspect of the acromion and AC joint. SOFT TISSUE: Normal. IMPRESSION: End-stage degenerative changes of the glenohumeral joint. DATA REPOSITORY: RADIATION DOSE DELIVERED:
== END 2025-01-22 15:50 | disposition home or self-care (01) ==
LOC: DIORS 15:49
PROVIDERS: PCP Nurse Practitioner Family; Referring Provider Nurse Practitioner Family; Visit Provider Student in an Organized Health Care Education/Training Program
DX: M19.012 Primary osteoarthritis, left shoulder (principal); E11.9 Type 2 diabetes mellitus without complications
CPT/HCPCS: 99214; 73030

== ENCOUNTER 2025-01-28 14:35 | Outpatient (CLI) | payer MEDICARE, OTHER, SELFPAY ==
--- NOTE | 2025-01-28 13:15 | DI.RAD_ITS ---
Exam(s) XR HIP RT COMPLETE AP PELVIS EXAM: XR HIP RT COMPLETE AP PELVIS CLINICAL HISTORY: Acute rt hip pain, M25.551, eval pathology. TECHNIQUE: 2D digital imaging was performed of the right hip. Two images were obtained. AP pelvis a nd lateral right hip views were obtained. COMPARISON: CR XR ABDOMEN FLAT PLATE from 07/16/2022 FINDINGS: BONES: No acute fracture is present. No bony destructive lesion is seen. JOINTS: No dislocation present. The visualized portions of the patient's left hip replacement appears stable. The right hip is well maintained and stable. Degenerative changes are seen in the lower benita mbar spine. SOFT TISSUE: Normal. IMPRESSION: No acute abnormality. DATA REPOSITORY: RADIATION DOSE DELIVERED:
== END 2025-01-28 14:55 ==
LOC: DI 14:36
PROVIDERS: PCP Nurse Practitioner Family; Visit Provider Nurse Practitioner Family
DX: M25.551 Pain in right hip (principal)
CPT/HCPCS: 73502

== ENCOUNTER 2025-02-06 00:45 | Outpatient (CLI) | payer MEDICARE, OTHER, SELFPAY ==
--- NOTE | 2025-02-06 07:15 | DI.CT_ITS ---
Exam(s) CT UPPER EXTREMITY LT WO EXAM: CT UPPER EXTREMITY LT WO CLINICAL HISTORY: SURGICAL PLANNING,arthritis lt shoulder.m19.012. TECHNIQUE: Imaging Protocol: Axial computed tomography images with coronal and sagittal reformatted images were created and reviewed. COMPARISON: CR XR SHOULDER LT COMPLETE 2+V from 01/22/2025 FINDINGS: Bones: The osseous structures and articular surfaces are intact. There are severe degenerative foss ges seen at the glenohumeral joint characterized by joint space narrowing and osteophytes. There is flattening of the articular surfaces of both the glenoid and the humeral head. There is a large oste ophyte arising from the inferior aspect of the humeral head. Subchondral sclerosis and cysts are see n on both sides of the joint space. Well corticated osseous densities are seen at the posterior supe rior aspect of the joint which are chronic. There are mild degenerative changes seen at the acromioc lavicular joint. There is mild narrowing of the acromial humeral interval. This may lead to rotator cuff impingement. No lytic or sclerotic lesions are identified. Soft Tissues: Coronary artery calcification is present. IMPRESSION: Marked osteoarthritis of the glenohumeral joint. RADIATION DOSE DELIVERED: 174.31mGy.cm Total DLP 174.31mGy.cm Total DLP DATA REPOSITORY: All CT scans at this facility are submitted to the National Radiology Data Registry (NRDR) Dose Index Registry (DIR) with the [employer] ([employer]). RADIATION OPTIMIZATION: All CT scans at this facility use at least one of these dose optimization te chniques: automated exposure control; mA and/or kV adjustment per patient size (includes targeted exa ms where dose is matched to clinical indication); or iterative reconstruction.
== END 2025-02-06 01:05 ==
LOC: DI 00:45
PROVIDERS: PCP Nurse Practitioner Family; Visit Provider Student in an Organized Health Care Education/Training Program
DX: M19.012 Primary osteoarthritis, left shoulder (principal)
CPT/HCPCS: 73200

== ENCOUNTER 2025-02-08 11:06 | Outpatient (CLI) | payer MEDICARE, OTHER, SELFPAY ==
--- NOTE | 2025-02-08 10:15 | DI.RAD_ITS ---
Exam(s) XR HIP RT COMPLETE AP PELVIS EXAM: XR HIP RT COMPLETE AP PELVIS CLINICAL HISTORY: right hip pain. TECHNIQUE: 2D digital imaging was performed. Two views COMPARISON: CR XR HIP RT COMPLETE AP PELVIS from 01/28/2025 FINDINGS: BONES: No acute fracture is present. No bony destructive lesion is seen. JOINTS: Stable appearance of left hip prosthesis. Mild right hip joint space narrowing and mild spur ring at the acetabulum and femoral head. Mild degenerative changes of the SI joints. SOFT TISSUE: Normal. IMPRESSION: Mild degenerative changes of the right hip. DATA REPOSITORY: RADIATION DOSE DELIVERED:
== END 2025-02-08 11:07 | disposition home or self-care (01) ==
LOC: DIORS 11:07
PROVIDERS: PCP Nurse Practitioner Family; Referring Provider Nurse Practitioner Family; Visit Provider Physician Assistant
DX: M16.11 Unilateral primary osteoarthritis, right hip
CPT/HCPCS: 20611; 99214; J1010; 73502

== ENCOUNTER → 2025-02-13 10:36 | Outpatient (BNVA) | payer MEDICARE, OTHER, SELFPAY | PROVIDERS: PCP Nurse Practitioner Family; Referring Provider Nurse Practitioner Family; Visit Provider Student in an Organized Health Care Education/Training Program | DX: M19.012 Primary osteoarthritis, left shoulder (principal); D64.9 Anemia, unspecified; R94.6 Abnormal results of thyroid function studies | CPT/HCPCS: 99214 ==

== ENCOUNTER 2025-02-21 02:22 | Outpatient (CLI) | payer MEDICARE, OTHER, SELFPAY ==
[2025-02-21 12:11] LABS: HCT 38.9 % (36.0-46.0); HGB 12.2 g/dL (11.2-15.7); MCH 30.7 pg (27.0-33.0); MCHC 31.4 % (32.0-36.0); MCV 98 fL (80-95); MPV 10.3 fL (8.0-11.0); Platelet Count 284 10^3/uL (130-400); RBC 3.98 10^6/uL (3.93-5.22); RDW 14.5 % (11.7-14.6); RDW-SD 52.4 fL; WBC 8.65 10^3/uL (4.4-10.8)
[2025-02-21 12:32] LABS: ALT 23 U/L (14-59); AST 19 U/L (15-37); Albumin 3.4 g/dL (3.4-5.0); Alkaline Phosphatase 93 U/L (46-116); Anion Gap 10.1 mmol/L (3-11); BUN 22 mg/dL (7-18); Bilirubin, Total 0.4 mg/dL (0.2-1.0); CO2 26.9 mmol/L (21.0-32.0); CREATININE 1.4 mg/dL (0.55-1.02); Chloride 107 mmol/L (98-107); Estimated GFR 38.51 (mL/min/1.73m2); Glucose 110 mg/dL (74-106); Potassium 4.1 mmol/L (3.5-5.1); Sodium 144 mmol/L (136-145); TSH (W/Ref FT4) 7.81 uIU/mL (0.36-3.74); Total Protein 7.8 g/dL (6.4-8.2)
[2025-02-21 12:36] LABS: INR 1.1 (0.9-1.1); PTT Activated 26.1 sec (20.6-30.2); Prothrombin Time 10.8 sec (9.1-11.1)
[2025-02-21 12:55] LABS: FREE T4 0.78 ng/dL (0.76-1.46)
== END 2025-02-21 02:23 | disposition home or self-care (01) ==
LOC: LOS 02:22
PROVIDERS: PCP Nurse Practitioner Family; Visit Provider Student in an Organized Health Care Education/Training Program
DX: M19.012 Primary osteoarthritis, left shoulder (principal); K51.40 Inflammatory polyps of colon without complications; D64.9 Anemia, unspecified; E03.9 Hypothyroidism, unspecified
CPT/HCPCS: 36415; 80053; 85027; 84439; 84443; 85610; 85730

== ENCOUNTER 2025-03-01 09:08 | Outpatient (CLI) | payer MEDICARE, OTHER, SELFPAY ==
--- NOTE | 2025-03-01 09:00 | DI.RAD_ITS ---
Exam(s) XR HIP RT COMPLETE AP PELVIS EXAM: XR HIP RT COMPLETE AP PELVIS CLINICAL HISTORY: right hip pain. TECHNIQUE: 2D digital imaging was performed. Two views COMPARISON: CR XR HIP RT COMPLETE AP PELVIS from 02/08/2025 FINDINGS: BONES: No acute fracture is present. No bony destructive lesion is seen. JOINTS: Stable appearance of hardware in the left hip. Moderate narrowing of the right hip joint spa ce which appears have increased when compared with the previous exam. mild periarticular spurring. SOFT TISSUE: Normal. IMPRESSION: Some interval worsening of joint space narrowing of right hip. DATA REPOSITORY: RADIATION DOSE DELIVERED:
== END 2025-03-01 09:09 | disposition home or self-care (01) ==
LOC: DIORS 09:08
PROVIDERS: PCP Nurse Practitioner Family; Referring Provider Nurse Practitioner Family; Visit Provider Physician Assistant
DX: M16.11 Unilateral primary osteoarthritis, right hip (principal)
CPT/HCPCS: 99214; 73502

== ENCOUNTER 2025-03-21 10:47 | Outpatient (CLI) | payer MEDICARE, OTHER, SELFPAY ==
--- NOTE | 2025-03-21 10:45 | RT.EKG_ITS ---
APPROVED REPORT Exam: Resting ECG Reason for Exam: preoperative Patient Location: O HR:79 bpm ECG Measurements Heart Rate 79 AXIS SD 162 P 39 QRSd 98 QRS -43 QT 404 T 58 QTc 464 Conclusion Sinus rhythm...normal P axis, V-rate 50- 99 Left anterior fascicular block...axis(240,-40), init forces inf
== END 2025-03-21 10:48 | disposition home or self-care (01) ==
LOC: DI.CM 10:49
PROVIDERS: PCP Nurse Practitioner Family; Visit Provider Nurse Practitioner Family
DX: Z01.818 Encounter for other preprocedural examination (principal); I44.4 Left anterior fascicular block
CPT/HCPCS: 93010

== ENCOUNTER 2025-03-27 08:42 | Outpatient (CLI) | payer MEDICARE, OTHER, SELFPAY ==
--- NOTE | 2025-03-27 08:30 | DI.MRI_ITS ---
Exam(s) MR LOWER JOINT RT WO EXAM: MR LOWER JOINT RT WO CLINICAL HISTORY: pain, OA of rt hip, primary unilateral OA, Rt hip, M16.11 TECHNIQUE: Multiplanar multisequence MRI of the hip was performed. COMPARISON: CR XR HIP RT COMPLETE AP PELVIS from 03/01/2025 FINDINGS: There is a left hip prosthesis. There is no abnormal marrow signal in the left hemipelvis. RIGHT HIP: MARROW:There is extensive marrow edema signal abnormality in the right femoral head and neck and inte r-subtrochanteric region as well as in the superior aspect of the acetabulum. This signal abnormality is not typical of avascular necrosis and is significantly more extensive than seen with typical oste oarthritis. There is also some signal abnormality/edema in the surrounding musculature. EFFUSION: There is a small hip joint effusion and synovial thickening or focal debris is evident with in the hip joint space anterior to the femoral neck. BURSAE: There is no evidence of trochanteric bursitis. There is no evidence of iliopsoas bursitis. HIP JOINT SPACE: There is mild uniform thinning of the articular cartilage of the hip joint. There ar e no degenerative subarticular cysts. Small osteophytes are seen at the femoral head level. As descri bed above, there is either focal side no VL thickening or focal debris anterior to the femoral neck. LABRUM: There is no evidence of obvious labral tear nor evidence of paralabral cyst. TENDONS: No evidence of tendinitis nor tendon tears. ISCHIAL TUBEROSITY/HAMSTRING: There is no abnormal intraosseous signal in the ipsilateral ischial tub erosity nor tear of the common hamstrings tendon attachment site at this level. OTHER: There is some abnormal signal evident with in the musculature adjacent to-just lateral to the subtrochanteric region of the hip, namely the superior aspect of the vastus lateralis muscle. There i s also some edema evident more medially in the quadratus femoris muscle. There are no definable fluid collections in the tissues surrounding the hip joint. There is no ipsilateral inguinal adenopathy. Incidentally noted is a small Hutch diverticulum in the right-side of the urinary bladder and diffuse bladder wall thickening. IMPRESSION: 1. Very abnormal right hip MRI findings, significantly more so than expected with typical osteoarthri tis. Although there are findings of osteoarthritis of the right hip here, the other more extensive findings in the hip joint and adjacent tissues described above bring to mind the significant possibility of septic arthritis/osteomyelitis. Subtle trabecular fractures also incl uded in the differential. Other possible marrow infiltrative processes are also to be considered. 2. Correlation with past medical and surgical history recommended. I note this patient has a prosthes is in the opposite-left hip. 3. Incidentally noted is diffuse thickening of the urinary bladder wall probably related to chronic c ystitis and there is also a small right-sided urinary bladder diverticulum. Findings discussed with the ordering orthopedic surgeon following completion of this study on 025. DATA REPOSITORY:
--- NOTE | 2025-03-27 18:35 | DI.VRAD_ITS ---
PROCEDURE INFORMATION: Exam: MR Right Lower Extremity Joint Without Contrast; Hip Exam date and time: 03/27/2025 1:48 PM Age: 79 years old Clinical indication: Other: RT hip pain TECHNIQUE: Imaging protocol: Magnetic resonance imaging of the right lower extremity joint without contrast. Exam focused on the hip. Total images: 538 COMPARISON: CT RENAL COLIC WO 08/06/2022 8:53 AM FINDINGS: Bones/joints: Left hip arthroplasty. Large amount of heterogeneous T1 hypointensity/T2 STIR hyperintensity involving the proximal right femur including the femoral head, neck and proximal shaft. Mild complex right hip effusion containing 3 x 1.2 cm T1/T2 intermediate signal debris versus focus of synovial thickening. Similar abnormal bony signal involving the superomedial aspect right acetabulum. Mild right hip articular cartilaginous thinning. Associated edema involving proximal femoral periosteum/periostitis. Labrum: No definite tear. Soft tissues: Soft tissue edema surrounding the proximal right femur without discrete mass. Lymph nodes: No pelvic adenopathy. Bowel: Sigmoid diverticulosis. Bladder: Small right-sided bladder diverticulum. Mild diffuse bladder wall thickening with small trabecula. IMPRESSION: 1. Markedly abnormal MRI right hip findings especially given the nonacute nature of patient's symptoms. Differential includes infection, osteomyelitis with septic arthritis. Trabecular/intramedullary fracturing not excluded. Findings appear atypical for AVN, PVNS or transient osteoporosis. An insidious infiltrative process theoretic possibility. 2. Findings discussed with Dr. Fernandez who noted he will likely perform a joint aspiration. 3. Possible cystitis. Dictated and Authenticated by: Newton Alford MD. Orderin Autumn Esqueda MD
== END 2025-03-27 09:02 ==
LOC: DI 08:43
PROVIDERS: PCP Nurse Practitioner Family; Visit Provider Student in an Organized Health Care Education/Training Program
DX: M16.11 Unilateral primary osteoarthritis, right hip (principal)
CPT/HCPCS: 73721

== ENCOUNTER 2025-03-28 15:26 | Outpatient (CLI) | payer MEDICARE, OTHER, SELFPAY ==
--- NOTE | 2025-03-28 15:43 | DI.RAD_ITS ---
Exam(s) XR HIP RT COMPLETE AP PELVIS EXAM: XR HIP RT COMPLETE AP PELVIS CLINICAL HISTORY: RIGHT HIP PAIN. TECHNIQUE: 2D digital imaging was performed. COMPARISON: CR XR HIP RT COMPLETE AP PELVIS from 03/01/2025 MRI scan of 03/27/2025. FINDINGS: Two views There is no evidence of right hip fracture nor dislocation. There are moderate atherosclerotic degen erative changes in the right hip joint which appear unchanged from 03/01/2025. No radiographic evide nce of osteomyelitis. Prosthesis and other hardware again noted on the opposite-left side. IMPRESSION: Minimal if any significant radiographic change in the appearance of the right hip when compared to pr ior images of 03/01/2025. No obvious radiographic evidence of osteomyelitis in the right hip, given the appearance of the right hip on MRI performed yesterday.. DATA REPOSITORY: RADIATION DOSE DELIVERED:
== END 2025-03-28 15:27 | disposition home or self-care (01) ==
LOC: DIORS 15:27
PROVIDERS: PCP Nurse Practitioner Family; Referring Provider Nurse Practitioner Family; Visit Provider Student in an Organized Health Care Education/Training Program
DX: M16.11 Unilateral primary osteoarthritis, right hip (principal)
CPT/HCPCS: 99214; 20611; 73502

== ENCOUNTER 2025-03-28 18:16 | Outpatient (REF) | payer MEDICARE, OTHER, SELFPAY ==
--- NOTE | 2025-03-28 15:45 | PAPNONF_PTH ---
PATIENT: Tasia Ott LOC: [facility] U#:[id number] AGE/SX: 79/F ROOM: RE03/28/[address]: Dheeraj Leyva MD : 1945 BED: DIS: 03/28/2025 SPEC #: [id number] RECD: 03/28/25 18:39 STATUS: JJ REQ #: [id number] MIRLANDE: 03/28/25 15:[address]: Dheeraj Leyva DEPT: [facility] RECD BY: Aretha Swenson ENTERED: 03/28/25 18:39 SP TYPE: FIDENCIO SCOTT DR: Lennox Royal, [facility] Tissues: 1 - BODY FLUID CYTO(NOT S/U/N/EM)[facility] Procedures: BODY FLUID CYTO(NOT SPU/UR/NIP/ENDOM)[facility] Comments: [id number] (TV = 1 cc, SENT FRESH) (REFRIGERATED)
[2025-03-28 16:58] LABS: Source Synovial
[2025-03-28 16:59] LABS: Clarity Clear
[2025-03-28 17:00] LABS: Nucleated Cells 414 uL (0)
[2025-03-28 17:15] LABS: Mononuclear Cells 78 %; Polynuclear Cells 22 %
[2025-03-28 17:46] LABS: Abs Immature Grans 0.02 10^3/uL (0.0-0.06); Absolute Basophil Count 0.05 10^3/uL (0.0-0.2); Absolute Lymphocyte Count 1.73 10^3/uL (1.2-3.4); Absolute Monocyte Count 0.65 10^3/uL (0.1-0.8); Absolute Neutrophil Count 3.58 10^3/uL (1.2-6.7); Basophils % 0.8 %; Eosinophils % 4.7 %; HCT 35.2 % (36.0-46.0); HGB 11.2 g/dL (11.2-15.7); Immature Grans % 0.3 %; Lymphocytes % 27.3 %; MCH 30.4 pg (27.0-33.0); MCHC 31.8 % (32.0-36.0); MCV 96 fL (80-95); MPV 10.2 fL (8.0-11.0); Monocytes % 10.3 %; Neutrophils % 56.6 %; Platelet Count 323 10^3/uL (130-400); RBC 3.68 10^6/uL (3.93-5.22); RDW 15.3 % (11.7-14.6); RDW-SD 54.4 fL; WBC 6.33 10^3/uL (4.4-10.8)
[2025-03-28 17:49] LABS: ESR 45 mm/hr (0-30)
[2025-03-28 18:10] LABS: ALT 20 U/L (14-59); AST 18 U/L (15-37); Albumin 2.7 g/dL (3.4-5.0); Alkaline Phosphatase 124 U/L (46-116); Anion Gap 6.6 mmol/L (3-11); BUN 16 mg/dL (7-18); Bilirubin, Total 0.3 mg/dL (0.2-1.0); C-Reactive Protein 1.58 mg/dL (<or=0.5); CO2 29.4 mmol/L (21.0-32.0); CREATININE 1.2 mg/dL (0.55-1.02); Calcium 9.2 mg/dL (8.5-10.1); Chloride 108 mmol/L (98-107); Estimated GFR 46.33 (mL/min/1.73m2); Glucose 99 mg/dL (74-106); LDH 152 U/L (81-234); Potassium 4.1 mmol/L (3.5-5.1); Sodium 144 mmol/L (136-145)
== END 2025-03-28 18:17 | disposition home or self-care (01) ==
LOC: LBN 18:16
PROVIDERS: PCP Nurse Practitioner Family; Visit Provider Student in an Organized Health Care Education/Training Program
DX: M00.9 Pyogenic arthritis, unspecified (principal); D76.3 Other histiocytosis syndromes
CPT/HCPCS: 80053; 85652; 83615; 85025; 86140; 88104; 89051

== ENCOUNTER 2025-04-05 10:49 | Inpatient (IN) | payer MEDICARE, OTHER, SELFPAY ==
[2025-04-05] VITALS (33 sets, daily range): BP systolic 105–168; BP diastolic 53–90; PULSE 69–82; RESP 11–20; TEMP 36.4–37.1; O2SAT 87–99; BMI 31.5
--- NOTE | 2025-04-05 08:30 | ANES.PREOP_ITS ---
General Info Date of Service Date Performed: 04/05/25 Height: 5 ft 3 in Weight: 80.739 kg Body Mass Index (BMI): 31.5 Surgical Procedure: Operation Date: 04/05/25 12:20 Proposed Procedure Side Surgeon p Hip Total Hip Anterior, Cemented Femur Right Dheeraj Leyva MD Actual Procedure Side Surgeon p Hip Total Hip Anterior, Cemented Femur Right Dheeraj Leyva MD Pre-Op Diagnosis Post-Op Diagnosis Osteoarthritis of right hip Meds Allergies and Home Medications Allergies Allergy/AdvReac Type Severity Reaction Status Date / Time Sulfa (Sulfonamide Allergy Hives Verified 04/05/25 10:54 Antibiotics) Home Medication ?Medication ?Instructions ?Recorded cholecalciferol (vitamin D3) 125 125 mcg PO DAILY 06/25/21 mcg (5,000 unit) capsule krill oil 500 mg capsule 500 mg PO DAILY 06/25/21 fluticasone propionate 50 1 spray intranasal BID PRN nasal 08/12/22 mcg/actuation nasal congestion #16 grams spray,suspension albuterol sulfate 90 mcg/actuation 2 puff inhalation Q6H PRN 09/08/22 aerosol inhaler shortness of breath or wheezing #6.7 grams hydroxyzine HCl 10 mg tablet 10 mg PO DAILY PRN anxiety #60 tabs 01/07/23 denosumab 60 mg/mL subcutaneous 60 mg subcut [id number] To be 04/05/24 syringe (Prolia) administered at infusion center #1 mL letrozole 2.5 mg tablet 2.5 mg PO DAILY 07/04/24 cetirizine 5 mg tablet (Allergy 5 mg PO DAILY PRN allergy symptoms 07/30/24 Relief (cetirizine)) #90 tabs diclofenac sodium 1 % topical gel See Rx Instructions .Route 11/27/24 .COMPLEX #100 grams ipratropium bromide 42 mcg (0.06 2 spray intranasal TID-QID PRN 11/27/24 %) nasal spray allergy symptoms #15 mL metronidazole 1 % topical gel 1 applic topical QHS #60 grams 11/27/24 (Metrogel) duloxetine 60 mg capsule,delayed 60 mg PO DAILY #90 caps 02/21/25 release bupropion HCl 100 mg tablet,12 hr 100 mg PO BID #180 tabs 03/01/25 sustained-release pantoprazole 40 mg tablet,delayed 40 mg PO DAILY #90 tabs 03/01/25 release (Protonix) pregabalin 200 mg capsule 200 mg PO BID #180 caps 03/01/25 tramadol 50 mg tablet 50 mg PO BID PRN pain #60 tabs 03/27/25 levothyroxine 88 mcg tablet 88 mcg PO HS 04/03/25 rosuvastatin 10 mg tablet 10 mg PO HS 04/03/25 alprazolam 0.5 mg tablet 0.5 mg PO DAILY PRN anxiety #10 04/04/25 tabs Current Visit Medications: Current Medications Generic Name Dose Route Start Last Admin Trade Name Freq PRN Reason Stop Dose Admin Acetaminophen 1,000 mg 04/05/25 06:00 Acetaminophen 500 Mg Tab PO 04/05/25 23:59 PREOP ROSE Celecoxib 400 mg 04/05/25 06:00 Celecoxib 200 Mg Cap PO 04/05/25 23:59 PREOP ROSE Ringer's Solution 1,000 mls @ 80 mls/hr 04/05/25 06:00 IV 04/05/25 23:59 INFUSION ROSE Cefazolin Sodium/Dextrose 2 gm in 50 mls @ 100 mls/hr 04/05/25 06:00 Ancef Duplex IVPB 04/05/25 23:59 PREOP ROSE Tranexamic Acid/Sodium Chloride 1,000 mg in 100 mls @ 600 mls/hr 04/05/25 06:00 IVPB 04/05/25 23:59 PREOP ROSE IV Miscellaneous Supplies 1 each 04/05/25 06:00 Iv Access IV 04/05/25 23:59 DIRECTED ROSE Sodium Chloride 0 ml 04/05/25 06:00 Normal Saline Flush 10 Ml Syr IV 04/05/25 23:59 PRN PRN Sodium Chloride 0 ml 04/05/25 06:00 Normal Saline 10 Ml Vial IJ 04/05/25 23:59 DIRECTED PRN Sterile Water 0 ml 04/05/25 06:00 Water,Injection,Sterile 10 Ml Vial IJ 04/05/25 23:59 DIRECTED PRN PFSH Active Problems Active Problems: Problem Status Onset Code Osteoarthritis of right hip Chronic M16.11 Dysphagia Acute R13.10 COPD exacerbation Acute J44.1 Peripheral neuropathy Acute G62.9 Invasive ductal carcinoma of breast Acute C50.919 Abnormal mammogram of right breast Acute R92.8 Allergic rhinitis Acute J30.9 Rosacea Acute L71.9 Recurrent urinary tract infection Acute N39.0 Cough Acute R05.9 Osteoporosis Chronic M81.0 Arthritis of right shoulder region Acute M19.011 Arthritis of left shoulder region Acute M19.012 Chronic anemia Acute D64.9 Chronic kidney disease, stage 3 Acute N18.30 Bilateral lower extremity edema Acute R60.0 Family history of colon cancer Acute Z80.0 Vitamin D deficiency Acute E55.9 Osteoarthritis of hips, bilateral Acute M16.0 DDD (degenerative disc disease), lumbar Acute M51.36 Polyneuropathy in diabetes Acute E11.42 Stricture of female urethra Acute N35.92 Diabetes Chronic E11.9 Hiatal hernia Chronic K44.9 Arthralgia Acute M25.50 COPD (chronic obstructive pulmonary disease) Chronic J44.9 Hyperlipidemia Acute E78.5 Hypothyroidism (acquired) Acute E03.9 GERD (gastroesophageal reflux disease) Chronic K21.9 Depression with anxiety Acute F41.8 Medical History Medical History (Updated 04/03/25 @ 13:13 by Jennifer Zaldivar RN) Breast cancer right Pyelonephritis of right kidney Right flank pain Screening for colon cancer (~07/02/22) Anxiety Congestion of right ear Left shoulder pain Immunization due Immunization counseling Morbid obesity Dyslipidemia History of fracture of hand left Impacted cerumen of left ear Sepsis due to pneumonia Surgical History Surgical History (Updated 04/03/25 @ 13:12 by Jennifer Zaldivar RN) History of mastectomy Bilat History of endoscopy History of shoulder surgery left History of colonoscopy with polypectomy (~07/02/22) hyperplstic, PRN colonoscopy Hx of fusion of cervical spine stenosis- C5-7 History of meatotomy of urethra S/P ORIF (open reduction internal fixation) fracture Left femur shaft S/P total knee arthroplasty Left History of total hip arthroplasty Left Status post appendectomy History of tonsillectomy and adenoidectomy Tobacco Smoking/Tobacco Use Status: Former Tobacco Use Passive smoking exposure: Yes Second hand exposure: Yes Alcohol Alcohol Intake: current Alcohol intake frequency: a few times a month Alcohol type: beer, wine and hard liquor Substance Use Substance use: Never Substance use type: does not use Vital Signs and Lab Results Vital Signs Most Recent Vital Signs in EMR: Temp Pulse Resp BP Pulse Ox 37.1 C 72 16 126/68 95 04/05/25 10:30 04/05/25 10:30 04/05/25 10:30 04/05/25 10:30 04/05/25 10:30 Lab Results Blood Type / Crossmatch: No Data to Display Complete Blood Count: White Blood Count 6.33 10^3/uL (4.4-10.8) 03/28/25 16:05 Red Blood Count 3.68 10^6/uL (3.93-5.22) L 03/28/25 16:05 Hemoglobin 11.2 g/dL (11.2-15.7) 03/28/25 16:05 Hematocrit 35.2 % (36.0-46.0) L 03/28/25 16:05 Platelet Count 323 10^3/uL (130-400) 03/28/25 16:05 Complete Metabolic Panel: Sodium 144 mmol/L (136-145) 03/28/25 16:05 Potassium 4.1 mmol/L (3.5-5.1) 03/28/25 16:05 Chloride 108 mmol/L (98-107) H 03/28/25 16:05 Carbon Dioxide 29.4 mmol/L (21.0-32.0) 03/28/25 16:05 BUN 16 mg/dL (7-18) 03/28/25 16:05 Creatinine 1.2 mg/dL (0.55-1.02) H 03/28/25 16:05 Est GFR (CKD-EPI 2020) 46.33 (mL/min/1.73m2) 03/28/25 16:05 Calcium 9.2 mg/dL (8.5-10.1) 03/28/25 16:05 Albumin 2.7 g/dL (3.4-5.0) L 03/28/25 16:05 Glucose 99 mg/dL (74-106) 03/28/25 16:05 C-Reactive Protein 1.58 mg/dL (<or=0.5) H 03/28/25 16:05 Liver Function Panel: Alanine Aminotransferase (ALT/SGPT) 20 U/L (14-59) 03/28/25 16: 05 Aspartate Amino Transf (AST/SGOT) 18 U/L (15-37) 03/28/25 16:05 Coagulation Panel: No Data to Display Cardiac Panel: No Data to Display Arterial Blood Gas: No Data to Display Venous Blood Gas: No Data to Display Pancreas Panel: No Data to Display Thyroid Panel: No Data to Display Infectious Disease: No Data to Display Blood Cultures: No Data to Display Toxicology Panel: No Data to Display Imaging and Studies Imaging and Studies Study information below may be from another EMR and interpreted by another provider. Please see original notes in EMR for more complete details. EKG Summary: DATE/TIME OF SERVICE: 02/26/221635 : 1945PERFORMING LOCATION: ER APPROVED REPORT Exam: Resting ECG Reason for Exam: nausea Patient Location: E HR:71 bpm ECG Measurements Heart Rate 71 AXIS HI 163 P 54 QRSd 106 QRS -35 QT 429 T62 QTc 467 Conclusion Sinus rhythm...normal P axis, V-rate 60- 99 Left axis deviation...QRS axis (-30,-90) Echocardiogram Summary: Date of Exam: 07/07/21Sex: F Admission Date: 07/03/21 : 1945 Age: 75 APPROVED REPORT EXAM: Comprehensive 2D, Doppler, and color-flow Echocardiogram Patient Location: In-Patient Room/Bed: [facility] Editor In Chief Newspaper: Deborah Ray RDCS (AE) Indications: CHF, COPD Other Information Study Quality: Adequate Conclusion Normal left ventricular wall thickness and chamber size. Estimated ejection fraction is 60%. Wall motion is normal Normal right ventricular size and systolic function Both atria are normal in size Trileaflet aortic valve with trace regurgitation Normal mitral valve with trace regurgitation Normal tricuspid valve with trace regurgitation Normal pulmonic valve with trace regurgitation Mildly dilated ascending aorta, 3.5 cm Anesthesia Assessment and Plan Anesthesia History Personal History: No History of Anesthesia Complications Family History: No Family History of Anesthesia Complications Exercise Tolerance Exercise Tolerance: Metabolic Equivalents>4 Cardiac & Pulmonary Exam Cardiac Exam: Normal S1/S2 Heart Sounds Pulmonary Exam: Clear Bilateral Breath Sounds Implantable Cardiac Device Does patient have a Pacemaker or an ICD?: No Airway Exam Known Difficult Airway: No Mallampati Class: 1 Mouth Opening: Normal (> 3cm) Thyromental Distance: Greater than 3 cm Neck Range of Motion: Full ROM Neck Circumference: Normal Teeth Condition: Normal Dentition ASA Classification ASA Score: ASA 3 Emergency Case?: No NPO Status NPO Status: NPO Clears >2 hours, Solids >8 hours Anesthesia Plan Resuscitation Status: Full Code Anesthesia Technique: General Anesthesia Airway Planned: Endotracheal Tube Monitors Used: Standard Monitors Preoperative Comments:: 79 yo female with sulfa allergy for NICK. Sig PMHx: COPD (albuterol, ipratropium. Breathing feels decent today, did use her albuterol today. Has a little bit of an audible expiratory wheeze with laughing - neb ordered), dysphagia (has been doing better since cutting her food better), GERD (pantoprazole, feels like she is well controlled, but she sleeps in a recliner (dur to her hip)), hiatal hernia, recurrent UTI, DM, hypothyroid (levothyroxine), depression/anxiety (alprazolam, bupropion, duloxetine). s/p c spine fusion C5-7. former smoker, occ EtOh. ECHO: LVEF 60%. trace regurg AR/MR/TR/HI. ECG: sinus, LAFB. Previous Anes: - colo, prop, natural airway, no issues. - breast surgry with prolonged wake up? per PCP note breast surgery during which she experienced a prolonged period of unconsciousness lasting 3 days postoperatively. She was administered medication during this time, the specifics of which she does not recall. She regained consciousness on the fourth day without any residual effects. She expresses anxiety regarding the upcoming anesthesia due to her previous experience. She states that she was awake, but very confused and disoriented, she has zero recollection of these event. Discussed risks/benefits of spinal vs general. She states that he back is sore and that she would prefer a general. We discussed her previous anesthesia issues in regards towards sig post op confusion/delirium and that we will do our best but cannot guarantee that it won't happen.
[2025-04-05] MEDS: Celecoxib 200 MG CAP 400 MG PO (11:03)
[2025-04-05] MEDS: Acetaminophen 500 MG TAB 1000 MG PO ×3 (11:03→21:50)
[2025-04-05] MEDS: Lactated Ringers 1,000 ML 80 ML IV (11:55)
[2025-04-05] MEDS: Albuterol 2.5 MG/3 ML INH SOLN VIAL UPD (12:10)
[2025-04-05] MEDS: ceFAZolin 2 GM/50 ML BAG IVPB (12:55)
[2025-04-05] MEDS: TRANEXAMIC ACID/SOD. CHL. 1,000 MG/100 ML BAG 600 MG IVPB (12:58)
--- NOTE | 2025-04-05 13:35 | BONE_PTH ---
PATIENT: Tasia Ott LOC: U#:[id number] AGE/SX: 79/F ROOM: 206 RE04/05/[address]: Dheeraj Leyva MD : 1945 BED: A DIS: 04/08/2025 SPEC #: [id number] RECD: 04/05/25 17:44 STATUS: JJ REQ #: [id number] MIRLANDE: 04/05/25 13:[address]: Dheeraj Leyva DEPT: Surgical Specimen RECD BY: Aretha Swenson ENTERED: 04/05/25 17:45 SP TYPE: Bone OTHR DR: Lennox Royal, [facility] Tissues: 1 - BONE BX/CURRETTE NOT PATH FRACTURE 2 - BONE BX/CURRETTE NOT PATH FRACTURE Procedures: GROSS AND MICRO LEVEL 5 GROSS AND MICRO LEVEL 3 DECALCIFICATION Comments: [id number]
--- NOTE | 2025-04-05 14:48 | DI.RAD_ITS ---
Exam(s) XR HIP RT IN OR EXAM: XR HIP RT IN OR CLINICAL HISTORY: Osteoarthritis of right hip. TECHNIQUE: 2D digital imaging was performed. COMPARISON: No exams were available for comparison FINDINGS: Fluoroscopy was provided intraoperatively during right hip arthroplasty. See procedure report for de tails. Total fluoroscopy time 37 seconds IMPRESSION: Radiation exposure index/cumulative dose:rico Tilley= 4.1785 mGy DATA REPOSITORY: RADIATION DOSE DELIVERED:
--- NOTE | 2025-04-05 14:56 | W.PM.OP ---
Operative Note Operative Note PRE-OP DIAGNOSIS: Right Hip Osteoarthritis/Osteonecrosis POST-OP DIAGNOSIS: same PROCEDURE: Right Anterior Total Hip Arthroplasty SURGEON: Dheeraj Leyva FORM PRESSER: [place] Crews ANESTHESIA TYPE: General LMA/ETT Refer to Anesthesia Record ESTIMATED BLOOD LOSS: 200 PATHOLOGY: none sent COMPLICATIONS: None Patient was transported to: PACU Patient's condition: stable Implants: 1. Depuy Marana Acetabular Component, 52mm 2. Depuy Acetabular Liner, [id number] 3. Depuy Cemented [place]otin Standard Collared Femoral Stem, Size 5 4. Depuy Altrx Ceramic Femoral Head, Size 36+5mm Indications: I have seen Tasia in clinic for symptoms of hip arthritis although atypical in nature with significant changes on the MRI, concerning for a more aggressive process, likely osteonecrosis. Tasia has exhausted nonoperative methods and was having significant limitations in daily function and desired better function and less pain. I discussed the technical details of a hip replacement. I explained the risks of the procedure to include, but not limited to, bleeding, infection, pain, stiffness, fracture, damage to nerves and vessels, damage to muscles and tendons, loosening, instability, leg length inequality, need for repeat procedure, blood clot and cardiopulmonary demise. Despite these risks, she elected to proceed. Findings: There was some soft tissue and bone debris within the joint against the femoral neck at his base. There is arthritic changes throughout the left hip more centrally about the femoral head and within the superior weightbearing portion of the acetabulum. There was some yellow marrow present within the proximal femoral canal but no other abnormal findings concerning for infection or malignancy. Procedure Description: Tasia was greeted in the preoperative holding area where the correct side was identified and marked. The consent was reviewed with the patient and signed. The history and physical was updated. All questions were answered. She was taken back to the operating room. A general anesthestic was then administered. The feet were wrapped with cast padding and Coban and then placed into the boot liners and then into the boots. Care was taken to protect the skin and make sure the heels were fully down and the boots were stable. The patient was then positioned onto the HANA table. Both legs were held in a neutral position. SCDs were applied. The patient was then slid down onto a peroneal post. Prophylactic antibiotics in the form of Cefazolin were administered. 1g of Tranxemic Acid was given intravenously within 30 minutes of incision. The right leg was then prepped with Chloraprep and draped in a standard fashion. A second prep with Chloraprep was performed prior to placement of a shower-curtain type drape with Iodine impregnated skin protection. A timeout to confirm correct identity, side and site, procedure, allergies, anesthesia, and medical concerns was performed. An obliquely oriented incision was made starting lateral to the ASIS and running distal over the Tensor Fascia Lena (TFL) muscle belly toward the fibular head, approximately 10cm. The skin and soft tissue was dissected sharply, through Brielle?s fascia, and to the fascia of the TFL. With the fascia and superior border of the IT band identified, the fascia was incised with a new knife just above any perforators from the IT band. The TFL muscle belly was bluntly dissected away from the fascia and moved laterally. The fat between TFL and rectus was identified to ensure the dissection was not within the TFL. Blunt dissection created space between abductors and the capsule and retractor was placed over the lateral femoral neck. The fibers of the rectus femoris tendon were identified and these were freed from the anterior capsule. A second cobra retractor was placed around the medial femoral neck. The TFL was further retracted laterally to show the deep fascia. Careful dissection through this layer identified three main crossing vessels of the lateral femoral circumflex. These were cauterized in multiple locations and then cut without any noticeable bleeding. The TFL was further released bluntly from the deep fascia to expose anterior hip capsule and fat The soft tissue orthopaedic retractor was then placed beneath the TFL and against sartorius and medial soft tissues to protect and retract the soft tissues. A T-capsulotomy was then performed starting at the superior lateral acetabulum and moving distally to the intertrochanteric ridge. These capsular flaps were tagged with a No. 1 Ethibond and elevated from within. The capsular flaps were released to the shoulder of the lateral neck and to the lesser trochanter to give excellent visualization of the proximal femur. There was some bony and soft tissue debris seen adjacent to the femoral neck distally but no other abnormal tissue was seen. No purulence. No other masses or lesions. A neck osteotomy was performed using an oscillating saw based on preoperative templates. This cut started in the shoulder and of the lateral neck and exited medially. The saw was at all times directed medially to avoid injury to the greater trochanter. Gross traction was applied to the leg and the osteotomy opened. The femoral head was removed with a corkscrew, making sure to protect the TFL on its exit. Traction was released after head removal. This was measured on the back table to determine the starting reamer size. The femoral head was sent to pathology. Portions of the rectus obscuring visualization were minimally elevated off the superior acetabulum. An anterior retractor was placed over the anterior wall between capsule and labrum and attached to the Gripper retraction system. The femur was rotated to 90 degrees and medial capsule was fully released until the lesser trochanter was palpable and visible; the femur was returned to 30 degrees. A posterior retractor was placed similarly between capsule and labrum. This provided excellent visualization. The contents of the cotyloid fossa were removed with electrocautery and the labrum was removed with a knife. There was a notable floor osteophyte. There was significant chondromalacia of the superior acetabulum. Acetabular reaming began with a 48mm reamer. This first reaming was directed anterior to posterior and medial to get down to the true floor. This was inspected and reamed until the true floor was reached. The anterior retractor was then released and entry and exit was provided by traction on the capsular flaps. I then reamed sequentially up to a 48mm reamer where good fit was obtained. The larger reamers were oriented based on anatomical reference of the anterior and lateral rahman to ensure proper abduction and anteversion. Positioning and size was confirmed with the fluoroscopy. A 52mm Depuy Marana acetabular component was selected. The acetabulum was reamed around the periphery with the selected acetabular size to prevent a rim fit. The deep tissues were irrigated. The acetabular component was then impacted in a position of about 40-45 degrees of abduction and 15-20 degrees of anteversion, using the patient?s anatomy as the ultimate landmark. Fluoroscopy was used to confirm this. There was excellent customs and border protection inspector of the acetabular component and the inserting handle was removed. The acetabular liner, Depuy [id number] polyethylene liner, was inserted and lined up with the tines of the acetabular component. There was no soft tissue interposition. The liner was then impacted into position and confirmed to be well-seated. A portion of the gina-articular cocktail was then injected around the acetabulum into the capsule and periosteum. This cocktail consisted of 50cc of ropivacaine, epinephrine, clonidine, and ketorolac. The leg was rotated to 120 degrees. Any remaining medial capsule was released until the lesser trochanter was easily palpable. A retractor was placed medially. The lateral capsule was further released into the shoulder to allow access to the greater trochanter. A Reyes retractor was placed over the greater trochanter which allowed the trochanter to flip in front of the capsule for excellent exposure. The leg was brought down into maximal extension and 20 degrees of adduction while ensuring there was no impingement on the acetabulum. Any remnant capsule within the trochanter was released. Piriformis and obturator externis were identified and protected. There was excellent access to the proximal femur. The lateral neck remnant was removed with a rongeur. A blunt canal probe was used to identify the canal and trajectory for later broaching. Samples of bone from the proximal femoral canal were also taken and sent to pathology given the findings on the MRI preoperatively. A box osteotome initiated the broach course. A small curved rasp and a curved curette were used to work laterally. Broaching then began with a size 0 Asotin broach. This was inserted manually around the trochanter and into the canal before mallet blows. The broach was seated to a few millimeters below the cut level based on the neck cut and the preoperative template. Sequential broaching was continued until a reasonable fit was obtained with some rotational control of the femur in line with preoperative planning. A trial standard neck was inserted along with a +1.5 trial head. The leg was brought out of extension and adduction and then reduced with traction and internal rotation. The leg was stable anteriorly in a position of 30 degrees of extension and 90 degrees of external rotation. Fluoroscopy was used to ensure there was no fracture and the stem was seated well. Leg lengths were checked with an AP pelvis and pelvic reference points. StuffBuff navigation system was used to confirm appropriate positioning and leg length and offset. The stem was advanced 2 to 3 mm and a +5 mm head was utilized. Once content with the desired offset and leg lengths, the leg was brought back into extension, external rotation and adduction. The periosteum and surrounding tissue was injected with remaining portion of the gina-articular cocktail. The proximal femur and the femoral canal was irrigated as well as the deep tissues. On the back table, 2 batches of medium viscosity cement were prepared under vacuum into a cement gun. A cement restrictor was placed. The canal was dried with suction and then the cement was placed. Starting distal to proximal the cement was injected into the femoral canal allowing the cement to push the tip out. The proximal aspect of the femur was manually pressurized. Then, the Depuy Asotin standard collared stem, size 5, was then manually inserted into the proximal femur making sure to control rotation as planned. It was held with the medical or surgical instrument maker in the appropriate position, avoiding any varus. Excess cement was removed from around the stem collar. This was give 18 minutes to set up and it was manually inspected to confirm. Then, the selected Depuy Altrx Ceramic Head, size 36+5mm, was then placed onto the clean and dry trunnion and secured with impaction onto the tapered fit. The leg was brought back out of extension and adduction and reduced with traction and internal rotation. Stability was confirmed with no shuck at 90 degrees of external rotation and 30 degrees of extension. No impingement through range of motion arc. Final x-ray images were obtained with fluoroscopy to confirm adequate positioning and no intraoperative fracture. The deep tissues were thoroughly irrigated with Irrisept chlorhexadine solution. The capsule was then reapproximated with the previously placed Ethibond sutures. The TFL fascia was finally closed with a No. 2 Stratafix, barbed suture. Deep tissues were then reapproximated with 0 Vicryl and a running 2-0 Vicryl. The skin was closed with a running 4-0 Monocryl in a subcuticular fashion. This was reinforced with skin glue. A Mepilex silver dressing was applied. At the end of the case, all counts were correct. Tasia was transferred to the hospital bed without difficulty and suffering no apparent complication. Tasia has a good prognosis. Physical therapy will start today and without restrictions, weight-bearing as tolerated. Aspirin 81mg BID will be used for DVT prophylaxis. Date of Procedure: 04/05/25
[2025-04-05] MEDS: fentaNYL 100 MCG/2 ML VIAL IVP ×2 (15:29→15:38)
--- NOTE | 2025-04-05 15:29 | W.ANESPOSTOP ---
Postoperative Evaluation Date, Time and Location Date Performed: 04/05/25 Time Performed: 15:29 Patient Location: PACU Vital Signs Most Recent Imported Vital Signs: Most Recent Vital Signs Temp Pulse Resp BP Pulse Ox 36.5 C 72 16 126/68 95 04/05/25 15:11 04/05/25 10:30 04/05/25 10:30 04/05/25 10:30 04/05/25 10:30 Pain Score Most Recent Pain Score: Most Recent Pain Score Pain Level 0 04/05/25 15:11 Assessment Mental Status: Arousable with meaningful communication Airway and Respiratory Function: Patent airway with normal (patient baseline) respiratory exam Cardiovascular Function: Hemodynamically Stable Hydration Status: Adequately Hydrated Nausea & Vomiting: No Nausea or Vomiting Pain: Pain is Moderate or Severe Postoperative Pain Management: Pain being addressed with medication Peripheral Nerve Block: Patient did not receive a nerve block
[2025-04-05] MEDS: HYDROmorphone 2 MG/ML SYR IVP (16:00)
[2025-04-05] MEDS: Normal Saline 10 ML VIAL IJ (16:00)
--- NOTE | 2025-04-05 16:10 | NT_ITS ---
PT Notes Patient was still in PACU as of 15:53 PM. reactor fueling supervisor PT to provided needed PT evaluation tomorrow morning, as ordered.
--- NOTE | 2025-04-05 16:10 | PT.INNT ---
PT Notes Patient was still in PACU as of 15:53 PM. bingo caller PT to provided needed PT evaluation tomorrow morning, as ordered.
[2025-04-05] MEDS: ceFAZolin 1 GM/50 ML BAG IVPB (17:29)
[2025-04-05] MEDS: Rosuvastatin 10 MG TAB PO (21:47)
[2025-04-05] MEDS: buPROPion-CR 100 MG TABCR PO (21:47)
[2025-04-05] MEDS: Aspirin E.C. 81 MG TABEC PO (21:47)
[2025-04-06] MEDS: ceFAZolin 1 GM/50 ML BAG IVPB ×2 (00:37→08:22)
[2025-04-06] MEDS: oxyCODONE 5 MG TAB PO ×3 (04:51→19:45)
[2025-04-06] MEDS: Levothyroxine 88 MCG TAB PO (05:57)
[2025-04-06 07:01] VITALS: BP 100/52; PULSE 64; RESP 16; TEMP 36.8; O2SAT 94
[2025-04-06 07:04] LABS: HGB 9.8 g/dL (11.2-15.7); MCH 31.4 pg (27.0-33.0); MCHC 32.7 % (32.0-36.0); MCV 96 fL (80-95); Platelet Count 348 10^3/uL (130-400); RBC 3.12 10^6/uL (3.93-5.22); RDW 15.3 % (11.7-14.6); RDW-SD 53.9 fL; WBC 13.02 10^3/uL (4.4-10.8)
[2025-04-06 07:16] LABS: BUN 21 mg/dL (7-18); CREATININE 1.3 mg/dL (0.55-1.02); Calcium 8.8 mg/dL (8.5-10.1); Chloride 106 mmol/L (98-107); Estimated GFR 42.09 (mL/min/1.73m2); Glucose 123 mg/dL (74-106); Potassium 4.2 mmol/L (3.5-5.1); Sodium 142 mmol/L (136-145)
[2025-04-06] MEDS: DULoxetine 30 MG CAP 60 MG PO (08:19)
[2025-04-06] MEDS: Celecoxib 200 MG CAP PO (08:20)
[2025-04-06] MEDS: buPROPion-CR 100 MG TABCR PO ×2 (08:20→19:46)
[2025-04-06] MEDS: Aspirin E.C. 81 MG TABEC PO ×2 (08:20→19:45)
[2025-04-06] MEDS: Pantoprazole 40 MG TABCR PO (08:21)
[2025-04-06] MEDS: Dexamethasone 4 MG TAB PO (08:21)
[2025-04-06] MEDS: Normal Saline Flush 10 ML SYR IVP ×3 (08:25→19:46)
--- NOTE | 2025-04-06 09:23 | PT.INIE ---
PT Notes Inpatient Physical Therapy Evaluation Date: 04/06/25 Referring Doctor: Dr. Leyva PT Orders: PT CONSULT: s/p right NICK Precautions: WBAT, standard Patient Profile/Admitting Diagnosis: Tasia is a 79 year old female seen in acute care setting for PT consult following right NICK to address OA and osteonecrosis. She has a history of left NICK approx 10 years ago, as well as chronic right shoulder pain and DM with peripheral neuropathy. Social History/Home Situation: Tasia lives alone in a single level home with 3STE (bilat rails). Sleeps in power recliner at baseline due to shoulder pain. Normally ambulates with cane, although also has 4WW at home. Plans to have someone checking in with her daily upon return home. Equipment Owned/DME: cane, 4WW Subjective: Tasia is with nursing upon initial contact this morning. She reports 10/10 pain in right lateral hip. She is agreeable to getting up, stating she thinks she'll feel better when she moves. Objective: General Observation: Resting in bed with IV in LUE. No additional lines. Mental Status: A&Ox3. Does require cues for sequencing and technique throughout, with need for frequent reminders. Pleasant and cooperative throughout. Pain: 10/10 initially; 9/10 post-ambulation ROM: Right Upper Extremity: Approx 130* flexion. Otherwise WFL. Left Upper Extremity: Restricted in all planes of motion, but able to demonstrate good functional use for dressing/toileting with arms below shoulder height. Right Lower Extremity: Functionally demonstrates hip flexion to 80*, ER to 30*, AB to 20*. Left Lower Extremity: WFL Strength: Right Lower Extremity: Able to perform heel slide independently. Hip AB/AD 2/5 for bed mobility (not assessed against gravity). Ankle DF 3/5 or greater. Left Lower Extremity: Demonstrates 3/5 or greater hip flexion, knee extension, ankle DF. Bed Mobility/Transfers: supine-sit: supervision and cues for technique sit-stand: min A on first attempt, then CGA for additional attempts stand-sit: CGA Gait: Ambulates 4'x1, 30'x1 with FWW and CGA. Initially demonstrates initial contact with forefoot bilaterally; she's able to correct with cues but requires frequent reminders. Demonstrates slow gait pattern with lengthened stride length bilaterally, again requiring cues to avoid prolonged weight bearing to RLE. ADLs: Able to perform self-care with CGA only; able to independently manage brief during toileting, and stand unsupported to do so without LOB. Balance: Static Sitting: normal Dynamic Sitting: good Static Standing: good Dynamic Standing: fair Special Tests: Mobility Limitations Standardized Measure [facility] AM-PAC 6 clicks Basic Mobility Inpatient Short Form: Raw Score: [19 Standardized Score: 45.44 CMS Score: 42% impairment Informed Consent/Education: Patient instructed in purpose of PT consult and plan of care. Treatment: Initial evaluation (32919) Therapeutic exercises (93859 x 1): Patient was instructed in phase 1 exercises for NICK. Was able to complete 10 repetitions of each: Ankle pumps quad sets Glutes sets LAQ She was instructed in frequent positional change upon return home, with recommendation for brief walks with use of FWW every 30 minutes. Provided with cryotherapy to right hip posttreatment Gait training (66915 x 1): Instructed in appropriate technique for sit?stand transfers to reduce strain to right hip Instructed in appropriate sequencing and equipment management during ambulation. Patient requires frequent cues for foot placement and reducing time spent in single-leg stance. Assessment: Patient is a 79 year old female referred to physical therapy services with the diagnosis of right hip OA and osteonecrosis, now 1 day s/p NICK. Patient presents with clinical signs and symptoms consistent with postop status. She does have a 4 WW at home, although requires increased support with use of FWW during this postoperative phase. She was issued FWW today. She currently demonstrates the following impairment level findings: 1. Decreased right hip range of motion 2. Decreased right lower extremity strength 3. Gait impairments 4. Postoperative pain Impairments are contributing to the following functional limitations: 1. Gait impairments 2. Decreased activity tolerance 3. Postop pain 4. Requiring minor assistance for all mobility Patient is assessed as a Low 15860 complexity based on the following: History: As above. complicating factor of chronic pain, and limited support at home. Examination: As above Presentation: Stable Decision Making: Low complexity Goals: Goals X1 week 1. Supine-Sit : supervision 2. Sit-Supine : supervision 3. Sit-Stand : supervision 4. Stand-Sit : supervision 5. Bed-Chair : supervision with FWW 6. Chair-Bed: supervision with FWW 7. Gait : supervision with FWW x 50' 8. Stairs : supervision with bilat rails, 3 steps 9. Independent with home exercise program Plan of Care/Treatment Plan: 1-2x/day, 7 days/week x 1 week. Plan of care has been reviewed with the FREIGHT COORDINATOR providing the service under Physical Therapy direction. Initiate Physical Therapy intervention for strengthening, bed mobility, transfers, gait, stairs, balance training, use of assistive device. DISCHARGE RECOMMENDATIONS: Home with outpatient PT. Requires FWW for all ambulation. TREATMENT CODE/TIME: 06 29?07 20 (13058, 14280, 25201) Nhi Barakat, PT, DPT [facility] All Active Problems Osteoarthritis of right hip (Chronic) 80 mg Depomedrol injection: 02/08/25 Dysphagia (Acute) COPD exacerbation (Acute) Peripheral neuropathy (Acute) Invasive ductal carcinoma of breast (Acute) Abnormal mammogram of right breast (Acute) with maddie involvement Allergic rhinitis (Acute) Rosacea (Acute) Recurrent urinary tract infection (Acute) Cough (Acute) Osteoporosis (Chronic) 12/2021-DEXA scan at [facility] , -2.6t score at hip, prolia Arthritis of right shoulder region (Acute) Arthritis of left shoulder region (Acute) Chronic anemia (Acute) Chronic kidney disease, stage 3 (Acute) Bilateral lower extremity edema (Acute) Family history of colon cancer (Acute) Vitamin D deficiency (Acute) Osteoarthritis of hips, bilateral (Acute) DDD (degenerative disc disease), lumbar (Acute) Polyneuropathy in diabetes (Acute) Stricture of female urethra (Acute) Diabetes (Chronic) Hiatal hernia (Chronic) Arthralgia (Acute) COPD (chronic obstructive pulmonary disease) (Chronic) Hyperlipidemia (Acute) Hypothyroidism (acquired) (Acute) GERD (gastroesophageal reflux disease) (Chronic) Depression with anxiety (Acute) Medical History Breast cancer right Pyelonephritis of right kidney Right flank pain Screening for colon cancer (~07/02/22) Anxiety Congestion of right ear Left shoulder pain Immunization due Immunization counseling Morbid obesity Dyslipidemia History of fracture of hand left Impacted cerumen of left ear Sepsis due to pneumonia Surgical History History of mastectomy Bilat History of endoscopy History of shoulder surgery left History of colonoscopy with polypectomy (~07/02/22) hyperplstic, PRN colonoscopy Hx of fusion of cervical spine stenosis- C5-7 History of meatotomy of urethra S/P ORIF (open reduction internal fixation) fracture Left femur shaft S/P total knee arthroplasty Left History of total hip arthroplasty Left Status post appendectomy History of tonsillectomy and adenoidectomy
[2025-04-06 10:16] VITALS: BP 100/52; PULSE 66; RESP 16; TEMP 36.7; O2SAT 96
--- NOTE | 2025-04-06 12:49 | PHA.REVIEW2 ---
Pharmacy Admission Review Admission Clinical Review Admission Pharmacy Review: Sulfa (Sulfonamide Antibiotics) Allergy (Verified 04/05/25 10:54) Hives Resuscitation Status Full Code Height 5 ft 3 in Weight 79.8 kg Comments Comments/Follow Ups: POD #1 Right Anterior Total Hip Arthroplasty Pharmacy Admission Review Renal Dosing Renal Dosing: BUN 21 mg/dL (7-18) H 04/06/25 06:00 Creatinine 1.3 mg/dL (0.55-1.02) H 04/06/25 06:00 Medications needing adjustments: Reviewed (CrCl 35.62 mL/min) List of meds needing interventions: Current medications are okay Anticoagulation Anticoagulation: Hgb 9.8 g/dL (11.2-15.7) L 04/06/25 06:00 Hct 30.0 % (36.0-46.0) L 04/06/25 06:00 Plt Count 348 10^3/uL (130-400) 04/06/25 06:00 Creatinine 1.3 mg/dL (0.55-1.02) H 04/06/25 06:00 DVT Prophylaxis: Reviewed (SCDs/TEDs) Opiate Usage Evaluate Pain Scale/Pains Meds: Reviewed (hydromorphone 0.5mg IVP q2h PRN - no doses given, oxycodone PO q3h PRN - 10mg / 24hrs) Scheduled Bowel Reg ordered if on Opiates?: No (PRN docusate) Relevant Labs Relevant Labs: Sodium 142 mmol/L (136-145) 04/06/25 06:00 Potassium 4.2 mmol/L (3.5-5.1) 04/06/25 06:00 Chloride 106 mmol/L (98-107) 04/06/25 06:00 Electrolytes, C-Reactive P, ESR: Reviewed (WBC 13.02) Cardiac Review BP, HR, EF%: Reviewed (BP 100/52 and HR WNL) QTc Review QTc: Reviewed (464 from 03/21/25) IV to PO Switch IV Medications: Reviewed (hydromorphone and ondansetron) Home Meds Home Med List reviewed: Intervened Relevent Home Meds Not ordered & why?: alprazolam (PRN MRI), cetirizine (PRN), vitamin D3, Prolia ([id number]), diclofenac gel (PRN), letrozole, metronidazole gel, Lyrica and tramadol (PRN) Asked provider about letrozole and Lyrica. Per provider patient likely discharging home today so they did not put in the orders. Check again if patient not discharged. Current Meds Current Medication Order Review: Intervened Comments: Added 2nd PRN to hydroxyzine order per pharmacy protocol Added IV access order Comments Comments/Follow Ups: POD #1 Right Anterior Total Hip Arthroplasty
--- NOTE | 2025-04-06 13:19 | PT.INTREAT ---
PT Notes Inpatient Physical Therapy Treatment Note [facility] Date: 04/06/25 PRECAUTIONS: fall, standard SUBJECTIVE: Tasia states that she sat up to the chair most of the morning and is quite tired. Her pain is now down to a 3/10. OBJECTIVE: ? PAIN: 3/10 Therapeutic Activities (72744t1): Direct one-on-one instruction in dynamic activities to improve functional performance. ? BED MOBILITY/TRANSFERS? Supine-sit: supervision, with increased time to perform. During adjustment of pillows/linens, demonstrates right SLR with associated pain. Educated on modified bed mobility positions, utilizing heel slide vs SLR during repositioning, with improved comfort resulting. ? Sit-supine: supervision ? Sit-stand: performed 6 reps, with minor LOB on 2 of those reps. Requires min A for recovery, with associated stepping strategies. ? Stand-sit: CGA, cues for technique ? GAIT? Assistive Device: FWW? Weight bearing: WBAT Assist: CGA throughout ? Distance:? 60'x1, 20'x2 ? Deviation: demonstrates improved gait mechanics this afternoon, with shortened stride length and improved heel strike. ? STAIRS: Instructed in stair management. Tolerates 4 stairs 3x1, bilat rails, minimal cues and CGA. ? ASSESSMENT/PLAN: Improving mobility. Demonstrates balance impairments with transfers, and endorses baseline balance issues. Requires continued PT to maximize safety and independence, and will benefit from HH PT once medically cleared for discharge. TREATMENT CODE/TIME: 4564-594 ([id number]) DISCHARGE RECOMMENDATION: Home with HH PT
[2025-04-06 13:58] VITALS: BP 100/54; PULSE 79; RESP 16; TEMP 37.1; O2SAT 94
--- NOTE | 2025-04-06 15:10 | PDOC.CMIN ---
Date of service: 04/06/25 Time of Service: 12:00 Care Management Initial Assmt Initial Assessment Reason for Hospitalization: Right Anterior Total Hip Arthroplasty Functional Status/Living Situation Patient Presentation: Tasia underwent a right total hip yesterday afternoon. She has been suffering from hip pain for quite some time. Injections only worked minimally, and did not last f or long. MRI and her continued pain indicated her need for a total hip. She has previously had a left hip replacement. And she will also need to have a total shoulder arthroplasty. Tasia was sitting up in the bed when CM met with her today. She was very pleasant. She stated that she was having some pain, more at rest than when she had been working with PT. Tasia was pleased with how she did with PT. She did some stairs and was able to take some steps. Tasia stated that she lives in a trailer with 4 small steps, with railing, to get into the house. She feels that she will have plenty of help from her daughter, Faviola, and her many retired friends. She wants to return home with outpatient PT at [facility] in [place]. Town of Residence: [place] Resides with: Alone Significant Other/Family: Local (Daughter , Faviola, and her family live close, daughterBrenda, lives in [place]. 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) Instrumental Activities of Daily Living (ADLs): Independent Activities/Hobbies/SocialSupport: Keeps busy with friends and family Medications Medication Management: No Issues/Barriers identified Physical Functioning/Mobility Assistive Device: FWW Advance Directives Advance Directives: Do you have an Advance Directive: Y 11/02/21 14:27 AD On File at [facility]: Y 11/02/21 14:27 Date Asked 03/28/25 03/28/25 16:37 AD Date Reviewed 04/18/25 04/03/25 12:37 COLST On File at [facility] COLST Date Scanned Code Status Resuscitation Status Full Code Portal Pt does not currently have a portal and education provided: Yes Insurance Coverage/Financial Issues Insurance: Medicare Part A & B - [id number] Life MCR Supplement Care Team Visit Care Team Role Provider Type Lennox Byrne NP Primary Care Provider NURSE PRACTITIONER [facility] Other Providers OTHER Dheeraj Leyva MD Admit Provider MD [facility] STAFF PHYSICIAN Attending Provider Discharge Potential Discharge Needs: PCP F/U Appt and Other (ortho f/u) Anticipated Barriers to Discharge: None Identified Patient/Family Education Needs: Review discharge instructions, discuss Ask Me Three Transportation: Private vehicle Plan: Tasia will discharge home once medically stable with no new services. She will f/u with her PCP and ortho, as well as outpatient PT. Tasia will transport in a private vehicle. CM will continue to follow and update the plan as needed. Social Determinants of Health Screening Social Determinants of health last assessed in clinic: 04/06/25 Will the Patient Participate in the Screening?: Yes Do you worry about having a steady place to live?: yes What is your living situation today?: I have housing today, but am worried about losing it Problems where you live: no known problems In the past 12 months, have you had to go without electric, gas, oil or water in your home?: no 1. Within the past 12 months, we worried whether our food would run out before we got money to buy more.: Never true 2. Within the past 12 months, the food we bought just didn't last and we didn't have money to get more.: Never true Has lack of transportation kept you from medical appointments or from doing things needed for daily living?: no Has anyone in your life made you feel unsafe or unsupported?: no How hard is it for you to pay for the very basics like food, housing, medical care, and heating? Would you say it is:: Not hard at all Do you want help finding or keeping work or a job?: I do not need or want help If for any reason you need help with day-to-day activities such as bathing, preparing meals, shopping, managing finances, etc., do you get the help you need?: I could use a little more help How often do you feel lonely or isolated from those around you?: Never Do you speak a language other than Vietnamese at home?: No Does the patient want assistance with any of the above?: No Health Related Social Needs Health related social needs: housing instability, housed, with risk of homelessness (Z59.811) and problems with daily activities (Z73.9) Health related social needs details: pt will need HH and PT after s/p hip surgery- wants outpatient 04/06/25 [facility] All Active Problems Osteoarthritis of right hip (Chronic) 80 mg Depomedrol injection: 02/08/25 Dysphagia (Acute) COPD exacerbation (Acute) Peripheral neuropathy (Acute) Invasive ductal carcinoma of breast (Acute) Abnormal mammogram of right breast (Acute) with maddie involvement Allergic rhinitis (Acute) Rosacea (Acute) Recurrent urinary tract infection (Acute) Cough (Acute) Osteoporosis (Chronic) 12/2021-DEXA scan at [facility] , -2.6t score at hip, prolia Arthritis of right shoulder region (Acute) Arthritis of left shoulder region (Acute) Chronic anemia (Acute) Chronic kidney disease, stage 3 (Acute) Bilateral lower extremity edema (Acute) Family history of colon cancer (Acute) Vitamin D deficiency (Acute) Osteoarthritis of hips, bilateral (Acute) DDD (degenerative disc disease), lumbar (Acute) Polyneuropathy in diabetes (Acute) Stricture of female urethra (Acute) Diabetes (Chronic) Hiatal hernia (Chronic) Arthralgia (Acute) COPD (chronic obstructive pulmonary disease) (Chronic) Hyperlipidemia (Acute) Hypothyroidism (acquired) (Acute) GERD (gastroesophageal reflux disease) (Chronic) Depression with anxiety (Acute) Medical History Breast cancer right Pyelonephritis of right kidney Right flank pain Screening for colon cancer (~07/02/22) Anxiety Congestion of right ear Left shoulder pain Immunization due Immunization counseling Morbid obesity Dyslipidemia History of fracture of hand left Impacted cerumen of left ear Sepsis due to pneumonia Surgical History History of mastectomy Bilat History of endoscopy History of shoulder surgery left History of colonoscopy with polypectomy (~07/02/22) hyperplstic, PRN colonoscopy Hx of fusion of cervical spine stenosis- C5-7 History of meatotomy of urethra S/P ORIF (open reduction internal fixation) fracture Left femur shaft S/P total knee arthroplasty Left History of total hip arthroplasty Left Status post appendectomy History of tonsillectomy and adenoidectomy Family History Mother , 83 Colon cancer Depression Hyperlipidemia Hypertension Father , 68 Alcohol abuse Hypertension Substance abuse Brother , 77 FH: prostate cancer Daughter No problems noted. Daughter Depression Maternal Grandfather , 62 Prostate cancer Paternal Grandfather , 81 No problems noted. Maternal Grandmother , 77 Heart disease Paternal Grandmother , 59 Hypertension Social History Smoking/Tobacco Use Status: Former Tobacco Use tobacco type: cigarettes Quit Date: 10/31/81 Tobacco: How many years used: 20 Second Hand Exposure: Yes Smoking risk assessment performed?: Yes Alcohol Intake: current Alcohol Intake frequency: a few times a month Alcohol type: beer, wine and hard liquor Drug use: Never Substance use type: does not use Household members: spouse and family Housing: apartment Communication Needs: None Do you need help understanding health information?: Always Pets and animals: Yes Pets and animals: cat(s) and dog(s) Sexually active: Yes Do you think of yourself as: straight/heterosexual Current gender identity: female What is your relationship status?: How often do you talk on the phone with friends or family?: twice per week How often do you get together with friends or relatives?: twice per week How often do you attend catholic or sikh services?: decline to answer Do you belong to any clubs or organized social groups?: no Panel score (0-1 are the most socially isolated patients): 2 What type of physical activity do you participate in: none (Does do PT twice a week for her back, does one day of pool therapy) and medical csr Dee Dee/Amish: Zoroastrianism Special dee dee needs: No Seatbelt use: always Drive intox or ride w/intox automobile drivers: No Do you feel safe at home: Yes Do you feel safe in your relationship?: Yes Readmission Within the Past 30 Days Yes or No: No
[2025-04-06] MEDS: Acetaminophen 500 MG TAB 1000 MG PO ×2 (15:32→19:46)
[2025-04-06] MEDS: Ketorolac 15 MG/ML VIAL IVP (18:20)
[2025-04-06 19:22] VITALS: BP 119/62; PULSE 67; RESP 18; TEMP 36.4; O2SAT 91
--- NOTE | 2025-04-06 19:26 | W.PM.PROGNOT ---
Date of Service Date of service: 04/06/25 Time of Service: 08:45 Assessment and Plan Assessment and plan (1) Osteoarthritis of right hip: Status: Chronic Assessment and plan: Postop day #1 status post right hip replacement for osteonecrosis and osteoarthritis. So far she seems to be a little bit better. She has only band to stand for a few minutes with physical therapy. Will continue to work with physical therapy so she may be out of transition out of the hospital. She is currently unable to stand on her own without assistance. I will continue to treat her pain aggressively. She has taken the oxycodone with some benefit but does not feel this is effective if she would like. (2) Blood loss anemia: Status: Acute Assessment and plan: Hemoglobin did drop after surgery. Will continue to follow this. Subjective Subjective Interval history since last seen: Taisa has had some pain about the right leg. She has just got out of both physical therapy. However, she does feel it is different than it was before. She has had some nausea and some difficulty with pain control. No other acute issues per her report. No chest pain shortness of breath. No fevers or chills. Exam Narrative Exam Narrative: Right hip dressings clean dry and intact. Some muscular posterior pain with hip internal and external rotation. Sensation tact light touch over the femoral, lateral cutaneous, 2nd nerve distributions. Objective Last Vital Signs Temp 37.1 C 04/06/25 13:58 Pulse 79 04/06/25 13:58 Resp 16 04/06/25 13:58 BP 100/54 L 04/06/25 13:58 Pulse Ox 94 04/06/25 13:58 Laboratory Results - last 24 hr 04/06/25 06:00 WBC 13.02 H RBC 3.12 L Hgb 9.8 L Hct 30.0 L MCV 96 H MCH 31.4 MCHC 32.7 RDW 15.3 H Plt Count 348 MPV 10.0 Sodium 142 Potassium 4.2 Chloride 106 Carbon Dioxide 27.0 Anion Gap 9.0 BUN 21 H Creatinine 1.3 H Est GFR (CKD-EPI 2020) 42.09 Glucose 123 H Calcium 8.8 Time Spent with Patient Time Spent with Patient: <25 minutes Time was spent: preparing to see the patient(eg.review tests), obtaining and/or reviewing separately otained hiistory, indepentently interpreting results and counseling the patient
[2025-04-06] MEDS: Rosuvastatin 10 MG TAB PO (19:46)
[2025-04-07] MEDS: Ketorolac 15 MG/ML VIAL IVP ×4 (00:27→23:40)
[2025-04-07] MEDS: oxyCODONE 5 MG TAB PO (04:19)
[2025-04-07] MEDS: Levothyroxine 88 MCG TAB PO (05:50)
[2025-04-07 06:37] LABS: HCT 28.4 % (36.0-46.0); HGB 9.4 g/dL (11.2-15.7); MCHC 33.1 % (32.0-36.0); MCV 97 fL (80-95); MPV 10.1 fL (8.0-11.0); Platelet Count 312 10^3/uL (130-400); RBC 2.94 10^6/uL (3.93-5.22); RDW 15.4 % (11.7-14.6); RDW-SD 54.9 fL; WBC 11.28 10^3/uL (4.4-10.8)
[2025-04-07 06:46] LABS: Anion Gap 5.5 mmol/L (3-11); BUN 32 mg/dL (7-18); CO2 29.5 mmol/L (21.0-32.0); CREATININE 1.3 mg/dL (0.55-1.02); Calcium 9.1 mg/dL (8.5-10.1); Chloride 106 mmol/L (98-107); Estimated GFR 42.09 (mL/min/1.73m2); Glucose 110 mg/dL (74-106); Sodium 141 mmol/L (136-145)
[2025-04-07 07:22] VITALS: BP 121/56; PULSE 71; RESP 19; TEMP 36.5; O2SAT 93
--- NOTE | 2025-04-07 08:01 | W.PM.PROGNOT ---
Date of Service Date of service: 04/07/25 Time of Service: 09:00 Assessment and Plan Assessment and plan (1) Osteoarthritis of right hip: Status: Chronic Assessment and plan: Postop day #2 status post right hip replacement for osteonecrosis and osteoarthritis. She is making some prorgress and encourage her to continue to work with nursing and PT to gain confidence with transfers for d/c to home. Continue with pain management. WBAT. Likely d/c home tomorrow with HHPT. (2) Blood loss anemia: Status: Acute Assessment and plan: Hemoglobin did drop after surgery but stable and without symptoms. Will continue to follow this. Subjective Subjective Interval history since last seen: Tasia reports to be feeling better this morning although anxious about going home. Pain has been better controlled with the Oxycodone. Exam Narrative Exam Narrative: RLE dresing c/d/i. Some hyperemeia seen lateral to the wound. Thigh is compressible. Min ecchymosis. +ADF/APF/EHL/FHL. SILT DP/SP/Tib. Objective Last Vital Signs Temp 36.5 C 04/07/25 07:22 Pulse 71 04/07/25 07:22 Resp 19 04/07/25 07:22 BP 121/56 L 04/07/25 07:22 Pulse Ox 93 04/07/25 07:22 Laboratory Results - last 24 hr 04/07/25 06:04 WBC 11.28 H RBC 2.94 L Hgb 9.4 L Hct 28.4 L MCV 97 H MCH 32.0 MCHC 33.1 RDW 15.4 H Plt Count 312 MPV 10.1 Sodium 141 Potassium 4.0 Chloride 106 Carbon Dioxide 29.5 Anion Gap 5.5 BUN 32 H Creatinine 1.3 H Est GFR (CKD-EPI 2020) 42.09 Glucose 110 H Calcium 9.1 Time Spent with Patient Time Spent with Patient: <25 minutes Time was spent: preparing to see the patient(eg.review tests), obtaining and/or reviewing separately otained hiistory and counseling the patient
[2025-04-07] MEDS: buPROPion-CR 100 MG TABCR PO ×2 (08:43→19:34)
[2025-04-07] MEDS: DULoxetine 30 MG CAP 60 MG PO (08:43)
[2025-04-07] MEDS: Aspirin E.C. 81 MG TABEC PO ×2 (08:43→19:34)
[2025-04-07] MEDS: Dexamethasone 4 MG TAB PO (08:43)
--- NOTE | 2025-04-07 08:43 | PT.INTREAT ---
PT Notes Inpatient Physical Therapy Treatment Note [facility] Date: 04/07/25 PRECAUTIONS: fall, standard SUBJECTIVE: Tasia states that she had a good night. She was able to get some good sleep, and her pain has been well managed. Currently -01/07. OBJECTIVE: ? PAIN: 2 Therapeutic Excercises (88031m7): For improved activity tolerance ? BED MOBILITY/TRANSFERS? Supine-sit: supervision, with increased time to perform. ? Sit-supine: supervision ? Sit-stand: CGA ? Stand-sit: CGA? GAIT? Assistive Device: FWW? Weight bearing: WBAT Assist: CGA throughout ? Distance:? 120' ? Deviation: slow gait speed, with shortened stride length, consistent with post-op status ? Reviewed HEP ? ASSESSMENT/PLAN: Improving independence and activity tolerance. Tolerated increased walking distance today, and improved independence with transfers. TREATMENT CODE/TIME: [id number] ([id number]) DISCHARGE RECOMMENDATION: Home with PT
[2025-04-07] MEDS: Pantoprazole 40 MG TABCR PO (08:44)
[2025-04-07] MEDS: Acetaminophen 500 MG TAB 1000 MG PO ×3 (08:44→19:34)
--- NOTE | 2025-04-07 13:49 | PT.INTREAT ---
PT Notes Inpatient Physical Therapy Treatment Note [facility] Date: 04/07/25 (pm session) PRECAUTIONS: fall, standard SUBJECTIVE: Tasia states that she is feeling good. She sat up to the chair for much of the morning, and went back to bed at lunchtime to rest. OBJECTIVE: ? PAIN: 2-01/07 Therapeutic Excercises (07633e6): For improved activity tolerance ? BED MOBILITY/TRANSFERS? Supine-sit: supervision, with increased time to perform. ? Sit-supine: supervision ? Sit-stand: CGA from EOB, with increased time to perform. From chair, she is supervision only. ? Stand-sit: SBA ? ADLs: Able to manage self-care for toileting with SBA. With initial transfer, has loss of continence, requiring max A for management of TEDS and cleaning LEs. GAIT? Assistive Device: FWW? Weight bearing: WBAT Assist: CGA initially, progressing to SBA for second half of walk? Distance:? 120' ? Deviation: slow gait speed, with shortened stride length, consistent with post-op status ? Reviewed HEP ? ASSESSMENT/PLAN: Improving independence and activity tolerance. Tolerated increased walking distance today, and improved independence with transfers. TREATMENT CODE/TIME: [id number] ([id number]) DISCHARGE RECOMMENDATION: Home with PT
[2025-04-07] MEDS: Normal Saline Flush 10 ML SYR IVP ×2 (15:54→19:34)
[2025-04-07 19:07] VITALS: BP 127/68; PULSE 66; RESP 16; TEMP 36.5; O2SAT 95
[2025-04-07] MEDS: Rosuvastatin 10 MG TAB PO (19:34)
[2025-04-08] MEDS: Levothyroxine 88 MCG TAB PO (05:39)
--- NOTE | 2025-04-08 06:01 | DSE_ITS ---
Date of service: 04/08/25 Time of Service: 07:25 DS: Diagnosis Discharge Diagnosis (1) Osteoarthritis of right hip: Status: Chronic (2) Blood loss anemia: Status: Acute Discharge Plan Disposition Patient Disposition: Home W/Home Health Services Condition: Improving Discharge Details Reason For Visit: Right Hip Osteonecrosis Admit Date/Time: 04/05/25 10:49 Admit Provider: Dheeraj Leyva Attending Provider: Dheeraj Leyva Primary Care Provider: Lennox Olsen Hospital Course Hospital Course: Patient was admitted to the medical/surgical floor following the procedure. The surgery was tolerated well without any notable medical, surgical, or anesthetic complications. Mobilization began postoperatively. She was voiding spontaneously. Vitals were stable. Physical therapy worked with the patient and was cleared for discharge home with home health services. She did have some acute blood loss anemia which remained largely asymptomatic and required no transfusion. No acute medical issues. Pain was controlled on oral regimen. Home Meds and New Rx's Prescriptions: New celecoxib 200 mg capsule 200 mg PO BID PRN (Reason: pain) Qty: 60 1RF aspirin 81 mg tablet,delayed release (DR/EC) 81 mg PO BID Qty: 60 0RF acetaminophen 500 mg tablet 1,000 mg PO Q8H PRN (Reason: pain) Qty: 90 3RF oxycodone 5 mg tablet 5 mg PO Q4H PRNQty: 18 0RF Continued krill oil 500 mg capsule 500 mg PO DAILY cholecalciferol (vitamin D3) 125 mcg (5,000 unit) capsule 125 mcg PO DAILY fluticasone propionate 50 mcg/actuation spray,suspension 1 spray intranasal BID PRN (Reason: nasal congestion) Qty: 16 4RF Rx Instructions: administer into each nostril albuterol sulfate 90 mcg/actuation HFA aerosol inhaler 2 puff inhalation Q6H PRN (Reason: shortness of breath or wheezing) Qty: 6.7 0RF cetirizine [Allergy Relief (cetirizine)] 5 mg tablet 5 mg PO DAILY PRN (Reason: allergy symptoms) Qty: 90 1RF diclofenac sodium 1 % gel See Rx Instructions .ROUTE .COMPLEX Qty: 100 12RF Dose Instruction: APPLY 4 GRAM TOPICALLY FOUR TIMES A DAY NEEDED FOR PAIN, APPLY TOPICALLY TO AFFECTED AREA Rx Instructions: APPLY 4 GRAM TOPICALLY FOUR TIMES A DAY NEEDED FOR PAIN, APPLY TOPICALLY TO AFFECTED AREA metronidazole [Metrogel] 1 % gel 1 applic topical QHS Qty: 60 0RF ipratropium bromide 42 mcg (0.06 %) spray,non-aerosol 2 spray intranasal TID-QID PRN (Reason: allergy symptoms) Qty: 15 12RF Rx Instructions: administer into each nostril Prolia 60 mg/mL syringe 60 mg subcut C0NATECH Qty: 1 1RF pregabalin 200 mg capsule 200 mg PO BID Qty: 180 1RF pantoprazole [Protonix] 40 mg tablet,delayed release (DR/EC) 40 mg PO DAILY Qty: 90 3RF bupropion HCl 100 mg tablet sustained-release 12 hr 100 mg PO BID Qty: 180 3RF hydroxyzine HCl 10 mg tablet 10 mg PO DAILY PRN (Reason: anxiety) Qty: 60 0RF duloxetine 60 mg capsule,delayed release(DR/EC) 60 mg PO DAILY Qty: 90 3RF tramadol 50 mg tablet 50 mg PO BID PRN (Reason: pain) Qty: 60 0RF alprazolam 0.5 mg tablet 0.5 mg PO DAILY PRN (Reason: anxiety) Qty: 10 0RF Rx Instructions: Use sparingly letrozole 2.5 mg tablet 2.5 mg PO DAILY Patient Comments: TAKE ONE TABLET BY MOUTH EVERY DAY levothyroxine 88 mcg tablet 88 mcg PO HS rosuvastatin 10 mg tablet 10 mg PO HS Discharge Instructions Additional Instructions: Total Hip Discharge Instructions Activity: The most important activity is to walk. You should try to take short walks a few times a day. You have no restrictions on movement or positioning, but do not try to force what you do. You will find some stiffness and weakness with hip flexion (lifting your knee). Do not try to strengthen this too early, continue to practice walking and stairs and this will come. - Outpatient physical therapy can be helpful to help return you to a normal gait and improve your flexibility and strength. This can start around 2 weeks. For some patients, it?s not necessary. Usually this is determined at the time of discharge or at the first post-operative visit. - You should wear the SKY hose on both legs for 2 weeks. Dressing: Keep the surgical dressing in place for at least one week. After the first week it may be removed and replace with light gauze and tape or nothing. It may get wet after 3 days but avoid soaking the dressing. If it gets wet, just lightly pat dry. It is important to always keep some gauze between skin folds, especially when you are sitting. Spend some time with the wound exposed when you are lying flat as the incision does wrinkle onto itself. Medications: - You should take Tylenol and an anti-inflammatory Celebrex as your primary pain control medications. If the Celebrex is too expensive or not covered, please call the office for another alternative (Advil/Ibuprofen or Naproxen/Aleve). - You have been prescribed a stronger pain medication Oxycodone for breakthrough pain, take as needed as prescribed. - You will continue your stomach acid reduction agent Pantoprozole to help reduce stomach acid and reflux. - You will be taking Aspirin 81mg twice a day for DVT prevention unless instructed otherwise. - If you have constipation you should take Colace or Miralax (both [id number]). It takes most people 3-4 days to have a bowel movement. Follow-up: 2 weeks If you have any acute concerns or questions, please do not hesitate to contact the office at [phone]. You may contact Dr. Leyva with any questions after hours through the hospital at [phone] or on his cell phone at [phone]. 1. Encounter Date and Reason I certify that Tasia Ott was seen by Dheeraj Leyva MD on 04/08/25 and that I had a [id number] encounter with this patient that meets the physician face to face encounter requirements. 2. Clinical Findings Supporting Skilled Need and Homebound Status I certify that home health services are medically necessary, include either intermittent residential and/or physical/speech therapy, and that this patient is homebound in that absences from the home require considerable and taxing effort and are infrequent or of short duration, or are attributable to the need to receive medical care. X (a) Attached documentation from encounter provides clinical findings supporting skilled need and homebound status (including what assistance patient requires to leave the home). The encounter with the patient was in whole, or in part, for the following medical condition, which is the primary reason for home health care: Right Hip Osteonecrosis Longterm: Tasia would benefit from health check at home due to multiple new medications in the setting of recent surgery and multiple comorbidities. Physical Therapy: Tasia would benefit from home health PT/OT to improve independent functioning and ADLs at home. She has notable weakness and gait dysfunction from her osteonecrosis pathology and recent hip replacement surgery. She has no formal positioning restrictions and is weight bearing as tolerated. Speech Therapy: Homebound: Tasia is unable to leave her home unassisted due to weakness and gait dysfunction. 3. Certification and Authentication I certify that I composed the above information based on my clinical judgement relating to this patient's medical condition and, if applicable, clinical findings communicated to me by the NPP or inpatient physician who performed the Home Health Referral. All further orders will be obtained through Dr. Dheeraj Leyva Activity:: Activity as Tolerated Equipment/Supplies:: Walker Diet:: As Tolerated Discharge Orders Discharge Orders: Discharge Order (Routine); Ordered 04/08/25 Ordered By: Dheeraj Leyva DS: Summary Time Spent with Patient providing and/or coordinating discharge services: Less than 30 minutes Status at Discharge Functional status at discharge: uses cane/walker Overall status at discharge: patient is progressing back to baseline Mental Status: mental status grossly normal Speech and Movement: speech and movement normal Mood: congruent mood Affect: normal affect Quality:SDOH Health Related Social Needs: Health related social needs housing instability, house d, with risk of homelessness (Z59.811), problems with daily activities (Z73.9) Health related social needs details pt will need HH an d PT after s/p hip surgery- wants outpatient 04/06/25 Health related social needs details: pt will need HH and PT after s/p hip surgery- wants outpatient 04/06/25 Exam Narrative Exam Narrative: Sitting up in the chair. NAD. AAOx3. RLE Dressing c/d/i with some surrounding ecchymosis and hyperemia. No pain with hip ER/IR/Flex +ADF/APF/EHL/FHL/Knee Ext SILT LFCN/FN/Sciatic Psych Mental Status: mental status grossly normal Speech and Movement: speech and movement normal Mood: congruent mood Affect: normal affect DS: Data Vitals/I&O Vitals and I&O: Vital Signs Temperature 36.5 C 04/07/25 19:07 Temperature Source Tympanic 04/07/25 19:07 Pulse 66 04/07/25 19:07 Pulse Rhythm Regular 04/05/25 17:04 Pulse 76 04/05/25 16:30 Respiratory Rate 16 04/07/25 19:07 Respiratory Effort Normal 04/05/25 17:04 Respiratory Depth Normal 04/05/25 17:04 Respiratory Pattern Normal 04/05/25 17:04 Blood Pressure 127/68 04/07/25 19:07 Blood Pressure Mean 87 04/07/25 19:07 Pulse Oximetry 95 04/07/25 19:07 Respiratory End-tidal CO2 33 04/05/25 15:26 Oxygen Delivery Method Room Air 04/07/25 19:07 Oxygen Flow Rate 0 04/07/25 19:07 Pain Level 3 04/07/25 23:40 Comment RN notified 04/05/25 18:03 Intake & Output 04/07/25 04/07/25 04/08/25 11:59 23:59 11:59 Intake Total 260 / 820 560 / 820 Output Total 250 / 800 550 / 800 Balance Intake: IV Oral 250 / 800 550 / 800 Output: Urine 250 / 800 550 / 800 Other: Urine Color Yellow Pale Yellow Urine Appearance Clear Clear Urine Odor Normal Comment Pt was inc. of urine, brief was changed. Pt voids ind. in commode, pt needs help with brief. some was in commode, some was on floor voided Data Completed and Pending Labs on day of discharge: Labs from last 24 hours 04/07/25 06:04 WBC 11.28 H RBC 2.94 L Hgb 9.4 L Hct 28.4 L MCV 97 H MCH 32.0 MCHC 33.1 RDW 15.4 H Plt Count 312 MPV 10.1 Sodium 141 Potassium 4.0 Chloride 106 Carbon Dioxide 29.5 Anion Gap 5.5 BUN 32 H Creatinine 1.3 H Est GFR (CKD-EPI 2020) 42.09 Glucose 110 H Calcium 9.1 PFSH All Active Problems Blood loss anemia (Acute) Osteoarthritis of right hip (Chronic) 80 mg Depomedrol injection: 02/08/25 Dysphagia (Acute) COPD exacerbation (Acute) Peripheral neuropathy (Acute) Invasive ductal carcinoma of breast (Acute) Abnormal mammogram of right breast (Acute) with maddie involvement Allergic rhinitis (Acute) Rosacea (Acute) Recurrent urinary tract infection (Acute) Cough (Acute) Osteoporosis (Chronic) 12/2021-[facility] scan at [facility] , -2.6t score at hip, prolia Arthritis of right shoulder region (Acute) Arthritis of left shoulder region (Acute) Chronic anemia (Acute) Chronic kidney disease, stage 3 (Acute) Bilateral lower extremity edema (Acute) Family history of colon cancer (Acute) Vitamin D deficiency (Acute) Osteoarthritis of hips, bilateral (Acute) DDD (degenerative disc disease), lumbar (Acute) Polyneuropathy in diabetes (Acute) Stricture of female urethra (Acute) Diabetes (Chronic) Hiatal hernia (Chronic) Arthralgia (Acute) COPD (chronic obstructive pulmonary disease) (Chronic) Hyperlipidemia (Acute) Hypothyroidism (acquired) (Acute) GERD (gastroesophageal reflux disease) (Chronic) Depression with anxiety (Acute) Medical History Breast cancer right Pyelonephritis of right kidney Right flank pain Screening for colon cancer (~07/02/22) Anxiety Congestion of right ear Left shoulder pain Immunization due Immunization counseling Morbid obesity Dyslipidemia History of fracture of hand left Impacted cerumen of left ear Sepsis due to pneumonia Surgical History History of mastectomy Bilat History of endoscopy History of shoulder surgery left History of colonoscopy with polypectomy (~07/02/22) hyperplstic, PRN colonoscopy Hx of fusion of cervical spine stenosis- C5-7 History of meatotomy of urethra S/P ORIF (open reduction internal fixation) fracture Left femur shaft S/P total knee arthroplasty Left History of total hip arthroplasty Left Status post appendectomy History of tonsillectomy and adenoidectomy Family History Mother , 83 Colon cancer Depression Hyperlipidemia Hypertension Father , 68 Alcohol abuse Hypertension Substance abuse Brother , 77 FH: prostate cancer Daughter No problems noted. Daughter Depression Maternal Grandfather , 62 Prostate cancer Paternal Grandfather , 81 No problems noted. Maternal Grandmother , 77 Heart disease Paternal Grandmother , 59 Hypertension Social History Smoking/Tobacco Use Status: Former Tobacco Use tobacco type: cigarettes Quit Date: 10/31/81 Tobacco: How many years used: 20 Second Hand Exposure: Yes Smoking risk assessment performed?: Yes Alcohol Intake: current Alcohol Intake frequency: a few times a month Alcohol type: beer, wine and hard liquor Drug use: Never Substance use type: does not use Household members: spouse and family Housing: apartment Communication Needs: None Do you need help understanding health information?: Always Pets and animals: Yes Pets and animals: cat(s) and dog(s) Sexually active: Yes Do you think of yourself as: straight/heterosexual Current gender identity: female What is your relationship status?: How often do you talk on the phone with friends or family?: twice per week How often do you get together with friends or relatives?: twice per week How often do you attend methodist or adventist services?: decline to answer Do you belong to any clubs or organized social groups?: no Panel score (0-1 are the most socially isolated patients): 2 What type of physical activity do you participate in: none (Does do PT twice a week for her back, does one day of pool therapy) and glass block bender Dee Dee/Moravian: Hinduism Special dee dee needs: No Seatbelt use: always Drive intox or ride w/intox laundry route driver: No Do you feel safe at home: Yes Do you feel safe in your relationship?: Yes Time Spent with Patient Time Spent with Patient: <45 minutes Time was spent: preparing to see the patient(eg.review tests), obtaining and/or reviewing separately otained hiistory, counseling the patient and care coordination
[2025-04-08 07:22] VITALS: BP 128/62; PULSE 67; RESP 16; TEMP 36.6; O2SAT 95
--- NOTE | 2025-04-08 08:31 | CMDISCH_ITS ---
Date of service: 04/08/25 Time of Service: 08:32 LACE Index Scoring Tool Questions: Length of Stay (in days): 3 Was the patient admitted via the E.D.?: No Comorbidities: Diabetes w/o Complication, Chronic Pulmonary Disease and Liver or Renal Disease E.D. Visits: 1 Answers: Total Score: 9 Risk of Readmission: Low Risk Care Management Discharge Plan Reason for Hospitalization: right hip arthroplasty Discharge Plan: Tasia will discharge home later today with new services of HC RN and PT. She will f/u with her PCP and with the orthopedic surgeon and continue per her plan of care. Tasia will transport home via private vehicle. Tasia is in full agreement with this plan. SDOH Health Related Social Needs: Health related social needs housing instability, house d, with risk of homelessness (Z59.811), problems with daily activities (Z73.9) Health related social needs details pt will need HH an d PT after s/p hip surgery- wants outpatient 04/06/25 Health related social needs details: pt will need HH and PT after s/p hip surgery- wants outpatient 04/06/25
--- NOTE | 2025-04-08 10:01 | PTTR_ITS ---
PT Notes Visit Reasons: Right Hip Osteonecrosis Inpatient Physical Therapy Treatment Note [facility] Date: 04/08/25 PRECAUTIONS: fall, standard SUBJECTIVE: Tasia reports she is going home today. She states she will be using dresses for awhile for ease. Pt states she is concerned about getting her socks on. 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 PAIN: 2-01/07 Therapeutic Activity(10246) ? BED MOBILITY/TRANSFERS? Supine-sit: supervision, with increased time to perform. ? Sit-supine: supervision ? Sit-stand: Supervision from chair, commode Pt. provided with cues for foot placement ? Stand-sit: SBA ? ADLs: Able to manage self-care for toileting with SBA. Training provided in use of sock aide which she was able to perform. Sock Aide issued for home use. Ambulation? Assistive Device: FWW? Weight bearing: WBAT Assist: SBA ? Distance:? 125' ? Deviation: slow gait speed, with shortened stride length, consistent with post-op status ? Stairs: 3 4 steps? and 2 6 steps with rails CGA with continuous cues for sequencing step to pattern ? ASSESSMENT/PLAN: Pt tolerates progression to stairs. Pt able to perform sock aide with HUSSEIN MCDONALD . Pt education provided for posture during standing to reduce hip flexor tightness. Pt initially attempting to stand from chair with RLE off the floor. Pt required cues to WB through her foot to improve sit to stand. Pt stated she is afraid to use that leg that it will make it hurt more. Pt education provided on importance of WB to aide in strengthening musculature and improving stability. TREATMENT CODE/TIME: 61967/ [id number] DISCHARGE RECOMMENDATION: Home with PT use of FWW , sock aide for ADL
[2025-04-08] MEDS: DULoxetine 30 MG CAP 60 MG PO (10:04)
[2025-04-08] MEDS: Aspirin E.C. 81 MG TABEC PO (10:05)
[2025-04-08] MEDS: Ketorolac 15 MG/ML VIAL IVP (10:05)
[2025-04-08] MEDS: buPROPion-CR 100 MG TABCR PO (10:05)
[2025-04-08] MEDS: Pantoprazole 40 MG TABCR PO (10:05)
[2025-04-08] MEDS: Normal Saline Flush 10 ML SYR IVP (10:06)
== END 2025-04-08 12:47 | disposition home health service (06) | DRG 470 ==
LOC: MS 16:42
PROVIDERS: Admitting Provider Student in an Organized Health Care Education/Training Program; PCP Nurse Practitioner Family; Visit Provider Student in an Organized Health Care Education/Training Program
PROC: 0SR9049 Replacement of Right Hip Joint with Ceramic on Polyethylene Synthetic Substitute, Cemented, Open Approach (ICD-10-PCS; CPT 27130; principal; 2025-04-05 12:00)
DX: M16.11 Unilateral primary osteoarthritis, right hip (principal); M87.851 Other osteonecrosis, right femur; D62 Acute posthemorrhagic anemia; M81.0 Age-related osteoporosis without current pathological fracture; F41.9 Anxiety disorder, unspecified; N18.30 Chronic kidney disease, stage 3 unspecified; E55.9 Vitamin D deficiency, unspecified; M51.369 Other intervertebral disc degeneration, lumbar region without mention of lumbar back pain or lower extremity pain; E11.42 Type 2 diabetes mellitus with diabetic polyneuropathy; E78.5 Hyperlipidemia, unspecified; J44.9 Chronic obstructive pulmonary disease, unspecified; E03.9 Hypothyroidism, unspecified; F41.8 Other specified anxiety disorders; K21.9 Gastro-esophageal reflux disease without esophagitis; Z96.652 Presence of left artificial knee joint; Z96.642 Presence of left artificial hip joint
CPT/HCPCS: 27130; 36415; 80048; 85027; 97110; 97116; 97161; 97530; 73501; 88304; 88307; 88311; C1776; J0690; J1100; J1171; J1885; J2371; J2405; J2704; J3010; J7613; J8540

== ENCOUNTER 2025-04-19 11:11 | Outpatient (CLI) | payer MEDICARE, OTHER, SELFPAY ==
--- NOTE | 2025-04-19 11:25 | DI.RAD_ITS ---
Exam(s) XR HIP RT COMPLETE AP PELVIS EXAM: XR HIP RT COMPLETE AP PELVIS INDICATION: 1st post op s/p R NICK. COMPARISON: CR XR HIP RT COMPLETE AP PELVIS from 03/28/2025 TECHNIQUE: 2D digital imaging was performed. Two views. FINDINGS: There is stable alignment of the bilateral hip prostheses. The there are no abnormal surrounding bony lucencies. Fixation plate is again noted in the left femur. DATA REPOSITORY: RADIATION DOSE DELIVERED:
== END 2025-04-19 11:12 | disposition home or self-care (01) ==
LOC: DIORS 11:12
PROVIDERS: PCP Nurse Practitioner Family; Visit Provider Physician Assistant
DX: Z47.1 Aftercare following joint replacement surgery (principal); Z96.641 Presence of right artificial hip joint
CPT/HCPCS: 99024; 73502

== ENCOUNTER → 2025-05-16 14:49 | Outpatient (BNVA) | payer MEDICARE, OTHER, SELFPAY | PROVIDERS: PCP Nurse Practitioner Family; Referring Provider Nurse Practitioner Family; Visit Provider Physician Assistant | DX: Z47.1 Aftercare following joint replacement surgery (principal); Z96.641 Presence of right artificial hip joint | CPT/HCPCS: 99024 ==

== ENCOUNTER 2025-05-17 00:49 | Outpatient (RCR) | payer MEDICARE, OTHER, SELFPAY ==
[2025-05-17] MEDS: Denosumab 60 MG/ML SYR SC (11:40)
== END 2025-05-30 23:59 | disposition home or self-care (01) ==
LOC: INF 00:49
PROVIDERS: PCP Nurse Practitioner Family; Visit Provider Nurse Practitioner Family
DX: M81.0 Age-related osteoporosis without current pathological fracture (principal)
CPT/HCPCS: 96372; J0897

== ENCOUNTER 2025-06-19 10:14 | Emergency (ER) | payer MEDICARE, OTHER, SELFPAY ==
[2025-06-19 10:18] VITALS: BP 124/75; PULSE 80; RESP 18; TEMP 36.5; O2SAT 96
--- NOTE | 2025-06-19 11:13 | DI.RAD_ITS ---
Exam(s) XR FINGER RT MIDDLE EXAM: XR FINGER RT MIDDLE CLINICAL HISTORY: R middle finger injury. TECHNIQUE: 2D digital imaging was performed. Three views. COMPARISON: No exams were available for comparison FINDINGS: BONES: There is an avulsion fracture at the dorsal plate of the distal phalanx of the middle finger. No bony destructive lesion is seen. JOINTS: No dislocation present. Flexion deformity at the distal interphalangeal joint. Underlying [id number] degenerative changes of the interphalangeal joints. SOFT TISSUE: Normal. IMPRESSION: Avulsion fracture from the dorsal plate of the distal phalanx causing flexion deformity. DATA REPOSITORY: RADIATION DOSE DELIVERED:
--- NOTE | 2025-06-19 11:54 | W.ED.GENAD ---
Discharge Plan Disposition Patient Disposition: Home Condition: Stable Discharge Details Clinical Impression: Closed fracture of distal phalanx of right middle finger, Mallet deformity of right middle finger Primary Care Provider: Lennox Olsen ED Provider: Brendan Sweeney Home Meds and New Rx's Prescriptions: Continued krill oil 500 mg capsule 500 mg PO DAILY cholecalciferol (vitamin D3) 125 mcg (5,000 unit) capsule 125 mcg PO DAILY fluticasone propionate 50 mcg/actuation spray,suspension 1 spray intranasal BID PRN (Reason: nasal congestion) Qty: 16 4RF Rx Instructions: administer into each nostril albuterol sulfate 90 mcg/actuation HFA aerosol inhaler 2 puff inhalation Q6H PRN (Reason: shortness of breath or wheezing) Qty: 6.7 0RF cetirizine [Allergy Relief (cetirizine)] 5 mg tablet 5 mg PO DAILY PRN (Reason: allergy symptoms) Qty: 90 1RF diclofenac sodium 1 % gel See Rx Instructions .ROUTE .COMPLEX Qty: 100 12RF Dose Instruction: APPLY 4 GRAM TOPICALLY FOUR TIMES A DAY NEEDED FOR PAIN, APPLY TOPICALLY TO AFFECTED AREA Rx Instructions: APPLY 4 GRAM TOPICALLY FOUR TIMES A DAY NEEDED FOR PAIN, APPLY TOPICALLY TO AFFECTED AREA metronidazole [Metrogel] 1 % gel 1 applic topical QHS Qty: 60 0RF ipratropium bromide 42 mcg (0.06 %) spray,non-aerosol 2 spray intranasal TID-QID PRN (Reason: allergy symptoms) Qty: 15 12RF Rx Instructions: administer into each nostril chlorhexidine gluconate 0.12 % mouthwash 15 ml mucous membrane BID Qty: 300 0RF Prolia 60 mg/mL syringe 60 mg subcut [id number] Qty: 1 1RF pregabalin 200 mg capsule 200 mg PO BID Qty: 180 1RF pantoprazole [Protonix] 40 mg tablet,delayed release (DR/EC) 40 mg PO DAILY Qty: 90 3RF bupropion HCl 100 mg tablet sustained-release 12 hr 100 mg PO BID Qty: 180 3RF hydroxyzine HCl 10 mg tablet 10 mg PO DAILY PRN (Reason: anxiety) Qty: 60 0RF duloxetine 60 mg capsule,delayed release(DR/EC) 60 mg PO DAILY Qty: 90 3RF alprazolam 0.5 mg tablet 0.5 mg PO DAILY PRN (Reason: anxiety) Qty: 10 0RF Rx Instructions: Use sparingly celecoxib 200 mg capsule 200 mg PO BID PRN (Reason: pain) Qty: 60 1RF letrozole 2.5 mg tablet 2.5 mg PO DAILY Patient Comments: TAKE ONE TABLET BY MOUTH EVERY DAY levothyroxine 88 mcg tablet 88 mcg PO HS rosuvastatin 10 mg tablet 10 mg PO HS acetaminophen 500 mg tablet 1,000 mg PO Q8H PRN (Reason: pain) Qty: 90 3RF Discharge Instructions Instructions: Finger Fracture ED Additional Instructions: You were seen in the emergency department for your tiny avulsion fracture of the distal phalanx of the right middle finger, this likely was pulled off by the tendon which causes your mallet deformity at the end of your middle finger. Please rest, ice, compress and elevate the finger, remain in the splint that we have applied 24/, when you change the splint to clean your finger and hand as well as the splint you need to keep your finger pressed against a table or other flat surface to prevent flexion of the end of your finger, you will likely need to wear the splint at least 24/7 for 6 to 8 weeks possibly up to 12 weeks, please follow-up with orthopedics for further definitive instructions. Referrals: [facility] [Provider Group] Lennox Olsen NP [Primary Care Provider, Medicine] Discharge Data Discharge Date/Time-TO BE ENTERED AT DEPARTURE: 06/19/25 12:58 HPI General Date/Time Provider Initiated Documentation: 06/19/25 10:29. HPI Narrative: 79 year-old female presents to ED today by POV/ambulating with a chief complaint of slip & fall in shower last night, with R middle finger injury- R hand dominant. Quality described as distal finger stuck in flexion, and minor bump on the head, no radiation to nausea/vomiting, LOC, neck pain, altered mentation, other trauma. Severity is described as mild. Palliating factors include nothing specific attempted. Provoking factors include nothing specific. Patient not anticoagulated. Related Data Home Medications ?Medication ?Instructions ?Recorded ?Confirmed cholecalciferol (vitamin D3) 125 125 mcg PO DAILY 06/25/21 06/19/25 mcg (5,000 unit) capsule krill oil 500 mg capsule 500 mg PO DAILY 06/25/21 06/19/25 fluticasone propionate 50 1 spray intranasal BID PRN nasal 08/12/22 06/19/25 mcg/actuation nasal congestion #16 grams spray,suspension albuterol sulfate 90 mcg/actuation 2 puff inhalation Q6H PRN 09/08/22 06/19/25 aerosol inhaler shortness of breath or wheezing #6.7 grams hydroxyzine HCl 10 mg tablet 10 mg PO DAILY PRN anxiety #60 tabs 01/07/23 06/19/25 denosumab 60 mg/mL subcutaneous 60 mg subcut [id number] To be 04/05/24 06/19/25 syringe (Prolia) administered at infusion center #1 mL letrozole 2.5 mg tablet 2.5 mg PO DAILY 07/04/24 06/19/25 cetirizine 5 mg tablet (Allergy 5 mg PO DAILY PRN allergy symptoms 07/30/24 06/19/25 Relief (cetirizine)) #90 tabs diclofenac sodium 1 % topical gel See Rx Instructions .Route 11/27/24 06/19/25 .COMPLEX #100 grams ipratropium bromide 42 mcg (0.06 2 spray intranasal TID-QID PRN 11/27/24 06/19/25 %) nasal spray allergy symptoms #15 mL metronidazole 1 % topical gel 1 applic topical QHS #60 grams 11/27/24 06/19/25 (Metrogel) duloxetine 60 mg capsule,delayed 60 mg PO DAILY #90 caps 02/21/25 06/19/25 release bupropion HCl 100 mg tablet,12 hr 100 mg PO BID #180 tabs 03/01/25 06/19/25 sustained-release pantoprazole 40 mg tablet,delayed 40 mg PO DAILY #90 tabs 03/01/25 06/19/25 release (Protonix) pregabalin 200 mg capsule 200 mg PO BID #180 caps 03/01/25 06/19/25 levothyroxine 88 mcg tablet 88 mcg PO HS 04/03/25 06/19/25 rosuvastatin 10 mg tablet 10 mg PO HS 04/03/25 06/19/25 alprazolam 0.5 mg tablet 0.5 mg PO DAILY PRN anxiety #10 04/04/25 06/19/25 tabs acetaminophen 500 mg tablet 1,000 mg (2 x 500 mg) PO Q8H PRN 04/08/25 06/19/25 pain #90 tabs chlorhexidine gluconate 0.12 % 15 ml mucous membrane BID #300 mL 05/22/25 06/19/25 mouthwash celecoxib 200 mg capsule 200 mg PO BID PRN pain #60 caps 06/18/25 06/19/25 Previous Rx's ?Medication ?Instructions ?Recorded fluticasone propionate 50 1 spray intranasal BID PRN nasal 08/12/22 mcg/actuation nasal congestion #16 grams spray,suspension albuterol sulfate 90 mcg/actuation 2 puff inhalation Q6H PRN 09/08/22 aerosol inhaler shortness of breath or wheezing #6.7 grams hydroxyzine HCl 10 mg tablet 10 mg PO DAILY PRN anxiety #60 tabs 01/07/23 denosumab 60 mg/mL subcutaneous 60 mg subcut [id number] To be 04/05/24 syringe (Prolia) administered at infusion center #1 mL cetirizine 5 mg tablet (Allergy 5 mg PO DAILY PRN allergy symptoms 07/30/24 Relief (cetirizine)) #90 tabs diclofenac sodium 1 % topical gel See Rx Instructions .Route 11/27/24 .COMPLEX #100 grams ipratropium bromide 42 mcg (0.06 2 spray intranasal TID-QID PRN 11/27/24 %) nasal spray allergy symptoms #15 mL metronidazole 1 % topical gel 1 applic topical QHS #60 grams 11/27/24 (Metrogel) duloxetine 60 mg capsule,delayed 60 mg PO DAILY #90 caps 02/21/25 release bupropion HCl 100 mg tablet,12 hr 100 mg PO BID #180 tabs 03/01/25 sustained-release pantoprazole 40 mg tablet,delayed 40 mg PO DAILY #90 tabs 03/01/25 release (Protonix) pregabalin 200 mg capsule 200 mg PO BID #180 caps 03/01/25 alprazolam 0.5 mg tablet 0.5 mg PO DAILY PRN anxiety #10 04/04/25 tabs acetaminophen 500 mg tablet 1,000 mg (2 x 500 mg) PO Q8H PRN 04/08/25 pain #90 tabs chlorhexidine gluconate 0.12 % 15 ml mucous membrane BID #300 mL 05/22/25 mouthwash celecoxib 200 mg capsule 200 mg PO BID PRN pain #60 caps 06/18/25 Allergies Allergy/AdvReac Type Severity Reaction Status Date / Time Sulfa (Sulfonamide Allergy Hives Verified 06/19/25 10:22 Antibiotics) General Stated Complaint: Fall/Non TraumaCriteria FELIX: 4 Review of Systems All systems reviewed & are unremarkable except as noted in HPI and below Exam Narrative Exam Narrative: GENERAL APPEARANCE: Well-nourished, non-toxic, awake and alert, atraumatic, no acute distress. SKIN: Warm, pink, dry, intact, without rashes/lesions/ulcerations. HEAD: Normocephalic, atraumatic, normal hair distribution for gender/age. EYES: Normal conjunctiva, no exudates on lids/lashes. ENT: Nares patent, no circumoral cyanosis, no facial swelling NECK: Supple, trachea midline, painless cervical ROM. LUNGS/CHEST: Non-labored respirations, normal A/P diameter, symmetrical expansion, no chest wall deformity HEART (CV/PV): Regular rate, R radial pulse 2+, no peripheral edema, no JVD. ABDOMEN: Soft, non-distended, no guarding. MSK: Normal ROM, no swelling/deformity to bilateral UEs save for R 3rd finger or LEs, moving all extremities without weakness, no cyanosis, spine midline without tenderness, normal curvature. R 3rd finger: flexion deformity at distal phalanx, ecchymosis, mild swelling, no overt crepitus, flexion/extension intact at PIP/MCP, sensation intact, brisk capillary refill, no anatomical snuff box tenderness or other swelling/deformity NEURO: Mental Status AAOx4 - alert to person, place, time, events No facial droop, no forehead involvement. Motor: No focal weakness - strength 5/5 in bilateral UEs and LEs, proximal and distal, symmetric. Sensory: sensation intact to light touch globally. Gait normal: patient ambulated without ataxia into ED room. PSYCH: euthymic, cooperative, pleasant, appropriate speech Course Vital Signs Vital signs: Vital Signs Temperature 36.5 C 06/19/25 10:18 Pulse 80 06/19/25 10:18 Respiratory Rate 18 06/19/25 10:18 Blood Pressure 124/75 06/19/25 10:18 Pulse Oximetry 96 06/19/25 10:18 Temperature 36.5 C 06/19/25 10:18 Temperature Source Oral 06/19/25 10:18 Pulse 80 06/19/25 10:18 Respiratory Rate 18 06/19/25 10:18 Blood Pressure 124/75 06/19/25 10:18 Pulse Oximetry 96 06/19/25 10:18 Oxygen Delivery Method Room Air 06/19/25 10:18 Oxygen Flow Rate 0 06/19/25 10:18 Pain Level 3 06/19/25 10:18 Medical Decision Making This dictation utilizes [id number] dictation software and may contain unedited grammatical errors. 79 year-old female presents to ED today by POV/ambulating with a chief complaint of slip & fall in shower last night, with R middle finger injury- R hand dominant. Quality described as distal finger stuck in flexion, and minor bump on the head, no radiation to nausea/vomiting, LOC, neck pain, altered mentation, other trauma. Severity is described as mild. Palliating factors include nothing specific attempted. Provoking factors include nothing specific. Patients' medical history: Noncontributory. Family and social history: Noncontributory. Pertinent exam findings / vital signs include distal right middle finger is stuck in flexion, sensation intact, mild swelling and bruising but no overt crepitus, right radial pulse 2+, no midline cervical vertebral tenderness, no scalp hematoma, no periorbital ecchymosis or Multani sign, neuro intact. Differential / pathologies of concern include mallet finger, fracture. Diagnostic studies of: - X-ray right middle finger-shows avulsion fracture of the dorsal plate of the distal phalanx likely from tendon pulling off at the bone. Interventions of: - Placed in Stax splint recommend Ortho follow-up. ED Course/Assessment/Plan: 79-year-old female had a minor slip and fall in the shower last night causing a right finger mallet deformity at a suspected tendon rupture of the extensor tendon, she has avulsion fracture where this tendon would insert on the distal phalanx bone, placed in a stack splint recommend routine follow-up with orthopedics and x-rays, counseled on use of Stax splint 24/ for 6 to 12 weeks, icing and elevating the finger to resolve swelling and take Tylenol and ibuprofen as needed. Findings not consistent with neurovascular compromise, head strike with concussive or ICH symptoms > 18 hours. Disposition of Closed fracture of distal phalanx of right middle finger, mallet deformity of right middle finger. Patient verbalized understanding of the plan and return to ED criteria and engaged in shared decision making. Medical Records Medical records reviewed: Yes I reviewed the patient's medical records. Imaging Data Radiologic Study: Attestation: I personally reviewed and interpreted this imaging study as follows: Imaging: X-Ray Radiologist's impression: EXAM: XR FINGER RT MIDDLE CLINICAL HISTORY: R middle finger injury. TECHNIQUE: 2D digital imaging was performed. Three views. COMPARISON: No exams were available for comparison FINDINGS: BONES: There is an avulsion fracture at the dorsal plate of the distal phalanx of the middle finger. No bony destructive lesion is seen. JOINTS: No dislocation present. Flexion deformity at the distal interphalangeal joint. Underlying [id number] degenerative changes of the interphalangeal joints. SOFT TISSUE: Normal. IMPRESSION: Avulsion fracture from the dorsal plate of the distal phalanx causing flexion deformity. Quality:SDOH Health Related Social Needs: Health related social needs risk of homeless daily activities Health related social needs details pt will need HH and PT after s/p hip surgery- wants outpatient 04/06/25 [facility] All Active Problems (Updated 06/19/25 @ 12:20 by LAY Hubbard) Mallet deformity of right middle finger (Acute) Closed fracture of distal phalanx of right middle finger (Acute) History of total right hip replacement (Acute 04/05/25) Blood loss anemia (Acute) Dysphagia (Acute) COPD exacerbation (Acute) Peripheral neuropathy (Acute) Invasive ductal carcinoma of breast (Acute) Abnormal mammogram of right breast (Acute) with maddie involvement Allergic rhinitis (Acute) Rosacea (Acute) Recurrent urinary tract infection (Acute) Cough (Acute) Osteoporosis (Chronic) 12/2021-DEXA scan at [facility] , -2.6t score at hip, prolia Arthritis of right shoulder region (Acute) Arthritis of left shoulder region (Acute) Chronic anemia (Acute) Chronic kidney disease, stage 3 (Acute) Bilateral lower extremity edema (Acute) Family history of colon cancer (Acute) Vitamin D deficiency (Acute) Osteoarthritis of hips, bilateral (Acute) DDD (degenerative disc disease), lumbar (Acute) Polyneuropathy in diabetes (Acute) Stricture of female urethra (Acute) Diabetes (Chronic) Hiatal hernia (Chronic) Arthralgia (Acute) COPD (chronic obstructive pulmonary disease) (Chronic) Hyperlipidemia (Acute) Hypothyroidism (acquired) (Acute) GERD (gastroesophageal reflux disease) (Chronic) Depression with anxiety (Acute) Medical History Breast cancer right Pyelonephritis of right kidney Right flank pain Screening for colon cancer (~07/02/22) Anxiety Congestion of right ear Left shoulder pain Immunization due Immunization counseling Morbid obesity Dyslipidemia History of fracture of hand left Impacted cerumen of left ear Sepsis due to pneumonia Surgical History History of mastectomy Bilat History of endoscopy History of shoulder surgery left History of colonoscopy with polypectomy (~07/02/22) hyperplstic, PRN colonoscopy Hx of fusion of cervical spine stenosis- C5-7 History of meatotomy of urethra S/P ORIF (open reduction internal fixation) fracture Left femur shaft S/P total knee arthroplasty Left History of total hip arthroplasty Left Status post appendectomy History of tonsillectomy and adenoidectomy Family History Mother , 83 Colon cancer Depression Hyperlipidemia Hypertension Father , 68 Alcohol abuse Hypertension Substance abuse Brother , 77 FH: prostate cancer Daughter No problems noted. Daughter Depression Maternal Grandfather , 62 Prostate cancer Paternal Grandfather , 81 No problems noted. Maternal Grandmother , 77 Heart disease Paternal Grandmother , 59 Hypertension Social History Smoking/Tobacco Use Status: Former Tobacco Use tobacco type: cigarettes Quit Date: 10/31/81 Tobacco: How many years used: 20 Second Hand Exposure: Yes Smoking risk assessment performed?: Yes Alcohol Intake: current Alcohol Intake frequency: a few times a month Alcohol type: beer, wine and hard liquor Drug use: Never Substance use type: does not use Household members: spouse and family Housing: apartment Communication Needs: None Do you need help understanding health information?: Always Pets and animals: Yes Pets and animals: cat(s) and dog(s) Sexually active: Yes Do you think of yourself as: straight/heterosexual Current gender identity: female What is your relationship status?: How often do you talk on the phone with friends or family?: twice per week How often do you get together with friends or relatives?: twice per week How often do you attend episcopal or jain services?: decline to answer Do you belong to any clubs or organized social groups?: no Panel score (0-1 are the most socially isolated patients): 2 What type of physical activity do you participate in: none (Does do PT twice a week for her back, does one day of pool therapy) 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
[2025-06-19 12:49] VITALS: BP 125/74; PULSE 90; RESP 18; O2SAT 93
[2025-06-19 12:50] VITALS: RESP 18; O2SAT 100
[2025-06-19 12:51] VITALS: BP 125/74; PULSE 58; RESP 18; TEMP 36.3; O2SAT 99
== END 2025-06-19 12:58 | disposition home or self-care (01) ==
PROVIDERS: Emergency Provider Physician Assistant; PCP Nurse Practitioner Family
DX: S62.632A Displaced fracture of distal phalanx of right middle finger, initial encounter for closed fracture (principal); M20.011 Mallet finger of right finger(s); W18.2XXA Fall in (into) shower or empty bathtub, initial encounter; Z59.811 Housing instability, housed, with risk of homelessness; Z96.641 Presence of right artificial hip joint
CPT/HCPCS: 99283 ×2; 29130; 73140

== ENCOUNTER → 2025-07-25 14:58 | Outpatient (BNVA) | payer MEDICARE, OTHER, SELFPAY | PROVIDERS: PCP Nurse Practitioner Family; Referring Provider Nurse Practitioner Family; Visit Provider Physician Assistant | DX: M20.011 Mallet finger of right finger(s) (principal); Z47.1 Aftercare following joint replacement surgery; Z96.641 Presence of right artificial hip joint | CPT/HCPCS: 99213 ==

== ENCOUNTER 2025-08-08 14:42 | Outpatient (CLI) | payer MEDICARE, OTHER, SELFPAY ==
--- NOTE | 2025-08-08 13:30 | DI.RAD_ITS ---
Exam(s) XR FINGER RT MIDDLE EXAM: XR FINGER RT MIDDLE CLINICAL HISTORY: bony mallet follow up. TECHNIQUE: 2D digital imaging was performed. COMPARISON: CR XR FINGER RT MIDDLE from 06/19/2025 FINDINGS: The previously described displaced avulsion fracture on the dorsal base of the distal phalanx is again noted. The fracture fragment is slightly closer to the parent bone but without bony union. There is less flexion deformity at the DIP joint seen on the lateral view when compared to the 06/19/2025 images. There are mild degenerative changes in the DIP joint. Remainder the finger appears unremarkable. IMPRESSION: As above. DATA REPOSITORY: RADIATION DOSE DELIVERED:
== END 2025-08-08 14:43 | disposition home or self-care (01) ==
LOC: DIORS 14:43
PROVIDERS: PCP Nurse Practitioner Family; Referring Provider Nurse Practitioner Family; Visit Provider Physician Assistant
DX: M20.011 Mallet finger of right finger(s) (principal)
CPT/HCPCS: 99212; 73140

== ENCOUNTER → 2025-08-20 12:53 | Outpatient (BNVA) | payer MEDICARE, OTHER, SELFPAY | PROVIDERS: PCP Nurse Practitioner Family; Referring Provider Nurse Practitioner Family; Visit Provider Student in an Organized Health Care Education/Training Program | DX: M19.012 Primary osteoarthritis, left shoulder (principal); N18.30 Chronic kidney disease, stage 3 unspecified; D64.9 Anemia, unspecified; K51.40 Inflammatory polyps of colon without complications | CPT/HCPCS: 99214 ==

== ENCOUNTER 2025-08-21 01:46 | Outpatient (CLI) | payer MEDICARE, OTHER, SELFPAY ==
[2025-08-21 15:18] LABS: HCT 33.4 % (36.0-46.0); HGB 10.2 g/dL (11.2-15.7); MCH 27.9 pg (27.0-33.0); MCHC 30.5 % (32.0-36.0); MCV 92 fL (80-95); MPV 9.7 fL (8.0-11.0); Platelet Count 266 10^3/uL (130-400); RBC 3.65 10^6/uL (3.93-5.22); RDW 16.3 % (11.7-14.6); RDW-SD 54.4 fL; WBC 6.38 10^3/uL (4.4-10.8)
[2025-08-21 15:26] LABS: INR 1.1 (0.9-1.1); PTT Activated 27.3 sec (20.6-30.2); Prothrombin Time 11.1 sec (9.1-11.1)
[2025-08-21 16:05] LABS: ALT 16 U/L (14-59); AST 18 U/L (15-37); Albumin 3.1 g/dL (3.4-5.0); Alkaline Phosphatase 94 U/L (46-116); Anion Gap 9.2 mmol/L (3-11); BUN 20 mg/dL (7-18); Bilirubin, Total 0.4 mg/dL (0.2-1.0); CO2 29.8 mmol/L (21.0-32.0); Calcium 9.1 mg/dL (8.5-10.1); Chloride 103 mmol/L (98-107); Estimated GFR 38.27 (mL/min/1.73m2); Glucose 78 mg/dL (74-106); Potassium 4.3 mmol/L (3.5-5.1); Sodium 142 mmol/L (136-145); TSH (W/Ref FT4) 2.15 uIU/mL (0.36-3.74); Total Protein 7.4 g/dL (6.4-8.2)
[2025-08-21 19:29] LABS: Lab Add On Test DONE
[2025-08-21 19:40] LABS: Iron 41 ug/dL (50-170)
== END 2025-08-21 01:47 | disposition home or self-care (01) ==
LOC: LBO 01:46
PROVIDERS: PCP Nurse Practitioner Family; Visit Provider Student in an Organized Health Care Education/Training Program
DX: D64.9 Anemia, unspecified (principal); N18.30 Chronic kidney disease, stage 3 unspecified; E03.9 Hypothyroidism, unspecified; K51.40 Inflammatory polyps of colon without complications; D50.0 Iron deficiency anemia secondary to blood loss (chronic)
CPT/HCPCS: 36415; 80053; 85027; 83540; 84443; 85610; 85730

== ENCOUNTER 2025-08-30 11:01 | Emergency (ER) | payer MEDICARE, OTHER, SELFPAY ==
[2025-08-30 11:04] VITALS: BP 85/58; PULSE 78; RESP 18; TEMP 36.6; O2SAT 90
--- NOTE | 2025-08-30 11:08 | W.ED.GENAD ---
Discharge Plan Disposition Patient Disposition: Home Condition: Stable Discharge Details Clinical Impression: Fracture, patella, Finger fracture, right Primary Care Provider: Lennox Olsen ED Provider: Александр Elise Home Meds and New Rx's Prescriptions: Continued krill oil 500 mg capsule 500 mg PO DAILY cholecalciferol (vitamin D3) 125 mcg (5,000 unit) capsule 125 mcg PO DAILY fluticasone propionate 50 mcg/actuation spray,suspension 1 spray intranasal BID PRN (Reason: nasal congestion) Qty: 16 4RF Rx Instructions: administer into each nostril diclofenac sodium 1 % gel See Rx Instructions .ROUTE .COMPLEX Qty: 100 12RF Dose Instruction: APPLY 4 GRAM TOPICALLY FOUR TIMES A DAY NEEDED FOR PAIN, APPLY TOPICALLY TO AFFECTED AREA Rx Instructions: APPLY 4 GRAM TOPICALLY FOUR TIMES A DAY NEEDED FOR PAIN, APPLY TOPICALLY TO AFFECTED AREA metronidazole [Metrogel] 1 % gel 1 applic topical QHS Qty: 60 0RF chlorhexidine gluconate 0.12 % mouthwash 15 ml mucous membrane BID Qty: 300 0RF Prolia 60 mg/mL syringe 60 mg subcut [id number] Qty: 1 1RF pregabalin 200 mg capsule 200 mg PO BID Qty: 180 1RF pantoprazole [Protonix] 40 mg tablet,delayed release (DR/EC) 40 mg PO DAILY Qty: 90 3RF bupropion HCl 100 mg tablet sustained-release 12 hr 100 mg PO BID Qty: 180 3RF ipratropium bromide 42 mcg (0.06 %) spray,non-aerosol 2 spray intranasal TID-QID PRN (Reason: allergy symptoms) Qty: 15 12RF Rx Instructions: administer into each nostril albuterol sulfate 90 mcg/actuation HFA aerosol inhaler 2 puff inhalation Q6H PRN (Reason: shortness of breath or wheezing) Qty: 6.7 0RF clotrimazole 1 % cream 1 applic topical BID Qty: 45 0RF duloxetine 60 mg capsule,delayed release(DR/EC) 60 mg PO DAILY Qty: 90 3RF alprazolam 0.5 mg tablet 0.5 mg PO DAILY PRN (Reason: anxiety) Qty: 10 0RF Rx Instructions: Use sparingly celecoxib 200 mg capsule 200 mg PO BID PRN (Reason: pain) Qty: 60 1RF ferrous sulfate 325 mg (65 mg iron) tablet 325 mg PO BID Qty: 180 4RF Rx Instructions: Take 1 tablet twice a day with your vitamin c letrozole 2.5 mg tablet 2.5 mg PO DAILY Patient Comments: TAKE ONE TABLET BY MOUTH EVERY DAY levothyroxine 88 mcg tablet 88 mcg PO HS rosuvastatin 10 mg tablet 10 mg PO HS acetaminophen 500 mg tablet 1,000 mg PO Q8H PRN (Reason: pain) Qty: 90 3RF Discharge Instructions Instructions: Finger fracture, Patella Fracture Additional Instructions: X-ray reveals a right hand little finger fracture which was sarabjit taped. You may continue sarabjit taping and work on a very gentle range of motion. Regarding your right patella, you have a nondisplaced fracture. I would like you to wear the long-leg immobilizer and use your walker, you may guarded weight-bear with your leg straight. Do not bend your leg. You may take [id number] medication as directed for discomfort. Cool compresses every 2 hours for 20 minutes. I have placed you on the orthopedic list, you should follow-up in the next 1-2 weeks. Please watch for new or worsening symptoms and return to the ER for any concerns. Referrals: Dheeraj Leyva MD [ [facility] STAFF PHYSICIAN, Orthopaedic Surgical] Discharge Data Discharge Date/Time-TO BE ENTERED AT DEPARTURE: 08/30/25 15:09 HPI General Mode of arrival: ambulatory. Date/Time Provider Initiated Documentation: 08/30/25 11:07. Limitations to Documentation: no limitations. Information obtained by: patient. History of Present Illness 80 year old F presents to the emergency department with the chief complaint of Fall, knee pain, described as moderate, with intensity rated at 6. Quality is described as aching, and is localized to the right and lower extremity. Patient reports no radiation. Patient started experiencing this day(s) (4) and it has been constant. Immobilization improves symptom(s), Movement worsens symptoms . Patient notes other (Did strike head, no LOC or headache. Not anticoagulated. No neck pain.). Patient did receive the following treatments prior to arrival, none Related Data Home Medications Medication Instructions Recorded Confirmed cholecalciferol (vitamin D3) 125 125 mcg PO DAILY 06/25/21 08/30/25 mcg (5,000 unit) capsule krill oil 500 mg capsule 500 mg PO DAILY 06/25/21 08/30/25 fluticasone propionate 50 1 spray intranasal BID PRN nasal 08/12/22 08/30/25 mcg/actuation nasal congestion #16 grams spray,suspension denosumab 60 mg/mL subcutaneous 60 mg subcut [id number] To be 04/05/24 08/30/25 syringe (Prolia) administered at infusion center #1 mL letrozole 2.5 mg tablet 2.5 mg PO DAILY 07/04/24 08/30/25 diclofenac sodium 1 % topical gel See Rx Instructions .Route 11/27/24 08/30/25 .COMPLEX #100 grams metronidazole 1 % topical gel 1 applic topical QHS #60 grams 11/27/24 08/30/25 (Metrogel) duloxetine 60 mg capsule,delayed 60 mg PO DAILY #90 caps 02/21/25 08/30/25 release bupropion HCl 100 mg tablet,12 hr 100 mg PO BID #180 tabs 03/01/25 08/30/25 sustained-release pantoprazole 40 mg tablet,delayed 40 mg PO DAILY #90 tabs 03/01/25 08/30/25 release (Protonix) pregabalin 200 mg capsule 200 mg PO BID #180 caps 03/01/25 08/30/25 levothyroxine 88 mcg tablet 88 mcg PO HS 04/03/25 08/30/25 rosuvastatin 10 mg tablet 10 mg PO HS 04/03/25 08/30/25 alprazolam 0.5 mg tablet 0.5 mg PO DAILY PRN anxiety #10 04/04/25 08/30/25 tabs acetaminophen 500 mg tablet 1,000 mg (2 x 500 mg) PO Q8H PRN 04/08/25 08/30/25 pain #90 tabs chlorhexidine gluconate 0.12 % 15 ml mucous membrane BID #300 mL 05/22/25 08/30/25 mouthwash celecoxib 200 mg capsule 200 mg PO BID PRN pain #60 caps 06/18/25 08/30/25 albuterol sulfate 90 mcg/actuation 2 puff inhalation Q6H PRN 07/09/25 08/30/25 aerosol inhaler shortness of breath or wheezing #6.7 grams ipratropium bromide 42 mcg (0.06 2 spray intranasal TID-QID PRN 07/09/25 08/30/25 %) nasal spray allergy symptoms #15 mL ferrous sulfate 325 mg (65 mg 325 mg PO BID #180 tabs 08/22/25 08/30/25 iron) tablet clotrimazole 1 % topical cream 1 applic topical BID #45 grams 08/26/25 08/30/25 Previous Rx's Medication Instructions Recorded fluticasone propionate 50 1 spray intranasal BID PRN nasal 08/12/22 mcg/actuation nasal congestion #16 grams spray,suspension denosumab 60 mg/mL subcutaneous 60 mg subcut [id number] To be 04/05/24 syringe (Prolia) administered at infusion center #1 mL diclofenac sodium 1 % topical gel See Rx Instructions .Route 11/27/24 .COMPLEX #100 grams metronidazole 1 % topical gel 1 applic topical QHS #60 grams 11/27/24 (Metrogel) duloxetine 60 mg capsule,delayed 60 mg PO DAILY #90 caps 02/21/25 release bupropion HCl 100 mg tablet,12 hr 100 mg PO BID #180 tabs 03/01/25 sustained-release pantoprazole 40 mg tablet,delayed 40 mg PO DAILY #90 tabs 03/01/25 release (Protonix) pregabalin 200 mg capsule 200 mg PO BID #180 caps 03/01/25 alprazolam 0.5 mg tablet 0.5 mg PO DAILY PRN anxiety #10 04/04/25 tabs acetaminophen 500 mg tablet 1,000 mg (2 x 500 mg) PO Q8H PRN 04/08/25 pain #90 tabs chlorhexidine gluconate 0.12 % 15 ml mucous membrane BID #300 mL 05/22/25 mouthwash celecoxib 200 mg capsule 200 mg PO BID PRN pain #60 caps 06/18/25 albuterol sulfate 90 mcg/actuation 2 puff inhalation Q6H PRN 07/09/25 aerosol inhaler shortness of breath or wheezing #6.7 grams ipratropium bromide 42 mcg (0.06 2 spray intranasal TID-QID PRN 07/09/25 %) nasal spray allergy symptoms #15 mL ferrous sulfate 325 mg (65 mg 325 mg PO BID #180 tabs 08/22/25 iron) tablet clotrimazole 1 % topical cream 1 applic topical BID #45 grams 08/26/25 Allergies Allergy/AdvReac Type Severity Reaction Status Date / Time Sulfa (Sulfonamide Allergy Hives Verified 08/30/25 11:07 Antibiotics) General Stated Complaint: Orthopedic FELIX: 4 Review of Systems Constitutional Constitutional: Denies fever(s), Denies headache(s) and Denies weakness Eyes Eyes: Denies change in vision ENT Ears, Nose, Mouth, and Throat: Denies headache(s) and Denies neck pain Cardiovascular Cardiovascular: Denies chest pain and Denies dyspnea Respiratory Respiratory: Denies dyspnea Gastrointestinal Gastrointestinal: Denies abdominal pain, Denies nausea and Denies vomiting Musculoskeletal Musculoskeletal: Denies neck pain, Denies numbness and Denies tingling Integumentary/Breasts Skin/Breast: Denies rash Neurologic Neurologic: Denies headache(s), Denies numbness, Denies tingling and Denies weakness Hematologic/Lymphatic Hematologic/Lymphatic: Denies easy bleeding and Denies easy bruising Exam Const General: cooperative, healthy appearing, comfortable and no acute distress Orientation: alert, awake and oriented x3 HENMI Head: normal to inspection and normocephalic Head images:  1. Nearly resolved minimal ecchymosis Face and sinus: normal facial exam Mouth: moist mucous membranes Eyes General: appearance normal, both eyes and all related structures Conjunctivae: conjunctivae normal Neck Neck: normal visual inspection, full ROM, trachea midline and supple Resp Effort & Inspection: normal respiratory effort and able to speak in complete sentences Auscultation: clear to auscultation bilaterally Cardio Rate: regular rate Rhythm: regular rhythm GI Palpation: soft and nontender Back/Spine/Pelvis Back: no CVA tenderness Skin General skin exam: no rashes or lesions noted Neuro General: patient alert, patient awake, patient oriented x3, moves all extremities and no focal motor deficits Cognition: normal cognition Speech: speech normal Gait: antalgic (With a cane) Sensory Exam: no sensory deficits noted Extrem General: no pedal edema (Mild bilateral) and no calf tenderness Other: Left knee exam: Previous well-healed surgical incision. Anterior abrasion without evidence of infection. No erythema, ecchymosis, swelling, or obvious deformity. No palpable effusion. AROM about 5-110 degrees. Diffuse mild discomfort about the anterior knee. No discomfort over the medial and lateral joint line. Knee is stable to varus and valgus stress without significant discomfort. Negative anterior drawer. Sensation intact throughout although diminished about the surgical incision. Right knee exam: Intact skin without erythema or obvious deformity. Diffuse anterior swelling and ecchymosis without palpable effusion. AROM yields extension a few degrees shy of full, flexion only to about 45 degrees. Significant discomfort about the patella. Mild discomfort over the medial joint line. No discomfort over the lateral joint line. Knee is stable to varus and valgus stress without significant discomfort. Negative anterior drawer. Sensation intact throughout. Right hand exam: Skin is intact without erythema. There is what appears to be an old mallet finger deformity of the middle finger. There is diffuse discomfort about the little finger distally. Demonstrates full extension of the little finger, limited flexion mostly at the DIP joint secondary to pain and swelling. Sensation intact throughout. Normal radial pulse and capillary refill. Psych Appearance: grossly normal Mental Status: mental status grossly normal Course Vital Signs Vital signs: Vital Signs Temperature 36.6 C 08/30/25 11:04 Pulse 78 08/30/25 11:04 Respiratory Rate 18 08/30/25 11:04 Blood Pressure 85/58 L 08/30/25 11:04 Pulse Oximetry 90 L 08/30/25 11:04 Temperature 36.6 C 08/30/25 11:04 Temperature Source Tympanic 08/30/25 11:04 Pulse 78 08/30/25 11:04 Respiratory Rate 18 08/30/25 11:04 Blood Pressure 85/58 L 08/30/25 11:04 Pulse Oximetry 90 L 08/30/25 11:04 Oxygen Delivery Method Room Air 08/30/25 11:04 Oxygen Flow Rate 0 08/30/25 11:04 Pain Level 8 08/30/25 11:04 Medical Decision Making This is a 80-year-old female, past medical history of breast CA, obesity, dyslipidemia, status post ORIF of the left femur, status post left TKA, ambulates at baseline both with a cane and walker describes falling at home on Tuesday mechanically. No symptoms leading up to the event. Primarily concerned of her right knee pain but upon further investigation does endorse some left knee pain as well as right little finger discomfort. She did strike her head but states this was a minor injury, no LOC, no headache, not anticoagulated. She tells me she is actually scheduled to see her orthopedic surgeon, Dr. Leyva, next week for her chronic left leg pain. She does reside at home, she does have family there but they are often gone and unable to help. While she has been getting around and performing her ADLs she finds it quite difficult Clinically she appears well, nontoxic. Awake, alert, oriented x 3, demonstrates ambulating slowly but safely using a cane. Had the injury occurred earlier today, would likely obtain CT imaging of her head; however, given this happened 4 days ago and she is neurologically intact, extremely low suspicion for intracranial process. Will obtain x-ray of the right hand as well as bilateral knees. Right hand x-ray initially interpreted by me and then later reviewed by radiology reveals an acute fracture of the proximal aspect of the distal phalanx of the fifth finger. Unchanged appearance of a previously documented mallet finger. Right knee x-ray ordered and reviewed, reveals significant degenerative changes throughout the knee but no obvious fracture noted. Left knee x-ray ordered and reviewed, prior surgical hardware noted without evidence of loosening or lucencies. No acute injury noted. Discussed findings with patient. Discussed treatment plan for her hand, she declined splint. Will sarabjit tape instead. Regarding her left knee, this appears more of a contusion. Given her significant pain over her right patella and the mechanism, will obtain CT imaging to further evaluate. In the meantime we will have both our care management team come talk with the patient regarding additional home resources. Will also request that PT come check her to be sure she is safe for discharge. Right knee CT read by radiology as a nondisplaced fracture of the medial patella. Tryicompartmental degenerative changes. Discussed CT findings with patient. Patient was fitted with a long-leg knee immobilizer. She may be guarded weightbearing using a walker with her leg straight. She understands that she is not to bend her knee until outpatient follow-up. She was able to demonstrate this to me safely using a walker, does not feel as though waiting for PT is necessary. Care management did talk with the patient, I filled out a [id number] form to help expedite outpatient home resources. She is already scheduled to see Dr. Leyva next week for unrelated problem, I will place her on the orthopedic list to have her schedule a dedicated appointment for this injury in the next 7-10 days. Patient remained neurologically intact. We discussed the importance of elevation, cool compresses, and [id number] Tylenol for discomfort. Also discussed the importance of contacting her primary care provider on Tuesday to discuss her fall, additional home resource needs, and need for outpatient follow-up. Standard discharge and return precautions were provided. Patient understands, is agreeable to this plan, and has no additional questions or concerns upon discharge. This documentation was generated using [employer] system, please disregard any oddities of phrase or misspellings. Medical Records Medical records reviewed: Yes I reviewed the patient's medical records. Quality:SDOH Health Related Social Needs: Health related social needs house/econ circumstance lonely/isolated Health related social needs details pt will need HH and PT after s/p hip surgery- wants outpatient 04/06/25 PFS All Active Problems Finger fracture, right (Acute) Fracture, patella (Acute) Mallet deformity of right middle finger (Acute 06/19/25) History of total right hip replacement (Acute 04/05/25) Blood loss anemia (Acute) Dysphagia (Acute) COPD exacerbation (Acute) Peripheral neuropathy (Acute) Invasive ductal carcinoma of breast (Acute) Abnormal mammogram of right breast (Acute) with maddie involvement Allergic rhinitis (Acute) Rosacea (Acute) Recurrent urinary tract infection (Acute) Cough (Acute) Osteoporosis (Chronic) 12/2021-DEXA scan at [facility] , -2.6t score at hip, prolia Arthritis of right shoulder region (Acute) Arthritis of left shoulder region (Acute) Chronic anemia (Acute) Chronic kidney disease, stage 3 (Acute) Bilateral lower extremity edema (Acute) Family history of colon cancer (Acute) Vitamin D deficiency (Acute) Osteoarthritis of hips, bilateral (Acute) DDD (degenerative disc disease), lumbar (Acute) Polyneuropathy in diabetes (Acute) Stricture of female urethra (Acute) Diabetes (Chronic) Hiatal hernia (Chronic) Arthralgia (Acute) COPD (chronic obstructive pulmonary disease) (Chronic) Hyperlipidemia (Acute) Hypothyroidism (acquired) (Acute) GERD (gastroesophageal reflux disease) (Chronic) Depression with anxiety (Acute) Medical History Breast cancer right Pyelonephritis of right kidney Right flank pain Screening for colon cancer (~07/02/22) Anxiety Congestion of right ear Left shoulder pain Immunization due Immunization counseling Morbid obesity Dyslipidemia History of fracture of hand left Impacted cerumen of left ear Sepsis due to pneumonia Surgical History History of mastectomy Bilat History of endoscopy History of shoulder surgery left History of colonoscopy with polypectomy (~07/02/22) hyperplstic, PRN colonoscopy Hx of fusion of cervical spine stenosis- C5-7 History of meatotomy of urethra S/P ORIF (open reduction internal fixation) fracture Left femur shaft S/P total knee arthroplasty Left History of total hip arthroplasty Left Status post appendectomy History of tonsillectomy and adenoidectomy Family History Mother , 83 Colon cancer Depression Hyperlipidemia Hypertension Father , 68 Alcohol abuse Hypertension Substance abuse Brother , 77 FH: prostate cancer Daughter No problems noted. Daughter Depression Maternal Grandfather , 62 Prostate cancer Paternal Grandfather , 81 No problems noted. Maternal Grandmother , 77 Heart disease Paternal Grandmother , 59 Hypertension Social History Smoking/Tobacco Use Status: Former Tobacco Use tobacco type: cigarettes Quit Date: 10/31/81 Tobacco: How many years used: 22 Second Hand Exposure: No Smoking risk assessment performed?: Yes Alcohol Intake: current Alcohol Intake frequency: a few times a month Alcohol type: beer, wine and hard liquor Drug use: Never Substance use type: does not use Counseling given: No Counseling provided: none Adopted: No Caregiver/Support person: No Household members: family and other Details: granddaughter Housing: other Communication Needs: None and Corrective Lenses Education Level: college Do you need help understanding health information?: Often Pets and animals: Yes Pets and animals: cat(s) and dog(s) Sexually active: No Do you think of yourself as: straight/heterosexual Current gender identity: female What is your relationship status?: How often do you talk on the phone with friends or family?: once per week How often do you get together with friends or relatives?: once per week How often do you attend congregational or scientologist services?: 1-3 times per year Do you belong to any clubs or organized social groups?: no Panel score (0-1 are the most socially isolated patients): 0 What type of physical activity do you participate in: other Details: PT exercises Duration: 15-30 minutes/day Frequency: 1-2 times per week Dee Dee/Episcopalian: Hoahaoism Special dee dee needs: No Agree to transfusion: Yes Seatbelt use: always Helmet use: No Drive intox or ride w/intox school bus driver: No Working smoke detector in home: Yes Carbon monox detector in home: Yes Firearms in home: No
--- NOTE | 2025-08-30 12:05 | DI.RAD_ITS ---
Exam(s) XR KNEE RT 4V AP,LAT,JESSENIA,PAT EXAM: XR KNEE RT 4V AP,LAT,JESSENIA,PAT CLINICAL HISTORY: fall/pain. TECHNIQUE: 2D digital imaging was performed. COMPARISON: CR XR KNEE LT 4V AP,LAT,JESSENIA,PAT from 08/30/2025 FINDINGS: Four views No evidence of acute fracture but there does appear to be a joint effusion signifying internal derangement. There are advanced degenerative changes in the medial compartment and moderate-advanced degenerative changes in the lateral compartment and mild-moderate degenerative changes in the patellofemoral compartment. No evidence of patellar dislocation. No significant osseous lesions. Bone density age-appropriate. IMPRESSION: Degenerative changes. No acute fractures but there is a joint effusion signifying internal derangement. DATA REPOSITORY: RADIATION DOSE DELIVERED:
--- NOTE | 2025-08-30 12:05 | DI.RAD_ITS ---
Exam(s) XR HAND RT COMPLETE EXAM: XR HAND RT COMPLETE CLINICAL HISTORY: fall/injury. TECHNIQUE: 2D digital imaging was performed. COMPARISON: CR XR FINGER RT MIDDLE from 08/08/2025 FINDINGS: 3 views Again noted is a previously described avulsion fracture fragment off the dorsal aspect of the base of the distal phalanx of the 3rd finger, appearing unchanged from 08/08/2025 images. There is a subtle nondisplaced fracture on the medial aspect of the base of the distal phalanx of the 5th finger. No displacement best seen on the lateral view. There are no other acute fractures identified in the hand. No osseous lesions nor erosions. No radiopaque foreign bodies. IMPRESSION: Acute appearing fracture in the proximal aspect of the distal phalanx of the 5th finger. Unchanged appearance of previously documented fracture all at the dorsal aspect of the base of the distal phalanx of the 3rd-middle finger DATA REPOSITORY: RADIATION DOSE DELIVERED:
--- NOTE | 2025-08-30 12:05 | DI.RAD_ITS ---
Exam(s) XR KNEE LT 4V AP,LAT,JESSENIA,PAT EXAM: XR KNEE LT 4V AP,LAT,JESSENIA,PAT CLINICAL HISTORY: fall/pain. TECHNIQUE: 2D digital imaging was performed. COMPARISON: CR XR KNEE LT 4V AP,LAT,JESSENIA,PAT from 10/26/2024 FINDINGS: Four views Again noted is a previously described hardware in and around the left knee including totally prosthesis as well as a lateral fixation plate across distal femur fracture site and there are also fasteners in the patella evident, similar to previous. There is no evidence of acute fracture. No obvious hardware loosening. Patella position is unchanged. IMPRESSION: Hardware as above. No acute osseous findings in the left knee. No obvious joint effusion on this side. DATA REPOSITORY: RADIATION DOSE DELIVERED:
[2025-08-30 12:06] VITALS: BP 125/69; PULSE 67; RESP 16; O2SAT 96
--- NOTE | 2025-08-30 13:15 | DI.CT_ITS ---
Exam(s) CT LOWER EXTREMITY RT WO EXAM: CT LOWER EXTREMITY RT WO CLINICAL HISTORY: Knee pain. TECHNIQUE: Imaging Protocol: Axial computed tomography images with coronal and sagittal reformatted images were created and reviewed. COMPARISON: CR XR KNEE RT 4V AP,LAT,JESSENIA,PAT from 08/30/2025 FINDINGS: Bones: There is an acute nondisplaced fracture involving the medial patella. (Series 6 images 17 through 22 and series 10 images 48 through 50 and series 14, images 26-34). Bony alignment is satisfactory. No cellulitic or osteomyelitic changes are identified. Tricompartment degenerative changes are present characterized by disc space narrowing and osteophytes. Subchondral cysts are seen in the medial femoral tibial joint. There is a joint effusion present. Soft Tissues: There is edema seen in the soft tissues anterior to the patella. IMPRESSION: 1. Nondisplaced fracture of the medial patella. 2. Small joint effusion. 3. Tricompartment degenerative changes present. RADIATION DOSE DELIVERED: 212.23mGy.cm Total DLP 212.23mGy.cm Total DLP DATA REPOSITORY: All CT scans at this facility are submitted to the National Radiology Data Registry (NRDR) Dose Index Registry (DIR) with the [employer] (ACR). RADIATION OPTIMIZATION: All CT scans at this facility use at least one of these dose optimization techniques: automated exposure control; mA and/or kV adjustment per patient size (includes targeted exams where dose is matched to clinical indication); or iterative reconstruction.
[2025-08-30 13:36] VITALS: BP 134/64; PULSE 60; RESP 14; O2SAT 93
--- NOTE | 2025-08-30 13:54 | CMPROGNOTE_ITS ---
Date of service: 08/30/25 Time of Service: 13:54 Care Management Progress Note Progress Note Text Progress Note Text: CM was consulted by the ED provider to discuss the need for additional home support and community resources. Upon meeting with Tasia, she was sitting upright in a chair with her legs elevated, preparing a snack. Tasia reports that she lives in her own home with her granddaughter, who works during the day and provides support primarily in the evenings. While her granddaughter does not currently assist with many homemaking tasks, Tasia reports she is willing to begin doing so. Tasia states she drives and ambulates with the assistance of a cane, walker, or furniture for support. She is currently receiving outpatient physical therapy but did not feel well enough to attend her most recent appointment. CM discussed home health services, and Tasia was agreeable. The provider was notified and agreed to place orders for home health PT, OT, RN, and INSURANCE CLAIM APPROVER services. PT consult pending. Tasia reports that meal preparation can be difficult. CM provided education on the [employer] Whe[employer] (MOW) program. Tasia shared that she has previously received MOW services and still has the contact number for the [employer] franchise sales representative. She plans to call and reinitiate the service. Tasia also expressed concern about heating and fuel costs for the upcoming winter. With her permission, CM sent a referral to [employer] for assistance. A dditionally, Tasia is familiar with the [place] [facility] and believes participation would benefit her by providing socialization opportunities and support for strength training. At discharge, Tasia’s granddaughter will provide transportation home. CM will continune to follow. Social Determinants of Health Screening Will the Patient Participate in the Screening?: Declined to provide
--- NOTE | 2025-08-31 11:54 | NUR.NOTE ---
Accessed Pt chart to document diagnosis on the [facility] paperwork.
--- NOTE | 2025-09-17 16:45 | NUR.NOTE ---
Accessed Pt chart to print off Provider Notes for [facility] paperwork
== END 2025-08-30 15:09 | disposition home or self-care (01) ==
PROVIDERS: Emergency Provider Physician Assistant; PCP Nurse Practitioner Family
DX: S82.034A Nondisplaced transverse fracture of right patella, initial encounter for closed fracture (principal); S62.646A Nondisplaced fracture of proximal phalanx of right little finger, initial encounter for closed fracture; Z59.89 Other problems related to housing and economic circumstances; Z60.8 Other problems related to social environment; W19.XXXA Unspecified fall, initial encounter
CPT/HCPCS: 99283; 99284; 29505; 73130; 73564; 73700

== ENCOUNTER → 2025-09-02 13:31 | Outpatient (BNVA) | payer MEDICARE, OTHER, SELFPAY | PROVIDERS: PCP Nurse Practitioner Family; Referring Provider Nurse Practitioner Family; Visit Provider Student in an Organized Health Care Education/Training Program | DX: M20.011 Mallet finger of right finger(s) (principal); Z96.641 Presence of right artificial hip joint; S82.001A Unspecified fracture of right patella, initial encounter for closed fracture; S62.606A Fracture of unspecified phalanx of right little finger, initial encounter for closed fracture; X58.XXXA Exposure to other specified factors, initial encounter | CPT/HCPCS: 99213 ==

== ENCOUNTER 2025-09-12 14:50 | Outpatient (CLI) | payer MEDICARE, OTHER, SELFPAY ==
--- NOTE | 2025-09-12 14:15 | DI.RAD_ITS ---
Exam(s) XR KNEE RT 2V AP,LAT EXAM: XR KNEE RT 2V AP,LAT CLINICAL HISTORY: F/U R PATELLA FX. TECHNIQUE: 2D digital imaging was performed. Two views. COMPARISON: CR XR KNEE RT 4V AP,LAT,JESSENIA,PAT from 08/30/[address] LOWER EXTREMITY RT WO from 08/30/2025 FINDINGS: BONES: A lucency remains visible in the superior patella. The other fracture lines are not visible. No bony destructive lesion is seen. JOINTS: There are severe degenerative changes of the medial femoral tibial joint, with a [id number] appearance. There is periarticular spurring and subchondral cyst formation. There is flattening of the tibial spines. There is varus angulation at the knee. No joint effusion is seen. SOFT TISSUE: Normal. IMPRESSION: Nondisplaced patellar fracture may remains visible. Severe degenerative changes of the medial femoral tibial joint. DATA REPOSITORY: RADIATION DOSE DELIVERED:
== END 2025-09-12 14:51 | disposition home or self-care (01) ==
LOC: DIORS 14:50
PROVIDERS: PCP Nurse Practitioner Family; Referring Provider Nurse Practitioner Family; Visit Provider Student in an Organized Health Care Education/Training Program
DX: M17.11 Unilateral primary osteoarthritis, right knee (principal); S82.001D Unspecified fracture of right patella, subsequent encounter for closed fracture with routine healing; S62.632D Displaced fracture of distal phalanx of right middle finger, subsequent encounter for fracture with routine healing; W19.XXXD Unspecified fall, subsequent encounter
CPT/HCPCS: 99213; 73560

== ENCOUNTER 2025-09-12 16:59 | Outpatient (REF) | payer MEDICARE, OTHER, SELFPAY ==
[2025-09-12 18:00] LABS: Glucose Negative (Negative)
[2025-09-12 18:21] LABS: C & S Indicated? Yes; RBC 0-2 HPF (0-2); WBC 20-50 HPF (0-5)
== END 2025-09-12 17:00 | disposition home or self-care (01) ==
LOC: LBN 16:59
PROVIDERS: PCP Nurse Practitioner Family; Visit Provider Nurse Practitioner Family
DX: R31.9 Hematuria, unspecified (principal)
CPT/HCPCS: 87077; 81003; 81015; 87086; 87186

== ENCOUNTER → 2025-09-23 12:52 | Outpatient (BNVA) | payer MEDICARE, OTHER, SELFPAY | PROVIDERS: PCP Nurse Practitioner Family; Referring Provider Nurse Practitioner Family; Visit Provider Student in an Organized Health Care Education/Training Program | DX: K21.9 Gastro-esophageal reflux disease without esophagitis (principal); R13.10 Dysphagia, unspecified | CPT/HCPCS: 99213 ==

== ENCOUNTER 2025-10-02 07:15 | Day surgery (SDC) | payer MEDICARE, OTHER, SELFPAY ==
[2025-10-02 07:47] VITALS: BP 131/65; PULSE 67; RESP 16; TEMP 36.8; O2SAT 95
--- NOTE | 2025-10-02 08:04 | ANES.PREOP_ITS ---
General Info Date of Service Date Performed: 10/02/25 Height: 5 ft 3 in Weight: 76.9 kg Body Mass Index (BMI): 30.0 Surgical Procedure: Operation Date: 10/02/25 08:50 Proposed Procedure Side Surgeon p Gastroscopy Namrata England MD Meds Allergies and Home Medications Allergies Allergy/AdvReac Type Severity Reaction Status Date / Time Sulfa (Sulfonamide Allergy Hives Verified 10/02/25 07:38 Antibiotics) Home Medication ?Medication ?Instructions ?Recorded cholecalciferol (vitamin D3) 125 125 mcg PO DAILY 06/01 04/20 mcg (5,000 unit) capsule krill oil 500 mg capsule 500 mg PO DAILY 06/25/21 fluticasone propionate 50 1 spray intranasal BID PRN n beverly 08/12/22 mcg/actuation nasal congestion #16 grams spray,suspension denosumab 60 mg/mL subcutaneous 60 mg subcut [id number] To be 04/05/24 syringe ([employer]) administered at infusion stefano ter #1 mL letrozole 2.5 mg tablet 2.5 mg PO DAILY 07/04/24 diclofenac sodium 1 % topical gel See Rx Instructions .Route 11/27/24 .COMPLEX #100 grams metronidazole 1 % topical gel 1 applic topical QHS #60 grams 11/27/24 (Metrogel) duloxetine 60 mg capsule,delayed 60 mg PO DAILY #90 ca ps 02/21/25 release bupropion HCl 100 mg tablet,12 hr 100 mg PO BID #180 t abs 03/01/25 sustained-release pregabalin 200 mg capsule 200 mg PO BID #180 caps 12/25 levothyroxine 88 mcg tablet 88 mcg PO HS 04/03/25 rosuvastatin 10 mg tablet 10 mg PO HS 04/03/25 alprazolam 0.5 mg tablet 0.5 mg PO DAILY PRN anxiety #10 04/04/25 tabs acetaminophen 500 mg tablet 1,000 mg (2 x 500 mg) PO Q 8H PRN 04/08/25 pain #90 tabs chlorhexidine gluconate 0.12 % 15 ml mucous membrane B ID #300 mL 05/22/25 mouthwash celecoxib 200 mg capsule 200 mg PO BID PRN pain #60 c aps 06/18/25 albuterol sulfate 90 mcg/actuation 2 puff inhalation Q 6H PRN 07/09/25 aerosol inhaler shortness of breath or wheez ing #6.7 grams ipratropium bromide 42 mcg (0.06 2 spray intranasal TI D-QID PRN 07/09/25 %) nasal spray allergy symptoms #15 mL ferrous sulfate 325 mg (65 mg 325 mg PO BID #180 tabs 08/22/25 iron) tablet clotrimazole 1 % topical cream 1 applic topical BID #4 5 grams 08/26/25 pantoprazole 40 mg tablet,delayed 40 mg PO DAILY #7 ta bs 09/11/25 release Current Visit Medications: Current Medications Generic Name Dose Route Start Last Admin Trade Name Freq PRN Reason Stop Dose Admin Ringer's Solution 1,000 mls @ 80 mls/hr 10/02/25 06:00 IV 10/02/25 23:59 INFUSION ROSE Sodium Chloride 0 ml 10/02/25 06:00 Normal Saline Flush 10 Ml Syr IV 10/02/25 23:59 PRN PRN Sodium Chloride 0 ml 10/02/25 06:00 Normal Saline 10 Ml Vial IJ 10/02/25 23:59 DIRECTED PRN Sterile Water 0 ml 10/02/25 06:00 Water,Injection,Sterile 10 Ml Vial IJ 10/02/25 23:59 DIRECTED PRN PFSH Active Problems Active Problems: Problem Status Onset Code Mallet deformity of right middle finger Acute 06/19/25 M20.011 History of total right hip replacement Acute 04/05/25 Z96.641 Blood loss anemia Acute D50.0 Dysphagia Acute R13.10 COPD exacerbation Acute J44.1 Peripheral neuropathy Acute G62.9 Invasive ductal carcinoma of breast Acute C50.919 Abnormal mammogram of right breast Acute R92.8 Allergic rhinitis Acute J30.9 Rosacea Acute L71.9 Recurrent urinary tract infection Acute N39.0 Cough Acute R05.9 Osteoporosis Chronic M81.0 Arthritis of right shoulder region Acute M19.011 Arthritis of left shoulder region Acute M19.012 Chronic anemia Acute D64.9 Chronic kidney disease, stage 3 Acute N18.30 Bilateral lower extremity edema Acute R60.0 Family history of colon cancer Acute Z80.0 Vitamin D deficiency Acute E55.9 Osteoarthritis of hips, bilateral Acute M16.0 DDD (degenerative disc disease), lumbar Acute M51.36 Polyneuropathy in diabetes Acute E11.42 Stricture of female urethra Acute N35.92 Diabetes Chronic E11.9 Hiatal hernia Chronic K44.9 Arthralgia Acute M25.50 COPD (chronic obstructive pulmonary disease) Chronic J44.9 Hyperlipidemia Acute E78.5 Hypothyroidism (acquired) Acute E03.9 GERD (gastroesophageal reflux disease) Chronic K21.9 Depression with anxiety Acute F41.8 Medical History Medical History Breast cancer right Pyelonephritis of right kidney Right flank pain Screening for colon cancer (~07/02/22) Anxiety Congestion of right ear Left shoulder pain Immunization due Immunization counseling Morbid obesity Dyslipidemia History of fracture of hand left Impacted cerumen of left ear Sepsis due to pneumonia Medical History Comments:: Delayed emergence? Surgical History Surgical History History of mastectomy Bilat History of endoscopy History of shoulder surgery left History of colonoscopy with polypectomy (~07/02/22) hyperplstic, PRN colonoscopy Hx of fusion of cervical spine stenosis- C5-7 History of meatotomy of urethra S/P ORIF (open reduction internal fixation) fracture Left femur shaft S/P total knee arthroplasty Left History of total hip arthroplasty Left Status post appendectomy History of tonsillectomy and adenoidectomy Tobacco Smoking/Tobacco Use Status: Former Tobacco Use Passive smoking exposure: No Second hand exposure: No Alcohol Alcohol Intake: current Alcohol intake frequency: a few times a month Alcohol type: beer, wine and hard liquor Substance Use Substance use: Never Substance use type: does not use Counseling provided: none Vital Signs and Lab Results Vital Signs Most Recent Vital Signs in EMR: Most Recent Vital Signs Temp Pulse Resp BP Pulse Ox 36.8 C 67 16 131/65 95 10/02/25 07:47 10/02/25 07:47 10/02/25 07:47 10/02/25 07:47 10/02/25 07:47 Lab Results Complete Metabolic Panel: Hemoglobin A1c, (4.5-5.7) 5.7 % 09/06/25, 11:2 0 Imaging and Studies Imaging and Studies Study information below may be from another EMR and interpreted by another provider. Please see original notes in EMR for more complete details. EKG Summary: DATE/TIME OF SERVICE: 02/26/22 1636 : 1945PERFORMING LOCATION: ER APPROVED REPORT Exam: Resting ECG Reason for Exam: nausea Patient Location: E HR:71 bpm ECG Measurements Heart Rate 71 AXIS PA 163 P 54 QRSd 106 QRS -35 QT 429 T62 QTc 467 Conclusion Sinus rhythm...normal P axis, V-rate 60- 99 Left axis deviation...QRS axis (-30,-90) Echocardiogram Summary: Date of Exam: 07/07/21Sex: F Admission Date: 07/03/21 : 1945 Age: 75 APPROVED REPORT EXAM: Comprehensive 2D, Doppler, and color-flow Echocardiogram Patient Location: In-Patient Room/Bed: [facility] Primary Education Professor: Deborah Ray RDCS (AE) Indications: CHF, COPD Other Information Study Quality: Adequate Conclusion Normal left ventricular wall thickness and chamber size. Estimated ejection fraction is 60%. Wall motion is normal Normal right ventricular size and systolic function Both atria are normal in size Trileaflet aortic valve with trace regurgitation Normal mitral valve with trace regurgitation Normal tricuspid valve with trace regurgitation Normal pulmonic valve with trace regurgitation Mildly dilated ascending aorta, 3.5 cm Anesthesia Assessment and Plan Anesthesia History Personal History: Delayed Emergence and Other Family History: No Family History of Anesthesia Complications Exercise Tolerance Exercise Tolerance: Metabolic Equivalents<4 Pertinent Negatives Pertinent Negatives: No Major Cardiovascular Symptoms or Complaints and No Major Pulmonary Symptoms or Complaints Cardiac & Pulmonary Exam Cardiac Exam: Normal S1/S2 Heart Sounds Pulmonary Exam: Clear Bilateral Breath Sounds Implantable Cardiac Device Does patient have a Pacemaker or an ICD?: No Airway Exam Known Difficult Airway: No Mallampati Class: 1 Mouth Opening: Normal (> 3cm) Thyromental Distance: Greater than 3 cm Neck Range of Motion: Full ROM Neck Circumference: Normal Teeth Condition: Generalized Poor Dentition (many missing, none loose per pt) ASA Classification ASA Score: ASA 3 Emergency Case?: No NPO Status NPO Status: NPO Clears >2 hours, Solids >8 hours Anesthesia Plan Resuscitation Status: Full Code Anesthesia Technique: General Anesthesia Airway Planned: Natural Airway Monitors Used: Standard Monitors
[2025-10-02] MEDS: Lactated Ringers 1,000 ML 80 ML IV (08:23)
--- NOTE | 2025-10-02 08:31 | STOM_PTH ---
PATIENT: Tasia Ott LOC: [facility] U#:[id number] AGE/SX: 80/F ROOM: RE10/02/[address]: Namrata England : 1945 BED: DIS: 10/02/2025 SPEC #: [id number] RECD: 10/02/25 13:00 STATUS: JJ MAXWELL #: [id number] MIRLANDE: 10/02/25 08:[address]: Namrata England DEPT: Surgical Specimen RECD BY: Aretha Swenson ENTERED: 10/02/25 13:00 SP TYPE: STOMACH OTHR DR: Lennox Royal DNP Tissues: 1 - STOMACH BIOPSY 2 - ESOPHAGUS BIOPSY Procedures: GROSS AND MICRO LEVEL 4 Comments: [id number]
[2025-10-02 08:42] VITALS: BP 94/60; PULSE 66; RESP 16; TEMP 36.4; O2SAT 96
--- NOTE | 2025-10-02 08:43 | W.PM.DSUDISC ---
Date of service: 10/02/25 Discharge Plan Disposition Patient Disposition: Home Condition: Good Discharge Details Reason For Visit: Dysphagia, GERD Attending Provider: Namrata England Primary Care Provider: Lennox Olsen Recommendations for Follow Up Recommended tests to be ordered by follow up provider: Follow up pathology Home Meds and New Rx's Prescriptions: Continued krill oil 500 mg capsule 500 mg PO DAILY cholecalciferol (vitamin D3) 125 mcg (5,000 unit) capsule 125 mcg PO DAILY fluticasone propionate 50 mcg/actuation spray,suspension 1 spray intranasal BID PRN (Reason: nasal congestion) Qty: 16 4RF Rx Instructions: administer into each nostril diclofenac sodium 1 % gel See Rx Instructions .ROUTE .COMPLEX Qty: 100 12RF Dose Instruction: APPLY 4 GRAM TOPICALLY FOUR TIMES A DAY NEEDED FOR PAIN, APPLY TOPICALLY TO AFFECTED AREA Rx Instructions: APPLY 4 GRAM TOPICALLY FOUR TIMES A DAY NEEDED FOR PAIN, APPLY TOPICALLY TO AFFECTED AREA metronidazole [Metrogel] 1 % gel 1 applic topical QHS Qty: 60 0RF chlorhexidine gluconate 0.12 % mouthwash 15 ml mucous membrane BID Qty: 300 0RF Prolia 60 mg/mL syringe 60 mg subcut [id number] Qty: 1 1RF pregabalin 200 mg capsule 200 mg PO BID Qty: 180 1RF bupropion HCl 100 mg tablet sustained-release 12 hr 100 mg PO BID Qty: 180 3RF ipratropium bromide 42 mcg (0.06 %) spray,non-aerosol 2 spray intranasal TID-QID PRN (Reason: allergy symptoms) Qty: 15 12RF Rx Instructions: administer into each nostril albuterol sulfate 90 mcg/actuation HFA aerosol inhaler 2 puff inhalation Q6H PRN (Reason: shortness of breath or wheezing) Qty: 6.7 0RF pantoprazole 40 mg tablet,delayed release (DR/EC) 40 mg PO DAILY Qty: 7 0RF Rx Instructions: awaiting mail order supply, out of medication currently clotrimazole 1 % cream 1 applic topical BID Qty: 45 0RF duloxetine 60 mg capsule,delayed release(DR/EC) 60 mg PO DAILY Qty: 90 3RF alprazolam 0.5 mg tablet 0.5 mg PO DAILY PRN (Reason: anxiety) Qty: 10 0RF Rx Instructions: Use sparingly celecoxib 200 mg capsule 200 mg PO BID PRN (Reason: pain) Qty: 60 1RF ferrous sulfate 325 mg (65 mg iron) tablet 325 mg PO BID Qty: 180 4RF Rx Instructions: Take 1 tablet twice a day with your vitamin c letrozole 2.5 mg tablet 2.5 mg PO DAILY Patient Comments: TAKE ONE TABLET BY MOUTH EVERY DAY levothyroxine 88 mcg tablet 88 mcg PO HS rosuvastatin 10 mg tablet 10 mg PO HS acetaminophen 500 mg tablet 1,000 mg PO Q8H PRN (Reason: pain) Qty: 90 3RF Discharge Instructions Additional Instructions: Your procedure went well today. You do have a hiatal hernia or a small amount of stomach that is in the chest. You also had some irritation and inflammation of the distal esophagus which was biopsied. I was unable to proceed into the small intestine because of food in the stomach. We will contact you once the pathology results return. If you have any questions or concerns please contact the general surgery office. 1. If tolerated, consume a soft diet for 1-2 days. [address] Do not drive, drink alcohol, operate machinery, make critical decisions, or do activities that require coordination or balance for 24 hours. 3. Go directly to the emergency room if you notice any of the following: Develop chills (warm to touch), or if you have a thermometer and your temperature is above 101 Difficulty breathing or difficultly swallowing Persistent vomiting Severe abdominal pain, other than gas cramps Severe chest pain Black, tarry stools Any bleeding ? exceeding one tablespoon 4. Call your physician if the site where your intravenous was started becomes red, swollen, painful, and warm to touch. 5. Your physician has reviewed your pre-procedure medications. Please continue to take those medications as previously ordered. You will be given specific information/education regarding any changes to your medications before leaving. Stand Alone Forms: Portal Information Activity:: Activity as Tolerated Diet:: As Tolerated Discharge Orders Discharge Orders: Discharge Order (Routine); Ordered 10/02/25 Ordered By: Namrata England
--- NOTE | 2025-10-02 08:47 | W.PM.ENDDOP ---
Date of service: 10/02/25 Time of Service: 08:49 Endoscopy Report DATE OF PROCEDURE: 10/02/25 PRE-OP DIAGNOSIS: Dysphagia, Reflux POST-OP DIAGNOSIS: other (Same, hiatal hernia, irregular GE junction with esophagitis) PROCEDURE: Upper endoscopy with biopsy SURGEON: Namrata England ANESTHESIA TYPE: General:No Airway ESTIMATED BLOOD LOSS: 2 PATHOLOGY: other (Gastric biopsy, GE junction biopsy ) COMPLICATIONS: None DISPOSITION: PACU INDICATIONS: Patient is a 80-year-old female who presented to the clinic for evaluation of dysphagia and reflux. Given these findings an upper endoscopy was recommended for further evaluation. FINDINGS: Large amount of food in the stomach precluding advancement to the duodenum. Gastric biopsy performed. Small hiatal hernia. The GE junction was irregular with associated inflammation and esophagitis. A cold forceps biopsy of the GE junction was also performed. PROCEDURE DESCRIPTION: After adequate sedation, the upper endoscope was inserted and advanced in the duodenum under direct visualization. The scope was withdrawn and the mucosa inspected. The stomach had a large amount of food product and this precluded advancement to the duodenum. The visualized portion of the stomach was normal with no evidence of ulcerations or erosions. A gastric biopsy was performed with cold forceps. Reflection in the stomach showed a small hiatal hernia. The GE junction appeared irregular with associated inflammation and esophagitis. A cold forcep biopsy was performed at the GE junction. Remainder of the esophagus appeared normal without strictures. The patient tolerated the procedure well with no immediate complications.
--- NOTE | 2025-10-02 08:54 | W.ANESPOSTOP ---
Postoperative Evaluation Date, Time and Location Date Performed: 10/02/25 Time Performed: 08:42 Patient Location: Day Surgery Unit Vital Signs Most Recent Imported Vital Signs: Most Recent Vital Signs Temp Pulse Resp BP Pulse Ox 36.4 C L 66 16 94/60 L 96 10/02/25 08:42 10/02/25 08:42 10/02/25 08:42 10/02/25 08:42 10/02/25 08:42 Pain Score Most Recent Pain Score: Most Recent Pain Score Pain Level 0 10/02/25 08:42 Assessment Mental Status: Awake (Alert & Oriented to Patient Baseline) Airway and Respiratory Function: Patent airway with normal (patient baseline) respiratory exam Cardiovascular Function: Hemodynamically Stable Hydration Status: Adequately Hydrated Nausea & Vomiting: No Nausea or Vomiting Pain: Pt. Denies Any Pain Peripheral Nerve Block: Patient did not receive a nerve block
[2025-10-02 09:10] VITALS: BP 131/63; PULSE 56; RESP 18; TEMP 36.5; O2SAT 97
== END 2025-10-02 09:30 | disposition home or self-care (01) ==
PROVIDERS: PCP Nurse Practitioner Family; Visit Provider Student in an Organized Health Care Education/Training Program
PROC: 0DJ68ZZ Inspection of Stomach, Via Natural or Artificial Opening Endoscopic (ICD-10-PCS; CPT 43235; principal; 2025-10-02 08:45)
DX: R13.10 Dysphagia, unspecified (principal); K21.9 Gastro-esophageal reflux disease without esophagitis; K44.9 Diaphragmatic hernia without obstruction or gangrene; K20.80 Other esophagitis without bleeding; K29.50 Unspecified chronic gastritis without bleeding; K22.89 Other specified disease of esophagus
CPT/HCPCS: 43239; 88305; J2704

== ENCOUNTER 2025-10-10 13:12 | Outpatient (CLI) | payer MEDICARE, OTHER, SELFPAY ==
--- NOTE | 2025-10-10 09:30 | DI.RAD_ITS ---
Exam(s) XR KNEE RT 2V AP,LAT EXAM: XR KNEE RT 2V AP,LAT CLINICAL HISTORY: F/U R PATELLA FX. TECHNIQUE: 2D digital imaging was performed. Three views. COMPARISON: CR XR KNEE RT 4V AP,LAT,JESSENIA,PAT from 08/30/[address] LOWER EXTREMITY RT WO from 08/30/2025 CR XR KNEE RT 2V AP,LAT from 09/12/2025 FINDINGS: BONES: There is a faint lucency visible on the lateral view near the upper pole. There has been continued healing from prior exams. No acute fracture is present. No bony destructive lesion is seen. JOINTS: Severe narrowing of the medial femoral tibial joint is again noted. No joint effusion is seen. SOFT TISSUE: Normal. IMPRESSION: Continued healing of patellar fracture. DATA REPOSITORY: RADIATION DOSE DELIVERED:
== END 2025-10-10 13:13 | disposition home or self-care (01) ==
LOC: DIORS 13:14
PROVIDERS: PCP Nurse Practitioner Family; Visit Provider Physician Assistant
DX: S82.001D Unspecified fracture of right patella, subsequent encounter for closed fracture with routine healing (principal); S62.636D Displaced fracture of distal phalanx of right little finger, subsequent encounter for fracture with routine healing; X58.XXXD Exposure to other specified factors, subsequent encounter
CPT/HCPCS: 99213; 73560

== ENCOUNTER → 2025-10-14 10:36 | Outpatient (BNVA) | payer MEDICARE, OTHER, SELFPAY | PROVIDERS: PCP Nurse Practitioner Family; Referring Provider Nurse Practitioner Family; Visit Provider Student in an Organized Health Care Education/Training Program | DX: Z51.89 Encounter for other specified aftercare (principal); K21.9 Gastro-esophageal reflux disease without esophagitis; R13.10 Dysphagia, unspecified; K22.10 Ulcer of esophagus without bleeding | CPT/HCPCS: 99213 ==

== ENCOUNTER 2025-10-28 18:20 | Emergency (ER) | payer MEDICARE, OTHER, SELFPAY ==
[2025-10-28] VITALS (21 sets, daily range): BP systolic 104–127; BP diastolic 42–68; PULSE 78–99; RESP 14–22; TEMP 36.6–37.1; O2SAT 89–95
--- NOTE | 2025-10-28 18:15 | DI.RAD_ITS ---
Exam(s) XR CHEST 2V PA LATERAL EXAM: XR CHEST 2V PA LATERAL CLINICAL HISTORY: cough, wheeze TECHNIQUE: 2D digital imaging was performed. Two views. COMPARISON: CR XR CHEST 2V PA LATERAL from 11/27/2024 FINDINGS: HEART: Normal size. Aorta: Not dilated. Calcification at the arch. PULMONARY VASCULATURE: Normal. MEDIASTINUM: Unremarkable. LUNGS: Clear. PLEURAL SPACE: No pleural effusion or pneumothorax. BONE:Severe degenerative changes of the shoulders and thoracic spine. Lower cervical spine hardware SOFT TISSUES: Unremarkable. IMPRESSION: No acute abnormality. DATA REPOSITORY: RADIATION DOSE DELIVERED:
--- NOTE | 2025-10-28 18:26 | ED.GENADUL_ITS ---
Discharge Plan Disposition Patient Disposition: Home Condition: Good Discharge Details Clinical Impression: Acute exacerbation of chronic obstructive pulmonary disease, Hypokalemia Primary Care Provider: Lennox Olsen ED Provider: Phoebe Moulton Home Meds and New Rx's Prescriptions: New amoxicillin-pot clavulanate 875-125 mg tablet 1 tab PO BID Qty: 6 0RF prednisone 20 mg tablet 40 mg PO DAILY 4 Days Qty: 8 0RF Continued krill oil 500 mg capsule 500 mg PO DAILY cholecalciferol (vitamin D3) 125 mcg (5,000 unit) capsule 125 mcg PO DAILY fluticasone propionate 50 mcg/actuation spray,suspension 1 spray intranasal BID PRN (Reason: nasal congestion) Qty: 16 4RF Rx Instructions: administer into each nostril diclofenac sodium 1 % gel See Rx Instructions .ROUTE .COMPLEX Qty: 100 12RF Dose Instruction: APPLY 4 GRAM TOPICALLY FOUR TIMES A DAY NEEDED FOR PAIN, APPLY TOPICALLY TO AFFECTED AREA Rx Instructions: APPLY 4 GRAM TOPICALLY FOUR TIMES A DAY NEEDED FOR PAIN, APPLY TOPICALLY TO AFFECTED AREA metronidazole [Metrogel] 1 % gel 1 applic topical QHS Qty: 60 0RF chlorhexidine gluconate 0.12 % mouthwash 15 ml mucous membrane BID Qty: 300 0RF Prolia 60 mg/mL syringe 60 mg subcut [id number] Qty: 1 1RF pregabalin 200 mg capsule 200 mg PO BID Qty: 180 1RF bupropion HCl 100 mg tablet sustained-release 12 hr 100 mg PO BID Qty: 180 3RF ipratropium bromide 42 mcg (0.06 %) spray,non-aerosol 2 spray intranasal TID-QID PRN (Reason: allergy symptoms) Qty: 15 12RF Rx Instructions: administer into each nostril albuterol sulfate 90 mcg/actuation HFA aerosol inhaler 2 puff inhalation Q6H PRN (Reason: shortness of breath or wheezing) Qty: 6.7 0RF clotrimazole 1 % cream 1 applic topical BID Qty: 45 0RF celecoxib 200 mg capsule 200 mg PO BID PRN (Reason: pain) Qty: 60 1RF pantoprazole 40 mg tablet,delayed release (DR/EC) 40 mg PO BID 90 Days Qty: 180 0RF duloxetine 60 mg capsule,delayed release(DR/EC) 60 mg PO DAILY Qty: 90 3RF alprazolam 0.5 mg tablet 0.5 mg PO DAILY PRN (Reason: anxiety) Qty: 10 0RF Rx Instructions: Use sparingly ferrous sulfate 325 mg (65 mg iron) tablet 325 mg PO BID Qty: 180 4RF Rx Instructions: Take 1 tablet twice a day with your vitamin c letrozole 2.5 mg tablet 2.5 mg PO DAILY Patient Comments: TAKE ONE TABLET BY MOUTH EVERY DAY levothyroxine 88 mcg tablet 88 mcg PO HS rosuvastatin 10 mg tablet 10 mg PO HS acetaminophen 500 mg tablet 1,000 mg PO Q8H PRN (Reason: pain) Qty: 90 3RF Discharge Instructions Additional Instructions: Please call your primary care provider first thing in the morning to schedule follow-up appointment for reassessment within the week. Your potassium today was slightly low. I recommend that you increase your consumption of potassium rich foods such as bananas, oranges, and potatoes. Your workup today was reassuring. Your symptoms are likely due to a COPD exacerbation triggered by a viral illness. I recommend that you continue to use your albuterol inhaler with spacer 2 puffs every 4 hours as needed. You are also being prescribed a steroid called prednisone and antibiotic called Augmentin. Please take the full course as prescribed. I recommend taking with a probiotic or yogurt to help prevent antibiotic associated diarrhea. I recommend that you use a coolmist humidifier at bedside, saline nasal spray, and stay well hydrated to help mobilize mucus. Be sure to take deep breaths to help expand your lungs and prevent pneumonia. Return to emergency care if developing chest pains, difficulty breathing, episodes of feeling like you going to pass out, worsening symptoms despite treatment, or if you are very worried and need to be rechecked again im mediately. Stand Alone Forms: Portal Information Referrals: Lennox Olsen NP [Primary Care Provider, Medicine] HPI General Date/Time Provider Initiated Documentation: 10/28/25 18:21 . HPI Narrative: Tasia is a 80-year-old female with history of T2DM, GERD, COPD, HLD, hypothyroidism, and CKD stage III who presents to the emergency department today from [facility] for evaluation of fever and cough. She reports she started with symptoms on 10/25, including generalized weakness, intermittent sinus headaches, congestion, and worsening cough productive of yellow sputum accompanied by wheezing. Has had fever up to 102 degrees temporal. Denies ear pain, sore throat, chest pain, nausea/vomiting, abdominal pain, change in bowel or bladder function. She was found to have O2 sat 89% on RA (up to mid 90s on 2L NC), received a duo neb at [facility] and was transferred to ED via EMS, satting mid 90s on room air upon arrival. Related Data Home Medications ?Medication ?Instructions ?Recorded ?Confirmed cholecalciferol (vitamin D3) 125 125 mcg PO DAILY 06/0110/28/25 mcg (5,000 unit) capsule krill oil 500 mg capsule 500 mg PO DAILY 06/25/21 fluticasone propionate 50 1 spray intranasal BID PRN n beverly 08/12/22 10/28/25 mcg/actuation nasal congestion #16 grams spray,suspension denosumab 60 mg/mL subcutaneous 60 mg subcut [id number] To be 04/05/24 10/28/25 syringe (Briggo) administered at infusion stef[address] #1 mL letrozole 2.5 mg tablet 2.5 mg PO DAILY 07/04/24 diclofenac sodium 1 % topical gel See Rx Instructions .Route 11/27/24 10/28/25 .COMPLEX #100 grams metronidazole 1 % topical gel 1 applic topical QHS #60 grams 11/27/24 10/28/25 (Metrogel) duloxetine 60 mg capsule,delayed 60 mg PO DAILY #90 ca ps 02/21/25 10/28/25 release bupropion HCl 100 mg tablet,12 hr 100 mg PO BID #180 t abs 03/01/25 10/28/25 sustained-release pregabalin 200 mg capsule 200 mg PO BID #180 caps 12/2510/28/25 levothyroxine 88 mcg tablet 88 mcg PO HS 04/03/2510/01 rosuvastatin 10 mg tablet 10 mg PO HS 04/03/25 5 alprazolam 0.5 mg tablet 0.5 mg PO DAILY PRN anxiety #10 04/04/25 10/28/25 tabs acetaminophen 500 mg tablet 1,000 mg (2 x 500 mg) PO Q 8H PRN 04/08/25 10/28/25 pain #90 tabs chlorhexidine gluconate 0.12 % 15 ml mucous membrane B ID #300 mL 05/22/25 10/28/25 mouthwash albuterol sulfate 90 mcg/actuation 2 puff inhalation Q 6H PRN 07/09/25 10/28/25 aerosol inhaler shortness of breath or wheez ing #6.7 grams ipratropium bromide 42 mcg (0.06 2 spray intranasal TI D-QID PRN 07/09/25 10/28/25 %) nasal spray allergy symptoms #15 mL ferrous sulfate 325 mg (65 mg 325 mg PO BID #180 tabs 08/22/25 10/28/25 iron) tablet clotrimazole 1 % topical cream 1 applic topical BID #4 5 grams 08/26/25 10/28/25 celecoxib 200 mg capsule 200 mg PO BID PRN pain #60 c aps 10/10/25 10/28/25 pantoprazole 40 mg tablet,delayed 40 mg PO BID 3 month s #180 tabs 10/14/25 10/28/25 release amoxicillin 875 mg-potassium 1 tab PO BID #6 tabs 10/01 07/25 clavulanate 125 mg tablet prednisone 20 mg tablet 40 mg (2 x 20 mg) PO DAILY 4 days 10/28/25 #8 tabs Previous Rx's ?Medication ?Instructions ?Recorded fluticasone propionate 50 1 spray intranasal BID PRN n beverly 08/12/22 mcg/actuation nasal congestion #16 grams spray,suspension denosumab 60 mg/mL subcutaneous 60 mg subcut [id number] To be 04/05/24 syringe (Prolia) administered at infusion stefano ter #1 mL diclofenac sodium 1 % topical gel See Rx Instructions .Route 11/27/24 .COMPLEX #100 grams metronidazole 1 % topical gel 1 applic topical QHS #60 grams 11/27/24 (Metrogel) duloxetine 60 mg capsule,delayed 60 mg PO DAILY #90 ca ps 02/21/25 release bupropion HCl 100 mg tablet,12 hr 100 mg PO BID #180 t abs 03/01/25 sustained-release pregabalin 200 mg capsule 200 mg PO BID #180 caps 05/0 12/25 alprazolam 0.5 mg tablet 0.5 mg PO DAILY PRN anxiety #10 04/04/25 tabs acetaminophen 500 mg tablet 1,000 mg (2 x 500 mg) PO Q 8H PRN 04/08/25 pain #90 tabs chlorhexidine gluconate 0.12 % 15 ml mucous membrane B ID #300 mL 05/22/25 mouthwash albuterol sulfate 90 mcg/actuation 2 puff inhalation Q 6H PRN 07/09/25 aerosol inhaler shortness of breath or wheez ing #6.7 grams ipratropium bromide 42 mcg (0.06 2 spray intranasal TI D-QID PRN 07/09/25 %) nasal spray allergy symptoms #15 mL ferrous sulfate 325 mg (65 mg 325 mg PO BID #180 tabs 08/22/25 iron) tablet clotrimazole 1 % topical cream 1 applic topical BID #4 5 grams 08/26/25 celecoxib 200 mg capsule 200 mg PO BID PRN pain #60 c aps 10/10/25 pantoprazole 40 mg tablet,delayed 40 mg PO BID 3 month s #180 tabs 10/14/25 release amoxicillin 875 mg-potassium 1 tab PO BID #6 tabs 10/01 07/25 clavulanate 125 mg tablet prednisone 20 mg tablet 40 mg (2 x 20 mg) PO DAILY 4 days 10/28/25 #8 tabs Allergies Allergy/AdvReac Type Severity Reaction Status Date / Time Sulfa (Sulfonamide Allergy Hives Verified 10/28/25 18:29 Antibiotics) General FELIX: 4 Exam Const General: cooperative, comfortable and well developed Nutritional Appearance: average body habitus Orientation: alert and oriented x3 HENMT Head: normal to inspection Ears: hearing grossly normal bilaterally General nose exam: external nose normal Face and sinus: normal facial exam Mouth: oral mucosae normal and moist mucous membranes Resp Effort & Inspection: normal respiratory effort and cough Auscultation: diminished lung sounds Cardio Rate: regular rate GI Inspection: normal to inspection, no edema and non-distended Palpation: soft and nontender Skin General skin exam: no rashes or lesions noted Trauma: no lacerations or abrasions Extrem General: normal to inspection, no clubbing, cyanosis or edema and no pedal edema Medical Decision Making Tasia is a 80-year-old female with history of T2DM, GERD, COPD, HLD, hypothyroidism, and CKD stage III who presents to the emergency department today from [facility] care for evaluation of fever and cough. She reports she started with symptoms on 10/25, including generalized weakness, intermittent sinus headaches, congestion, and worsening cough productive of yellow sputum accompanied by wheezing. Has had fever up to 102 degrees temporal. Denies ear pain, sore throat, chest pain, nausea/vomiting, abdominal pain, change in bowel or bladder function. She was found to have O2 sat 89% on RA (up to mid 90s on 2L NC), received a duo neb at [facility] and was transferred to ED via EMS, satting mid 90s on room air upon arrival. Physical exam remarkable for frequent cough productive of yellow mucus. Easy work of breathing, diminished lung sounds throughout. Normal heart sounds, regular rate and rhythm. Abdomen soft, nondistended, nontender to palpation. Moist mucous membranes. No calf swelling/tenderness/erythema or pedal edema. DDx includes was not limited to: COPD exacerbation, pneumonia, viral illness such as COVID-19 or influenza, postnasal drip. No red flags concerning for ACS; patient does not meet SIRS criteria. I independently interpreted the following tests: No acute abnormality noted on chest x-ray, this was confirmed by V rad. CBC, VBG, CMP, BUN, COVID/flu/RSV negative. While in the emergency department Tasia received a DuoNeb with good improvement of symptoms, cough has largely improved. O2 saturation on room air remains 90 to 93%. Overall workup today reassuring. History and presentation most consistent with COPD exacerbation, likely triggered by viral illness. Will treat with antibiotics due to presence of purulent sputum and increased cough, as well as steroids. Tasia reports that she does have an inhaler at home that she knows how to use and can use it, recently reviewed use with her home health aide. Reviewed discharge instructions with patient, including treatment regimen, importance of follow-up with PCP, and red flags indicating need for return to emergency care. She voices agreement plan of care. Imaging Data Radiologic Study: Radiologist's impression: PROCEDURE INFORMATION: Exam: XR Chest Exam date and time: 10/28/2025 7:24 PM Age: 80 years old Clinical indication: Cough and wheezing; Additional info: Cough, wheeze TECHNIQUE: Imaging protocol: Radiologic exam of the chest. Views: 2 views. COMPARISON: CR XR CHEST 2V PA LATERAL 11/27/2024 1:26 PM FINDINGS: Lungs: No pulmonary consolidation is seen. Pleural spaces: No pleural effusion or pneumothorax is demonstrated. Heart/Mediastinum: The heart appears normal in size. Vasculature: Atherosclerotic calcification is noted at the apex of the aortic arch. Bones/joints: Lower anterior cervical fixation hardware is partially visualized. There is severe degenerative change at the left glenohumeral joint with complete loss of the joint space and large marginal osteophytes. There is moderate degenerative change at the right glenohumeral joint. There is prominent degenerative change at the left acromioclavicular joint. There is spinal degenerative change with anterior osteophytes demonstrat ed at multiple levels on the lateral view. IMPRESSION: No active disease is seen in the chest. Quality:SDOH Health Related Social Needs: Health related social needs house/econ circumstance [facility]/isolated Health related social needs details pt will need HH an d PT after s/p hip surgery- wants outpatient 04/06/25 PFSH All Active Problems (Updated 10/28/25 @ 20:11 by Phoebe Oneill) Hypokalemia (Acute) Acute exacerbation of chronic obstructive pulmonary disease (Acute) Esophageal ulcer (Acute) Fracture of distal phalanx of right little finger (Acute 08/30/25) Right patella fracture (Acute 08/30/25) Mallet deformity of right middle finger (Acute 06/19/25) History of total right hip replacement (Acute 04/05/25) Blood loss anemia (Acute) Dysphagia (Acute) COPD exacerbation (Acute) Peripheral neuropathy (Acute) Invasive ductal carcinoma of breast (Acute) Abnormal mammogram of right breast (Acute) with maddie involvement Allergic rhinitis (Acute) Rosacea (Acute) Recurrent urinary tract infection (Acute) Cough (Acute) Osteoporosis (Chronic) 12/2021-DEXA scan at [facility] , -2.6t score at hip, prolia Arthritis of right shoulder region (Acute) Arthritis of left shoulder region (Acute 08/30/25) Chronic anemia (Acute) Chronic kidney disease, stage 3 (Acute) Bilateral lower extremity edema (Acute) Family history of colon cancer (Acute) Vitamin D deficiency (Acute) Osteoarthritis of hips, bilateral (Acute) DDD (degenerative disc disease), lumbar (Acute) Polyneuropathy in diabetes (Acute) Stricture of female urethra (Acute) Diabetes (Chronic) Hiatal hernia (Chronic) Arthralgia (Acute) COPD (chronic obstructive pulmonary disease) (Chronic) Hyperlipidemia (Acute) Hypothyroidism (acquired) (Acute) GERD (gastroesophageal reflux disease) (Chronic) Depression with anxiety (Acute) Medical History Breast cancer right Pyelonephritis of right kidney Right flank pain Screening for colon cancer (~07/02/22) Anxiety Congestion of right ear Left shoulder pain Immunization due Immunization counseling Morbid obesity Dyslipidemia History of fracture of hand left Impacted cerumen of left ear Sepsis due to pneumonia Surgical History History of mastectomy Bilat History of endoscopy (~10/02/25) with biopsies History of shoulder surgery left History of colonoscopy with polypectomy (~07/02/22) hyperplstic, PRN colonoscopy Hx of fusion of cervical spine stenosis- C5-7 History of meatotomy of urethra S/P ORIF (open reduction internal fixation) fracture Left femur shaft S/P total knee arthroplasty Left History of total hip arthroplasty Left Status post appendectomy History of tonsillectomy and adenoidectomy Family History Mother , 83 Colon cancer Depression Hyperlipidemia Hypertension Father , 68 Alcohol abuse Hypertension Substance abuse Brother , 77 FH: prostate cancer Daughter No problems noted. Daughter Depression Maternal Grandfather , 62 Prostate cancer Paternal Grandfather , 81 No problems noted. Maternal Grandmother , 77 Heart disease Paternal Grandmother , 59 Hypertension Social History Smoking/Tobacco Use Status: Former Tobacco Use tobacco type: cigarettes Quit Date: 10/31/81 Tobacco: How many years used: 22 Second Hand Exposure: No Smoking risk assessment performed?: Yes Alcohol Intake: current Alcohol Intake frequency: a few times a month Alcohol type: beer, wine and hard liquor Drug use: Never Substance use type: does not use Counseling given: No Counseling provided: none Adopted: No Caregiver/Support person: No Household members: family and other Details: granddaughter Housing: house Communication Needs: None and Corrective Lenses Education Level: college Do you need help understanding health information?: Often Pets and animals: Yes Pets and animals: cat(s) and dog(s) Sexually active: No Do you think of yourself as: straight/heterosexual Current gender identity: female What is your relationship status?: How often do you talk on the phone with friends or family?: once per week How often do you get together with friends or relatives?: once per week How often do you attend sabianism or sikh services?: 1-3 times per year Do you belong to any clubs or organized social groups?: no Panel score (0-1 are the most socially isolated patients): 0 What type of physical activity do you participate in: other Details: PT exercises Duration: 15-30 minutes/day Frequency: 1-2 times per week Dee Dee/Caodaism: Roman Catholic Special dee dee needs: No Agree to transfusion: Yes Seatbelt use: always Helmet use: No Drive intox or ride w/intox motor bus driver: No Working smoke detector in home: Yes Carbon monox detector in home: Yes Firearms in home: No Do you feel safe at home: Yes Do you feel safe in your relationship?: Yes
[2025-10-28 19:07] LABS: Abs Immature Grans 0.01 10^3/uL (0.0-0.06); BE (Venous) 0 mmol/L (-2-3); HCO3 (Venous) 24 mmol/L (23-28); HCT 31.7 % (36.0-46.0); HGB 10.0 g/dL (11.2-15.7); Immature Grans % 0.1 %; MCH 28.7 pg (27.0-33.0); MCHC 31.5 % (32.0-36.0); MCV 91 fL (80-95); MPV 10.0 fL (8.0-11.0); O2 Sat (Venous) 72 %; Platelet Count 310 10^3/uL (130-400); RBC 3.49 10^6/uL (3.93-5.22); RDW 14.8 % (11.7-14.6); RDW-SD 49.8 fL; TCO2 (Venous) 23 mmol/L (24-29); WBC 8.38 10^3/uL (4.4-10.8); pCO2 (Venous) 39 mmHg (41-51); pO2 (Venous) 39 mmHg
[2025-10-28 19:11] LABS: COVID-19 PCR Negative (Negative); RSV PCR Negative (Negative)
[2025-10-28 19:29] LABS: ALT 11 U/L (10-49); AST 16 U/L (<34); Albumin 4.1 g/dL (3.2-5.0); Alkaline Phosphatase 105 U/L (46-116); Anion Gap 12.1 mmol/L (3-11); BUN 19 mg/dL (9-23); Bilirubin, Total 0.7 mg/dL (0.2-1.2); CO2 23.9 mmol/L (20.0-31.0); Calcium 9.0 mg/dL (8.3-10.6); Chloride 106 mmol/L (98-107); Glucose 111 mg/dL (74-106); Potassium 3.3 mmol/L (3.5-5.1); Sodium 142 mmol/L (136-145); Total Protein 7.8 g/dL (5.7-8.2)
[2025-10-28] MEDS: Albuterol/Ipratropium 3 ML UPD VIAL UPD (19:36)
--- NOTE | 2025-10-28 19:49 | DI.VRAD_ITS ---
PROCEDURE INFORMATION: Exam: XR Chest Exam date and time: 10/28/2025 7:24 PM Age: 80 years old Clinical indication: Cough and wheezing; Additional info: Cough, wheeze TECHNIQUE: Imaging protocol: Radiologic exam of the chest. Views: 2 views. COMPARISON: CR XR CHEST 2V PA LATERAL 11/27/2024 1:26 PM FINDINGS: Lungs: No pulmonary consolidation is seen. Pleural spaces: No pleural effusion or pneumothorax is demonstrated. Heart/Mediastinum: The heart appears normal in size. Vasculature: Atherosclerotic calcification is noted at the apex of the aortic arch. Bones/joints: Lower anterior cervical fixation hardware is partially visualized. There is severe degenerative change at the left glenohumeral joint with complete loss of the joint space and large marginal osteophytes. There is moderate degenerative change at the right glenohumeral joint. There is prominent degenerative change at the left acromioclavicular joint. There is spinal degenerative change with anterior osteophytes demonstrated at multiple levels on the lateral view. IMPRESSION: No active disease is seen in the chest. Dictated and Authenticated by: Francisco Javier Herman MD. Orderin Wendy Sandhu MD
[2025-10-28] MEDS: predniSONE 20 MG TAB 40 MG PO (20:33)
[2025-10-28] MEDS: Potassium Chloride 20 MEQ TABCR 40 MEQ PO (20:33)
[2025-10-28] MEDS: Amox. 875/Clav. 125, 2 TABS/BTL 1 TAB PO (20:33)
== END 2025-10-28 22:17 | disposition home or self-care (01) ==
PROVIDERS: Emergency Provider Nurse Practitioner Family; PCP Nurse Practitioner Family
DX: J44.1 Chronic obstructive pulmonary disease with (acute) exacerbation (principal); E87.6 Hypokalemia
CPT/HCPCS: 99284 ×2; 36415; 94640; 80053; 82805; 87637; 71046; 85025; J7512; J7620